=== PATIENT | female | born 1970 | race Caucasian/White ===

== ENCOUNTER 2016-06-21 19:15 | Inpatient (IN) ==
[2016-06-21] MEDS ORDERED: DUONEB (A & A) INH ONE (19:31)
[2016-06-21] MEDS ORDERED: SOLU-MEDROL IV ONE (19:40)
[2016-06-21 19:55] LABS: BE 4.5 mmoll (-3.0-3.0); BLOOD TYPE ARTERIAL; DRAW SITE R BRACHIAL; METHB 1.2 % (0.0-1.5); PCO2(98.6) 43 mmHg (35-45); SAMPLE BLOOD; SAO2 89.7 % (95.0-100.0); THB 12.9 g/dL (11.5-17.4); pH(98.6) 7.44 (7.35-7.45)
[2016-06-21 20:11] LABS: BASO% 0.2 % (0.0-0.8); EOS# 0.01 X1000 (0.0-0.7); EOS% 0.1 % (0.0-10.0); HEMATOCRIT 36.6 % (37.0-47.0); IMM GRAN# 0.03 X1000 (0.0-0.04); IMM GRAN% 0.3 % (0.0-0.5); LYMPH# 1.37 X1000 (1.2-3.4); LYMPH% 13.2 % (20.5-51.1); MANUAL DIFF NEEDED? NO; MCH 29.8 PG (27-31); MCHC 35.5 g/dL (33-37); MCV 83.9 FL (81-99); MONO# 0.98 X1000 (0.11-0.59); MONO% 9.4 % (1.7-9.3); MPV 11.7 FL (7.4-10.4); NEUT% 76.8 % (42.2-75.2); PLT 148 X1000 (130-400); RBC 4.36 XMIL (4.2-5.4)
--- NOTE | 2016-06-21 20:20 | ED EKG INTERP ---
EKG Interpretation - EKG Time of EKG reading by physician:: 19:55 EKG Read and Signed by:: Ehsan Hughes EKG Interpretation (*Must complete 3 of following elements*): Abnormal Rate: 78 Rhythm: NSR Comments: slightly prolonged QT Attestation - Scribe Verification/Attestation Scribe:: Kyle Box Acting as Scribe for:: Ehsan Hughes Scribe documention review:: This chart was documented by a scribe and accurately reflects the service the provider performed and the decisions made by the provider.
[2016-06-21] MEDS ORDERED: TYLENOL PO ONE (20:25)
--- NOTE | 2016-06-21 20:40 | PROVIDER DOCUMENTATION ---
HPI-Respiratory General - History of Present Illness-Resp Quality of Pain: reports: tightness Onset/Duration: reports: 3 days ago Timing: reports: still present, getting worse Current Respiratory Medication Therapy: Initiated albuterol/atrovent inhale Associated Symptoms: reports: cough, shortness of breath, wheezing. denies: fever/chills, flu-like symptoms, nasal drainage Similar Symptoms Previously?: Yes Recently seen or treated by another doctor?: Yes <Kyle Box - Last Filed: 06/21/16 20:35> <Avtar Rangel - Last Filed: 06/21/16 22:17> - General Chief Complaint: Shortness of Breath Stated Complaint: SOB, BODYACHES Time Seen by Provider: 06/21/16 19:36 Allergies/Adverse Reactions: Patient Allergies Allergy/AdvReac Type Severity Reaction Status Date / Time aspirin AdvReac Intermediate reaction Verified 05/02/13 23:12 with stomach ulcers Home Medications: Home Medication List Medication Instructions Recorded Confirmed Last Taken Type LISINOpril [Prinivil] 40 mg PO BID 02/23/12 05/02/13 1 Day Ago History Nebivolol HCl [Bystolic] 10 mg PO DAILY 05/02/13 05/02/13 1 Day Ago History Buprenorphine HCl/Naloxone HCl 8 mg 02/27/16 1 Day Ago History [Suboxone 8 mg/2 mg Sl Film] Clonidine [Catapres] 0.1 mg PO DAILY #30 tablet 02/27/16 06/21/16 Rx Furosemide [Lasix] 40 mg PO DAILY #14 tablet 02/27/16 1 Day Ago Rx - History of Present Illness-Resp Nature of Presenting Problem: 46 y/o F with weakness, wheezing and SOB for 3 days. Pt is a chronic COPD pt smoking nearly 1 ppd. On arrival pt O2 SAT were in the low 80's and immediately put on 2L of O2 and improved to the low 90's/ Pt states she took 3 puffs of her inhaler. (Kyle Box) Review of Systems - Adult - REVIEW OF SYSTEMS - ADULT Constitutional: denies: chills, fever Eyes: reports: no symptoms reported Ears, Nose, Mouth & Throat: reports: no symptoms reported Cardiovascular: reports: no symptoms reported Respiratory: reports: cough, shortness of breath, wheezing Gastrointestinal: denies: abdominal pain, diarrhea, nausea, vomiting Genitourinary: reports: no symptoms reported Musculoskeletal: reports: no symptoms reported Integumentary: reports: no symptoms reported Neurological: reports: no symptoms reported Psychiatric: reports: no symptoms reported Endocrine: reports: no symptoms reported Hematologic/Lymphatic: reports: no symptoms reported Allergic/Immunologic: reports: no symptoms reported All Other Systems: Reviewed and Negative <Kyle Box - Last Filed: 06/21/16 20:35> Past History - Adult - PAST MEDICAL HISTORY-ADULT Review of Records: reports: Old Records Reviewed, Nursing Assessment Review, Medications Reviewed Major Childhood Illnesses: reports: denies history Cardiovascular: reports: HTN Respiratory: reports: asthma, COPD Gastrointestinal: reports: denies history Obstetrical/Gynecological: reports: denies history Genitourinary: reports: denies history Musculoskeletal: reports: chronic pain (back ) Neurological: reports: Seizures/Epilepsy (seizures ) Endocrine/Immune: reports: denies history Other Conditions: reports: denies history - PRIOR SURGERIES/PROCEDURES Surgical/Procedure History: reports: reviewed, not pertinent - IMMUNIZATION STATUS Childhood Immunizations: See Nurse Assessment Flu Vaccine: See Nurse Assessment - FAMILY HISTORY Family History: reviewed, not pertinent - SOCIAL HISTORY Smoking: cigarettes, greater than 1 pack/day Living Situation: family <Kyle Box - Last Filed: 06/21/16 20:35> Physical Exam-General - PHYSICAL EXAM-ADULT Initial Vital Signs Reviewed: Yes - CONSTITUTIONAL General Appearance: appears well, alert - EYES Eyes: PERRL/EOMI, pink conjunctivae - HEAD, EARS, NOSE, MOUTH & THROAT HENMT: moist mucous membranes, normal ENT inspection - NECK Neck: non-tender, full range of motion, supple, normal inspection - RESPIRATORY Respiratory: decreased breath sounds (in all lung cochran), wheezing (all field) - CARDIOVASCULAR Cardiovascular: normal peripheral pulses, regular rate, rhythm - GASTROINTESTINAL (ABDOMEN) Abdominal Exam: normal bowel sounds, non tender, soft - MUSCULOSKELETAL Back Exam: no CVA tenderness, no vertebral tenderness Extremity: normal range of motion, non-tender, normal gait, normal inspection - SKIN Integumentary: normal color, normal turgor, warm/dry - NEUROLOGIC Neurologic: grossly normal, no motor/sensory deficits - PSYCHIATRIC Psych/Mental Status: normal mood/affect, normal thought content, normal thought process, oriented x 3 <Kyle Box - Last Filed: 06/21/16 20:35> Progress <Kyle Box - Last Filed: 06/21/16 20:35> - XRAY 1 XRAY Study: Chest XRAY Interpretation: RLL infiltrate - CONSULTS/PCP/HOSPITALIST Notification #1 *Consult/PCP/Hospitalist*: Dr. Youssef Time Discussed: 22:16 Consult Disposition: Admit <Avtar Rangel - Last Filed: 06/21/16 22:17> - PLAN OF CARE/RESULTS Progress/Plan/Lab Results: Laboratory Tests 06/21/16 06/21/16 06/21/16 19:38 19:40 19:40 WBC RBC Hgb Hct MCV MCH MCHC RDW Std Deviation Plt Count MPV Immature Gran % (Auto) Neut % (Auto) Lymph % (Auto) Trego % (Auto) Eos % (Auto) Baso % (Auto) Immature Gran # (Auto) Neut # (Auto) Lymph # (Auto) Trego # (Auto) Eos # (Auto) Baso # (Auto) D-Dimer Specimen Type ARTERIAL Sample Site R BRACHIAL pH 7.44 pCO2 43 pO2 48 L* HCO3 28.1 H Base Excess 4.5 H Oxyhemoglobin 82.9 L* ABG O2 Sat (Calculated) 15.0 ABG O2 Saturation 89.7 L ABG Carboxyhemoglobin 6.40 H* ABG Methemoglobin 1.2 Wali Test NO A-a O2 Difference 98.0 Total Hemoglobin 12.9 Lactate 1.00 Blood Gas Modality CANNULA FiO2 % 28.0 Sodium 129 L Potassium 3.6 Chloride 87 L Carbon Dioxide 26 Anion Gap 16 BUN 29 H Creatinine 1.8 H Estimated GFR/1.73 m2 30 BUN/Creatinine Ratio 16 Glucose 109 H Calculated Osmolality 265 Calcium 9.0 Total Bilirubin 1.10 H AST 29 ALT 15 Alkaline Phosphatase 90 Creatine Kinase Troponin T Eka-Q-Plilgukjrut Pept 1188 H Total Protein 7.9 Albumin 4.0 Globulin 4.0 Albumin/Globulin Ratio 1.0 06/21/16 06/21/16 06/21/16 19:40 19:40 19:40 WBC 10.38 RBC 4.36 Hgb 13.0 Hct 36.6 L MCV 83.9 MCH 29.8 MCHC 35.5 RDW Std Deviation 13.5 Plt Count 148 MPV 11.7 H Immature Gran % (Auto) 0.3 Neut % (Auto) 76.8 H Lymph % (Auto) 13.2 L Trego % (Auto) 9.4 H Eos % (Auto) 0.1 Baso % (Auto) 0.2 Immature Gran # (Auto) 0.03 Neut # (Auto) 7.97 H Lymph # (Auto) 1.37 Trego # (Auto) 0.98 H Eos # (Auto) 0.01 Baso # (Auto) 0.02 D-Dimer Specimen Type Sample Site pH pCO2 pO2 HCO3 Base Excess Oxyhemoglobin ABG O2 Sat (Calculated) ABG O2 Saturation ABG Carboxyhemoglobin ABG Methemoglobin Wali Test A-a O2 Difference Total Hemoglobin Lactate Blood Gas Modality FiO2 % Sodium Potassium Chloride Carbon Dioxide Anion Gap BUN Creatinine Estimated GFR/1.73 m2 BUN/Creatinine Ratio Glucose Calculated Osmolality Calcium Total Bilirubin AST ALT Alkaline Phosphatase Creatine Kinase 68 Troponin T < 0.010 Diw-T-Unuhwfbpgel Pept Total Protein Albumin Globulin Albumin/Globulin Ratio 06/21/16 19:40 WBC RBC Hgb Hct MCV MCH MCHC RDW Std Deviation Plt Count MPV Immature Gran % (Auto) Neut % (Auto) Lymph % (Auto) Trego % (Auto) Eos % (Auto) Baso % (Auto) Immature Gran # (Auto) Neut # (Auto) Lymph # (Auto) Trego # (Auto) Eos # (Auto) Baso # (Auto) D-Dimer 0.70 H Specimen Type Sample Site pH pCO2 pO2 HCO3 Base Excess Oxyhemoglobin ABG O2 Sat (Calculated) ABG O2 Saturation ABG Carboxyhemoglobin ABG Methemoglobin Wali Test A-a O2 Difference Total Hemoglobin Lactate Blood Gas Modality FiO2 % Sodium Potassium Chloride Carbon Dioxide Anion Gap BUN Creatinine Estimated GFR/1.73 m2 BUN/Creatinine Ratio Glucose Calculated Osmolality Calcium Total Bilirubin AST ALT Alkaline Phosphatase Creatine Kinase Troponin T San-F-Vzqiesxlnzc Pept Total Protein Albumin Globulin Albumin/Globulin Ratio Orders Category Date Time Status Cardiac Monitoring DIRECTED Care 06/21/16 19:31 Active Oxygen Therapy- ED Nursing DIRECTED Care 06/21/16 19:31 Active Saline Loc NOW Care 06/21/16 19:31 Active CHEST-2 VIEWS [RAD] Stat Exams 06/21/16 19:31 Taken ABG [RESP] Routine Lab 06/21/16 19:38 Completed BLOOD CULTURE [BLDCUL] Stat Lab 06/21/16 22:15 Ordered CBC WITH DIFF [HEME] Stat Lab 06/21/16 19:40 Completed CK PROFILE [SP CHEM] Stat Lab 06/21/16 19:40 Completed COMPREHENSIVE METABOLIC PANEL [CHEM] Stat Lab 06/21/16 19:40 [address] D-DIMER PL [COAG] Stat Lab 06/21/16 19:40 Completed PRO B-NATRIURETIC PEPTIDE Stat Lab 06/21/16 19:40 Completed TROPONIN T Stat Lab 06/21/16 19:40 Completed 0.9% Sodium Chloride Inj [Ns] 1,000 ml Med 06/21/16 21:01 Discontinued IV 999 mls/hr Acetaminophen [Tylenol] Med 06/21/16 20:25 Discontinued 1,000 mg PO NOW ONE Albuterol 2.5MG/Ipratrop 0.5MG [Duoneb (A & A)] Med 06/21/16 19:31 Discontinued 3 ml INH NOW ONE CefTRIAXONE 1 GM/NS [Rocephin 1 gm/Ns] 50 ml Med 06/21/16 22:15 Active IV NOW Enoxaparin 1 mg/kg [Lovenox 1 mg/kg] Med 06/21/16 21:34 Discontinued 1 each SUBQ NOW ONE Methylprednisolone Sod Succ [Solu-Medrol] Med 06/21/16 19:40 Discontinued 80 mg IV NOW ONE Aerosol Treatments Routine Oth 06/21/16 19:32 Completed Aerosol Treatments Stat Oth 06/21/16 19:32 Completed Pulse Oximetry Stat Oth 06/21/16 19:31 Completed EKG [EKG] Stat Ther 06/21/16 19:40 Ordered Vital Signs Temp Pulse Resp BP Pulse Ox 06/21/16 19:40 81 20 89 L 06/21/16 19:24 98.7 F 91 H 16 133/97 87 L aspirin Adverse Reaction (Intermediate, Verified 05/02/13 23:12) reaction with stomach ulcers LISINOpril [Prinivil] 40 mg PO BID 02/23/12 Nebivolol HCl [Bystolic] 10 mg PO DAILY 05/02/13 Buprenorphine HCl/Naloxone HCl [Suboxone 8 mg/2 mg Sl Film] 8 mg 02/27/16 Clonidine [Catapres] 0.1 mg PO DAILY #30 tablet 02/27/16 Furosemide [Lasix] 40 mg PO DAILY #14 tablet 02/27/16 Laboratory 0306/21/16 06/21/16 19:40 19:40 19:40 WBC RBC Hgb Hct MCV MCH MCHC RDW Std Deviation Plt Count MPV Immature Gran % (Auto) Neut % (Auto) Lymph % (Auto) Trego % (Auto) Eos % (Auto) Baso % (Auto) Immature Gran # (Auto) Neut # (Auto) Lymph # (Auto) Trego # (Auto) Eos # (Auto) Baso # (Auto) D-Dimer 0.70 H Specimen Type Sample Site pH pCO2 pO2 HCO3 Base Excess Oxyhemoglobin ABG O2 Sat (Calculated) ABG O2 Saturation ABG Carboxyhemoglobin ABG Methemoglobin Wali Test A-a O2 Difference Total Hemoglobin Lactate Blood Gas Modality FiO2 % Sodium Potassium Chloride Carbon Dioxide Anion Gap BUN Creatinine Estimated GFR/1.73 m2 BUN/Creatinine Ratio Glucose Calculated Osmolality Calcium Total Bilirubin AST ALT Alkaline Phosphatase Creatine Kinase 68 Troponin T < 0.010 Idl-U-Lgivykxvloo Pept Total Protein Albumin Globulin Albumin/Globulin Ratio 06/21/16 06/21/16 06/21/16 19:40 19:40 19:40 WBC 10.38 RBC 4.36 Hgb 13.0 Hct 36.6 L MCV 83.9 MCH 29.8 MCHC 35.5 RDW Std Deviation 13.5 Plt Count 148 MPV 11.7 H Immature Gran % (Auto) 0.3 Neut % (Auto) 76.8 H Lymph % (Auto) 13.2 L Trego % (Auto) 9.4 H Eos % (Auto) 0.1 Baso % (Auto) 0.2 Immature Gran # (Auto) 0.03 Neut # (Auto) 7.97 H Lymph # (Auto) 1.37 Trego # (Auto) 0.98 H Eos # (Auto) 0.01 Baso # (Auto) 0.02 D-Dimer Specimen Type Sample Site pH pCO2 pO2 HCO3 Base Excess Oxyhemoglobin ABG O2 Sat (Calculated) ABG O2 Saturation ABG Carboxyhemoglobin ABG Methemoglobin Wali Test A-a O2 Difference Total Hemoglobin Lactate Blood Gas Modality FiO2 % Sodium 129 L Potassium 3.6 Chloride 87 L Carbon Dioxide 26 Anion Gap 16 BUN 29 H Creatinine 1.8 H Estimated GFR/1.73 m2 30 BUN/Creatinine Ratio 16 Glucose 109 H Calculated Osmolality 265 Calcium 9.0 Total Bilirubin 1.10 H AST 29 ALT 15 Alkaline Phosphatase 90 Creatine Kinase Troponin T Gbe-K-Hqfjhriwpne Pept 1188 H Total Protein 7.9 Albumin 4.0 Globulin 4.0 Albumin/Globulin Ratio 1.0 06/21/16 19:38 WBC RBC Hgb Hct MCV MCH MCHC RDW Std Deviation Plt Count MPV Immature Gran % (Auto) Neut % (Auto) Lymph % (Auto) Trego % (Auto) Eos % (Auto) Baso % (Auto) Immature Gran # (Auto) Neut # (Auto) Lymph # (Auto) Trego # (Auto) Eos # (Auto) Baso # (Auto) D-Dimer Specimen Type ARTERIAL Sample Site R BRACHIAL pH 7.44 pCO2 43 pO2 48 L* HCO3 28.1 H Base Excess 4.5 H Oxyhemoglobin 82.9 L* ABG O2 Sat (Calculated) 15.0 ABG O2 Saturation 89.7 L ABG Carboxyhemoglobin 6.40 H* ABG Methemoglobin 1.2 Wali Test NO A-a O2 Difference 98.0 Total Hemoglobin 12.9 Lactate 1.00 Blood Gas Modality CANNULA FiO2 % 28.0 Sodium Potassium Chloride Carbon Dioxide Anion Gap BUN Creatinine Estimated GFR/1.73 m2 BUN/Creatinine Ratio Glucose Calculated Osmolality Calcium Total Bilirubin AST ALT Alkaline Phosphatase Creatine Kinase Troponin T Fda-H-Qqwebtldcct Pept Total Protein Albumin Globulin Albumin/Globulin Ratio v/q scan cannot be done til morning. Will give lovenox prophylactically and admit. (Avtar Rangel) Departure <Kyle Box - Last Filed: 06/21/16 20:35> - Departure Time of Disposition Order: 22:17 Certified Medical Emergency: Emergent <Avtar Rangel - Last Filed: 06/21/16 22:17> - Departure DIAGNOSIS: Hypoxemia, COPD exacerbation, Elevated d-dimer Pneumonia Qualifiers: Pneumonia type: due to unspecified organism Laterality: right Lung location: lower lobe of lung Qualified Code(s): J18.1 - Lobar pneumonia, unspecified organism Disposition: ADMITTED INPATIENT 09 Condition: Stable Attestation - Scribe Verification/Attestation Scribe:: Kyle Box Acting as Scribe for:: Avtar Rangel Scribe documention review:: This chart was documented by a scribe and accurately reflects the service the provider performed and the decisions made by the provider. <Kyle Box - Last Filed: 06/21/16 20:35> - Physician/ SARAH Attestation Patient care was provided by Advanced Practice Provider:: Yes Advanced Practice Provider:: Avtar Rangel Advanced Practice Provider documentation review:: The Mid-level provider documentation, treatment plan and medical decision making was reviewed by the physician who agrees with all treatment and medical decision making by the MLP. <Avtar Rangel - Last Filed: 06/21/16 22:17> Physician Attestation
[2016-06-21 20:41] LABS: POTASSIUM 3.6 mmol/L (3.5-5.1); TOTAL BILIRUBIN 1.1 mg/dL (0.20-1.00); TOTAL PROTEIN 7.9 g/dL (6.3-8.3)
[2016-06-21] MEDS ORDERED: NS 1,000 ML IV ONE (21:01)
[2016-06-21] MEDS ORDERED: LOVENOX 1 MG/KG SUBQ ONE (21:34)
[2016-06-21 22:07] LABS: ALLEN TEST NO; MODALITY CANNULA; PO2(98.6) 48 mmHg (60-100)
[2016-06-21] MEDS ORDERED: ROCEPHIN 1 GM/NS 50 ML IV ONE (22:15)
[2016-06-21] MEDS ORDERED: TYLENOL PO PRN (22:35)
[2016-06-21] MEDS ORDERED: LOVENOX ONE (23:04)
[2016-06-22] MEDS: DUONEB (A & A) INH SCH ×7 (00:18→22:49)
--- NOTE | 2016-06-22 04:29 | EKG Report ---
Test Performed on : 06/21/2016 7:55:40 PM Test Reason : SOB Blood Pressure : / mmHG Vent. Rate : 078 BPM Atrial Rate : 078 BPM P-R Int : 140 ms QRS Dur : 084 ms QT Int : 432 ms P-R-T Axes : 068 060 059 degrees QTc Int : 492 ms Normal sinus rhythm. Prolonged QT Abnormal ECG When compared with ECG of 27-FEB-2016 14:47, No significant change was found Unconfirmed Result
--- NOTE | 2016-06-22 08:18 | Diag Imaging Result Document ---
PROCEDURE NAME: CHEST-2 VIEWS - 06/21/2016 2 VIEWS OF THE CHEST: FINDINGS: There is atelectasis or pneumonia in the lingula and possibly the left lower lobe. This appears worse than on 02/27/2016. IMPRESSION: Lingular and possible left lower lobe atelectasis versus pneumonia.
[2016-06-22] MEDS ORDERED: LOVENOX SUBQ SCH (09:30)
[2016-06-22 10:06] LABS: MANUAL DIFF NEEDED? NO
[2016-06-22 10:08] LABS: BASO% 0.6 % (0.0-0.8); HEMATOCRIT 35.8 % (37.0-47.0); HEMOGLOBIN 12.7 g/dL (12.0-16.0); IMM GRAN# 0.01 X1000 (0.0-0.04); IMM GRAN% 0.2 % (0.0-0.5); LYMPH# 0.62 X1000 (1.2-3.4); LYMPH% 13.1 % (20.5-51.1); MCHC 35.5 g/dL (33-37); MCV 84.4 FL (81-99); MONO# 0.18 X1000 (0.11-0.59); MONO% 3.8 % (1.7-9.3); MPV 10.9 FL (7.4-10.4); NEUT% 82.3 % (42.2-75.2); PLT 133 X1000 (130-400); RBC 4.24 XMIL (4.2-5.4)
--- NOTE | 2016-06-22 10:19 | HISTORY AND PHYSICAL ---
PRIMARY CARE PHYSICIAN: COLIN Clark CHIEF COMPLAINT: Shortness of breath and wheezing for 3 days that progressively worsened. HISTORY OF PRESENTING ILLNESS: This is a 46-year-old, female, who presented to [facility] Emergency Room, with complaints of shortness of breath and wheezing for 3 days that had progressively worsened. Also complained of a nonproductive cough, body aches, chills, and a subjective fever. When she arrived, she had an O2 saturation on room air of 87% . Workup showed a white blood cell count of 10.38. She had a D-dimer of 0.70. Her sodium was 129 , chloride 87, BUN was 29, with a creatinine of 1.8. ProBNP was 1188. ABG showed a pH of 7.44, pCO2 of 43, pO2 of 48, bicarb 28.1 on 28% FiO2 via nasal cannula. Her chest x-ray showed lingular and possible left lower lobe atelectasis versus pneumonia. So, she has been admitted for further evaluation and treatment. PAST MEDICAL HISTORY: Chronic obstructive pulmonary disease, hypertension, chronic pain, and seizures. PAST SURGICAL HISTORY: Noncontributory. FAMILY HISTORY: Noncontributory. SOCIAL HISTORY: She currently lives with her family. Smokes 1 pack of cigarettes a day and has done so for the past 30 years. Denies any alcohol or illicit drug use. ALLERGIES: Aspirin. HOME MEDICATIONS: We will obtain a current list of her home medications and restart as appropriate. LABORATORY DATA: Showed a white blood cell count of 10.38, hemoglobin 13, hematocrit 36.6, platelets 148,000. D-dimer of 0.70. ABG with a pH of 7.44, pCO2 of 43, PO2 48 , bicarb 28.1. Sodium 128, potassium 3.6, chloride 87, CO2 26, BUN of 29, creatinine 1.8. Glucose 109. Creatine kinase of 68 with a troponin of less than 0.010. ProBNP of 1188. Chest x-ray showed a lingular and possible left lower lobe atelectasis versus pneumonia. Electrocardiogram with normal sinus rhythm at 78. REVIEW OF SYSTEMS: She was positive for a subjective fever, chills, body aches , nonproductive cough, shortness of breath, and wheezing. Denied any abdominal pain, constipation, diarrhea, burning or hurting with urination. PHYSICAL EXAMINATION: VITAL SIGNS: Temperature 98.7 degrees, pulse of 91, respirations 16, blood pressure 133/97, saturating 87% on room air. This a.m., she was only saturating 91% on 2 L. We did a repeat ABG. I do not have those specific numbers in front of me, but we did increase her O2 to 4-1/2 L and her O2 saturation has come up to 95%. GENERAL: This is a 46-year-old, female who is lying in the bed and answers questions appropriately. HEENT: Normocephalic and atraumatic. Pupils are equal, round, and reactive to light. Oropharynx and nares are clear. NECK: Supple. LUNGS: With wheezing throughout entire posterior lung cochran. Equal lung expansion and chest wall movement. Again, the patient on O2 at 4.5 L. States she still feels short of breath. HEART: Regular rate and rhythm. No murmurs, rubs, or gallops. ABDOMEN: Soft, nontender, nondistended. Bowel sounds are present x4 quadrants. EXTREMITIES: There is no clubbing, cyanosis, or edema. NEUROLOGICAL: The cranial nerves 2-12 are grossly intact. ASSESSMENT: 1. Left lower lobe pneumonia. 2. Acute respiratory failure. 3. Hyponatremia. 4. Acute kidney injury. 5. Elevated D-dimer. PLAN: She is admitted to the medical unit at [facility]. Placed on telemetry. O2 per protocol. Healthy heart diet. Blood cultures x2 are pending. We are going to recheck a CBC and a BMP this a.m., and a V/Q scan of her lungs to rule out a pulmonary embolus. It appears she was given Lovenox 1 mg/kg subcu in the ER last night, along with Solu-Medrol 80 and we will continue her Lovenox. Continue her Rocephin 1 gram IV q.24. Will add Zithromax 500 mg IV q.24, normal saline at 75 mL an hour, and Solu-Medrol 80 mg IV q.6. Recheck CBC and a BMP in the a.m. Dictated by COLIN Contreras for Chip Youssef MD pt examined, agree with above, copd exacerbation with pneumonia, agree with abx and tobacco cessation, unlikely to be dvt/pe; will check dopplers in am APENOT MTDD
[2016-06-22 10:34] LABS: CALCIUM 8.8 mg/dL (8.8-10.2); POTASSIUM 3.8 mmol/L (3.5-5.1)
[2016-06-22] MEDS: ZITHROMAX 500 MG/NS 250 ML IV SCH (10:38)
[2016-06-22] MEDS: SOLU-MEDROL IV SCH ×3 (10:38→21:06)
[2016-06-22] MEDS: NICODERM PATCH TD PRN (10:38)
[2016-06-22] MEDS: LOVENOX SUBQ SCH ×2 (10:38→21:06)
[2016-06-22] MEDS: NS 1,000 ML IV SCH (10:40)
--- NOTE | 2016-06-22 13:37 | Diag Imaging Result Document ---
PROCEDURE NAME: LUNG SCAN / VQ - 06/22/2016 VENTILATION-PERFUSION LUNG SCAN: FINDINGS: There is some ventilation-perfusion mismatch with decreased ventilation to the lingula and left lower lobe which is perfused on the perfusion portion. There are no absolute perfusion defects demonstrated. The most recent previous chest radiograph from 06/21/2016 demonstrates some air space disease in the lingula. IMPRESSION: No evidence of pulmonary emboli. Low probability study.
[2016-06-22] MEDS ORDERED: DUONEB (A & A) INH PRN (16:39)
[2016-06-22] MEDS ORDERED: ZOFRAN IV PRN (16:40)
[2016-06-22] MEDS: ROCEPHIN 1 GM/NS 50 ML IV SCH (21:06)
[2016-06-22] MEDS: SUBOXONE 8 MG/2 MG SL SCH (21:07)
[2016-06-23] MEDS: NS 1,000 ML IV SCH ×2 (03:05→12:32)
[2016-06-23] MEDS: DUONEB (A & A) INH SCH ×6 (03:31→23:20)
[2016-06-23] MEDS: SOLU-MEDROL IV SCH ×5 (03:38→23:28)
[2016-06-23 06:18] LABS: MANUAL DIFF NEEDED? NO
[2016-06-23 06:25] LABS: BASO% 0.1 % (0.0-0.8); HEMATOCRIT 34.7 % (37.0-47.0); IMM GRAN# 0.03 X1000 (0.0-0.04); IMM GRAN% 0.4 % (0.0-0.5); LYMPH# 0.73 X1000 (1.2-3.4); LYMPH% 10.8 % (20.5-51.1); MCH 29.8 PG (27-31); MCHC 34.6 g/dL (33-37); MCV 86.1 FL (81-99); MONO# 0.26 X1000 (0.11-0.59); MONO% 3.9 % (1.7-9.3); MPV 11.1 FL (7.4-10.4); NEUT% 84.8 % (42.2-75.2); PLT 154 X1000 (130-400); RBC 4.03 XMIL (4.2-5.4)
[2016-06-23 07:34] LABS: CALCIUM 8.8 mg/dL (8.8-10.2); POTASSIUM 3.8 mmol/L (3.5-5.1)
[2016-06-23] MEDS: ZITHROMAX 500 MG/NS 250 ML IV SCH (09:05)
[2016-06-23] MEDS: SUBOXONE 8 MG/2 MG SL SCH ×2 (09:05→21:03)
[2016-06-23] MEDS: LOVENOX SUBQ SCH (09:05)
[2016-06-23] MEDS ORDERED: APRESOLINE IV PRN (10:00)
[2016-06-23] MEDS: CATAPRES PO SCH ×2 (10:18→21:03)
[2016-06-23] MEDS: NICODERM PATCH TD PRN ×2 (12:32→15:57)
[2016-06-23] MEDS ORDERED: DESYREL PO PRN (14:58)
[2016-06-23] MEDS ORDERED: ZANAFLEX PO PRN (14:58)
--- NOTE | 2016-06-23 15:46 | PROGRESS NOTE ---
DATE: 06/23/2016 SUBJECTIVE: Patient has no focal complaints. OBJECTIVE: Breathing has overall improved.Vital signs: Blood pressure 195/106, heart rate of 78, respiratory rate 14, temperature 97.4 degrees, 97% on 2 L. Cardiovascular: Regular rate and rhythm. Pulmonary: Bilateral breath sounds. Clear to auscultation. GI: Soft, nontender, nondistended. Bowel sounds are positive. LABORATORY DATA: Showed a white count of 6, hemoglobin and hematocrit 12 and 34. Chemistries were unremarkable, creatinine down to 1. PROBLEM LIST: 1. Chronic obstructive pulmonary disease exacerbation. Clinically, she has improved. I think we could probably decrease her steroids, I am going to drop her down to 60 q.8, continue breathing treatments and follow clinically. 2. Acute kidney injury. She has resolving renal function. 3. Pneumonia or presumed pneumonia in her left lower lobe, and will continue empiric antibiotics. 4. Tobacco abuse. Discussed cessation. 5. Hypertension. Resume her on her regular medications and follow. DISPOSITION: Probably home in 1-2 days.
[2016-06-23] MEDS: PRINIVIL PO SCH (15:57)
[2016-06-23] MEDS ORDERED: NALOXONE HCL PO SCH (21:00)
[2016-06-23] MEDS ORDERED: BUPRENORPHINE HCL PO SCH (21:00)
[2016-06-23] MEDS: ROCEPHIN 1 GM/NS 50 ML IV SCH (21:03)
[2016-06-24] MEDS: DUONEB (A & A) INH SCH ×6 (03:45→22:33)
[2016-06-24] MEDS: PRILOSEC PO SCH (06:19)
[2016-06-24 07:02] LABS: HEMATOCRIT 36.2 % (37.0-47.0); HEMOGLOBIN 12.3 g/dL (12.0-16.0); MCH 29.5 PG (27-31); MCV 86.8 FL (81-99); MPV 10.6 FL (7.4-10.4); RBC 4.17 XMIL (4.2-5.4)
[2016-06-24 07:28] LABS: AGAP 11; BUN 13 mg/dL (8-22); CALCIUM 8.9 mg/dL (8.8-10.2); CHLORIDE 99 mmol/L (98-107); COSMO 274; POTASSIUM 3.9 mmol/L (3.5-5.1); SODIUM 136 mmol/L (136-145); TCO2 26 mmol/L (25-35)
[2016-06-24] MEDS: SOLU-MEDROL IV SCH ×3 (08:16→23:16)
[2016-06-24] MEDS: MOBIC PO SCH (08:17)
[2016-06-24] MEDS: SUBOXONE 8 MG/2 MG SL SCH ×2 (08:17→20:42)
[2016-06-24] MEDS: LOVENOX SUBQ SCH (08:17)
[2016-06-24] MEDS: PRINIVIL PO SCH (08:17)
[2016-06-24] MEDS: CATAPRES PO SCH ×2 (08:17→20:42)
[2016-06-24] MEDS: LASIX PO SCH (08:17)
[2016-06-24] MEDS: ZITHROMAX 500 MG/NS 250 ML IV SCH (10:04)
[2016-06-24] MEDS: XANAX PO PRN ×2 (12:00→20:50)
[2016-06-24] MEDS ORDERED: DESYREL PO PRN (13:55)
[2016-06-24 16:15] VITALS: BP 185/104
[2016-06-24] MEDS: NICODERM PATCH TD PRN ×2 (16:33)
--- NOTE | 2016-06-24 17:28 | PROGRESS NOTE ---
DATE: 06/24/2016 SUBJECTIVE: The patient has no real complaints. She states that she is feeling better. She denies any chest pain, any fever or chills, PND or orthopnea. OBJECTIVE: Vital Signs: Blood pressure is a 155/81, heart rate is 67, respirations are 20, temperature is 97.6 degrees oral with oxygen saturations of 96-98% on 2 L nasal cannula. Cardiovascular: Regular rate and rhythm S1, S2 appreciated. Pulmonary: Breath sounds are clear with no increased work of breathing noted. Gastrointestinal: Abdomen is soft, nontender, nondistended with bowel sounds in all 4 quadrants. Extremities: No clubbing, cyanosis, or edema. Calves are nontender. Pulses are palpable x4. LABORATORY DATA: WBC is 8 with a hemoglobin of 12.3, hematocrit 36.2 and platelets of 197,000. Sodium is 136, potassium 3.9, BUN 13, creatinine 0.9, with a glucose of 138, blood cultures revealed no growth after 48 hours. ASSESSMENT AND PLAN: 1. Chronic chronic obstructive pulmonary disease with acute exacerbation. Clinically she is improved. We will decrease her steroids and continue with her current regimen. 2. Acute kidney injury. This is resolved with her creatinine being 0.9 today. We will continue to follow. 3. Presumed pneumonia in the left lower lobe. We will continue her antibiotics as stated before, blood cultures were negative. 4. Tobacco abuse. We did discuss smoking cessation, which she is not at a point that she wishes to stop. 5. Hypertension. We will continue on her medications. Dictated by COLIN Mathew for Pastor Acharya MD cc: COLIN Mathew MD
[2016-06-24] MEDS: OMNICEF PO SCH (20:42)
[2016-06-25] MEDS: XANAX PO PRN (06:55)
[2016-06-25] MEDS: PRILOSEC PO SCH (07:00)
[2016-06-25] MEDS: DUONEB (A & A) INH SCH ×2 (07:30→11:15)
[2016-06-25] MEDS: SOLU-MEDROL IV SCH ×2 (08:00→17:11)
[2016-06-25] MEDS: LASIX PO SCH (09:00)
[2016-06-25] MEDS: MOBIC PO SCH (09:00)
[2016-06-25] MEDS: SUBOXONE 8 MG/2 MG SL SCH (09:00)
[2016-06-25] MEDS ORDERED: ZITHROMAX PO SCH (09:00)
[2016-06-25] MEDS: LOVENOX SUBQ SCH (09:00)
[2016-06-25] MEDS: OMNICEF PO SCH (09:00)
[2016-06-25] MEDS: PRINIVIL PO SCH (09:00)
[2016-06-25] MEDS: CATAPRES PO SCH (09:00)
--- NOTE | 2016-06-25 14:33 | DISCHARGE SUMMARY ---
ADMISSION DATE: 06/21/2016 DISCHARGE DATE: 06/25/2016 DISCHARGE DIAGNOSIS: 1. Chronic obstructive pulmonary disease with exacerbation, improving. 2. Acute anxiety secondary to her steroids. 3. Chronic tobacco abuse. 4. Chronic opiate abuse. Currently on Suboxone treatment program. 5. Pneumonia left lower lobe. 6. Hypertension. CONSULTATIONS: None. PROCEDURES: None. BRIEF HOSPITAL COURSE: Patient is a 46-year-old female, who was admitted as noted in the HPI, treated in the usual fashion. She was placed on IV steroids, antibiotics, breathing treatments and given a nicotine patch. Her home Suboxone was continued. She had an uneventful hospital course. She was noted to have some panic attacks during the hospital secondary to her steroids. Xanax seemed to improve this quite easily. DISPOSITION: Discussed with patient that she cannot take Xanax and Suboxone on any regular basis as the two of these can cause her to have respiratory suppression and . I also discussed with the patient that her chronic nicotine use and abuse also will lead to respiratory suppression and . The patient will be discharged home. Prescription for Xanax #10 tablets 0.5 twice a day as needed only was given. She was given a prescription for Omnicef, azithromycin, albuterol and a nicotine patch. She will follow up outpatient with COLIN Padilla at [facility] in 1-2 weeks. Again, I discussed with the patient that she has to stop smoking. TIME SPENT: Greater than 35 minutes was spent in discharge planning and instructions. cc: Pastor Acharya MD
== END 2016-06-25 13:48 | disposition home or self-care (01) ==
LOC: P.ED 19:15 → P.MEDSURG 22:49
PROVIDERS: ATTEND Internal Medicine

== ENCOUNTER 2016-07-29 02:21 | Inpatient (IN) ==
[2016-07-29 02:46] LABS: MANUAL DIFF NEEDED? NO
[2016-07-29 02:53] LABS: BASO% 0.4 % (0.0-0.8); EOS# 0.09 X1000 (0.0-0.7); EOS% 0.9 % (0.0-10.0); HEMATOCRIT 41.9 % (37.0-47.0); HEMOGLOBIN 14.5 g/dL (12.0-16.0); IMM GRAN# 0.02 X1000 (0.0-0.04); IMM GRAN% 0.2 % (0.0-0.5); LYMPH# 2.02 X1000 (1.2-3.4); LYMPH% 20.4 % (20.5-51.1); MCH 30.4 PG (27-31); MCHC 34.6 g/dL (33-37); MCV 87.8 FL (81-99); MONO# 0.74 X1000 (0.11-0.59); MONO% 7.5 % (1.7-9.3); MPV 11.6 FL (7.4-10.4); NEUT% 70.6 % (42.2-75.2); PLT 218 X1000 (130-400); RBC 4.77 XMIL (4.2-5.4)
[2016-07-29] MEDS ORDERED: AMMONIA AROMATIC ONE (02:53)
[2016-07-29 03:06] LABS: BE 2.9 mmoll (-3.0-3.0); BLOOD TYPE ARTERIAL; DRAW SITE L RADIAL; METHB 1.3 % (0.0-1.5); O2(CT) 20.1 mL/dL (15.0-23.0); PCO2(98.6) 46 mmHg (35-45); PO2(98.6) 83 mmHg (60-100); SAMPLE BLOOD; THB 15.3 g/dL (11.5-17.4)
[2016-07-29 03:07] LABS: UR AMPHETAMINES QUAL NONE DETECTED (NONE DETECT); UR BARBITUATES QUAL NONE DETECTED (NONE DETECT); UR BENZODIAZEPIN QUAL PRESUMPTIVE POSITIVE (NONE DETECT); UR CANNABINOIDS QUAL NONE DETECTED (NONE DETECT); UR COCAINE QUAL NONE DETECTED (NONE DETECT); UR MDMA QUAL NONE DETECTED (NONE DETECT); UR METHADONE QUAL NONE DETECTED (NONE DETECT); UR METHAMPHETAMINE QUAL NONE DETECTED (NONE DETECT); UR OPIATES QUAL PRESUMPTIVE POSITIVE (NONE DETECT); UR OXYCODONE QUAL NONE DETECTED (NONE DETECT); UR PCP QUAL NONE DETECTED (NONE DETECT); UR TCA QUAL NONE DETECTED (NONE DETECT)
[2016-07-29 03:10] LABS: BILIRUBIN URINE 1+ (NEGATIVE); BLOOD URINE NEGATIVE (NEGATIVE); CLARITY HAZY (CLEAR); COLOR AMBER; GLUCOSE URINE NEGATIVE (NEGATIVE); LEUKOCYTES URINE 1+ (NEGATIVE); NITRITE URINE NEGATIVE (NEGATIVE); PROTEIN URINE TRACE mg/dL (NEGATIVE); UROBILINOGEN URINE 1+(1 mg/dL)
[2016-07-29 03:13] LABS: URINE CAST GRANULAR PRESENT /LPF; URINE CULTURE PL NEEDED? YES; URINE EPITHELIAL CELLS <10 /HPF (<10); URINE WBC <10 /HPF (<10)
[2016-07-29 03:13] LABS: ALBUMIN 4.3 g/dL (3.5-5.0); CALCIUM 10.3 mg/dL (8.8-10.2); POTASSIUM 3.7 mmol/L (3.5-5.1); TOTAL BILIRUBIN 0.7 mg/dL (0.20-1.00)
[2016-07-29 03:14] LABS: URINE CRYSTAL CA OXALATE PRESENT /HPF; URINE SOURCE CATH
--- NOTE | 2016-07-29 03:14 | PROVIDER DOCUMENTATION ---
HPI-Psychological Disorder - General Chief Complaint: Altered Mental Status Stated Complaint: AMS Time Seen by Provider: 07/29/16 02:31 Source: patient Allergies/Adverse Reactions: Patient Allergies Allergy/AdvReac Type Severity Reaction Status Date / Time aspirin AdvReac Intermediate reaction Verified 07/29/16 02:47 with stomach ulcers Home Medications: Home Medication List Medication Instructions Recorded Confirmed Last Taken Type LISINOpril [Prinivil] 40 mg PO DAILY 02/23/12 07/29/16 1 Day Ago History Furosemide [Lasix] 40 mg PO DAILY #14 tablet 02/27/16 08/03/16 1 Day Ago Rx Albuterol Sulfate [Proair Hfa] 2 puff INH Q4-6H PRN PRN 06/23/16 07/29/16 Unknown History Clonidine [Catapres] 0.1 mg PO BID 06/23/16 07/29/16 06/21/16 History Omeprazole [Prilosec] 40 mg PO DAILY 06/23/16 07/29/16 Unknown History Trazodone [Desyrel] 150 mg PO HS PRN PRN 06/23/16 07/29/16 Unknown History Albuterol 2.5MG/Ipratrop 0.5MG 3 ml INH Q2H PRN PRN #120 neb 06/24/16 07/29/16 Unknown Rx [Duoneb (A & A)] Alprazolam [Xanax] 0.5 mg PO BID PRN PRN #10 tablet 06/24/16 07/29/16 Unknown Rx Baclofen [Lioresal] 20 mg PO 0900,1500,2100 #30 tablet 08/05/16 Unknown Rx Chlordiazepoxide [Librium] 25 mg PO TID #30 capsule 08/05/16 Unknown Rx Pregabalin [Lyrica] 75 mg PO BID #60 capsule 08/05/16 Unknown Rx - History of Present Illness-Psych Nature of Presenting Problem: Pt was found in the floor banging her head daughter found pt and brought to ER. Pt has altered mental status upon arrival and unable to give any details. Onset/Duration: reports: just prior to arrival Timing: reports: still present Severity: reports: moderate Review of Systems - Adult - REVIEW OF SYSTEMS - ADULT ROS:: ROS per family Constitutional: denies: chills, fatique, weight loss Eyes: reports: no symptoms reported Ears, Nose, Mouth & Throat: denies: ear pain, sinus problem, throat pain Cardiovascular: reports: no symptoms reported Respiratory: reports: no symptoms reported Gastrointestinal: reports: no symptoms reported Genitourinary: reports: no symptoms reported Musculoskeletal: reports: no symptoms reported Integumentary: reports: no symptoms reported Neurological: reports: see HPI. denies: numbness, paresthesia, seizure, slurred speech Psychiatric: reports: see HPI Endocrine: reports: no symptoms reported Hematologic/Lymphatic: reports: no symptoms reported Allergic/Immunologic: reports: no symptoms reported All Other Systems: Reviewed and Negative Past History - Adult - PAST MEDICAL HISTORY-ADULT Review of Records: reports: Nursing Assessment Review, Medications Reviewed Major Childhood Illnesses: reports: denies history Cardiovascular: reports: HTN Respiratory: reports: asthma, COPD Gastrointestinal: reports: denies history Obstetrical/Gynecological: reports: denies history Genitourinary: reports: denies history Musculoskeletal: reports: chronic pain (back ) Neurological: reports: Seizures/Epilepsy (seizures ) Endocrine/Immune: reports: denies history Other Conditions: reports: denies history - PRIOR SURGERIES/PROCEDURES Surgical/Procedure History: reports: reviewed, not pertinent - IMMUNIZATION STATUS Childhood Immunizations: See Nurse Assessment Flu Vaccine: See Nurse Assessment - FAMILY HISTORY Family History: reviewed, not pertinent - SOCIAL HISTORY Smoking: cigarettes, greater than 1 pack/day Substance Use: none/never Physical Exam-Psych Focus - Physical Exam-Psych Initial Vital Signs Reviewed: Yes Appearance: alert, anxious, disheveled Neurological: alert. negative: normal mood/affect, calm, oriented x 3 Behavior/Eye Contact/Speech: good eye contact HENMT: moist mucous membranes, normal ENT inspection, TMs normal, pharynx normal Neck: full range of motion, supple, normal inspection Respiratory: chest non-tender, lungs clear, normal breath sounds, no pleuratic chest pain, no respiratory distress, no accessory muscle use Cardiovascular: bradycardia Abdominal Exam: non tender, soft, no organomegaly, no pulsatile mass Extremity: normal range of motion, non-tender Integumentary: normal color, normal turgor, warm/dry Progress - PLAN OF CARE/RESULTS Progress/Plan/Lab Results: Orders Category Date Time Status Admit - [facility] Routine AdmDCTranf 07/29/16 05:56 Ordered Call Admitting on Arrival AT ADMISSION Care 07/29/16 05:57 Completed Cardiac Monitoring DIRECTED Care 07/29/16 02:37 Completed Neurological Check Q4H Care 07/29/16 05:57 Completed Oxygen Therapy- ED Nursing DIRECTED Care 07/29/16 02:37 Completed Saline Loc DIRECTED Care 07/29/16 05:56 Completed Saline Loc NOW Care 07/29/16 02:37 Completed Vital Signs Order ARRIVAL TO ROOM Care 07/29/16 05:56 Completed CHEST-PORTABLE [RAD] Stat Exams 07/29/16 02:37 Completed HEAD/C-SPINE W/O CONTRAST [CT] Stat Exams 07/29/16 03:50 Completed ABG [RESP] Routine Lab 07/29/16 02:52 Completed ALCOHOL BLOOD Stat Lab 07/29/16 02:35 Completed CBC WITH ELECTRONIC DIFF [HEME] Stat Lab 07/29/16 02:35 Completed CK PROFILE [SP CHEM] Stat Lab 07/29/16 02:35 Completed COMPREHENSIVE METABOLIC PANEL [CHEM] Stat Lab 07/29/16 02:35 Completed PROTIME WITH INR PL [COAG] Stat Lab 07/29/16 02:[address] [COAG] Stat Lab 07/29/16 02:35 Completed TROPONIN T Stat Lab 07/29/16 02:[address] W/POSS RFLX CULT [URINALYSIS] Stat Lab 07/29/16 02:28 Completed URINE CULTURE [RM] Routine Lab 07/29/16 03:14 Com[address] URINE DRUG SCREEN PL Stat Lab 07/29/16 02:28 Completed 0.9% Sodium Chloride Inj [Ns] 1,000 ml Med 07/29/16 04:18 Discontinued .ROUTE As Directed 0.9% Sodium Chloride Inj [Ns] 1,000 ml Med 07/29/16 05:56 Discontinued IV 150 mls/hr 0.9% Sodium Chloride Inj [Ns] 1,000 ml Med 07/29/16 04:18 Discontinued IV 999 mls/hr Ammonia, Aromatic [Ammonia Aromatic] Med 07/29/16 02:53 Discontinued 1 each .ROUTE .STK-MED ONE Oxygen Device Routine Oth 07/29/16 05:57 Completed Pulse Oximetry Stat Oth 07/29/16 02:37 Completed EKG [EKG] Stat Ther 07/29/16 02:37 Draft Transfer/Admit Order [TRANSFER] Routine Transfer 07/29/16 05:57 Completed Laboratory Tests 07/29/16 07/29/16 07/29/16 02:28 02:28 02:35 WBC RBC Hgb Hct MCV MCH MCHC RDW Std Deviation Plt Count MPV Immature Gran % (Auto) Neut % (Auto) Lymph % (Auto) [place] % (Auto) Eos % (Auto) Baso % (Auto) Immature Gran # (Auto) Neut # (Auto) Lymph # (Auto) [place] # (Auto) Eos # (Auto) Baso # (Auto) PT INR APTT (Factor Assay) Specimen Type Sample Site pH pCO2 pO2 HCO3 Base Excess Oxyhemoglobin ABG O2 Sat (Calculated) ABG O2 Saturation ABG Carboxyhemoglobin ABG Methemoglobin [place] Test A-a O2 Difference Total Hemoglobin Lactate Liter Flow Blood Gas Modality FiO2 % Sodium 136 Potassium 3.7 Chloride 95 L Carbon Dioxide 25 Anion Gap 16 BUN 15 Creatinine 1.9 H Estimated GFR/1.73 m2 28 BUN/Creatinine Ratio 8 Glucose 118 H Calculated Osmolality 274 Calcium 10.3 H Magnesium Ferritin Total Bilirubin 0.70 AST 56 H ALT 51 H Alkaline Phosphatase 162 H Creatine Kinase 45 Troponin T Total Protein 8.0 Albumin 4.3 Globulin 4.0 Albumin/Globulin Ratio 1.0 Vitamin B12 Folate TSH Free T4 Urine Source CATH Urine Color ARI Urine Clarity HAZY A Urine pH 5.0 Ur Specific [place] 1.020 Urine Protein TRACE A Urine Ketones TRACE Urine Blood NEGATIVE Urine Nitrite NEGATIVE Urine Bilirubin 1+ A Urine Urobilinogen 1+(1 mg/dL) Urine Microscopic RBC Not Reportable Urine WBC 1+ A Urine Microscopic WBC <10 Ur Eosinophil Smear Ur Epithelial Cells <10 Urine Crystals CA OXALATE PRESENT Urine Bacteria 4+ Urine Casts GRANULAR PRESENT Urine Osmolality Ur Random Creatinine U Random Total Protein Ur Random Sodium Protein/Creatinin Ratio Urine Glucose NEGATIVE Salicylates Urine Opiates Screen PRESUMPTIVE POSITIVE A Ur Oxycodone Screen NONE DETECTED Urine Methadone Screen NONE DETECTED Acetaminophen Ur Barbituates Screen NONE DETECTED Ur Tricyclics Screen NONE DETECTED Ur Phencyclidine Scrn NONE DETECTED Ur Amphetamines Screen NONE DETECTED U Methamphetamines Scrn NONE DETECTED Urine MDMA Screen NONE DETECTED U Benzodiazepines Scrn PRESUMPTIVE POSITIVE A Urine Cocaine Screen NONE DETECTED U Cannabinoids Screen NONE DETECTED Plasma/Serum Ethyl Alc Hepatitis Panel HCV RNA (DNA PCR) 07/29/16 07/29/16 07/29/16 02:35 02:35 02:35 WBC 9.89 RBC 4.77 Hgb 14.5 Hct 41.9 MCV 87.8 MCH 30.4 MCHC 34.6 RDW Std Deviation 14.1 Plt Count 218 MPV 11.6 H Immature Gran % (Auto) 0.2 Neut % (Auto) 70.6 Lymph % (Auto) 20.4 L [place] % (Auto) 7.5 Eos % (Auto) 0.9 Baso % (Auto) 0.4 Immature Gran # (Auto) 0.02 Neut # (Auto) 6.98 H Lymph # (Auto) 2.02 [place] # (Auto) 0.74 H Eos # (Auto) 0.09 Baso # (Auto) 0.04 PT INR APTT (Factor Assay) Specimen Type Sample Site pH pCO2 pO2 HCO3 Base Excess Oxyhemoglobin ABG O2 Sat (Calculated) ABG O2 Saturation ABG Carboxyhemoglobin ABG Methemoglobin [place] Test A-a O2 Difference Total Hemoglobin Lactate Liter Flow Blood Gas Modality FiO2 % Sodium Potassium Chloride Carbon Dioxide Anion Gap BUN Creatinine Estimated GFR/1.73 m2 BUN/Creatinine Ratio Glucose Calculated Osmolality Calcium Magnesium Ferritin Total Bilirubin AST ALT Alkaline Phosphatase Creatine Kinase Troponin T < 0.010 Total Protein Albumin Globulin Albumin/Globulin Ratio Vitamin B12 Folate TSH Free T4 Urine Source Urine Color Urine Clarity Urine pH Ur Specific [place] Urine Protein Urine Ketones Urine Blood Urine Nitrite Urine Bilirubin Urine Urobilinogen Urine Microscopic RBC Urine WBC Urine Microscopic WBC Ur Eosinophil Smear Ur Epithelial Cells Urine Crystals Urine Bacteria Urine Casts Urine Osmolality Ur Random Creatinine U Random Total Protein Ur Random Sodium Protein/Creatinin Ratio Urine Glucose Salicylates Urine Opiates Screen Ur Oxycodone Screen Urine Methadone Screen Acetaminophen Ur Barbituates Screen Ur Tricyclics Screen Ur Phencyclidine Scrn Ur Amphetamines Screen U Methamphetamines Scrn Urine MDMA Screen U Benzodiazepines Scrn Urine Cocaine Screen U Cannabinoids Screen Plasma/Serum Ethyl Alc Hepatitis Panel HCV RNA (DNA PCR) 07/29/16 07/29/16 07/29/16 02:35 02:52 10:00 WBC RBC Hgb Hct MCV MCH MCHC RDW Std Deviation Plt Count MPV Immature Gran % (Auto) Neut % (Auto) Lymph % (Auto) [place] % (Auto) Eos % (Auto) Baso % (Auto) Immature Gran # (Auto) Neut # (Auto) Lymph # (Auto) [place] # (Auto) Eos # (Auto) Baso # (Auto) PT 13.4 INR 0.99 APTT (Factor Assay) 27.1 Specimen Type ARTERIAL Sample Site L RADIAL pH 7.40 pCO2 46 H pO2 83 HCO3 27.1 H Base Excess 2.9 Oxyhemoglobin 93.3 L ABG O2 Sat (Calculated) 20.1 ABG O2 Saturation 98.0 ABG Carboxyhemoglobin 3.50 H ABG Methemoglobin 1.3 [place] Test YES A-a O2 Difference 59.0 Total Hemoglobin 15.3 Lactate 0.90 Liter Flow 2.0 Blood Gas Modality CANNULA FiO2 % 28.0 Sodium Potassium Chloride Carbon Dioxide Anion Gap BUN Creatinine Estimated GFR/1.73 m2 BUN/Creatinine Ratio Glucose Calculated Osmolality Calcium Magnesium Ferritin Total Bilirubin AST ALT Alkaline Phosphatase Creatine Kinase Troponin T Total Protein Albumin Globulin Albumin/Globulin Ratio Vitamin B12 Folate TSH Free T4 Urine Source Urine Color Urine Clarity Urine pH Ur Specific [place] Urine Protein Urine Ketones Urine Blood Urine Nitrite Urine Bilirubin Urine Urobilinogen Urine Microscopic RBC Urine WBC Urine Microscopic WBC Ur Eosinophil Smear Ur Epithelial Cells Urine Crystals Urine Bacteria Urine Casts Urine Osmolality 402 Ur Random Creatinine U Random Total Protein Ur Random Sodium Protein/Creatinin Ratio Urine Glucose Salicylates Urine Opiates Screen Ur Oxycodone Screen Urine Methadone Screen Acetaminophen Ur Barbituates Screen Ur Tricyclics Screen Ur Phencyclidine Scrn Ur Amphetamines Screen U Methamphetamines Scrn Urine MDMA Screen U Benzodiazepines Scrn Urine Cocaine Screen U Cannabinoids Screen Plasma/Serum Ethyl Alc Hepatitis Panel HCV RNA (DNA PCR) 07/29/16 07/29/16 07/29/16 10:00 10:00 10:13 WBC RBC Hgb Hct MCV MCH MCHC RDW Std Deviation Plt Count MPV Immature Gran % (Auto) Neut % (Auto) Lymph % (Auto) [place] % (Auto) Eos % (Auto) Baso % (Auto) Immature Gran # (Auto) Neut # (Auto) Lymph # (Auto) [place] # (Auto) Eos # (Auto) Baso # (Auto) PT INR APTT (Factor Assay) Specimen Type Sample Site pH pCO2 pO2 HCO3 Base Excess Oxyhemoglobin ABG O2 Sat (Calculated) ABG O2 Saturation ABG Carboxyhemoglobin ABG Methemoglobin [place] Test A-a O2 Difference Total Hemoglobin Lactate Liter Flow Blood Gas Modality FiO2 % Sodium Potassium Chloride Carbon Dioxide Anion Gap BUN Creatinine Estimated GFR/1.73 m2 BUN/Creatinine Ratio Glucose Calculated Osmolality Calcium Magnesium Ferritin 256 H Total Bilirubin AST ALT Alkaline Phosphatase Creatine Kinase Troponin T Total Protein Albumin Globulin Albumin/Globulin Ratio Vitamin B12 Folate TSH 4.03 Free T4 0.89 L Urine Source Urine Color Urine Clarity Urine pH Ur Specific [place] Urine Protein Urine Ketones Urine Blood Urine Nitrite Urine Bilirubin Urine Urobilinogen Urine Microscopic RBC Urine WBC Urine Microscopic WBC Ur Eosinophil Smear NONE SEEN Ur Epithelial Cells Urine Crystals Urine Bacteria Urine Casts Urine Osmolality Ur Random Creatinine 294.5 H U Random Total Protein 31.8 Ur Random Sodium 10 Protein/Creatinin Ratio 0.1 Urine Glucose Salicylates Urine Opiates Screen Ur Oxycodone Screen Urine Methadone Screen Acetaminophen Ur Barbituates Screen Ur Tricyclics Screen Ur Phencyclidine Scrn Ur Amphetamines Screen U Methamphetamines Scrn Urine MDMA Screen U Benzodiazepines Scrn Urine Cocaine Screen U Cannabinoids Screen Plasma/Serum Ethyl Alc Hepatitis Panel HCV RNA (DNA PCR) 07/29/16 07/29/16 07/29/16 10:13 10:13 10:13 WBC RBC Hgb Hct MCV MCH MCHC RDW Std Deviation Plt Count MPV Immature Gran % (Auto) Neut % (Auto) Lymph % (Auto) [place] % (Auto) Eos % (Auto) Baso % (Auto) Immature Gran # (Auto) Neut # (Auto) Lymph # (Auto) [place] # (Auto) Eos # (Auto) Baso # (Auto) PT INR APTT (Factor Assay) Specimen Type Sample Site pH pCO2 pO2 HCO3 Base Excess Oxyhemoglobin ABG O2 Sat (Calculated) ABG O2 Saturation ABG Carboxyhemoglobin ABG Methemoglobin [place] Test A-a O2 Difference Total Hemoglobin Lactate Liter Flow Blood Gas Modality FiO2 % Sodium Potassium Chloride Carbon Dioxide Anion Gap BUN Creatinine Estimated GFR/1.73 m2 BUN/Creatinine Ratio Glucose Calculated Osmolality Calcium Magnesium Ferritin Total Bilirubin AST ALT Alkaline Phosphatase Creatine Kinase Troponin T Total Protein Albumin Globulin Albumin/Globulin Ratio Vitamin B12 552 Folate 7.9 L TSH Free T4 Urine Source Urine Color Urine Clarity Urine pH Ur Specific [place] Urine Protein Urine Ketones Urine Blood Urine Nitrite Urine Bilirubin Urine Urobilinogen Urine Microscopic RBC Urine WBC Urine Microscopic WBC Ur Eosinophil Smear Ur Epithelial Cells Urine Crystals Urine Bacteria Urine Casts Urine Osmolality Ur Random Creatinine U Random Total Protein Ur Random Sodium Protein/Creatinin Ratio Urine Glucose Salicylates Urine Opiates Screen Ur Oxycodone Screen Urine Methadone Screen Acetaminophen Ur Barbituates Screen Ur Tricyclics Screen Ur Phencyclidine Scrn Ur Amphetamines Screen U Methamphetamines Scrn Urine MDMA Screen U Benzodiazepines Scrn Urine Cocaine Screen U Cannabinoids Screen Plasma/Serum Ethyl Alc Hepatitis Panel SEE COMMENTS HCV RNA (DNA PCR) SEE COMMENTS 07/29/16 07/29/16 07/29/16 10:13 10:13 21:56 WBC RBC Hgb Hct MCV MCH MCHC RDW Std Deviation Plt Count MPV Immature Gran % (Auto) Neut % (Auto) Lymph % (Auto) [place] % (Auto) Eos % (Auto) Baso % (Auto) Immature Gran # (Auto) Neut # (Auto) Lymph # (Auto) [place] # (Auto) Eos # (Auto) Baso # (Auto) PT INR APTT (Factor Assay) Specimen Type Sample Site pH pCO2 pO2 HCO3 Base Excess Oxyhemoglobin ABG O2 Sat (Calculated) ABG O2 Saturation ABG Carboxyhemoglobin ABG Methemoglobin [place] Test A-a O2 Difference Total Hemoglobin Lactate Liter Flow Blood Gas Modality FiO2 % Sodium Potassium Chloride Carbon Dioxide Anion Gap BUN Creatinine Estimated GFR/1.73 m2 BUN/Creatinine Ratio Glucose Calculated Osmolality Calcium Magnesium Ferritin Total Bilirubin AST ALT Alkaline Phosphatase Creatine Kinase 47 58 Troponin T Total Protein Albumin Globulin Albumin/Globulin Ratio Vitamin B12 Folate TSH Free T4 Urine Source Urine Color Urine Clarity Urine pH Ur Specific [place] Urine Protein Urine Ketones Urine Blood Urine Nitrite Urine Bilirubin Urine Urobilinogen Urine Microscopic RBC Urine WBC Urine Microscopic WBC Ur Eosinophil Smear Ur Epithelial Cells Urine Crystals Urine Bacteria Urine Casts Urine Osmolality Ur Random Creatinine U Random Total Protein Ur Random Sodium Protein/Creatinin Ratio Urine Glucose Salicylates < 3.00 L Urine Opiates Screen Ur Oxycodone Screen Urine Methadone Screen Acetaminophen < 1.2 L Ur Barbituates Screen Ur Tricyclics Screen Ur Phencyclidine Scrn Ur Amphetamines Screen U Methamphetamines Scrn Urine MDMA Screen U Benzodiazepines Scrn Urine Cocaine Screen U Cannabinoids Screen Plasma/Serum Ethyl Alc Hepatitis Panel HCV RNA (DNA PCR) 07/30/16 07/30/16 07/30/16 04:55 04:55 04:55 WBC 7.16 RBC 4.28 Hgb 13.1 Hct 38.1 MCV 89.0 MCH 30.6 MCHC 34.4 RDW Std Deviation 13.6 Plt Count 131 D MPV 10.7 H Immature Gran % (Auto) Neut % (Auto) Lymph % (Auto) [place] % (Auto) Eos % (Auto) Baso % (Auto) Immature Gran # (Auto) Neut # (Auto) Lymph # (Auto) [place] # (Auto) Eos # (Auto) Baso # (Auto) PT INR APTT (Factor Assay) Specimen Type Sample Site pH pCO2 pO2 HCO3 Base Excess Oxyhemoglobin ABG O2 Sat (Calculated) ABG O2 Saturation ABG Carboxyhemoglobin ABG Methemoglobin [place] Test A-a O2 Difference Total Hemoglobin Lactate Liter Flow Blood Gas Modality FiO2 % Sodium 142 Potassium 3.7 Chloride 104 Carbon Dioxide 22 L Anion Gap 16 BUN 8 Creatinine 1.1 H Estimated GFR/1.73 m2 53 BUN/Creatinine Ratio 7 Glucose 100 Calculated Osmolality 282 Calcium 8.7 L D Magnesium Ferritin Total Bilirubin 0.46 AST 37 H ALT 37 H Alkaline Phosphatase 129 H Creatine Kinase 43 Troponin T Total Protein 7.1 Albumin 3.9 Globulin 3.2 Albumin/Globulin Ratio 1.2 Vitamin B12 Folate TSH Free T4 Urine Source Urine Color Urine Clarity Urine pH Ur Specific [place] Urine Protein Urine Ketones Urine Blood Urine Nitrite Urine Bilirubin Urine Urobilinogen Urine Microscopic RBC Urine WBC Urine Microscopic WBC Ur Eosinophil Smear Ur Epithelial Cells Urine Crystals Urine Bacteria Urine Casts Urine Osmolality Ur Random Creatinine U Random Total Protein Ur Random Sodium Protein/Creatinin Ratio Urine Glucose Salicylates Urine Opiates Screen Ur Oxycodone Screen Urine Methadone Screen Acetaminophen Ur Barbituates Screen Ur Tricyclics Screen Ur Phencyclidine Scrn Ur Amphetamines Screen U Methamphetamines Scrn Urine MDMA Screen U Benzodiazepines Scrn Urine Cocaine Screen U Cannabinoids Screen Plasma/Serum Ethyl Alc Hepatitis Panel HCV RNA (DNA PCR) 07/31/16 07/31/16 07/31/16 05:06 05:06 05:06 WBC 9.44 RBC 4.58 Hgb 14.0 Hct 40.9 MCV 89.3 MCH 30.6 MCHC 34.2 RDW Std Deviation 14.3 Plt Count 153 MPV 10.9 H Immature Gran % (Auto) Neut % (Auto) Lymph % (Auto) [place] % (Auto) Eos % (Auto) Baso % (Auto) Immature Gran # (Auto) Neut # (Auto) Lymph # (Auto) [place] # (Auto) Eos # (Auto) Baso # (Auto) PT INR APTT (Factor Assay) Specimen Type Sample Site pH pCO2 pO2 HCO3 Base Excess Oxyhemoglobin ABG O2 Sat (Calculated) ABG O2 Saturation ABG Carboxyhemoglobin ABG Methemoglobin [place] Test A-a O2 Difference Total Hemoglobin Lactate Liter Flow Blood Gas Modality FiO2 % Sodium 141 Potassium 3.5 Chloride 108 H Carbon Dioxide 20 L Anion Gap 13 BUN 5 L Creatinine 0.8 Estimated GFR/1.73 m2 > 60 BUN/Creatinine Ratio 6 Glucose 119 H Calculated Osmolality 280 Calcium 8.9 Magnesium 1.7 Ferritin Total Bilirubin 0.75 AST 27 ALT 29 Alkaline Phosphatase 115 H Creatine Kinase Troponin T Total Protein 6.6 Albumin 3.4 L Globulin 3.2 Albumin/Globulin Ratio 1.1 Vitamin B12 Folate TSH Free T4 Urine Source Urine Color Urine Clarity Urine pH Ur Specific [place] Urine Protein Urine Ketones Urine Blood Urine Nitrite Urine Bilirubin Urine Urobilinogen Urine Microscopic RBC Urine WBC Urine Microscopic WBC Ur Eosinophil Smear Ur Epithelial Cells Urine Crystals Urine Bacteria Urine Casts Urine Osmolality Ur Random Creatinine U Random Total Protein Ur Random Sodium Protein/Creatinin Ratio Urine Glucose Salicylates Urine Opiates Screen Ur Oxycodone Screen Urine Methadone Screen Acetaminophen Ur Barbituates Screen Ur Tricyclics Screen Ur Phencyclidine Scrn Ur Amphetamines Screen U Methamphetamines Scrn Urine MDMA Screen U Benzodiazepines Scrn Urine Cocaine Screen U Cannabinoids Screen Plasma/Serum Ethyl Alc Hepatitis Panel HCV RNA (DNA PCR) 08/01/16 08/01/16 08/01/16 08:50 08:50 08:50 WBC 6.83 RBC 4.28 Hgb 13.1 Hct 38.5 MCV 90.0 MCH 30.6 MCHC 34.0 RDW Std Deviation 14.6 H Plt Count 127 L MPV 11.1 H Immature Gran % (Auto) Neut % (Auto) Lymph % (Auto) [place] % (Auto) Eos % (Auto) Baso % (Auto) Immature Gran # (Auto) Neut # (Auto) Lymph # (Auto) [place] # (Auto) Eos # (Auto) Baso # (Auto) PT INR APTT (Factor Assay) Specimen Type Sample Site pH pCO2 pO2 HCO3 Base Excess Oxyhemoglobin ABG O2 Sat (Calculated) ABG O2 Saturation ABG Carboxyhemoglobin ABG Methemoglobin [place] Test A-a O2 Difference Total Hemoglobin Lactate Liter Flow Blood Gas Modality FiO2 % Sodium 140 Potassium 3.2 L Chloride 110 H Carbon Dioxide 19 L Anion Gap 11 BUN 7 L Creatinine 0.8 Estimated GFR/1.73 m2 > 60 BUN/Creatinine Ratio 9 Glucose 102 Calculated Osmolality 278 Calcium 8.5 L Magnesium 1.7 Ferritin Total Bilirubin 0.68 AST 38 H ALT 31 Alkaline Phosphatase 94 Creatine Kinase Troponin T Total Protein 5.9 L Albumin 3.1 L Globulin 2.8 Albumin/Globulin Ratio 1.1 Vitamin B12 Folate TSH Free T4 Urine Source Urine Color Urine Clarity Urine pH Ur Specific [place] Urine Protein Urine Ketones Urine Blood Urine Nitrite Urine Bilirubin Urine Urobilinogen Urine Microscopic RBC Urine WBC Urine Microscopic WBC Ur Eosinophil Smear Ur Epithelial Cells Urine Crystals Urine Bacteria Urine Casts Urine Osmolality Ur Random Creatinine U Random Total Protein Ur Random Sodium Protein/Creatinin Ratio Urine Glucose Salicylates Urine Opiates Screen Ur Oxycodone Screen Urine Methadone Screen Acetaminophen Ur Barbituates Screen Ur Tricyclics Screen Ur Phencyclidine Scrn Ur Amphetamines Screen U Methamphetamines Scrn Urine MDMA Screen U Benzodiazepines Scrn Urine Cocaine Screen U Cannabinoids Screen Plasma/Serum Ethyl Alc Hepatitis Panel HCV RNA (DNA PCR) 08/02/16 08/02/16 08/02/16 06:10 06:10 06:10 WBC 4.71 L RBC 3.82 L Hgb 11.5 L Hct 34.8 L MCV 91.1 MCH 30.1 MCHC 33.0 RDW Std Deviation 14.3 Plt Count 115 L MPV 10.4 Immature Gran % (Auto) 0.0 Neut % (Auto) 54.2 Lymph % (Auto) 32.5 [place] % (Auto) 8.7 Eos % (Auto) 4.2 Baso % (Auto) 0.4 Immature Gran # (Auto) 0.00 Neut # (Auto) 2.55 Lymph # (Auto) 1.53 [place] # (Auto) 0.41 Eos # (Auto) 0.20 Baso # (Auto) 0.02 PT INR APTT (Factor Assay) Specimen Type Sample Site pH pCO2 pO2 HCO3 Base Excess Oxyhemoglobin ABG O2 Sat (Calculated) ABG O2 Saturation ABG Carboxyhemoglobin ABG Methemoglobin [place] Test A-a O2 Difference Total Hemoglobin Lactate Liter Flow Blood Gas Modality FiO2 % Sodium 140 Potassium 3.6 Chloride 111 H Carbon Dioxide 20 L Anion Gap 9 BUN 8 Creatinine 0.8 Estimated GFR/1.73 m2 > 60 BUN/Creatinine Ratio 10 Glucose 91 Calculated Osmolality 277 Calcium 8.3 L Magnesium 1.9 Ferritin Total Bilirubin AST ALT Alkaline Phosphatase Creatine Kinase Troponin T Total Protein Albumin Globulin Albumin/Globulin Ratio Vitamin B12 Folate TSH Free T4 Urine Source Urine Color Urine Clarity Urine pH Ur Specific [place] Urine Protein Urine Ketones Urine Blood Urine Nitrite Urine Bilirubin Urine Urobilinogen Urine Microscopic RBC Urine WBC Urine Microscopic WBC Ur Eosinophil Smear Ur Epithelial Cells Urine Crystals Urine Bacteria Urine Casts Urine Osmolality Ur Random Creatinine U Random Total Protein Ur Random Sodium Protein/Creatinin Ratio Urine Glucose Salicylates Urine Opiates Screen Ur Oxycodone Screen Urine Methadone Screen Acetaminophen Ur Barbituates Screen Ur Tricyclics Screen Ur Phencyclidine Scrn Ur Amphetamines Screen U Methamphetamines Scrn Urine MDMA Screen U Benzodiazepines Scrn Urine Cocaine Screen U Cannabinoids Screen Plasma/Serum Ethyl Alc Hepatitis Panel HCV RNA (DNA PCR) 08/03/16 08/03/16 08/04/16 05:15 05:15 05:50 WBC 5.06 RBC 3.73 L Hgb 11.3 L Hct 33.8 L MCV 90.6 MCH 30.3 MCHC 33.4 RDW Std Deviation 13.9 Plt Count 114 L MPV 10.6 H Immature Gran % (Auto) 0.0 Neut % (Auto) 55.0 Lymph % (Auto) 31.2 [place] % (Auto) 8.5 Eos % (Auto) 4.9 Baso % (Auto) 0.4 Immature Gran # (Auto) 0.00 Neut # (Auto) 2.78 Lymph # (Auto) 1.58 [place] # (Auto) 0.43 Eos # (Auto) 0.25 Baso # (Auto) 0.02 PT INR APTT (Factor Assay) Specimen Type Sample Site pH pCO2 pO2 HCO3 Base Excess Oxyhemoglobin ABG O2 Sat (Calculated) ABG O2 Saturation ABG Carboxyhemoglobin ABG Methemoglobin [place] Test A-a O2 Difference Total Hemoglobin Lactate Liter Flow Blood Gas Modality FiO2 % Sodium 140 137 Potassium 3.2 L 3.1 L Chloride 107 106 Carbon Dioxide 23 L 18 L Anion Gap 10 13 BUN 12 10 Creatinine 0.9 0.8 Estimated GFR/1.73 m2 > 60 > 60 BUN/Creatinine Ratio 13 13 Glucose 95 86 Calculated Osmolality 279 272 Calcium 8.4 L 8.5 L Magnesium Ferritin Total Bilirubin AST ALT Alkaline Phosphatase Creatine Kinase Troponin T Total Protein Albumin Globulin Albumin/Globulin Ratio Vitamin B12 Folate TSH Free T4 Urine Source Urine Color Urine Clarity Urine pH Ur Specific [place] Urine Protein Urine Ketones Urine Blood Urine Nitrite Urine Bilirubin Urine Urobilinogen Urine Microscopic RBC Urine WBC Urine Microscopic WBC Ur Eosinophil Smear Ur Epithelial Cells Urine Crystals Urine Bacteria Urine Casts Urine Osmolality Ur Random Creatinine U Random Total Protein Ur Random Sodium Protein/Creatinin Ratio Urine Glucose Salicylates Urine Opiates Screen Ur Oxycodone Screen Urine Methadone Screen Acetaminophen Ur Barbituates Screen Ur Tricyclics Screen Ur Phencyclidine Scrn Ur Amphetamines Screen U Methamphetamines Scrn Urine MDMA Screen U Benzodiazepines Scrn Urine Cocaine Screen U Cannabinoids Screen Plasma/Serum Ethyl Alc Hepatitis Panel HCV RNA (DNA PCR) 08/04/16 08/05/16 08/05/16 05:50 05:27 05:27 WBC 3.46 L 3.54 L RBC 3.62 L 3.58 L Hgb 10.7 L 10.6 L Hct 32.5 L 31.7 L MCV 89.8 88.5 MCH 29.6 29.6 MCHC 32.9 L 33.4 RDW Std Deviation 13.7 13.7 Plt Count 120 L 112 L MPV 11.1 H 10.8 H Immature Gran % (Auto) 0.3 0.3 Neut % (Auto) 49.7 50.8 Lymph % (Auto) 34.4 34.2 [place] % (Auto) 9.5 H 10.7 H Eos % (Auto) 5.8 3.7 Baso % (Auto) 0.3 0.3 Immature Gran # (Auto) 0.01 0.01 Neut # (Auto) 1.72 1.80 Lymph # (Auto) 1.19 L 1.21 [place] # (Auto) 0.33 0.38 Eos # (Auto) 0.20 0.13 Baso # (Auto) 0.01 0.01 PT INR APTT (Factor Assay) Specimen Type Sample Site pH pCO2 pO2 HCO3 Base Excess Oxyhemoglobin ABG O2 Sat (Calculated) ABG O2 Saturation ABG Carboxyhemoglobin ABG Methemoglobin [place] Test A-a O2 Difference Total Hemoglobin Lactate Liter Flow Blood Gas Modality FiO2 % Sodium 139 Potassium 3.1 L Chloride 109 H Carbon Dioxide 19 L Anion Gap 11 BUN 11 Creatinine 0.9 Estimated GFR/1.73 m2 > 60 BUN/Creatinine Ratio 12 Glucose 101 Calculated Osmolality 277 Calcium 8.4 L Magnesium Ferritin Total Bilirubin AST ALT Alkaline Phosphatase Creatine Kinase Troponin T Total Protein Albumin Globulin Albumin/Globulin Ratio Vitamin B12 Folate TSH Free T4 Urine Source Urine Color Urine Clarity Urine pH Ur Specific [place] Urine Protein Urine Ketones Urine Blood Urine Nitrite Urine Bilirubin Urine Urobilinogen Urine Microscopic RBC Urine WBC Urine Microscopic WBC Ur Eosinophil Smear Ur Epithelial Cells Urine Crystals Urine Bacteria Urine Casts Urine Osmolality Ur Random Creatinine U Random Total Protein Ur Random Sodium Protein/Creatinin Ratio Urine Glucose Salicylates Urine Opiates Screen Ur Oxycodone Screen Urine Methadone Screen Acetaminophen Ur Barbituates Screen Ur Tricyclics Screen Ur Phencyclidine Scrn Ur Amphetamines Screen U Methamphetamines Scrn Urine MDMA Screen U Benzodiazepines Scrn Urine Cocaine Screen U Cannabinoids Screen Plasma/Serum Ethyl Alc Hepatitis Panel HCV RNA (DNA PCR) Result Diagrams: 08/05/16 05:27 08/05/16 05:27 Departure - Departure Time of Disposition Decision: 03:14 DIAGNOSIS: Altered mental status, unspecified Disposition: ADMITTED INPATIENT 09 Certified Medical Emergency: Emergent Condition: Stable - Critical Care Note This patient required my direct & personal management of CC.: No
[2016-07-29 03:15] LABS: ALLEN TEST YES; MODALITY CANNULA
[2016-07-29 03:15] LABS: INR 0.99 (0.86-1.15); PROTIME 13.4 Seconds (12.1-15.5); PTT PL 27.1 Seconds (22.6-43.9)
[2016-07-29] MEDS ORDERED: NS 1,000 ML IV ONE ×2 (04:18→05:56)
[2016-07-29] MEDS ORDERED: NS 1,000 ML ONE (04:18)
--- NOTE | 2016-07-29 05:59 | EKG Report ---
Test Performed on : 07/29/2016 02:40:46 AM Test Reason : AMS Blood Pressure : / mmHG Vent. Rate : 052 BPM Atrial Rate : 052 BPM P-R Int : 160 ms QRS Dur : 090 ms QT Int : 494 ms P-R-T Axes : 061 062 053 degrees QTc Int : 459 ms Sinus bradycardia. Otherwise normal ECG When compared with ECG of 21-JUN-2016 19:55, Vent. rate has decreased BY 26 BPM Unconfirmed Result
--- NOTE | 2016-07-29 06:54 | Diag Imaging Result Document ---
PROCEDURE NAME: CHEST-PORTABLE - 07/29/2016 PORTABLE CHEST: COMPARISON: 06/21/2016. FINDINGS: The lungs are well expanded. Interval clearing of the infiltrates or atelectasis in the left base. The heart is not enlarged. No pleural effusions identified. IMPRESSION: Negative chest.
[2016-07-29] MEDS ORDERED: DUONEB (A & A) INH PRN (09:47)
[2016-07-29] MEDS: LOVENOX SUBQ SCH ×2 (10:09→22:08)
[2016-07-29] MEDS: ROCEPHIN 1 GM/NS 1 GM/50 ML IVPB IV SCH (10:09)
--- NOTE | 2016-07-29 10:24 | Diag Imaging Result Document ---
PROCEDURE NAME: HEAD/C-SPINE W/O CONTRAST - 07/29/2016 CT BRAIN AND CERVICAL SPINE WITHOUT: BRAIN: FINDINGS: No parenchymal hemorrhage. No epidural or subdural hematoma. No subarachnoid hemorrhage. No skull fracture. No mass identified on this noncontrasted exam. No hydrocephalus. There is mucus in the ethmoid, right maxillary, and left sphenoid sinuses. Likely old injury to the left lamina papyracea. IMPRESSION: 1. No hemorrhage. No injury. 2. Mild sinusitis. CT CERVICAL SPINE WITHOUT CONTRAST: FINDINGS: There is mild scoliosis. There is reversal of the normal curvature. No precervical soft tissue swelling. There is approximately 3 mm of subluxation C3 on C4. No fracture. IMPRESSION: 1. No acute bony injury. 2. Mild scoliosis with reversal of the normal curvature and mild degenerative changes. A preliminary report was given at 5:05 a.m.
[2016-07-29 10:42] LABS: PROTEIN CREAT RATIO 0.1; UR CREAT RANDOM 294.5 mg/dL (11-20); UR PROT RANDOM 31.8 mg/dL
[2016-07-29 11:07] LABS: FREE T4 0.89 ng/dL (0.93-1.70)
[2016-07-29 11:09] LABS: ACETAMINOPHEN < 1.2 ug/mL (10-30)
[2016-07-29] MEDS: DUONEB (A & A) INH SCH ×3 (11:39→23:12)
--- NOTE | 2016-07-29 11:43 | HISTORY AND PHYSICAL ---
CHIEF COMPLAINT: Altered mental status. HISTORY OF PRESENT ILLNESS: Mrs. Dominguez is a 46-year-old female with a history of COPD, chronic pain, and seizures who presents from home after she was found minimally responsive on the floor, banging her head against the wall. At this time, Mrs. Dominguez cannot give any type of history secondary to her mental status. History is per chart review. She was found on the floor banging her head, and her mother immediately called 911, and she was brought to [place] ER. She was then transferred to our ICU for closer observation. The head CT done in the ER at [place] did not show any acute intracranial injury. Apparently, there is an injury to the left lamina papyracea. C-spine CT is negative. Currently the patient is drowsy. She will awaken to verbal stimulus, but she is completely disoriented. She does follow commands without focal deficits. Her drug screen is positive for opiates and benzodiazepines. It is unclear the exact circumstances surrounding her admission. As such, she is going to be admitted to the ICU for close treatment and observation. PAST MEDICAL HISTORY: 1. COPD. 2. Hypertension. 3. Seizures. 4. Chronic pain. 5. Anxiety. SURGICAL HISTORY: None. SOCIAL HISTORY: The patient smokes every day around half a pack to a pack. She is on Suboxone for unknown reasons, and her substance abuse history is unknown. It is also unclear what her marital status is and if she is employed. FAMILY HISTORY: Unknown. REVIEW OF SYSTEMS: Unable to be obtained. HOME MEDICATIONS: Albuterol HFA 2 puffs inhaled q.6 h. as needed, Xanax 0.5 mg p.o. b.i.d., Suboxone 8 mg p.o. b.i.d., clonidine 0.1 mg b.i.d., Lasix 40 mg daily, lisinopril 40 mg daily, Prilosec 40 mg daily, Phenergan 50 mg at bedtime, Desyrel 150 mg p.o. at bedtime. ALLERGIES: Aspirin. PHYSICAL EXAMINATION: VITAL SIGNS: Blood pressure is 88/53, heart rate is 44, respiratory rate is 15 , O2 sat is 96% on 2 L, temperature is 97.6. GENERAL: This is a chronically ill and disheveled-appearing 46-year-old female lying in a hospital bed clearly sedated and lethargic. NEUROLOGIC: The patient will open her eyes to verbal stimulus. She is completely confused, but she follows commands without any overt focal deficits. HEENT: Head is atraumatic and normocephalic. Her pupils are equal and sluggish bilaterally. She does have a left eyelid laceration to the medial aspect of the upper eyelid with dry blood noted around the orbit. There are no other obvious deformities. The laceration is about 3 mm deep and is causing splitting of the eyelid. Oral mucosa is moist. Trachea is midline. NECK: Supple, no JVD or carotid bruits. CHEST: Scattered rhonchi bilaterally. No increased work of breathing. CV: Regular and slightly bradycardic. S1 and S2 noted. No murmurs, gallops, clicks, or rubs. GI: Soft, nondistended, nontender. Bowel sounds are positive. EXTREMITIES: Without edema, clubbing, or cyanosis. Pulses are diminished but palpable bilaterally. DIAGNOSTIC DATA: Head and C-spine CT does not show anything acute. Chest x- ray is negative for acute process. EKG shows sinus bradycardia without acute ST or T abnormalities. QTc is 459. WBC 9.89, hemoglobin 14.5, hematocrit 41.9, platelet count 218. PT 13.4, INR 0.99. ABG on 2 L nasal cannula: pH 7.4, CO2 of 46, O2 of 83, bicarb 27.1, carboxyhemoglobin 3.5, lactic acid 0.9. Sodium 136, potassium 3.7, chloride 95, CO2 of 25, anion gap 16, BUN 15, creatinine 1.9, glucose 118, calcium 10.3. AST 56, ALT 51, alkaline phosphatase 162. Troponin negative. UA shows 4+ bacteria, 1+ WBC with less than 10 epi cells. There are also granular casts present. Toxicology is positive for opiates and benzos. ASSESSMENT AND PLAN: 1. Toxic metabolic encephalopathy: Unclear as to the exact etiology, although given her history of seizures, seizure is certainly on the differentials. Intentional versus unintentional drug overdose and infectious encephalopathy also reasonable differential. We will start her on antibiotics for her UTI, check an EEG, and consider consultation with Neurology. We will also withhold any of her benzos or opiates. 2. Eyelid laceration: We will consult surgery for possible suture. She will need to follow up with ophthalmology after DC for full fundoscopic exam. 3. Chronic obstructive pulmonary disease: She does not appear to be in exacerbation. We will add nebulizers and aggressive pulmonary toilet. 4. Urinary tract infection: Antibiotics have been initiated. Cultures have been sent. 5. Hypertension: The patient is mildly hypotensive at this time. Will continue IV fluids and obviously hold any of her antihypertensives. 6. Nicotine dependence: Will discuss cessation once the patient is able to have that conversation. We will write for a nicotine patch. 7. Acute kidney injury: Creatinine 1.9. Will check urine studies and hydrate, recheck a creatinine in the morning. If it continues to worsen, will check a renal ultrasound, consider a renal consultation. DVT prophylaxis with Lovenox. Further recommendations to follow. Dictated by COLIN Garcia for Kermit Jorgensen MD cc: COLIN Garcia MD MTDD
--- NOTE | 2016-07-29 13:15 | CONSULTATION ---
DATE OF CONSULTATION: 07/29/2016 REQUESTING PHYSICIAN: Dr. Lance with the hospitalist service. REASON FOR CONSULTATION: Consult concerning left eye laceration. HISTORY OF PRESENT ILLNESS: A 46-year-old female initially admitted with altered mental status. She was found minimally responsive on the floor banging her head against the wall. She came to the ER and was found to have urine drug screen that was positive for opiates and benzodiazepines. She was evaluated, had a CT scan done that did not show any intracranial injury. There was a laceration to her left eyelid with significant redness in her left eye. She also reporting decreased vision. She is somewhat altered and I am unable to give full details of the event. I did discuss her presentation with the nurse practitioner for the hospitalist service. She has been admitted to the ICU for treatment. I was asked to evaluate for the eye laceration. PAST MEDICAL HISTORY: COPD, hypertension, seizures, chronic pain, anxiety. PAST SURGICAL HISTORY: None. SOCIAL HISTORY: Smokes every day. FAMILY HISTORY: Unknown. HOME MEDICATIONS: Albuterol, Xanax, Suboxone, clonidine, lisinopril, Prilosec, Phenergan. ALLERGIES: Reported to aspirin. REVIEW OF SYSTEMS: Difficult to obtain secondary to patient's mental status. PHYSICAL EXAMINATION: Vital Signs: Patient is currently afebrile. Her vital signs are stable. General exam: A somewhat confused, but responsive female, looks stated age. HEENT: Trauma noted to the left eye. There is a laceration that is likely less than 5 mm. This is full thickness to the medial aspect of the upper eyelid. There is significant redness noted to the left eye. The patient does report blurry vision. Limited exam of the eyelid: There were some other lacerations on the forehead noted. Oral mucosa is moist. Neck: Trachea midline. Cardiovascular: Regular rate and rhythm. Lungs: Grossly clear. Abdomen: Soft, nontender, nondistended. Extremities: Multiple lacerations noted in all extremities. They are small at this time. Vascular: All extremities perfused. LABORATORY: Reviewed. CT SCAN: Reviewed. ASSESSMENT AND PLAN: A 46-year-old female with altered mental status with left eyelid laceration, possible trauma to the left eye. 1. Altered mental status. At this time, being managed by the hospitalist service. They are evaluating her for potential etiology. 2. Left eyelid laceration at this time. The patient will likely require repair in the operating room, but given the trauma to the eye itself may need to rule out any kind of injury to the eye itself. We will need to arrange with ophthalmology about consultation. At this time, currently working on getting ophthalmology consult. If there is none available at the hospital, may need to consider transfer to another facility to refer funduscopic exam and to rule out increased pressure. She does have decreased vision in that eye which is concerning for potential injury. 3. Multiple medical comorbidities currently being managed by the hospitalist service. cc: Edenilson Dasilva MD MTDD
[2016-07-29] MEDS: ZOFRAN IV PRN (13:27)
[2016-07-29] MEDS: NS 1,000 ML IV SCH (14:36)
[2016-07-29] MEDS ORDERED: BSS OPHTH SOLN ONE (16:16)
[2016-07-29] MEDS ORDERED: BACITRACIN OINTMENT ONE (16:16)
--- NOTE | 2016-07-29 17:28 | OPERATIVE NOTE ---
PROCEDURE DATE: 07/29/2016 PREOPERATIVE DIAGNOSIS: Left eyelid laceration measuring 5 mm. POSTOPERATIVE DIAGNOSIS: Left eyelid laceration measuring 5 mm. PROCEDURE: Repair of eyelid laceration measuring 5 mm. SURGEON: Edenilson Dasilva MD. ALCOHOL LAW ENFORCEMENT AGENT: None. ANESTHESIA: General endotracheal. BRIEF HISTORY: The patient is a 46-year-old female who was found down, altered, and had been hitting her head against the wall. She sustained a laceration that required stitches to her left eyelid. She had bruising and blurred vision was noted to her left eye. I did discuss over the phone with Dr. Cesar, the fluorescent lighting model maker in [place], about management. He said there was nothing to do at this current moment for her funduscopic examination, but she would need close followup in the immediate postoperative period. I felt that the patient would benefit from repair of this, given its anatomical location. We did not think that the patient would tolerate this at the bedside. Therefore, we elected to take the patient to the operating room. The risks, benefits, and alternatives for the procedure were discussed with the patient and the family. All questions were answered. DESCRIPTION OF PROCEDURE: After informed consent was obtained, the patient was brought to the operative theatre, transferred to the operating table, and placed in supine position. General endotracheal anesthesia was then performed without complication. A formal time-out was then performed, confirming patient, date, and procedure. All were in agreement. At that time, attention was given to the left eyelid. After this area was prepped and draped, and after the time-out, we examined the eyelid laceration again. It measured approximately 5 mm. It was amenable to closure. The tissue edges were healthy. We placed a single 3-0 chromic in the wound and reapproximated the skin loosely. There was good reapproximation for healing. We then placed ointment into the eye and bacitracin on the wound. The patient tolerated the procedure well and was transferred back to the recovery room in stable condition. cc: Edenilson Dasilva MD
[2016-07-29] MEDS ORDERED: CATAPRES PO SCH (18:25)
[2016-07-29] MEDS: APRESOLINE IV PRN (19:30)
[2016-07-29] MEDS ORDERED: DIPRIVAN 1% ONE (20:19)
[2016-07-30] MEDS: NS 1,000 ML IV SCH ×3 (02:12→22:22)
[2016-07-30] MEDS: DUONEB (A & A) INH SCH ×6 (03:41→23:00)
[2016-07-30] MEDS: APRESOLINE IV PRN ×4 (05:12→16:47)
[2016-07-30 05:16] LABS: HEMATOCRIT 38.1 % (37.0-47.0); HEMOGLOBIN 13.1 g/dL (12.0-16.0); MCH 30.6 PG (27-31); MCHC 34.4 g/dL (33-37); MPV 10.7 FL (7.4-10.4); RBC 4.28 XMIL (4.2-5.4)
[2016-07-30 05:41] LABS: ALBUMIN 3.9 g/dL (3.5-5.0); CALCIUM 8.7 mg/dL (8.8-10.2); POTASSIUM 3.7 mmol/L (3.5-5.1); TOTAL BILIRUBIN 0.46 mg/dL (0.20-1.00); TOTAL PROTEIN 7.1 g/dL (6.3-8.3)
--- NOTE | 2016-07-30 07:30 | PROGRESS NOTE ---
DATE: 07/30/2016 SUBJECTIVE: No major issues reported by the nursing staff. OBJECTIVE: Vital Signs: Patient is currently afebrile. Her vital signs have been stable. General: No acute distress. HEENT: Left eyelid with some dried blood that was wiped away. The incision appears to be healing okay. The erythema on the sclera of the eye appears to be mildly improved. ASSESSMENT AND PLAN: A 46-year-old, female, status post altered mental status, found down with eyelid laceration on the left side. Left eyelid laceration: At this time, incision is healing okay. I did discuss over the phone with Dr. Cesar, who is an practice assistant in [place] who recommended outpatient follow up. At this time, we will continue to monitor in the ICU per the hospitalist team. At this point, I will be available as needed as far as the eyelid laceration is concerned. cc: Edenilson Dasilva MD
[2016-07-30] MEDS: CATAPRES PO SCH ×2 (09:04→20:10)
[2016-07-30] MEDS: NICODERM PATCH TD SCH (09:05)
[2016-07-30] MEDS ORDERED: ATIVAN IV PRN (09:18)
--- NOTE | 2016-07-30 10:43 | PROGRESS NOTE ---
DATE: 07/30/2016 SUBJECTIVE: This patient looks much better today. She is answering all of my questions. She is alert and oriented x3. She states that she has been drinking every single day between 2-6 beers. Occasionally she can drink more than that. Also, she has been taking Xanax and probably clonazepam. Her blood pressure has been elevated. I will continue with her clonidine. I am not going to add lisinopril because she is just recovering from an acute kidney injury, but I will start this patient on hydralazine. I will continue her dose of Xanax for anxiety. For the possibility of withdrawal or delirium tremens I will put this patient on Ativan p.r.n. OBJECTIVE: Vital Signs: Temperature 98.9 degrees, pulse 63, respiratory rate 18, blood pressure 169/103, oxygen saturation 95% on room air. HEENT: Head normocephalic. She has a trauma/laceration to the medial aspect of the upper eyelid with dried blood noted. PERRLA. Neck: Supple. No JVD. No masses. Central trachea. Chest: Clear to auscultation. No wheezing. No rales. Abdomen: Soft, nontender, nondistended. No hepatosplenomegaly. Cardiovascular: RRR. No murmurs. Extremities: No edema. No clubbing. No cyanosis. Neurological: The patient is alert and oriented x3. No focal neurological deficits at this moment. LABORATORY: WBC 7.1, hemoglobin 13.1, hematocrit 38.1, platelets 131,000. Sodium 142, potassium 3.7, chloride 104, bicarbonate 22, BUN 8, creatinine 1.1, glucose 100, calcium 8.7. ASSESSMENT AND PLAN: 1. Toxic metabolic encephalopathy. I talked to the patient today and she states that she has been drinking and also taking opiates and benzodiazepines. She does not remember exactly for how long but it has been for awhile. Apparently she has been on Suboxone but she quit. But today she is alert. She is oriented x3. I think she is getting better. I will continue to monitor. 2. Eyelid laceration. Surgery department went to the OR with this patient yesterday and they repaired the laceration. She needs to follow up as an outpatient with ophthalmology for full funduscopic exam. 3. History of chronic obstructive pulmonary disease. Aware. Not in exacerbation. 4. Hypertension. I will continue with her clonidine and I will start this patient on hydralazine. I am not going to restart the lisinopril because this patient came in with acute kidney injury. 5. Acute kidney injury. Her creatinine yesterday was 1.9 and today is 1.1. This is getting better. I will continue with fluids. 6. Alcohol abuse. I have placed this patient on Ativan p.r.n. in case of delirium tremens or alcohol withdrawal. I will continue keeping an eye on her in the ICU. 7. Opiates and benzodiazepine abuse. I have placed this patient again on Xanax because of her anxiety. I will monitor. Apparently this patient has been on Suboxone before but she quit taking it. 8. Deep vein thrombosis prophylaxis. Continue with Lovenox. 9. Nutritional status. I will advance the diet to mechanical soft diet, low salt. 10. Physical deconditioning. I will ask for physical therapy evaluation CRITICAL CARE TIME: 40 minutes. cc: Kermit Jorgensen MD
[2016-07-30] MEDS: ROCEPHIN 1 GM/NS 1 GM/50 ML IVPB IV SCH (11:20)
[2016-07-30] MEDS: APRESOLINE PO SCH ×2 (13:08→16:48)
[2016-07-30] MEDS: LOVENOX SUBQ SCH (20:10)
[2016-07-30] MEDS: XANAX PO SCH (20:10)
[2016-07-31] MEDS: APRESOLINE IV PRN ×3 (02:10→13:26)
[2016-07-31] MEDS: DUONEB (A & A) INH SCH ×6 (02:46→23:24)
[2016-07-31 05:47] LABS: HEMATOCRIT 40.9 % (37.0-47.0); MCH 30.6 PG (27-31); MCHC 34.2 g/dL (33-37); MCV 89.3 FL (81-99); MPV 10.9 FL (7.4-10.4); RBC 4.58 XMIL (4.2-5.4)
[2016-07-31 06:00] LABS: AGAP 13; ALBUMIN 3.4 g/dL (3.5-5.0); ALKALINE PHOSPHATASE 115 U/L (32-104); BUN 5 mg/dL (8-22); CALCIUM 8.9 mg/dL (8.8-10.2); CHLORIDE 108 mmol/L (98-107); COSMO 280; GOT 27 U/L (10-30); GPT 29 U/L (10-36); POTASSIUM 3.5 mmol/L (3.5-5.1); SODIUM 141 mmol/L (136-145); TCO2 20 mmol/L (25-35); TOTAL BILIRUBIN 0.75 mg/dL (0.20-1.00); TOTAL PROTEIN 6.6 g/dL (6.3-8.3)
[2016-07-31] MEDS: NS 1,000 ML IV SCH ×2 (06:08→15:13)
[2016-07-31] MEDS ORDERED: VASELINE ONE (08:04)
[2016-07-31] MEDS ORDERED: VASELINE TOP PRN (08:07)
[2016-07-31] MEDS: CATAPRES PO SCH ×2 (08:11→21:01)
[2016-07-31] MEDS: APRESOLINE PO SCH ×4 (08:11→21:01)
[2016-07-31] MEDS: NICODERM PATCH TD SCH (08:11)
[2016-07-31] MEDS: XANAX PO SCH (08:11)
[2016-07-31] MEDS ORDERED: VALIUM IV ONE (08:53)
[2016-07-31] MEDS: ROCEPHIN 1 GM/NS 1 GM/50 ML IVPB IV SCH (10:15)
--- NOTE | 2016-07-31 10:38 | PROGRESS NOTE ---
DATE: 07/31/2016 SUBJECTIVE: Today, this patient is lethargic. She is able to open her eyes and she is responding to pain stimulation but she is not answering my questions. She has muscle rigidity and shakiness. Also, she is sweaty. It looks like this patient is having alcohol withdrawal. I will give her right now a dose of diazepam and I will schedule Ativan for this patient also. We will continue with p.r.n. Ativan. Once she is able to eat or drink. I will put this patient on Librium scheduled. I will talk to the professor of social work on Monday because this patient needs to go to a detox center. I will continue monitoring this patient in the ICU. OBJECTIVE: Vital Signs: Temperature 99.2 degrees, pulse 99, respiratory rate 26, blood pressure 152/91, oxygen saturation 96 on room air. HEENT: Head normocephalic. She has a trauma/laceration to the medial aspect of the upper eyelid with dried blood noted, status post surgery. PERRLA. Neck: Supple. No JVD. No masses. Central trachea. Chest: Clear to auscultation. No wheezing. No rales. Abdomen: Soft, nontender, nondistended. No hepatosplenomegaly. Cardiovascular: RRR. Tachycardic. No murmurs. Extremities: Upper extremity edema 1 to 2+. No edema at the level of the lower extremities. No clubbing. No cyanosis. Neurological Examination: The patient is lethargic. She is not answering my questions. She is able to open her eyes. She has upper extremity rigidity, shakiness, and she is also sweating. Laboratory: WBC 9.4, hemoglobin 14, hematocrit 40.9, platelets 153,000. Sodium 141, potassium 3.5, chloride 108, bicarbonate 20, BUN 5, creatinine 0.8, glucose 119, calcium 8.9. Albumin 3.4. ASSESSMENT AND PLAN: 1. Altered mental status, likely secondary to alcohol withdrawal. I will put this patient on diazepam and Ativan scheduled, also Ativan as needed. I will continue monitoring this patient in the intensive care unit. 2. Eye laceration. Surgery department went to the operating room yesterday and repaired the wound. We will continue to monitor. She needs to follow up as an outpatient with ophthalmology for full endoscopic examination. 3. History of chronic obstructive pulmonary disease. Aware. Not in exacerbation. 4. Hypertension. The blood pressure is around 160s. I do believe this is secondary to alcohol withdrawal as well. I will continue with clonidine. Yesterday, I started this patient on hydralazine and I increased the dose today of hydralazine. 5. Acute kidney injury, resolved. 6. Alcohol abuse. I had a large conversation with this patient yesterday about alcohol and she states that she has been drinking on and off but lately she has been drinking at least 2 beers per day up to 6 per day. 7. Opiate and benzodiazepine abuse. Continue with daily cessation education. Because this patient is having possible alcohol withdrawal, I put this patient on diazepam and Ativan. 8. Deep venous thrombosis prophylaxis. Continue with Lovenox. 9. Nutritional status. For now, I want to hold any kind of food. 10. Physical deconditioning. CRITICAL CARE TIME: 40 minutes. cc: Kermit Jorgensen MD
[2016-07-31] MEDS: ATIVAN IV SCH ×4 (11:30→21:01)
[2016-07-31] MEDS: ZOFRAN IV PRN (15:19)
[2016-07-31] MEDS: LOVENOX SUBQ SCH (21:00)
[2016-08-01] MEDS: ATIVAN IV SCH ×3 (00:18→08:02)
[2016-08-01] MEDS: NS 1,000 ML IV SCH ×4 (02:55→23:00)
[2016-08-01] MEDS: APRESOLINE IV PRN ×2 (03:17→20:28)
[2016-08-01] MEDS: ZOFRAN IV PRN ×2 (03:24→22:42)
[2016-08-01] MEDS: DUONEB (A & A) INH SCH ×6 (03:45→23:26)
[2016-08-01] MEDS: CATAPRES PO SCH ×2 (08:02→20:28)
[2016-08-01] MEDS: APRESOLINE PO SCH ×3 (08:02→20:29)
[2016-08-01] MEDS: NICODERM PATCH TD SCH (08:08)
[2016-08-01 09:04] LABS: HEMATOCRIT 38.5 % (37.0-47.0); HEMOGLOBIN 13.1 g/dL (12.0-16.0); MCH 30.6 PG (27-31); MPV 11.1 FL (7.4-10.4); RBC 4.28 XMIL (4.2-5.4)
[2016-08-01] MEDS ORDERED: ZOFRAN ONE (09:14)
[2016-08-01] MEDS ORDERED: ROBINUL ONE (09:14)
[2016-08-01] MEDS ORDERED: LR 1,000 ML ONE (09:15)
[2016-08-01] MEDS ORDERED: QUELICIN (DOSE) ONE (09:15)
[2016-08-01] MEDS ORDERED: ZEMURON ONE (09:15)
[2016-08-01] MEDS ORDERED: XYLOCAINE-MPF 2% ONE (09:15)
[2016-08-01 09:25] LABS: AGAP 11; ALBUMIN 3.1 g/dL (3.5-5.0); ALKALINE PHOSPHATASE 94 U/L (32-104); BUN 7 mg/dL (8-22); CALCIUM 8.5 mg/dL (8.8-10.2); CHLORIDE 110 mmol/L (98-107); COSMO 278; GOT 38 U/L (10-30); GPT 31 U/L (10-36); POTASSIUM 3.2 mmol/L (3.5-5.1); SODIUM 140 mmol/L (136-145); TCO2 19 mmol/L (25-35); TOTAL BILIRUBIN 0.68 mg/dL (0.20-1.00); TOTAL PROTEIN 5.9 g/dL (6.3-8.3)
[2016-08-01] MEDS: ROCEPHIN 1 GM/NS 1 GM/50 ML IVPB IV SCH (09:36)
[2016-08-01] MEDS: LIBRIUM PO SCH ×3 (09:37→20:28)
[2016-08-01] MEDS: MORPHINE IV PRN ×4 (10:14→22:42)
[2016-08-01] MEDS ORDERED: KLOR-CON PO ONE (10:30)
--- NOTE | 2016-08-01 11:52 | PROGRESS NOTE ---
DATE: 08/01/2016 SUBJECTIVE: This patient today looks much better. When I examined this patient, this patient was eating. She was answering all of my questions and following commands. OBJECTIVE: Vital Signs: Temperature 99.1 degrees, pulse 106, respiratory rate 28, blood pressure 151/59, oxygen saturation 95% on room air. HEENT: Head normocephalic. She has a trauma/laceration to the medial aspect of the upper eyelid with dried blood status post surgery. PERRLA. Neck: Supple. No JVD. No masses. Central trachea. Chest: Clear to auscultation. No wheezing. No rales. Abdomen: Soft, nontender, nondistended. No hepatosplenomegaly. Cardiovascular: RRR. Tachycardic. No murmurs. Extremities: Upper extremity edema 1 to 2+. No edema at the level of the lower extremities. No clubbing. No cyanosis. Neurological: The patient is alert and oriented x3. She is answering all of my questions. She is able to move all 4 extremities but she has some rigidity mostly at the level of the upper extremities and sweating. LABORATORY: WBC 6.8, hemoglobin 13.1, hematocrit 38.5, platelets 127,000. Sodium 140, potassium 3.2, chloride 110, bicarbonate 19, BUN 7, creatinine 0.8, calcium 8.5, glucose 102. ASSESSMENT AND PLAN: 1. Alcohol withdrawal. This patient was placed on diazepam and also Ativan scheduled and also Ativan as needed. I will stop the Ativan scheduled and I will put this patient on Librium p.o. 50 mg every 6 hours and I will continue to monitor this patient in the ICU. I will continue also with the Ativan p.r.n. This patient looks much better today. 2. Eye laceration status post surgical repair. No complaints today. We will continue to monitor. 3. History of chronic obstructive pulmonary disease. Not in exacerbation. 4. Hypertension. The blood pressure has been high. I will increase the dose of clonidine from 0.1 to 0.2 twice a day and I will continue to monitor this patient in the ICU. 5. Acute kidney injury, resolved. 6. Alcohol abuse. I had a large conversation with this patient regarding alcohol abuse and she states that she wants to go ahead and ask for a detox center. I already talked to the social media strategist about this. They are working on that. 7. Opiate and benzodiazepine abuse. Continue with daily cessation education. 8. Deep vein thrombosis prophylaxis. Continue with Lovenox. 9. Nutritional status. Continue with her diet. 10. Physical deconditioning. Physical therapy is on board. cc: Kermit Jorgensen MD
[2016-08-01 12:44] LABS: HEPATITIS PROFILE ACUTE SEE COMMENTS
--- NOTE | 2016-08-01 18:01 | EEG REPORT ---
DATE: 07/29/2016 EEG #: [id number]. PROCESS MOLD TECHNICIAN: Tisha Harman. BACKGROUND INFORMATION: Technique. This is a digitally recorded EEG with 1 EKG channel. HISTORY OF PRESENT ILLNESS: This is a 46-year-old female with history of substance abuse including alcohol, history of seizures on no antiseizure medication who presents with altered mental status after being found down and hitting her face on the ground. She has been treated in the hospital for delirium tremens and alcohol withdrawal. Her drug screen on admission was positive for opiates and benzodiazepines. EEG is ordered to evaluate for altered mental status and possible seizure. MEDICATIONS: Her home medications are notable for Xanax, Suboxone, clonidine, Phenergan. EEG FINDINGS: This EEG is technically limited due to diffuse EMG artifact. A posterior dominant rhythm is not seen. The background consists of medium amplitude, generalized theta more than delta slowing with abundant superimposed fast activity. There are no epileptiform discharges. There are no electrographic seizures. No obvious focal slowing is seen. Hyperventilation was unable to be performed. Photic stimulation did not induce photic driving. The patient appeared drowsy for parts of the study. EKG showed regular RR interval. IMPRESSION AND RECOMMENDATIONS.: This is an abnormal, technically limited routine EEG due to. 1. Moderate generalized background slowing indicative of a moderate diffuse encephalopathy. Generalized slowing is a nonspecific finding that can be seen in processes that diffusely affect the cerebrum including toxic, metabolic, posthypoxic, pharmacologic or infectious conditions. 2. No epileptiform abnormalities or seizures were noted. This does not rule out an underlying seizure disorder. The superimposed fast activity may be seen as a medication effect such as benzodiazepines. cc: MD Nixon Hawk CRNP MTDD
[2016-08-01] MEDS: LOVENOX SUBQ SCH (20:28)
[2016-08-02] MEDS: DUONEB (A & A) INH SCH ×5 (03:07→23:10)
[2016-08-02] MEDS: LIBRIUM PO SCH ×4 (03:29→21:12)
[2016-08-02] MEDS: MORPHINE IV PRN ×4 (03:30→21:12)
[2016-08-02] MEDS: ZOFRAN IV PRN ×3 (03:30→21:22)
[2016-08-02] MEDS: NS 1,000 ML IV SCH ×5 (03:31→21:13)
[2016-08-02 06:18] LABS: MANUAL DIFF NEEDED? NO
[2016-08-02 06:21] LABS: BASO% 0.4 % (0.0-0.8); EOS% 4.2 % (0.0-10.0); HEMATOCRIT 34.8 % (37.0-47.0); HEMOGLOBIN 11.5 g/dL (12.0-16.0); LYMPH# 1.53 X1000 (1.2-3.4); LYMPH% 32.5 % (20.5-51.1); MCH 30.1 PG (27-31); MCV 91.1 FL (81-99); MONO# 0.41 X1000 (0.11-0.59); MONO% 8.7 % (1.7-9.3); MPV 10.4 FL (7.4-10.4); NEUT% 54.2 % (42.2-75.2); PLT 115 X1000 (130-400); RBC 3.82 XMIL (4.2-5.4)
[2016-08-02 06:36] LABS: AGAP 9; BUN 8 mg/dL (8-22); CALCIUM 8.3 mg/dL (8.8-10.2); CHLORIDE 111 mmol/L (98-107); COSMO 277; POTASSIUM 3.6 mmol/L (3.5-5.1); SODIUM 140 mmol/L (136-145); TCO2 20 mmol/L (25-35)
[2016-08-02] MEDS: NICODERM PATCH TD SCH (08:21)
[2016-08-02] MEDS: CATAPRES PO SCH (08:21)
[2016-08-02] MEDS: APRESOLINE PO SCH ×3 (08:22→21:12)
[2016-08-02] MEDS: ROCEPHIN 1 GM/NS 1 GM/50 ML IVPB IV SCH (09:11)
[2016-08-02] MEDS ORDERED: LASIX IV ONE (09:44)
[2016-08-02] MEDS: PRINIVIL PO SCH (10:32)
[2016-08-02] MEDS: ATIVAN IV PRN ×3 (10:32→21:12)
--- NOTE | 2016-08-02 10:47 | PROGRESS NOTE ---
DATE: 08/02/2016 SUBJECTIVE: The patient reports feeling fine. A little bit shaky but overall more alert. Eating okay. OBJECTIVE: Vital Signs: Temperature 98.1 degrees, heart rate 81, respiratory rate 15, blood pressure 149/104, O2 saturation 98% on room air. General Examination: This is a chronically ill- looking and also looking older than her age, 46-year-old, female lying in bed, in no acute distress. HEENT: Head is normocephalic. She had a traumatic laceration to the medial aspect of the upper eyelid. Neck: Supple. No JVD noted. No carotid bruits. No lymphadenopathy. No thyromegaly. Cardiovascular Examination: S1 and S2 heard. No murmurs, gallops, or rubs. Regular rate and rhythm. Respiratory Examination: Clear bilaterally to auscultation. No work of breathing or using accessory muscles. No rales or wheezing noted. Abdomen: Soft, nontender, nondistended. Bowel sounds present. No organomegaly. Extremities: Both lower extremities have 2+ pitting edema. No clubbing or cyanosis. Peripheral pulses present in both legs. Neurological Examination: Patient is alert and oriented x3. Moves 4 extremities. A little bit shaky in both hands. Laboratory Data: White cell count 4.71, hemoglobin 11.5, hematocrit 34.8, platelets 115,000. The BMP is completely unremarkable. ASSESSMENT AND PLAN: 1. Alcohol withdrawal. The patient has been on Librium by mouth every 6 hours and also Ativan 2 mg intravenous every 2 hours as needed. During the last 24 hours, she has not received any Ativan intravenous, just the Librium which seems is controlling those symptoms. The patient is still reporting mild hand tremors so we are going to add baclofen 20 mg by mouth 3 times per day to her current treatment. We are going to transfer this patient out of the intensive care unit today. 2. Eye laceration, status post surgical repair. The patient is fine. General surgery has signed off. 3. Chronic obstructive pulmonary disease. Patient is not in any exacerbation. We will continue with the same management. 4. Hypertension. The patient is on clonidine but because this medication is being given 3 times per day, because that medication can cause rebound hypertension with patient on these doses, I prefer to decrease the dose of clonidine and start lisinopril 20 mg by mouth daily considering her normal renal function. We will continue monitoring. 5. Acute kidney injury. That condition has completely resolved. 6. Opiate and benzodiazepine abuse. At this point, we have talked with the patient about quitting abusing those medications. 7. Deep vein thrombosis prophylaxis. Patient is on Lovenox. 8. Nutritional status. Patient is on a regular diet. 9. Physical deconditioning. Physical therapy will be consulted again. cc: Minesh Kramer MD
[2016-08-02] MEDS: LIORESAL PO SCH ×3 (11:49→17:01)
[2016-08-02] MEDS: LOVENOX SUBQ SCH (21:12)
[2016-08-03] MEDS: ATIVAN IV PRN ×4 (00:12→21:16)
[2016-08-03] MEDS: LIBRIUM PO SCH ×3 (03:17→17:02)
[2016-08-03] MEDS: MORPHINE IV PRN ×4 (03:17→16:25)
[2016-08-03] MEDS: DUONEB (A & A) INH SCH ×4 (03:55→16:04)
[2016-08-03 05:29] LABS: MANUAL DIFF NEEDED? NO
[2016-08-03 05:31] LABS: BASO% 0.4 % (0.0-0.8); EOS# 0.25 X1000 (0.0-0.7); EOS% 4.9 % (0.0-10.0); HEMATOCRIT 33.8 % (37.0-47.0); HEMOGLOBIN 11.3 g/dL (12.0-16.0); LYMPH# 1.58 X1000 (1.2-3.4); LYMPH% 31.2 % (20.5-51.1); MCH 30.3 PG (27-31); MCHC 33.4 g/dL (33-37); MCV 90.6 FL (81-99); MONO# 0.43 X1000 (0.11-0.59); MONO% 8.5 % (1.7-9.3); MPV 10.6 FL (7.4-10.4); PLT 114 X1000 (130-400); RBC 3.73 XMIL (4.2-5.4)
[2016-08-03 05:47] LABS: AGAP 10; BUN 12 mg/dL (8-22); CALCIUM 8.4 mg/dL (8.8-10.2); CHLORIDE 107 mmol/L (98-107); COSMO 279; POTASSIUM 3.2 mmol/L (3.5-5.1); SODIUM 140 mmol/L (136-145); TCO2 23 mmol/L (25-35)
[2016-08-03] MEDS: ZOFRAN IV PRN (07:51)
[2016-08-03] MEDS: PRINIVIL PO SCH (08:00)
[2016-08-03] MEDS: APRESOLINE PO SCH ×2 (08:00→21:16)
[2016-08-03] MEDS: LIORESAL PO SCH ×3 (08:00→21:16)
[2016-08-03] MEDS: NICODERM PATCH TD SCH (08:00)
[2016-08-03] MEDS: NS 1,000 ML IV SCH ×4 (08:36→17:34)
[2016-08-03] MEDS ORDERED: CATAPRES PO SCH (09:00)
[2016-08-03] MEDS: ROCEPHIN 1 GM/NS 1 GM/50 ML IVPB IV SCH (09:51)
--- NOTE | 2016-08-03 12:04 | Diag Imaging Result Document ---
PROCEDURE NAME: CHEST-2 VIEWS - 08/03/2016 FRONTAL AND LATERAL CHEST, TWO VIEWS: COMPARISON: 07/29/2016. FINDINGS: The lungs are hyperexpanded. There is increased AP diameter to the chest. Minimal atelectasis in the lung bases. The heart is not enlarged. The vessels are not distended. IMPRESSION: 1. Emphysema. 2. Minimal basilar atelectasis.
[2016-08-03] MEDS ORDERED: TUMS PO PRN (12:26)
[2016-08-03] MEDS: PROTONIX PO SCH (12:48)
[2016-08-03 13:21] LABS: HCV BY PCR SEE COMMENTS; HCV CHARGE YES
--- NOTE | 2016-08-03 15:11 | PROGRESS NOTE ---
DATE: 08/03/2016 SUBJECTIVE: Patient reports feeling fine. Definitely less shaky, but reports feeling weak all over, unable to stand up by herself. OBJECTIVE: Vital Signs: Temperature 97.9, heart rate 85, respiratory rate 18, blood pressure 130/78, O2 saturation 100% on room air. General Examination: This is a chronically ill-looking, frail, looking older than her age, 46-year-old female lying in bed, in no acute distress. HEENT: Head is normocephalic and she had a traumatic laceration to the medial aspect of the upper eyelid. Neck: Supple. No JVD noted. No carotid bruits. No lymphadenopathy. No thyromegaly. Cardiovascular: S1, S2 heard. No murmurs, gallops, or rubs. Regular rate and rhythm. Respiratory: Clear bilaterally to auscultation. No work of breathing or using accessory muscles. Abdomen: Soft, nontender to palpation. Bowel sounds present. No organomegaly. Extremities: 2+ pitting edema on both lower extremities. No clubbing or cyanosis. Peripheral pulses present in both legs. Neurological: Patient is alert and oriented x3. Moves 4 extremities. A little bit shaky but definitely less in comparing with yesterday. LABORATORY DATA: CBC remarkable for hemoglobin 11.3 and also for the BMP remarkable for potassium 3.2. ASSESSMENT AND PLAN: 1. Alcohol withdrawal. Patient has been admitted to the hospital on the intensive care unit for alcohol withdrawal. By now she is not requiring any Ativan IV. She was on Librium 50 mg q.6 hours that has been reduced to 25 mg p.o. b.i.d. Also, she is on baclofen 20 mg p.o. 3 times per day. Overall, this patient is doing good. We are going to continue with the same management and continuing tapering the Librium down. 2. Eyelid laceration status post surgical repair, stable. General surgery has signed off. 3. Chronic obstructive pulmonary disease. Patient is not in any exacerbation. We will continue with breathing treatment as a baseline treatment. 4. Hypertension. Blood pressure is definitely better controlled. We have started this patient on lisinopril 20 and clonidine has been stopped. We will continue monitoring this patient. 5. Acute kidney injury resolved. 6. Opiate and benzodiazepine abuse. The patient has been advised to stop abusing drugs. 7. Deep vein thrombosis prophylaxis. On Lovenox. 8. Nutritional status. Patient is on regular diet. 9. Physical deconditioning. Physical therapy has evaluated this patient. This patient is very weak and considering that this patient does not have insurance, we will keep this in the hospital and provide physical therapy 2 times per day while she is here. My best guess is that she may need to stay for a week. We are going to transfer this patient to [facility]. cc: Minesh Kramer MD
[2016-08-03] MEDS: LOVENOX SUBQ SCH (21:15)
[2016-08-04] MEDS: MORPHINE IV PRN ×5 (00:21→22:54)
[2016-08-04] MEDS: NS 1,000 ML IV SCH ×4 (04:14→23:01)
[2016-08-04] MEDS: PROTONIX PO SCH ×2 (05:35→08:03)
[2016-08-04] MEDS: ATIVAN IV PRN ×4 (05:36→21:41)
[2016-08-04 06:31] LABS: MANUAL DIFF NEEDED? NO
[2016-08-04 06:41] LABS: BASO% 0.3 % (0.0-0.8); EOS% 5.8 % (0.0-10.0); HEMATOCRIT 32.5 % (37.0-47.0); HEMOGLOBIN 10.7 g/dL (12.0-16.0); IMM GRAN# 0.01 X1000 (0.0-0.04); IMM GRAN% 0.3 % (0.0-0.5); LYMPH# 1.19 X1000 (1.2-3.4); LYMPH% 34.4 % (20.5-51.1); MCH 29.6 PG (27-31); MCHC 32.9 g/dL (33-37); MCV 89.8 FL (81-99); MONO# 0.33 X1000 (0.11-0.59); MONO% 9.5 % (1.7-9.3); MPV 11.1 FL (7.4-10.4); NEUT% 49.7 % (42.2-75.2); PLT 120 X1000 (130-400); RBC 3.62 XMIL (4.2-5.4)
[2016-08-04] MEDS ORDERED: PROTONIX PO SCH (07:00)
[2016-08-04 07:07] LABS: AGAP 13; BUN 10 mg/dL (8-22); CALCIUM 8.5 mg/dL (8.8-10.2); CHLORIDE 106 mmol/L (98-107); COSMO 272; POTASSIUM 3.1 mmol/L (3.5-5.1); SODIUM 137 mmol/L (136-145); TCO2 18 mmol/L (25-35)
[2016-08-04] MEDS: LIORESAL PO SCH ×5 (07:58→20:52)
[2016-08-04] MEDS: NICODERM PATCH TD SCH ×2 (07:58→08:04)
[2016-08-04] MEDS: APRESOLINE PO SCH ×2 (07:59→20:52)
[2016-08-04] MEDS: LIBRIUM PO SCH ×3 (07:59→18:43)
[2016-08-04] MEDS: PRINIVIL PO SCH (07:59)
[2016-08-04] MEDS: ROCEPHIN 1 GM/NS 1 GM/50 ML IVPB IV SCH (10:01)
[2016-08-04] MEDS ORDERED: KLOR-CON PO ONE (16:05)
--- NOTE | 2016-08-04 17:36 | PROGRESS NOTE ---
DATE: 08/04/2016 SUBJECTIVE: This patient states that she is feeling better. She is not complaining of tremors, but she is complaining of generalized weakness. She is unable to stand up or walk by herself. OBJECTIVE: Vital Signs: Temperature 98.1 degrees, pulse 97, respiratory rate 18, blood pressure 150/91, oxygen saturation 97% on room air. HEENT: Head normocephalic. She has a traumatic laceration to the medial aspect of the upper eyelid. Neck: Supple. No JVD. No masses. Central trachea. Cardiovascular: RRR. No murmurs. No gallops. No rubs. Abdomen: Soft, nontender, nondistended. No hepatosplenomegaly. Extremities: With 1+ lower extremity edema. No clubbing. No cyanosis. Neurologic: The patient is alert and oriented x3. No focal neurological deficits. LABORATORY: WBC 3.4, hemoglobin 10.7, hematocrit 32.5, platelets 120,000. Sodium 137, potassium 3.1, chloride 106, bicarbonate 18, BUN 10, creatinine 0.8, glucose 86, calcium 8.5. ASSESSMENT AND PLAN: 1. Alcohol withdrawal. Initially this patient was admitted to the hospital secondary to altered mental status and alcohol withdrawal. This patient right now is not requiring any Ativan. She is on Librium p.o. t.i.d. and baclofen 20 mg p.o. 3 times a day. We will continue to monitor this patient. Hopefully, we are going to be able to taper the Librium down. 2. Eyelid laceration status post surgical repair, stable. General Surgery signed off. This patient should go to an student services advisor after discharge to do funduscopic evaluation. 3. Chronic obstructive pulmonary disease, not in exacerbation. 4. Hypertension, better control. This patient is on lisinopril 20, and clonidine has been stopped. We will continue to monitor. 5. Acute kidney injury. Resolved. 6. Opiate and benzodiazepine abuse. This patient has been highly advised against drugs. I will continue with daily cessation education. 7. Alcohol abuse. Again, I will continue with daily education. 8. Deep venous thrombosis prophylaxis. Continue with Lovenox. 9. Nutritional status. Continue with her diet. 10. Physical deconditioning. This patient does not have insurance. She will receive some days of physical therapy in-house, and then she will be discharged home safely. cc: Kermit Jorgensen MD
[2016-08-04] MEDS: LOVENOX SUBQ SCH (20:52)
[2016-08-04] MEDS: DUONEB (A & A) INH SCH ×2 (20:58→23:10)
[2016-08-04] MEDS: ZOFRAN IV PRN (23:00)
[2016-08-05] MEDS: DUONEB (A & A) INH SCH ×5 (01:03→14:47)
[2016-08-05] MEDS: ATIVAN IV PRN ×3 (04:10→15:31)
[2016-08-05] MEDS: MORPHINE IV PRN ×3 (04:10→13:07)
[2016-08-05 05:53] LABS: MANUAL DIFF NEEDED? NO
[2016-08-05] MEDS: PROTONIX PO SCH ×2 (05:54→06:08)
[2016-08-05 05:57] LABS: BASO% 0.3 % (0.0-0.8); EOS# 0.13 X1000 (0.0-0.7); EOS% 3.7 % (0.0-10.0); HEMATOCRIT 31.7 % (37.0-47.0); HEMOGLOBIN 10.6 g/dL (12.0-16.0); IMM GRAN# 0.01 X1000 (0.0-0.04); IMM GRAN% 0.3 % (0.0-0.5); LYMPH# 1.21 X1000 (1.2-3.4); LYMPH% 34.2 % (20.5-51.1); MCH 29.6 PG (27-31); MCHC 33.4 g/dL (33-37); MCV 88.5 FL (81-99); MONO# 0.38 X1000 (0.11-0.59); MONO% 10.7 % (1.7-9.3); MPV 10.8 FL (7.4-10.4); NEUT% 50.8 % (42.2-75.2); PLT 112 X1000 (130-400); RBC 3.58 XMIL (4.2-5.4)
[2016-08-05 06:12] LABS: AGAP 11; BUN 11 mg/dL (8-22); CALCIUM 8.4 mg/dL (8.8-10.2); CHLORIDE 109 mmol/L (98-107); COSMO 277; POTASSIUM 3.1 mmol/L (3.5-5.1); SODIUM 139 mmol/L (136-145); TCO2 19 mmol/L (25-35)
[2016-08-05] MEDS: ZOFRAN IV PRN (08:01)
[2016-08-05] MEDS: APRESOLINE PO SCH (08:02)
[2016-08-05] MEDS: PRINIVIL PO SCH (08:03)
[2016-08-05] MEDS: LIORESAL PO SCH ×2 (08:03→15:52)
[2016-08-05] MEDS: LIBRIUM PO SCH ×2 (08:04→13:07)
[2016-08-05] MEDS: NICODERM PATCH TD SCH (08:06)
[2016-08-05] MEDS: NS 1,000 ML IV SCH (09:16)
[2016-08-05] MEDS: ROCEPHIN 1 GM/NS 1 GM/50 ML IVPB IV SCH (10:03)
[2016-08-05 16:12] VITALS: BP 187/83
--- NOTE | 2016-08-05 20:49 | DISCHARGE SUMMARY ---
ADMISSION DATE: 07/29/2016 DISCHARGE DATE: 08/05/2016 ADMISSION DIAGNOSES: 1. Toxic metabolic encephalopathy. 2. Eyelid laceration. 3. Chronic obstructive pulmonary disease. 4. Urinary tract infection. 5. Hypertension. 6. Nicotine dependence. 7. Acute kidney injury. DISCHARGE DIAGNOSES: 1. Alcohol withdrawal. 2. Toxic metabolic encephalopathy secondary to #1, improved. 3. Eyelid laceration status post surgical repair. 4. Chronic obstructive pulmonary disease. 5. Hypertension. 6. Acute kidney injury resolved. 7. Opiate and benzodiazepine abuse. 8. Alcohol abuse. 9. Physical deconditioning. SUMMARY OF FINDINGS: This is a 46-year-old, female who presents after she was found minimally responsive on the floor banging her head against the wall. At the time of arrival the patient could not give any type of history secondary to her mental status. She was found on the floor banging her head and her mother immediately called 911. She was brought to the emergency room and then transferred to the ICU for closer observation. The head CT did not show any acute intracranial injury. There was an injury to the left lamina papyracea. Her C-spine CT was negative. She was very drowsy on arrival but would awaken to verbal stimuli, but was completely disoriented. She would follow commands without focal deficit. Her urine drug screen was positive for opiates and benzodiazepines. She was initially admitted to the Intensive Care Unit at [facility]. General Surgery was consulted and she was noted to have left eyelid laceration. She was taken to surgery and under general anesthesia was noted to have a 5 mm laceration that was sutured. She tolerated the procedure well. She was transferred to [facility] on 08/03/2016, no longer requiring any Ativan. She was on Librium 3 times a day and baclofen 20 mg p.o. 3 times a day. We did a Librium taper and it is now felt that she can be discharged home in stable condition. She will need to have an eye examination for a funduscopic examination. She was given prescriptions for 1. Baclofen 20 mg p.o. 3 times daily #30. 2. Librium 25 mg p.o. t.i.d. #30 with no refills. 3. Continue her DuoNeb q.2 hours p.r.n. 4. ProAir 2 puffs inhalation q.4-6 hours p.r.n. 5. Xanax 0.5 mg p.o. b.i.d. p.r.n. #10 with no refill. 6. Clonidine 0.1 mg p.o. b.i.d. 7. Lasix 40 mg p.o. daily. 8. Prinivil 40 mg p.o. daily. 9. Prilosec 40 mg p.o. daily. 10. Lyrica 75 mg p.o. b.i.d. #60 with no refills. 11. Desyrel 150 mg p.o. at bedtime p.r.n. FOLLOWUP: She has been given the phone number for the physician referral line and information for the [facility]. Again she will need to have an Ophthalmology funduscopic examination in 1-2 weeks just to ensure good healing of the left eye. All discharge instructions have been reviewed with the patient and she verbalizes understanding. DISCHARGE TIME: 35 minutes. Dictated by COLIN Contreras for Yossi Mendoza MD cc: COLIN Contreras MD
[2016-08-05] MEDS ORDERED: LYRICA PO SCH (21:00)
== END 2016-08-05 16:37 | disposition home health service (06) ==
LOC: P.ED 02:21 → ICU 06:11 → SUATTDRO 06:11 → 4N 08-02 15:26 → P.MEDSURG 08-03 16:33
PROVIDERS: ATTEND Internal Medicine

== ENCOUNTER 2018-08-29 17:08 | Inpatient (IN) ==
[2018-08-29] MEDS ORDERED: NARCAN IV ONE (17:18)
[2018-08-29] MEDS ORDERED: D50W SYRINGE IV ONE ×2 (17:34)
[2018-08-29] MEDS: LABETALOL IV ONE ×2 (17:39→19:15)
[2018-08-29] MEDS: NS 1,000 ML IV ONE ×2 (17:49→22:57)
[2018-08-29] MEDS ORDERED: QUELICIN IV ONE (17:58)
[2018-08-29] MEDS ORDERED: AMIDATE IV ONE (17:58)
[2018-08-29] MEDS ORDERED: DIPRIVAN 1% 1,000 MG/100 ML BOTTLE IV SCH (18:00)
[2018-08-29] MEDS ORDERED: DIPRIVAN 1% IV ONE (18:20)
[2018-08-29 18:23] LABS: BASO# 0.02 X1000 (0.0-0.2); BASO% 0.1 % (0.0-0.8); EOS# 0.04 X1000 (0.0-0.7); EOS% 0.3 % (0.0-10.0); HEMATOCRIT 45.9 % (37.0-47.0); HEMOGLOBIN 16.3 g/dL (12.0-16.0); IMM GRAN# 0.03 X1000 (0.0-0.04); IMM GRAN% 0.2 % (0.0-0.5); LYMPH# 1.78 X1000 (1.2-3.4); LYMPH% 11.2 % (20.5-51.1); MCH 31.8 PG (27-31); MCHC 35.5 g/dL (33-37); MCV 89.5 FL (81-99); MONO# 1.41 X1000 (0.11-0.59); MONO% 8.9 % (1.7-9.3); MPV 11.8 FL (7.4-10.4); NEUT# 12.65 X1000 (1.4-6.5); NEUT% 79.3 % (42.2-75.2); PLT 240 X1000 (130-400); RBC 5.13 XMIL (4.2-5.4); RDW 12.9 % (11.5-14.5); WBC 15.93 X1000 (4.8-10.8)
[2018-08-29 18:32] LABS: BLOOD TYPE ARTERIAL; SAMPLE BLOOD
--- NOTE | 2018-08-29 18:32 | Diag Imaging Result Doc PS360 ---
EXAM: CHEST-1 VIEW 08/29/2018 HISTORY: unresponsive TECHNIQUE: AP portable at 1819 COMMENT: There is an endotracheal tube with its tip at the thoracic inlet. There is no evidence of acute cardiac or pulmonary disease. There has been no significant change since 11/25/2017. IMPRESSION: No acute disease. Electronically signed by Sandro Monterroso 08/29/2018 6:29 PM
[2018-08-29 18:33] LABS: ALLEN TEST YES; BE -1.7 mmoll (-3.0-3.0); HCO3-(ACT) 23.6 mmoll (20.0-26.0); METHB 1.1 % (0.0-1.5); O2(CT) 22.6 mL/dL (15.0-23.0); O2HB 96.8 % (95.0-99.0); PCO2(98.6) 47 mmHg (35-45); PO2(98.6) 168 mmHg (60-100); SAO2 99.2 % (95.0-100.0); SRATE 12 BPM; THB 16.4 g/dL (11.5-17.4); TVOL 500 mL; pH(98.6) 7.33 (7.35-7.45)
[2018-08-29 18:34] LABS: MODALITY VENTILATOR
[2018-08-29] MEDS ORDERED: NS 1,000 ML IV ONE (18:50)
[2018-08-29 18:55] LABS: AGAP 16; ALB/GLOB RATIO 1.5; ALBUMIN 4.8 g/dL (3.5-5.0); ALKALINE PHOSPHATASE 162 U/L (32-104); BUN 16 mg/dL (8-22); CALCIUM 9.9 mg/dL (8.8-10.2); CHLORIDE 97 mmol/L (98-107); COSMO 273; CREATININE 0.9 mg/dL (0.5-0.9); ESTIMATED GFR > 60; GLUCOSE 67 mg/dL (70-104); GOT 62 U/L (10-30); GPT 47 U/L (10-36); POTASSIUM 3.8 mmol/L (3.5-5.1); SODIUM 137 mmol/L (136-145); TCO2 24 mmol/L (25-35); TOTAL BILIRUBIN 0.62 mg/dL (0.20-1.00); TOTAL PROTEIN 8.1 g/dL (6.3-8.3)
[2018-08-29 18:58] LABS: CK PROFILE 521 U/L (24-173)
[2018-08-29] MEDS ORDERED: ZOSYN 3.375 GM in NS 50 ML IV SCH (19:00)
[2018-08-29] MEDS ORDERED: VANCOMYCIN 1 GM/NS 1 GM/250 ML IVPB IV SCH (19:00)
[2018-08-29 19:18] LABS: CK INDEX 4.2 (0.0-2.5); CK-MB 21.69 ng/mL (0.0-5.0)
[2018-08-29 19:58] LABS: URINE SOURCE CATH
[2018-08-29 20:10] LABS: BILIRUBIN URINE NEGATIVE (NEGATIVE); BLOOD URINE NEGATIVE (NEGATIVE); COLOR YELLOW; GLUCOSE URINE NEGATIVE (NEGATIVE); KETONE URINE NEGATIVE (NEGATIVE); LEUKOCYTES URINE NEGATIVE (NEGATIVE); NITRITE URINE NEGATIVE (NEGATIVE); PH URINE 6.5; PROTEIN URINE NEGATIVE (NEGATIVE); SP GRAVITY URINE 1.014; TURBIDITY URINE CLEAR (CLEAR); UROBILINOGEN URINE NORMAL (NORMAL)
[2018-08-29 20:11] LABS: UR EPITHELIAL CELLS <10 /HPF (<10); URINE BACTERIA NEGATIVE /HPF; URINE RBC <10 /HPF (<10); URINE WBC <10 /HPF (<10)
[2018-08-29 20:15] LABS: UR AMPHETAMINES QUAL PRESUMPTIVE POSITIVE (NONE DETECT); UR BARBITUATES QUAL NONE DETECTED (NONE DETECT); UR BENZODIAZEPIN QUAL PRESUMPTIVE POSITIVE (NONE DETECT); UR CANNABINOIDS QUAL NONE DETECTED (NONE DETECT); UR COCAINE QUAL NONE DETECTED (NONE DETECT); UR METHADONE QUAL NONE DETECTED (NONE DETECT); UR OPIATES QUAL NONE DETECTED (NONE DETECT); UR OXYCODONE QUAL NONE DETECTED (NONE DETECT); UR PCP QUAL NONE DETECTED (NONE DETECT)
[2018-08-29] MEDS ORDERED: APRESOLINE IV ONE (20:43)
--- NOTE | 2018-08-29 20:50 | Diag Imaging Result Doc PS360 ---
EXAM: CT HEAD W/O CONTRAST 08/29/2018 HISTORY: unresponsive TECHNIQUE: This exam was performed using automated exposure control, adjustment of mA or kV according to patient size, and/or use of iterative reconstruction technique. COMMENT: There is no evidence of mass effect, bleed, or abnormal extra-axial fluid collection. There is mucosal thickening in both maxillary and multiple ethmoid air cells and there is fluid in both maxillary sinuses and the sphenoid sinuses. The calvarium is intact. Compared to 11/25/2017 the appearance of the brain has not changed significantly. IMPRESSION: No evidence of acute intracranial disease. Apparent pansinusitis. Electronically signed by Sandro Monterroso 08/29/2018 8:48 PM
[2018-08-29] MEDS ORDERED: VASOTEC IV PRN (22:18)
[2018-08-29] MEDS ORDERED: DUONEB (A & A) INH ONE (22:18)
[2018-08-29] MEDS ORDERED: ZOFRAN IV PRN (22:18)
--- NOTE | 2018-08-29 22:18 | HISTORY AND PHYSICAL ---
PRIMARY CARE PHYSICIAN: None. CHIEF COMPLAINT: Unconscious. HISTORY OF PRESENTING ILLNESS: The patient is a 48-year-old female with a history of hypertension, chronic back pain and GERD, who was brought to the emergency department because family found the patient unconscious for the past 24 hours. The patient was rapidly intubated in the ED and she will require admission for further evaluation and management. Family could not provide much history other than that she did have a previous history of drug overdose, and they suspected that she may have took her Xanax that she buys illicitly from the street. PAST MEDICAL HISTORY: Hypertension, back pain, GERD. PAST SURGICAL HISTORY: None. ALLERGIES: No known drug allergies. CURRENT MEDICATIONS: Taking other friends medications which included glipizide. SOCIAL HISTORY: A 40+ pack year history of smoking. History of alcohol abuse. History of illicit drug use including methamphetamine. FAMILY HISTORY: No history of coronary disease. REVIEW OF SYSTEMS: Unable to obtain due to the patient being intubated. PHYSICAL EXAMINATION: GENERAL: The patient is currently intubated and on a ventilator. VITAL SIGNS: Temperature 98.1 degrees, pulse 116, blood pressure 217/130. HEENT: Atraumatic and normocephalic. NECK: No masses. CHEST: Rhonchi. CARDIOVASCULAR: Regular rate and rhythm. ABDOMEN: Soft. Positive bowel sounds. EXTREMITIES: No edema. NEUROLOGIC: The patient is sedated. GENITOURINARY: No bladder distention. SKIN: Warm. LABORATORIES AND STUDIES: Toxicology shows amphetamines and benzodiazepines. Urine is nitrite negative. Sodium 137, potassium 3.8, chloride 97, CO2 is 24, BUN is 16, creatinine 0.9, glucose 67. WBC is 15.93, hemoglobin 16.3, hematocrit 45.9, platelets 240,000. ASSESSMENT: The patient is a 48-year-old female who apparently was found unconscious by family members for the past 24 hours. She was brought to the emergency department. She was initially found to be hypoglycemic and in respiratory failure. She was rapidly intubated and she will require admission to the Intensive Care Unit for further management. 1. Drug overdose possibly with Xanax. 2. Hypoglycemia from taking glipizide not prescribed to her. 3. Respiratory failure. 4. Hypertension. 5. Leukocytosis. PLAN: 1. We will admit the patient to ICU. 2. Continue supportive care with ventilator support. 3. We will monitor her blood glucose closely. 4. We will monitor blood pressure and resume antihypertensive agent. 5. We will check blood cultures, start the patient on empiric antibiotics. 6. We will put the patient on DVT prophylaxis with SCDs. 7. We will continue to follow, reassess and make further recommendation based on the patient's clinical course. cc: Regan Albert MD
[2018-08-29] MEDS ORDERED: NS 1,000 ML ONE (22:53)
--- NOTE | 2018-08-29 23:35 | PROVIDER DOCUMENTATION ---
This chart was entered by Mariela Panchal Scribe, acting as scribe for Avelino Moy MD. HPI-Neurological Disorder - General Chief Complaint: Unresponsive Stated Complaint: UNRESPONSIVE Time Seen by Provider: 08/29/18 17:13 Source: family Allergies/Adverse Reactions: Patient Allergies Allergy/AdvReac Type Severity Reaction Status Date / Time aspirin AdvReac Intermediate reaction Verified 11/01/17 21:58 with stomach ulcers Home Medications: Home Medication List Medication Instructions Recorded Confirmed Last Taken Type LISINOpril [Prinivil] 40 mg PO DAILY 02/23/12 11/01/17 1 Day Ago History ~06/20/16 Furosemide [Lasix] 40 mg PO DAILY #14 tablet 02/27/16 11/01/17 1 Day Ago Rx ~06/20/16 Albuterol Sulfate [Proair Hfa] 2 puff INH Q4-6H PRN PRN 06/23/16 11/01/17 Unknown History Clonidine [Catapres] 0.1 mg PO BID 06/23/16 11/01/17 06/21/16 History Omeprazole [Prilosec] 40 mg PO DAILY 06/23/16 11/01/17 Unknown History Albuterol 2.5MG/Ipratrop 0.5MG 3 ml INH Q2H PRN PRN #120 neb 06/24/16 11/01/17 Unknown Rx [Duoneb (A & A)] Alprazolam [Xanax] 0.5 mg PO BID PRN PRN #10 tablet 06/24/16 11/01/17 Unknown Rx Baclofen [Lioresal] 20 mg PO 0900,1500,2100 #30 tablet 08/05/16 11/01/17 Unknown Rx Prednisone 20 mg PO BID #10 tab 07/29/17 11/01/17 Unknown Rx Albuterol Sulfate [Proventil Hfa] 2 puff IH Q4HR PRN #1 hfa.aer.ad 11/01/17 Unknown Rx Doxycycline 100 mg PO BID #20 tab 11/01/17 Unknown Rx Promethazine/Dextromethorphan 5 ml PO BID PRN #90 ml 11/01/17 Unknown Rx [Promethazine-Dm Syrup] Hydrochlorothiazide [Microzide] 12.5 mg PO DAILY #14 cap 11/25/17 Unknown Rx Amoxicillin 500 mg PO TID 10 Days #30 tab 01/08/18 Unknown Rx - History of Present Illness-Neuro Nature of Presenting Problem: Patient is a 48 year old female who presents to the ED via EMS with altered mental status. Patient's family states finding patient unresponsive yesterday. Family states patient possibly overdosed on an unknown HTN medication. They stated that she left her home, to go her boyfriends house, she apparently fell asleep in the car, she could not be aroused, her BF pulled her out of the car and he put her on the couch. her family brought her to ED after she could not be aroused. Severity: reports: moderate Onset/Duration: reports: 24 hours ago Timing: reports: still present Context: reports: found unresponsive by family Character of Altered Mental Status: reports: unresponsive Similar Symptoms Previously?: Yes Recently seen or treated by another doctor?: No Review of Systems - Adult - REVIEW OF SYSTEMS - ADULT ROS:: unobtainable per condition Constitutional: reports: no symptoms reported Eyes: reports: no symptoms reported Ears, Nose, Mouth & Throat: reports: no symptoms reported Cardiovascular: reports: no symptoms reported Respiratory: reports: no symptoms reported Gastrointestinal: reports: no symptoms reported Genitourinary: reports: no symptoms reported Musculoskeletal: reports: no symptoms reported Integumentary: reports: no symptoms reported Neurological: reports: no symptoms reported Psychiatric: reports: no symptoms reported Endocrine: reports: no symptoms reported Hematologic/Lymphatic: reports: no symptoms reported Allergic/Immunologic: reports: no symptoms reported All Other Systems: Reviewed and Negative Past History - Adult - PAST MEDICAL HISTORY-ADULT Review of Records: reports: Old Records Reviewed, Nursing Assessment Review, Medications Reviewed, Social history reviewed & non-contributory. Major Childhood Illnesses: reports: denies history Cardiovascular: reports: HTN Respiratory: reports: asthma, COPD Gastrointestinal: reports: GERD Obstetrical/Gynecological: reports: denies history Genitourinary: reports: denies history Musculoskeletal: reports: chronic pain (back ) Neurological: reports: Seizures/Epilepsy (seizures ) Psychiatric: reports: denies history Endocrine/Immune: reports: denies history Other Conditions: reports: denies history - PRIOR SURGERIES/PROCEDURES Surgical/Procedure History: reports: reviewed, not pertinent - IMMUNIZATION STATUS Childhood Immunizations: See Nurse Assessment Flu Vaccine: See Nurse Assessment - FAMILY HISTORY Family History: reviewed, not pertinent - SOCIAL HISTORY Smoking: cigarettes, less than 1 pack/day Substance Use: alcohol Alcohol Use Frequency: occasionally Physical Exam- Neurological - Physical Exam-Neuro Initial Vital Signs Reviewed: Yes General Appearance: other (unresponsive). negative: alert, combative Eye Exam: bilateral eye: other (pinpoint pupils) Head Injury: no evidence of injury. negative: active bleeding, ecchymosis, lacerations Respiratory: chest non-tender, lungs clear, normal breath sounds. negative: crackles, stridor Cardiovascular: normal peripheral pulses, regular rate, rhythm. negative: tachy cardia, systolic murmur Abdominal Exam: normal bowel sounds, non tender, soft. negative: guarding, rebound Extremity: normal inspection. 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 negative: cyanosis, ecchymosis, erythema Psych/Mental Status: other (unresponsive). negative: anxious, paranoid Progress - PLAN OF CARE/RESULTS Progress/Plan/Lab Results: Vital Signs - 8 hr 08/29/18 17:14 08/29/18 19:22 08/29/18 19:26 Temperature 98.1 F Pulse Rate 116 H 83 79 Respiratory Rate 18 16 17 Blood Pressure 217/130 140/106 166/109 O2 Sat by Pulse Oximetry 98 100 100 08/29/18 19:30 08/29/18 19:31 08/29/18 19:36 Temperature Pulse Rate 81 81 78 Respiratory Rate 16 14 19 Blood Pressure 171/113 182/117 O2 Sat by Pulse Oximetry 100 100 100 08/29/18 19:40 08/29/18 19:41 08/29/18 19:46 Temperature Pulse Rate 80 82 82 Respiratory Rate 14 16 15 Blood Pressure 189/121 203/123 O2 Sat by Pulse Oximetry 100 100 100 08/29/18 19:50 08/29/18 19:51 08/29/18 19:56 Temperature Pulse Rate 83 82 76 Respiratory Rate 17 14 22 Blood Pressure 193/126 190/122 O2 Sat by Pulse Oximetry 100 100 100 08/29/18 20:01 08/29/18 20:06 08/29/18 20:20 Temperature Pulse Rate 75 85 85 Respiratory Rate 17 17 19 Blood Pressure 181/114 199/124 O2 Sat by Pulse Oximetry 100 100 100 08/29/18 20:46 08/29/18 20:50 08/29/18 20:51 Temperature Pulse Rate 98 H 100 H 100 H Respiratory Rate 22 23 18 Blood Pressure 208/128 201/134 O2 Sat by Pulse Oximetry 100 100 100 08/29/18 20:55 08/29/18 20:56 08/29/18 21:00 Temperature Pulse Rate 102 H 105 H 105 H Respiratory Rate 19 19 18 Blood Pressure 216/136 O2 Sat by Pulse Oximetry 100 100 100 08/29/18 21:01 08/29/18 21:05 08/29/18 21:06 Temperature Pulse Rate 106 H 106 H 107 H Respiratory Rate 19 19 19 Blood Pressure 215/135 205/132 O2 Sat by Pulse Oximetry 100 100 100 08/29/18 21:10 08/29/18 21:11 08/29/18 21:15 Temperature Pulse Rate 107 H 105 H 103 H Respiratory Rate 18 17 17 Blood Pressure 198/128 O2 Sat by Pulse Oximetry 100 100 100 Laboratory Results - last 24 hr 08/29/18 08/29/18 08/29/18 17:34 17:34 17:34 WBC 15.93 H RBC 5.13 Hgb 16.3 H Hct 45.9 MCV 89.5 MCH 31.8 H MCHC 35.5 RDW Std Deviation 12.9 Plt Count 240 MPV 11.8 H Immature Gran % (Auto) 0.2 Neut % (Auto) 79.3 H Lymph % (Auto) 11.2 L [place] % (Auto) 8.9 Eos % (Auto) 0.3 Baso % (Auto) 0.1 Immature Gran # (Auto) 0.03 Neut # (Auto) 12.65 H Lymph # (Auto) 1.78 [place] # (Auto) 1.41 H Eos # (Auto) 0.04 Baso # (Auto) 0.02 Specimen Type Sample Site pH pCO2 pO2 HCO3 Base Excess Oxyhemoglobin ABG O2 Sat (Calculated) ABG O2 Saturation ABG Carboxyhemoglobin ABG Methemoglobin [place] Test A-a O2 Difference Total Hemoglobin Lactate Blood Gas Modality Vent Mode Spontaneous Rate FiO2 % Tidal Volume PEEP Sodium 137 Potassium 3.8 Chloride 97 L Carbon Dioxide 24 L Anion Gap 16 BUN 16 Creatinine 0.9 Estimated GFR/1.73 m2 > 60 BUN/Creatinine Ratio 18 Glucose 67 L POC Glucose Calculated Osmolality 273 Calcium 9.9 Total Bilirubin 0.62 AST 62 H ALT 47 H Alkaline Phosphatase 162 H Ammonia Creatine Kinase 521 H Creatine Kinase Index 4.2 H CK-MB (CK-2) 21.69 H Troponin T < 0.010 Total Protein 8.1 Albumin 4.8 Globulin 3.3 Albumin/Globulin Ratio 1.5 Plasma Lactate Urine Source Urine Color Urine Turbidity Urine pH Ur Specific [place] Urine Protein Ur Glucose (Stick) Ur Ketones (Stick) Urine Blood Urine Nitrite Urine Bilirubin Urobilinogen Dipstick Urine Leukocytes Urine WBC (Auto) Urine RBC (Auto) U Epithel Cells (Auto) Urine Bacteria (Auto) Urine Opiates Screen Ur Oxycodone Screen Ur Methadone, Qual Ur Barbiturates Screen Ur Phencyclidine Scrn Ur Amphetamines Screen U Benzodiazepines Scrn Urine Cocaine Screen U Cannabinoids Screen 08/29/18 08/29/18 08/29/18 18:25 19:46 19:46 WBC RBC Hgb Hct MCV MCH MCHC RDW Std Deviation Plt Count MPV Immature Gran % (Auto) Neut % (Auto) Lymph % (Auto) [place] % (Auto) Eos % (Auto) Baso % (Auto) Immature Gran # (Auto) Neut # (Auto) Lymph # (Auto) [place] # (Auto) Eos # (Auto) Baso # (Auto) Specimen Type ARTERIAL Sample Site R RADIAL pH 7.33 L pCO2 47 H pO2 168 H HCO3 23.6 Base Excess -1.7 Oxyhemoglobin 96.8 ABG O2 Sat (Calculated) 22.6 ABG O2 Saturation 99.2 ABG Carboxyhemoglobin 1.30 ABG Methemoglobin 1.1 [place] Test YES A-a O2 Difference 58.0 Total Hemoglobin 16.4 Lactate 2.90 H Blood Gas Modality VENTILATOR Vent Mode A/C Spontaneous Rate 12 FiO2 % 40.0 Tidal Volume 500 PEEP 5.0 Sodium Potassium Chloride Carbon Dioxide Anion Gap BUN Creatinine Estimated GFR/1.73 m2 BUN/Creatinine Ratio Glucose POC Glucose Calculated Osmolality Calcium Total Bilirubin AST ALT Alkaline Phosphatase Ammonia Creatine Kinase Creatine Kinase Index CK-MB (CK-2) Troponin T Total Protein Albumin Globulin Albumin/Globulin Ratio Plasma Lactate Urine Source CATH Urine Color YELLOW Urine Turbidity CLEAR Urine pH 6.5 Ur Specific [place] 1.014 Urine Protein NEGATIVE Ur Glucose (Stick) NEGATIVE Ur Ketones (Stick) NEGATIVE Urine Blood NEGATIVE Urine Nitrite NEGATIVE Urine Bilirubin NEGATIVE Urobilinogen Dipstick NORMAL Urine Leukocytes NEGATIVE Urine WBC (Auto) <10 Urine RBC (Auto) <10 U Epithel Cells (Auto) <10 Urine Bacteria (Auto) NEGATIVE Urine Opiates Screen NONE DETECTED Ur Oxycodone Screen NONE DETECTED Ur Methadone, Qual NONE DETECTED Ur Barbiturates Screen NONE DETECTED Ur Phencyclidine Scrn NONE DETECTED Ur Amphetamines Screen PRESUMPTIVE POSITIVE A U Benzodiazepines Scrn PRESUMPTIVE POSITIVE A Urine Cocaine Screen NONE DETECTED U Cannabinoids Screen NONE DETECTED 08/29/18 08/29/18 08/29/18 20:10 21:28 21:35 WBC RBC Hgb Hct MCV MCH MCHC RDW Std Deviation Plt Count MPV Immature Gran % (Auto) Neut % (Auto) Lymph % (Auto) [place] % (Auto) Eos % (Auto) Baso % (Auto) Immature Gran # (Auto) Neut # (Auto) Lymph # (Auto) [place] # (Auto) Eos # (Auto) Baso # (Auto) Specimen Type Sample Site pH pCO2 pO2 HCO3 Base Excess Oxyhemoglobin ABG O2 Sat (Calculated) ABG O2 Saturation ABG Carboxyhemoglobin ABG Methemoglobin [place] Test A-a O2 Difference Total Hemoglobin Lactate Blood Gas Modality Vent Mode Spontaneous Rate FiO2 % Tidal Volume PEEP Sodium Potassium Chloride Carbon Dioxide Anion Gap BUN Creatinine Estimated GFR/1.73 m2 BUN/Creatinine Ratio Glucose POC Glucose 168 H Calculated Osmolality Calcium Total Bilirubin AST ALT Alkaline Phosphatase Ammonia 48 Creatine Kinase Creatine Kinase Index CK-MB (CK-2) Troponin T Total Protein Albumin Globulin Albumin/Globulin Ratio Plasma Lactate 2.5 H Urine Source Urine Color Urine Turbidity Urine pH Ur Specific [place] Urine Protein Ur Glucose (Stick) Ur Ketones (Stick) Urine Blood Urine Nitrite Urine Bilirubin Urobilinogen Dipstick Urine Leukocytes Urine WBC (Auto) Urine RBC (Auto) U Epithel Cells (Auto) Urine Bacteria (Auto) Urine Opiates Screen Ur Oxycodone Screen Ur Methadone, Qual Ur Barbiturates Screen Ur Phencyclidine Scrn Ur Amphetamines Screen U Benzodiazepines Scrn Urine Cocaine Screen U Cannabinoids Screen Orders Category Date Time Status Admit [facility] Routine AdmDCTranf 08/29/18 22:18 Active Activity - Up with Assistance ORDERED Care 08/29/18 22:18 Active Apply Mechanical Device [QM] ORDERED Care 08/29/18 22:18 Active FSBS/Accucheck Result AC + HS Care 08/29/18 22:18 Active Intake and Output-Strict ORDERED Care 08/29/18 22:18 Active Vital Signs Order Q1H Care 08/29/18 22:18 Active Z-Document. for Tele Applied ORDERED Care 08/29/18 22:18 Active NPO Diet 08/29/18 22:18 Active CHEST-1 VIEW [RAD] Stat Exams 08/29/18 17:[address] HEAD W/O CONTRAST [CT] Stat Exams 08/29/18 17:18 Completed ABG [RESP] Routine Lab 08/29/18 18:25 Completed AMMONIA [CHEM] Stat Lab 08/29/18 21:28 Completed BASIC METABOLIC PANEL [CHEM] Routine Lab 08/30/18 06:00 Ordered BLOOD CULTURE [BLDCUL] Stat Lab 08/29/18 17:34 Results CBC WITH DIFF [HEME] Routine Lab 08/30/18 06:00 Ordered CBC WITH ELECTRONIC DIFF [HEME] Stat Lab 08/29/18 17:34 Completed CK PROFILE [SP CHEM] Stat Lab 08/29/18 17:34 Completed COMPREHENSIVE METABOLIC PANEL [CHEM] Stat Lab 08/29/18 17:34 Completed LACTATE, PLASMA [CHEM] Stat Lab 08/29/18 20:10 Completed TROPONIN T Stat Lab 08/29/18 17:34 Completed URINALYSIS W/POSS RFLX CULT [URINALYSIS] Stat Lab 08/29/18 19:46 Completed URINE DRUG SCREEN Stat Lab 08/29/18 19:46 Completed 0.9% Sodium Chloride Inj [Ns] 1,000 ml Med 08/29/18 17:18 Discontinued IV 999 mls/hr 0.9% Sodium Chloride Inj [Ns] 1,000 ml Med 08/29/18 18:50 Discontinued IV 999 mls/hr Albuterol 2.5MG/Ipratrop 0.5MG [Duoneb (A & A)] Med 08/29/18 22:18 Discontinued 3 ml INH NOW ONE CefTRIAXONE [Rocephin] 1 gm Med 08/29/18 22:18 Active 0.9% Sodium Chloride Inj [Ns] 50 ml IV Q24H Dextrose 50% Syringe [D50w Syringe] Med 08/29/18 17:34 Discontinued 50 ml IV NOW ONE Dextrose 50% Syringe [D50w Syringe] Med 08/29/18 17:34 Discontinued 50 ml IV NOW ONE Enalaprilat [Vasotec] Med 08/29/18 22:18 Active 1.25 mg IV Q6H PRN PRN Etomidate [Amidate] Med 08/29/18 17:58 Discontinued 30 mg IV NOW ONE Hydralazine [Apresoline] Med 08/29/18 20:43 Discontinued 10 mg IV NOW ONE Labetalol Med 08/29/18 17:39 Discontinued 10 mg IV NOW ONE Naloxone [Narcan] Med 08/29/18 17:18 Discontinued 0.2 mg IV NOW ONE Ondansetron [Zofran] Med 08/29/18 22:18 Active 4 mg IV Q4H PRN PRN Piperacillin/Tazobactam [Zosyn] 3.375 gm Med 08/29/18 19:00 Discontinued 0.9% Sodium Chloride Inj [Ns] 50 ml IV Q6H Propofol [Diprivan 1%] Med 08/29/18 18:20 Discontinued 10 mg IV STAT ONE Propofol [Diprivan 1%] Med 08/29/18 18:00 Discontinued 1,000 mg in 100 ml IV As Directed mls/hr Succinylcholine [Quelicin] Med 08/29/18 17:58 Discontinued 100 mg IV NOW ONE Vancomycin 1 gm/Ns Med 08/29/18 19:00 Discontinued 1 gm in 250 ml IV Q12H Aerosol Treatments Routine Oth 08/29/18 22:18 Active Aerosol Treatments Stat Oth 08/29/18 22:18 Active Telemetry [OM.EQ] Routine Oth 08/29/18 22:18 Active Ventilator Order Stat Oth 08/29/18 18:20 Active EKG [EKG] Stat Ther 08/29/18 17:18 Ordered Transfer/Admit Order [TRANSFER] Routine Transfer 08/29/18 21:50 Completed A/P: Unresponsive. BG 20's, mildly awoke after narcan. Intubated pt to protect airway. admit to ICU. started vanc and zosyn. Result Diagrams: 08/29/18 17:34 08/29/18 17:34 - EKG 1 Time of EKG reading by physician:: 19:40 EKG Read and Signed by:: Avelino Moy EKG Interpretation (*Must complete 3 of following elements*): Normal Rate: 79 Rhythm: NSR [place]: normal QRS: normal VT Interval: normal ST Wave: normal - XRAY 1 XRAY Study: Chest Impression: Normal ([facility] [address], [address], [place] [address] Department of Imaging Patient: ANGY CLIFFORDADM Date: 08/29/18#: [id number] : 1970ADM Status: PRE ERAcct#: [id number] Age/Sex: 48/FRoom/Bed: Loc: ED Ordering Physician: Avelino Moy MD Family Physician: Miguel A Hodges MD Reason for Procedure: unresponsive Signed EXAM: CHEST-1 VIEW 08/29/2018 HISTORY: unresponsive TECHNIQUE: AP portable at 1819 COMMENT: There is an endotracheal tube with its tip at the thoracic inlet. There is no evidence of acute cardiac or pulmonary disease. There has been no significant change since 11/25/2017. IMPRESSION: No acute disease. Electronically signed by Sandro Monterroso 08/29/2018 6:29 PM 08/29/181828 Interpreting Physician: Sandro Monterroso MD Dictated Date/Time: 08/29/181827 cc: Avelino Moy MD; Miguel A Hodges MD) - CONSULTS/PCP/HOSPITALIST Notification #1 *Consult/PCP/Hospitalist*: Dr Albert Time Discussed: 19:44 Consult Disposition: Admit Procedures - INTUBATION Time of Intubation: 18:14 Airway Evaluation: Large/Loose Teeth Mallampati Class: 3 Intubation Method: orotracheal Equipment: ETT Tube Size (cm): 8.0 Pretreated with 100% Oxygen?: Yes Breath Sounds after Intubation: equal ETT Primary Tube Confirmation: Capnometry CO2 Change, Direct Visualization, Chest Rise and Fall, Tube placement verified on XRAY Intubation Complications: no complications Departure - Departure Date of Disposition Decision: 08/29/18 Time of Disposition Decision: 19:43 DIAGNOSIS: Hypoglycemia, Unresponsive Disposition: ADMITTED INPATIENT 09 Certified Medical Emergency: Emergent Condition: Stable - Critical Care Note This patient required my direct & personal management of CC.: Yes Total Time (mins): 46 Critical Care Statement: This patient required my direct personal management to treat or rule out processes, the absence of which, could potentiallly result in sudden, clinically significant life or limb threatening deterioration. Attestation - Physician/ SARAH Attestation Patient care was provided by Advanced Practice Provider:: No The physician spent face to face time with patient:: Yes Advanced Practice Provider documentation review:: Supervising physician onsite and consulted in the evaluation and care of this patient. The physician did have a face to face encounter with the patient. This chart was documented by the indicated scribe, (Mariela Panchal Scribe) and accurately reflects the services I performed and decisions made by me, Avelino Moy MD, as attested by the provider's signature.
[2018-08-30] MEDS: ROCEPHIN 1 GM in NS 50 ML IV SCH ×2 (01:05→22:31)
[2018-08-30] MEDS: DIPRIVAN 1% 1,000 MG/100 ML BOTTLE IV SCH ×3 (01:22→21:12)
[2018-08-30 04:30] LABS: BLOOD TYPE ARTERIAL; SAMPLE BLOOD
[2018-08-30 04:31] LABS: ALLEN TEST YES; BE 1.3 mmoll (-3.0-3.0); HCO3-(ACT) 25.9 mmoll (20.0-26.0); METHB 1.1 % (0.0-1.5); MODALITY VENTILATOR; O2(CT) 20.2 mL/dL (15.0-23.0); O2HB 96.5 % (95.0-99.0); PCO2(98.6) 36 mmHg (35-45); PO2(98.6) 113 mmHg (60-100); SRATE 12 BPM; THB 14.8 g/dL (11.5-17.4); TVOL 500 mL; pH(98.6) 7.45 (7.35-7.45)
[2018-08-30 05:39] LABS: BASO# 0.03 X1000 (0.0-0.2); BASO% 0.3 % (0.0-0.8); EOS# 0.08 X1000 (0.0-0.7); EOS% 0.7 % (0.0-10.0); HEMATOCRIT 40.6 % (37.0-47.0); HEMOGLOBIN 14.4 g/dL (12.0-16.0); IMM GRAN# 0.02 X1000 (0.0-0.04); IMM GRAN% 0.2 % (0.0-0.5); LYMPH% 23.3 % (20.5-51.1); MCH 32.3 PG (27-31); MCHC 35.5 g/dL (33-37); MONO# 1.01 X1000 (0.11-0.59); MONO% 9.1 % (1.7-9.3); MPV 11.9 FL (7.4-10.4); NEUT% 66.4 % (42.2-75.2); PLT 193 X1000 (130-400); RBC 4.46 XMIL (4.2-5.4); WBC 11.14 X1000 (4.8-10.8)
[2018-08-30 06:07] LABS: AGAP 12; BUN 13 mg/dL (8-22); CALCIUM 8.6 mg/dL (8.8-10.2); CHLORIDE 103 mmol/L (98-107); COSMO 278; CREATININE 0.8 mg/dL (0.5-0.9); ESTIMATED GFR > 60; GLUCOSE 136 mg/dL (70-104); POTASSIUM 2.8 mmol/L (3.5-5.1); SODIUM 138 mmol/L (136-145); TCO2 23 mmol/L (25-35)
--- NOTE | 2018-08-30 07:11 | EKG Report ---
Test Performed on : 08/29/2018 7:34:49 PM Test Reason : unresponsive Blood Pressure : / mmHG Vent. Rate : 079 BPM Atrial Rate : 079 BPM P-R Int : 118 ms QRS Dur : 082 ms QT Int : 408 ms P-R-T Axes : 076 067 070 degrees QTc Int : 467 ms Normal sinus rhythm. Normal ECG When compared with ECG of 25-NOV-2017 12:35, Vent. rate has increased BY 30 BPM Unconfirmed Result
[2018-08-30] MEDS: NS 1,000 ML IV SCH ×2 (11:48→19:55)
--- NOTE | 2018-08-30 12:09 | PROGRESS NOTE ---
DATE: 08/30/2018 SUBJECTIVE: The patient is on mechanical ventilation and sedated, her sister is at the bedside. I had a large conversation with the sister about her current condition. As per the sister, this patient is doing methamphetamine, she was actually previously admitted because encephalopathy, alcohol withdrawal, opiate and benzodiazepine abuse, alcohol abuse. As per the sister, it looks like she is still having these kind of problems. We will continue with the same management. She received IV fluids and I will continue with that. OBJECTIVE: Vital Signs: Temperature 99.1 degrees, pulse 117, respiratory rate 18, blood pressure 142/101, oxygen saturation 99 on mechanical ventilation. HEENT: Head normocephalic. No trauma. PERRLA. Neck: Supple. No JVD. No masses. Central trachea. Chest: Clear to auscultation. No wheezing. No rales. Some crepitus at the bases. Abdomen: Soft, nondistended. Positive bowel sounds. Extremities: No edema. No clubbing. No cyanosis. Neurological: This patient is on mechanical ventilation and sedated. Skin: Warm and she seems to have some generalized redness on her skin. LABORATORY DATA: WBC 11.1, hemoglobin 14.4, hematocrit 40.6, platelets 193,000. Sodium 138, potassium 2.8, chloride 103, bicarbonate 23, BUN 13, creatinine 0.8, glucose 136, calcium 8.6. ASSESSMENT AND PLAN: 1. Hypercarbic respiratory failure, likely secondary to drug overdose, possible Xanax. As per the sister, also she is doing methamphetamines. I am not quite sure if she is doing any other drugs. Urine toxicology is positive for amphetamine and benzodiazepine. Continue with mechanical ventilation and support, Pulmonary Department has been consulted. 2. Hypoglycemia for taking glipizide which has not been prescribed to her, better. Continue with the same management. 3. Drug overdose, probably with Xanax. I am not sure if she is doing any other drugs. We will continue with the same management for now. I added Ativan as needed. She is on mechanical ventilation. 4. Hypertension. I will use as-needed medication, hydralazine. 5. Leukocytosis, probably reactive but she has been placed on ceftriaxone from the beginning, I will just continue with that. 6. Severe dehydration, she seems to be more hydrated at this moment. Continue with IV fluids. 7. Rhabdomyolysis. Continue with IV fluids, I will recheck a CK level in the morning. 8. Elevated liver function tests. It has been elevated before, is a chronic condition. I will ask for a hepatitis panel. Probably this is related to severe dehydration but we will monitor. CRITICAL CARE TIME: 40 minutes. Case discussed with the sister at the bedside. cc: Kermit Jorgensen MD
[2018-08-30] MEDS: POTASSIUM CHLORIDE 20 MEQ/SWI 20 MEQ/100 ML IVPB IV SCH ×2 (12:23→14:16)
--- NOTE | 2018-08-30 12:40 | Diag Imaging Result Doc PS360 ---
CHEST-PORTABLE - 08/30/2018 INDICATION: MECH VENT COMPARISON: 08/29/2018 FINDINGS: There is a stable endotracheal tube at T4. The lungs are clear. Heart size is normal. No pneumothorax or pleural effusion. IMPRESSION: No acute disease or complication. Electronically signed by Rafal Allison 08/30/2018 12:38 PM
[2018-08-30] MEDS: APRESOLINE IV PRN (18:29)
--- NOTE | 2018-08-30 19:49 | CONSULTATION ---
DATE OF CONSULTATION: 08/30/2018 REQUESTING PROVIDER: Kermit Jorgensen MD REASON FOR CONSULTATION: Respiratory failure, mechanical ventilation. HISTORY OF PRESENT ILLNESS: This is a 48-year-old female with a medical history of hypertension, chronic back pain, gastroesophageal reflux disease and bipolar disorder. She presented to the ER via EMS after family found the patient unresponsive for over 24 hours. The patient was intubated upon arrival to the ER. Family reported the patient possibly overdosed on medication she took. Per ER notes, family left her home and went to her boyfriend's house. She apparently fell asleep in the car and could not be aroused. The patient's boyfriend pulled her out of the car and put her on the couch. Family noticed later that she was throwing up, but could not be aroused. Currently the patient is intubated. The patient's daughter and sister are at the bedside. They report the patient may have took her Xanax and another medicine that she was not prescribed. They report that patient has been doing this for multiple times. They reports patient has chronic cough and complains of low back pain all the time. Patient apparently does not take medicines as prescribed, but the way she wants. PAST MEDICAL AND SURGICAL HISTORY: 1. Hypertension. 2. Chronic back pain. 3. Gastroesophageal reflux disease. 4. Bipolar disorder. ALLERGIES: Aspirin. SOCIAL HISTORY: The patient has one daughter and one son. She lives at home with one of her sisters. Per the patient's family, the patient is a daily smoker. She smokes 1 pack per day. She is a heavy drinker, too. She drinks beer, liquid or whenever she can get. She also has history of illicit drug use including methamphetamine. The patient's son takes illicit drugs, too. FAMILY HISTORY: Positive for stroke, hypertension, ischemic heart attack and breast cancer. REVIEW OF SYSTEMS: Unable to be obtained. PHYSICAL EXAMINATION: Vital signs: Temperature 99.1 degrees, blood pressure 142/101, pulse 117, respiratory rate 18, oxygen saturation 99% on AC mechanical ventilator, with spontaneous ratio FIO2 of 40%, tidal volume 500, and PEEP 5.General: Chronically ill appearing, lying in bed in no acute distress. She is intubated currently. HEENT: Atraumatic. Trachea midline. Mucosa pink and dry. ET tube in place. Respiratory: Respirations even and unlabored. Excursion bilaterally symmetrical. Clear to auscultation. Gastrointestinal: Bowel sounds normoactive in all 4 quadrants. Soft, nondistended. Extremities: No pedal edema. No cyanosis. No clubbing. Dorsalis pedis 2+ bilaterally. There is a small mass in the right plantar area which, per patient's daughter, the patient was complaining of pain on the area and it has been there for a long time. Neurologic: The patient is sedated and intubated, unresponsive to any verbal or physical stimuli at this time. LABORATORY DATA: White blood cells 11.14, hemoglobin 14.4, hematocrit 40.6, platelets 193,000. Sodium 138, potassium 2.8, chloride 103, carbon dioxide 23, BUN 13, creatinine 0.8, glucose 136. ABG pH 7.45, pCO2 is 36, pO2 is 114, HCO3 is 25.9, base excess 1.3 and oxyhemoglobin 96.5. IMAGING DATA: Chest x-ray showing stable endotracheal tube at T4. The lungs are clear. Heart size is normal. No pneumothorax or pleural effusion. ASSESSMENT: This is a 48-year-old female with a medical history of hypertension, chronic back pain, gastroesophageal reflux disease and bipolar disorder. She has been admitted to the intensive care unit with drug overdose. 1. Acute hypoxic respiratory failure. 2. Drug overdose, probably with Xanax. 3. Mild leukocytosis. 4. Bipolar disorder. 5. Polysubstance abuse with ongoing tobacco abuse and alcoholism. PLAN: 1. Continue AC mechanical ventilator, and we will start weaning trials when appropriate. 2. Continue antibiotics and fluid resuscitation. 3. Follow up with ABG, CBC, BMP, chest x-ray and blood culture. 4. Continue GI and DVT prophylaxis. 5. Further recommendations pending hospital course. Thank you for the courtesy of this consult. Dictated by COLIN Centeno for Flor Chester MD cc: COLIN Centeno MD [facility]
[2018-08-31] MEDS: ATIVAN IV PRN ×2 (00:50→07:40)
[2018-08-31] MEDS: DIPRIVAN 1% 1,000 MG/100 ML BOTTLE IV SCH ×2 (02:21→07:22)
[2018-08-31 04:33] LABS: ALLEN TEST YES; BE -1.8 mmoll (-3.0-3.0); BLOOD TYPE ARTERIAL; HCO3-(ACT) 23.5 mmoll (20.0-26.0); METHB 0.9 % (0.0-1.5); O2(CT) 16.4 mL/dL (15.0-23.0); PCO2(98.6) 33 mmHg (35-45); PO2(98.6) 121 mmHg (60-100); SAMPLE BLOOD; SRATE 12 BPM; THB 11.9 g/dL (11.5-17.4); TVOL 500 mL; pH(98.6) 7.43 (7.35-7.45)
[2018-08-31 04:35] LABS: MODALITY VENTILATOR
[2018-08-31 05:17] LABS: BASO# 0.04 X1000 (0.0-0.2); BASO% 0.3 % (0.0-0.8); EOS# 0.11 X1000 (0.0-0.7); EOS% 0.8 % (0.0-10.0); HEMATOCRIT 40.2 % (37.0-47.0); HEMOGLOBIN 13.8 g/dL (12.0-16.0); IMM GRAN# 0.04 X1000 (0.0-0.04); IMM GRAN% 0.3 % (0.0-0.5); LYMPH% 23.4 % (20.5-51.1); MCH 32.1 PG (27-31); MCHC 34.3 g/dL (33-37); MCV 93.5 FL (81-99); MONO# 1.24 X1000 (0.11-0.59); MONO% 8.8 % (1.7-9.3); NEUT# 9.35 X1000 (1.4-6.5); NEUT% 66.4 % (42.2-75.2); PLT 233 X1000 (130-400); RDW 13.3 % (11.5-14.5); WBC 14.08 X1000 (4.8-10.8)
[2018-08-31] MEDS: NS 1,000 ML IV SCH ×3 (05:43→22:50)
[2018-08-31 05:47] LABS: AGAP 9; CHLORIDE 108 mmol/L (98-107); GLUCOSE 113 mg/dL (70-104); POTASSIUM 3.6 mmol/L (3.5-5.1); SODIUM 137 mmol/L (136-145); TCO2 20 mmol/L (25-35)
[2018-08-31 05:48] LABS: ALB/GLOB RATIO 0.9; ALBUMIN 2.8 g/dL (3.5-5.0); ALKALINE PHOSPHATASE 119 U/L (32-104); BUN 15 mg/dL (8-22); CALCIUM 8.4 mg/dL (8.8-10.2); CK PROFILE 103 U/L (24-173); COSMO 275; CREATININE 0.8 mg/dL (0.5-0.9); ESTIMATED GFR > 60; GOT 39 U/L (10-30); GPT 32 U/L (10-36); TOTAL BILIRUBIN 0.41 mg/dL (0.20-1.00); TOTAL PROTEIN 5.8 g/dL (6.3-8.3)
--- NOTE | 2018-08-31 07:16 | Diag Imaging Result Doc PS360 ---
EXAM: CHEST-1 VIEW 08/31/2018 HISTORY: SOB TECHNIQUE: AP portable at 0522 COMMENT: There is an endotracheal tube with its tip at thoracic inlet. The lungs are clear. There has been no significant change since 08/30/2018. IMPRESSION: Stable chest. Electronically signed by Sandro Monterroso 08/31/2018 7:14 AM
[2018-08-31] MEDS ORDERED: DUONEB (A & A) INH PRN (07:48)
[2018-08-31] MEDS ORDERED: SODIUM CHLORIDE 0.9% INJ SCH (08:00)
--- NOTE | 2018-08-31 08:28 | PROGRESS NOTE ---
DATE: 08/31/2018 SUBJECTIVE: This patient is still on mechanical ventilation and sedated. No family members at the bedside. Yesterday I had a conversation with her sister at the bedside. I talked to her about her current condition. Per the sister, this patient is still doing methamphetamines and actually, she has been previously admitted due to encephalopathy, alcohol withdrawal, opiate and benzodiazepine abuse, alcohol abuse and drug abuse, and as per the sister she is still having these kind of problems. Her tongue looks a little bit swollen today. She does have poor dentition as well, but I do not have any source of infection so I will stop the ceftriaxone, because I am not sure if she has had an allergic reaction to this medication before. X-ray looks stable. OBJECTIVE: Vital Signs: Temperature 98.4 degrees, pulse 112, respiratory rate 20, blood pressure 173/108, oxygen saturation 97% on mechanical ventilation. HEENT: Head normocephalic. No trauma. PERRLA. Neck: Supple. No JVD. No masses. Central trachea. Chest: Clear to auscultation. No wheezing. No rales. Some crepitus at the bases. Abdomen: Soft, nontender, nondistended. No hepatosplenomegaly. Extremities: No edema. No clubbing. No cyanosis. Neurologic: The patient is on mechanical ventilation and sedated. Mouth: Poor dentition, some loose teeth, and her tongue looks a little bit swollen. LABORATORY: WBC 14.0, hemoglobin 13.8, hematocrit 40.2, platelets 233,000. Sodium 137, potassium 3.6, chloride 108, bicarbonate 20, BUN 15, creatinine 0.8, glucose 113. Calcium 8.4. AST 39, ALT 32, alkaline phosphatase 119, albumin 2.8. ASSESSMENT AND PLAN: 1. Hypercarbic respiratory failure, likely secondary to drug overdose, possible Xanax. As per the sister, she is still doing methamphetamines. I am not quite sure if she is doing any other drugs. Urine toxicology is positive for amphetamines and benzodiazepines. X-ray looks stable. Pulmonary Department on board. She is still on mechanical ventilation. 2. Hypoglycemia, for taking glipizide which has not been prescribed for this patient, better. Continue to monitor. 3. Drug overdose. Probably Xanax and/or methamphetamine. I am not quite sure if she is doing any other drugs. I will continue with same management for now. Alcohol level is 0. Continue with propofol and Ativan as needed. 4. Hypertension. I will continue using hydralazine as needed, and I will add clonidine to her medications, which she has been previously on that. 5. Leukocytosis, probably reactive. She has been placed on ceftriaxone, which I will stop because I do not have any source of infection at this moment. We will monitor this patient closely. 6. Mild tongue swelling. I am not quite sure if she is having a reaction. She has poor dentition, but I do not see any source of infection. No draining inside the mouth. 7. Rhabdomyolysis. Resolved. 8. Elevated liver function tests. This is getting better. We will continue with same management. CRITICAL CARE TIME: 35 minutes. cc: Kermit Jorgensen MD
[2018-08-31] MEDS: PROTONIX IV SCH (09:13)
[2018-08-31] MEDS: APRESOLINE IV PRN ×2 (09:20→18:11)
[2018-08-31] MEDS ORDERED: ROMAZICON IV ONE (09:53)
[2018-08-31] MEDS: DUONEB (A & A) INH SCH ×4 (11:39→23:30)
--- NOTE | 2018-08-31 13:33 | Diag Imaging Result Doc PS360 ---
CHEST-PORTABLE - 08/31/2018 1:18 PM INDICATION: Verify placement of NG tube. COMPARISON: 5:22 AM FINDINGS: There is a nasogastric tube in good position in the stomach. IMPRESSION: Nasogastric tube in the stomach. Electronically signed by Rafal Allison 08/31/2018 1:30 PM
[2018-08-31] MEDS ORDERED: LABETALOL IV ONE (13:39)
[2018-08-31] MEDS: LABETALOL IV PRN (22:52)
[2018-09-01] MEDS: DUONEB (A & A) INH SCH ×6 (03:19→23:30)
[2018-09-01 05:04] LABS: BASO# 0.03 X1000 (0.0-0.2); BASO% 0.3 % (0.0-0.8); EOS# 0.25 X1000 (0.0-0.7); EOS% 2.4 % (0.0-10.0); HEMATOCRIT 37.7 % (37.0-47.0); HEMOGLOBIN 12.7 g/dL (12.0-16.0); LYMPH# 2.21 X1000 (1.2-3.4); LYMPH% 21.2 % (20.5-51.1); MCH 31.9 PG (27-31); MCHC 33.7 g/dL (33-37); MCV 94.7 FL (81-99); MONO# 1.14 X1000 (0.11-0.59); MPV 11.6 FL (7.4-10.4); NEUT# 6.78 X1000 (1.4-6.5); NEUT% 65.1 % (42.2-75.2); PLT 190 X1000 (130-400); RBC 3.98 XMIL (4.2-5.4); RDW 13.2 % (11.5-14.5); WBC 10.41 X1000 (4.8-10.8)
[2018-09-01 05:12] LABS: BLOOD TYPE ARTERIAL; SAMPLE BLOOD
[2018-09-01 05:13] LABS: ALLEN TEST YES; BE -2.1 mmoll (-3.0-3.0); HCO3-(ACT) 23.3 mmoll (20.0-26.0); METHB 0.9 % (0.0-1.5); MODALITY VENTILATOR; O2(CT) 20.5 mL/dL (15.0-23.0); O2HB 96.8 % (95.0-99.0); PCO2(98.6) 37 mmHg (35-45); PO2(98.6) 131 mmHg (60-100); SAO2 99.1 % (95.0-100.0); THB 14.9 g/dL (11.5-17.4); pH(98.6) 7.39 (7.35-7.45)
[2018-09-01 05:25] LABS: PHOSPHORUS 2.7 mg/dL (2.7-4.5); PREALBUMIN 12.3 mg/dL (20-40)
[2018-09-01 05:42] LABS: AGAP 10; BUN 15 mg/dL (8-22); CALCIUM 8.7 mg/dL (8.8-10.2); CHLORIDE 108 mmol/L (98-107); COSMO 279; CREATININE 0.7 mg/dL (0.5-0.9); ESTIMATED GFR > 60; GLUCOSE 139 mg/dL (70-104); POTASSIUM 3.4 mmol/L (3.5-5.1); SODIUM 138 mmol/L (136-145); TCO2 20 mmol/L (25-35)
[2018-09-01] MEDS ORDERED: POTASSIUM CHLORIDE 20% LIQUID PO ONE ×2 (07:11→08:26)
[2018-09-01] MEDS: NS 1,000 ML IV SCH ×3 (07:17→22:58)
--- NOTE | 2018-09-01 08:07 | Diag Imaging Result Doc PS360 ---
EXAM: CHEST-1 VIEW INDICATION: SOB TECHNIQUE: One view COMPARISON: 08/31/2018 FINDINGS: Support tubes and lines are in stable positions. The lungs remain grossly clear. There is no discrete pleural fluid collection or pneumothorax. The cardiomediastinal silhouette and central vasculature are grossly unremarkable. IMPRESSION: Stable chest. Electronically signed by Kimani Lan 09/01/2018 8:05 AM
[2018-09-01] MEDS: PROTONIX IV SCH (08:30)
[2018-09-01] MEDS: CATAPRES-TTS-1 TD SCH (08:34)
--- NOTE | 2018-09-01 09:25 | PROGRESS NOTE ---
DATE: 09/01/2018 SUBJECTIVE: This patient is still on mechanical ventilation and sedated. No family members at the bedside. Yesterday also, I had a conversation with the sister about her condition. I told the sister if she does not stop doing drugs and alcohol, she will deteriorate and probably she will in the future. WBC normalized today. I will replace the potassium. OBJECTIVE: Vital Signs: Temperature 98.9 degrees, pulse 119, respiratory rate 18, blood pressure 178/111, oxygen saturation 98 on mechanical ventilation. HEENT: Head normocephalic. No trauma. PERRLA. Neck: Supple. No JVD. No masses. Central trachea. Chest: Clear to auscultation. No wheezing. No rales. Some crepitus at the bases. Abdomen: Soft, nontender, nondistended. No hepatosplenomegaly. Extremities: No edema, no clubbing, no cyanosis. Neurological: This patient is on mechanical ventilation and sedated. Mouth: Poor dentition, some loose teeth, and her tongue looks a little bit swollen, but compared with yesterday, I think it is a little bit better. LABORATORY: WBC 10.4, hemoglobin 12.7, hematocrit 37.7, platelets 190,000. Sodium 138, potassium 3.4, chloride 108, bicarbonate 20, BUN 15, creatinine 0.7, glucose 139, calcium 8.7. ASSESSMENT AND PLAN: 1. Hypercarbic respiratory failure, likely secondary to drug overdose, possible Xanax. As per the sister, she is still doing methamphetamines as well. I am not quite sure if she is doing some other drugs. Urine toxicology is positive for amphetamine and benzodiazepine. Continue with mechanical ventilation. Pulmonary Department on board. 2. Hypoglycemia, for taking glipizide which has not been prescribed for this patient. Blood sugar looks better. Continue to monitor. 3. Drug overdose, probably due to Xanax and/or methamphetamine. I am not quite sure if she is doing any other drugs. Will continue with same management for now. Alcohol level is 0. Continue with propofol. 4. Hypertension, uncontrolled, even though she has been getting medications as needed. The blood pressure is still elevated. I will add clonidine to her medications, clonidine patch. 5. Leukocytosis, probably reactive. She was placed on ceftriaxone before, but it has been stopped already. I do not have any source of infection. 6. Mild tongue swelling. I am not quite sure if she is having a reaction. I stopped the antibiotics. She does have poor dentition. I do not see any source of infection or draining. 7. Rhabdomyolysis, resolved. 8. Elevated liver function tests, better. Continue with same management. cc: Kermit Jorgensen MD
[2018-09-01] MEDS: LABETALOL IV PRN (10:07)
[2018-09-01] MEDS: APRESOLINE IV PRN ×2 (11:12→17:22)
[2018-09-02] MEDS: APRESOLINE IV PRN ×3 (00:35→16:06)
[2018-09-02] MEDS: DUONEB (A & A) INH SCH ×6 (03:19→23:30)
[2018-09-02 05:09] LABS: BE -0.4 mmoll (-3.0-3.0); BLOOD TYPE ARTERIAL; HCO3-(ACT) 24.6 mmoll (20.0-26.0); PCO2(98.6) 38 mmHg (35-45); PO2(98.6) 140 mmHg (60-100); SAMPLE BLOOD; SAO2 99.8 % (95.0-100.0); pH(98.6) 7.41 (7.35-7.45)
[2018-09-02 05:10] LABS: ALLEN TEST YES; METHB 0.9 % (0.0-1.5); O2(CT) 17.1 mL/dL (15.0-23.0); O2HB 97.3 % (95.0-99.0); SRATE 12 BPM; THB 12.3 g/dL (11.5-17.4); TVOL 500 mL
[2018-09-02 05:25] LABS: MODALITY VENTILATOR
[2018-09-02 05:43] LABS: AGAP 11; BUN 12 mg/dL (8-22); CALCIUM 8.5 mg/dL (8.8-10.2); CHLORIDE 111 mmol/L (98-107); COSMO 290; CREATININE 0.6 mg/dL (0.5-0.9); ESTIMATED GFR > 60; GLUCOSE 131 mg/dL (70-104); SODIUM 145 mmol/L (136-145); TCO2 23 mmol/L (25-35)
[2018-09-02] MEDS ORDERED: POTASSIUM CHLORIDE 20% LIQUID PO ONE (07:01)
[2018-09-02] MEDS: POTASSIUM CHLORIDE 20 MEQ in NS 1,000 ML IV SCH ×2 (07:20→19:29)
--- NOTE | 2018-09-02 07:27 | PROGRESS NOTE ---
DATE: 09/02/2018 SUBJECTIVE: The patient is still on mechanical ventilation and at this moment she is not getting any kind of sedation. No family members at the bedside. Her potassium level is low and I will replace it. Also, I will decrease a little bit the rate of the IV fluids. She seems to be euvolemic. We will continue with the same management for now. Pulmonary department on board. OBJECTIVE: Vital Signs: Temperature 96.6 degrees, pulse 98, respiratory rate 22, blood pressure 155/100, oxygen saturation 99 on mechanical ventilation. HEENT: Head normocephalic. No trauma. PERRLA. Neck: Supple. No JVD. No masses. Central trachea. Chest: Clear to auscultation. No wheezing. No rales. Some crepitus at the bases. Abdomen: Soft, nontender, nondistended. No hepatosplenomegaly. Extremities: No lower extremity edema. No clubbing. No cyanosis. Some edema at the level of the upper extremities. Neurological Examination: This patient is on mechanical ventilation not getting any sedation, she grimaces with pain stimulation, pupils are sluggish, has gag reflex but she is not waking up, Mouth: Poor dentition, some loose teeth. Her tongue does not look that swollen today. Laboratory: Sodium 145, potassium 3, chloride 111, bicarbonate 23, BUN 12, creatinine 0.6, glucose 131, calcium 8.5. ASSESSMENT AND PLAN: 1. Hypercarbic respiratory failure, likely secondary to drug overdose, possible Xanax. As per the sister, she is still doing methamphetamines as well. I am not quite sure if she is doing some other drugs. We have a urine toxicology that showed amphetamines and benzodiazepines. Pulmonary department on board. We will continue with mechanical ventilation. 2. Encephalopathy, this patient basically has not been on sedation, and she is not waking up, we will get neurology department evaluation, we will monitor this patient closely. 3. Hypoglycemia for taking glipizide which has not been prescribed for this patient. Blood sugar looks better. Continue to monitor. 4. Drug overdose, probably due to sign Xanax and/or methamphetamines. I am not sure if she is doing any other drugs. We will continue with supportive care. Alcohol level was 0. Continue with propofol. She has been hospitalized before with alcohol abuse/withdrawal. 5. Hypertension, a little bit better after starting clonidine patch. We will continue with the same management. 6. Leukocytosis, probably reactive. That normalized on the lab work on 09/01/2018. I will monitor. I do not have any source of infection. 7. Mild tongue swelling. I think this is back to baseline. I will continue to monitor. 8. Rhabdomyolysis, resolved. 9. Elevated liver function tests, better. Continue with the same management. I will check liver function tests tomorrow as well. CRITICAL CARE TIME: 35 minutes. cc: Kermit Jorgensen MD MTDD
--- NOTE | 2018-09-02 07:54 | Diag Imaging Result Doc PS360 ---
EXAM: CHEST-1 VIEW INDICATION: SOB TECHNIQUE: One view COMPARISON: 09/01/2018 FINDINGS: Support tubes and lines are in stable positions. The lungs remain grossly clear. There is no discrete pleural fluid collection or pneumothorax. The cardiomediastinal silhouette and central vasculature are grossly unremarkable. IMPRESSION: Stable chest. Electronically signed by Kimani Lan 09/02/2018 7:52 AM
[2018-09-02] MEDS: PROTONIX IV SCH (08:43)
[2018-09-02] MEDS: LABETALOL IV PRN ×2 (11:50→20:33)
[2018-09-02 14:08] LABS: HEPATITIS PROFILE ACUTE SEE COMMENTS
[2018-09-02] MEDS ORDERED: LASIX IV ONE (21:18)
[2018-09-03] MEDS: POTASSIUM CHLORIDE 20 MEQ in NS 1,000 ML IV SCH ×2 (00:58→18:15)
[2018-09-03] MEDS: APRESOLINE IV PRN ×2 (00:58→18:15)
[2018-09-03] MEDS: DUONEB (A & A) INH SCH ×6 (03:06→23:30)
[2018-09-03 04:39] LABS: BASO# 0.02 X1000 (0.0-0.2); BASO% 0.2 % (0.0-0.8); EOS# 0.57 X1000 (0.0-0.7); EOS% 6.9 % (0.0-10.0); HEMOGLOBIN 12.3 g/dL (12.0-16.0); LYMPH# 1.54 X1000 (1.2-3.4); LYMPH% 18.5 % (20.5-51.1); MCH 31.6 PG (27-31); MCHC 33.2 g/dL (33-37); MCV 95.1 FL (81-99); MONO% 10.8 % (1.7-9.3); MPV 11.4 FL (7.4-10.4); NEUT# 5.28 X1000 (1.4-6.5); NEUT% 63.6 % (42.2-75.2); PLT 183 X1000 (130-400); RBC 3.89 XMIL (4.2-5.4); RDW 12.8 % (11.5-14.5); WBC 8.31 X1000 (4.8-10.8)
[2018-09-03 04:41] LABS: ALLEN TEST YES; BE 4.7 mmoll (-3.0-3.0); BLOOD TYPE ARTERIAL; HCO3-(ACT) 28.6 mmoll (20.0-26.0); METHB 1.3 % (0.0-1.5); O2(CT) 18.1 mL/dL (15.0-23.0); O2HB 96.5 % (95.0-99.0); PCO2(98.6) 42 mmHg (35-45); PO2(98.6) 128 mmHg (60-100); SAMPLE BLOOD; THB 13.2 g/dL (11.5-17.4); pH(98.6) 7.45 (7.35-7.45)
[2018-09-03 04:42] LABS: MODALITY BI PAP
[2018-09-03 05:15] LABS: AGAP 10; BUN 12 mg/dL (8-22); CHLORIDE 106 mmol/L (98-107); COSMO 284; CREATININE 0.5 mg/dL (0.5-0.9); ESTIMATED GFR > 60; GLUCOSE 124 mg/dL (70-104); POTASSIUM 3.1 mmol/L (3.5-5.1); SODIUM 142 mmol/L (136-145); TCO2 26 mmol/L (25-35)
[2018-09-03 05:24] LABS: ALB/GLOB RATIO 1.4; ALBUMIN 3.3 g/dL (3.5-5.0); DIRECT BILIRUBIN 0.1 mg/dL (0.00-0.20); TOTAL BILIRUBIN 0.4 mg/dL (0.20-1.00); TOTAL PROTEIN 5.7 g/dL (6.3-8.3)
--- NOTE | 2018-09-03 07:28 | Diag Imaging Result Doc PS360 ---
EXAM: CHEST-1 VIEW INDICATION: SOB TECHNIQUE: One view COMPARISON: 09/02/2018 FINDINGS: Support tubes and lines are in stable positions. The lungs are grossly clear. There is no discrete pleural fluid collection or pneumothorax. The cardiomediastinal silhouette and central vasculature are grossly unremarkable. IMPRESSION: Stable chest. Electronically signed by Kimani Lan 09/03/2018 7:26 AM
[2018-09-03] MEDS ORDERED: POTASSIUM CHLORIDE 20 MEQ/SWI 20 MEQ/100 ML IVPB IV SCH (08:00)
[2018-09-03 08:02] LABS: PHOSPHORUS 3.3 mg/dL (2.7-4.5)
[2018-09-03] MEDS ORDERED: POTASSIUM CHLORIDE 60 MEQ in NS 500 ML IV ONE (08:18)
--- NOTE | 2018-09-03 09:20 | PROGRESS NOTE ---
DATE: 09/03/2018 SUBJECTIVE: Patient continues to be not responding. She is on ventilator but not on any sedation. According to nursing staff, she is not trying to pull out any lines or trying to pull out the endotracheal tube. Whenever without more a little bit she moves both arms. No other issues noted as per nursing staff overnight. OBJECTIVE: Vital Signs: Temperature 98.6 degrees, heart rate 92, respiratory 17, blood pressure 171/96, O2 saturation 99% on mechanical ventilator at FiO2 of 40%. General Examination: This is a chronically ill-appearing, 48-year-old female lying in bed, in no acute distress. Cardiovascular: S1, S2 heard. No murmurs, gallops, or rubs. Regular rate and rhythm. Respiratory: Minimal crepitus in both bases. Patient not using any accessory muscles or having work of breathing. Abdomen: Soft. Nontender to palpation. Nondistended. Bowel sounds present. No organomegaly. Extremities: No clubbing, cyanosis, or edema. Peripheral pulses present in both legs. Neurological: Patient is on mechanical ventilator. Apparently she respond to painful stimuli. The patient has got reflex but she has no wake up yet. HEENT: Tongue does not look to be swollen today. LABORATORY DATA: White cell count 8.31, hemoglobin 12.3, hematocrit 37.3 platelets 183,000 with ABG that shows pH 7.45 with pCO2 42 with PO2 128 on CPAP mode. Also BMP remarkable for potassium 3.1. ASSESSMENT AND PLAN: 1. Acute hypercarbic hypoxemic respiratory failure secondary to drug overdose. Apparently this patient has been doing Xanax and methamphetamines as well. In any case, patient is not responding appropriately. She is on ventilator. I think the main thing that is precluding us from extubation is neurological status. Pulmonary following this patient. Follow recommendations. 2. Persistent encephalopathy. The patient has been on sedation since admission and she is not waking up. I don't know if she had a stroke of seizures but at least the first CT of the head did not show any abnormality. At this point. Neurology consult has been requested. We will see what they have to say. 3. Hypoglycemia. At presentation the patient was taking glipizide not prescribed to her at this point, so sugars are much better. 4. Toxic encephalopathy secondary to drug overdose. As we mentioned before, most likely to Xanax or methamphetamines. I don't know for how long she has been unresponsive. There is a possibility of also some degree of anoxic encephalopathy. We will see what Neurology has to say. 5. Hypertension. The patient is on clonidine patch. We will continue with same management. 6. Mild tongue swelling. I think is back to her baseline. We will continue to monitor. 7. Rhabdomyolysis resolved. 8. Elevated LFTs. The LFTs from today are almost back to normal. DISPOSITION: We will continue to monitor this patient closely. cc: Minesh Kramer MD [facility]
[2018-09-03] MEDS: PROTONIX IV SCH (10:09)
--- NOTE | 2018-09-03 12:32 | CONSULTATION ---
DATE OF CONSULTATION: 09/03/2018 HISTORY OF PRESENT ILLNESS: Ms. Dominguez is 48 years old and she was reportedly found unresponsive by family several days ago. She was intubated, mechanically ventilated, and required sedation with propofol initially. She has not received propofol in about 3 days now and there are no other sedatives on board. History from sister is that the patient has history of illicit use of alprazolam, other benzodiazepines, methamphetamine, probably other substances. Workup here includes initial noncontrast CT of the head 08/29/2018 showing nothing remarkable. Urine drug screen was positive for amphetamine and for benzodiazepine consistent with family's suspicion. Recent chemistry is unremarkable except for very mildly elevated blood sugars. Computer record includes EEG 07/29/2016 which showed generalized slowing and nothing else remarkable. There is reported to be past history of illicit drug use as above, ethanol abuse, cigarette smoking, hypertension, chronic back pain, GERD. On exam, Ms. Dominguez is supine, intubated, initially motionless. With relatively moderate noxious stimulation over the limbs, there was withdrawal in each limb. Plantar response is silent bilaterally. There is good lateral eye movement with passive head turning. Initially, I thought there might be slight left gaze preference, but that was not consistent. Corneal reflex is present bilaterally. Pupils react sluggishly to bright light bilaterally. Facial motility appears symmetric. Head is unremarkable. Neck is supple without meningismus. Limb tone is symmetric. IMPRESSION: Global encephalopathy, uncertain etiology. This is likely multifactorial with question of persistent substance on board, low probability of persistent propofol effect, major concern for anoxic/ischemic brain injury during the time she was unattended before being found by family. Subclinical seizure is unlikely, but we can get EEG to exclude that possibility. I discussed my impression with sister at the bedside. I do not have any other suggestion right now. Thanks for asking Neurology to see Ms. Dominguez. cc: MD ENRIQUETA Trevino III
--- NOTE | 2018-09-03 18:18 | EEG REPORT ---
DATE: 09/03/2018 EEG #: [id number]. COMMENT: This is a digitally recorded EEG done portably in the ICU on a 48-year-old patient with persistent poor responsiveness following apparent illicit drug use, question of subclinical seizure, question of anoxic/ischemic brain injury. FINDINGS: The record is composed of medium and higher amplitude rhythmic and polymorphic delta across the frontal and central regions symmetrically. There is 4 to 6 hertz theta centrally and posteriorly. No sustained posterior dominant rhythm was identified. There was no variation to correlate with spontaneous drowsing or sleep. Photic stimulation did not significantly alter the record. No definite epileptiform discharge was identified. INTERPRETATION: Abnormal EEG because of generalized slowing. CORRELATION: This is indicative of a diffuse encephalopathy and is nonspecific. The absence of epileptiform discharges does not exclude a clinical diagnosis of seizure, but there is nothing on this record to suggest subclinical seizure as the reason for her persistent poor responsiveness. cc: Isabel Jin III, MD
[2018-09-04] MEDS: APRESOLINE IV PRN (00:04)
[2018-09-04] MEDS: LABETALOL IV PRN (01:13)
[2018-09-04] MEDS: DUONEB (A & A) INH SCH ×6 (03:39→23:20)
[2018-09-04 04:41] LABS: BLOOD TYPE ARTERIAL; SAMPLE BLOOD
[2018-09-04 04:42] LABS: ALLEN TEST YES; BE 3.5 mmoll (-3.0-3.0); HCO3-(ACT) 27.7 mmoll (20.0-26.0); O2(CT) 17.1 mL/dL (15.0-23.0); O2HB 97.2 % (95.0-99.0); PCO2(98.6) 40 mmHg (35-45); PO2(98.6) 146 mmHg (60-100); SAO2 99.4 % (95.0-100.0); THB 12.3 g/dL (11.5-17.4); pH(98.6) 7.45 (7.35-7.45)
[2018-09-04 04:43] LABS: MODALITY VENTILATOR
[2018-09-04 06:09] LABS: AGAP 10; BUN 15 mg/dL (8-22); CALCIUM 8.4 mg/dL (8.8-10.2); CHLORIDE 107 mmol/L (98-107); COSMO 285; CREATININE 0.5 mg/dL (0.5-0.9); ESTIMATED GFR > 60; GLUCOSE 122 mg/dL (70-104); POTASSIUM 3.8 mmol/L (3.5-5.1); SODIUM 142 mmol/L (136-145); TCO2 25 mmol/L (25-35)
--- NOTE | 2018-09-04 07:33 | Diag Imaging Result Doc PS360 ---
CHEST-1 VIEW - 09/04/2018 INDICATION: SOB COMPARISON: 09/03/2018 FINDINGS: Support tubes are stable. There is some trace atelectasis in the right lower lobe. No focal infiltrates, pneumothorax, or pleural effusion. Heart size is normal. IMPRESSION: Trace right lower lobe atelectasis but no acute disease. Electronically signed by Rafal Allison 09/04/2018 7:30 AM
[2018-09-04] MEDS: PROTONIX IV SCH (08:50)
[2018-09-04] MEDS ORDERED: LASIX IV ONE (09:38)
--- NOTE | 2018-09-04 12:14 | PROGRESS NOTE ---
DATE: 09/04/2018 SUBJECTIVE: Ms. Dominguez has not had significant change overnight. Her EEG showed generalized slowing but nothing to suggest seizure. PHYSICAL EXAMINATION: On exam now, she remains unresponsive. There is some withdrawal in the legs with noxious stimulation. I did not see movement in the left arm with noxious stimulation. In the right arm, with nail bed pressure, there was extension and decerebrate posture. There is a little bit of facial grimace. Extraocular movements are full with passive head turning. Neck is supple. IMPRESSION: Global encephalopathy, apparent associated multiple substance ingestion, concern for anoxic brain injury but too soon to tell. I do not have any new suggestion from Neurology standpoint. Thanks for asking Neurology to see her. cc: Isabel Jin III, MD
[2018-09-04] MEDS: POTASSIUM CHLORIDE 20 MEQ in NS 1,000 ML IV SCH ×2 (12:25→14:30)
--- NOTE | 2018-09-04 12:56 | PROGRESS NOTE ---
DATE: 09/04/2018 SUBJECTIVE: Patient continues to be not responding. Continues to be on ventilator. She just moves some whenever she is moved around. No other issues noted as per nursing staff. OBJECTIVE: Vital Signs: Temperature 98.1 degrees, heart rate 82, respiratory rate 18, blood pressure 140/90, O2 saturation 100% on mechanical ventilator at FiO2 of 40%. General: This is a chronically ill-looking 48-year-old female, lying in bed in no acute distress. Cardiovascular: S1, S2 heard. No murmurs, gallops, or rubs. Regular rate and rhythm. Respiratory: Minimal crepitus in both pulmonary bases. Patient not using any accessory muscles or having work of breathing. Abdomen: Soft. Nontender to palpation. Nondistended. Bowel sounds present. No organomegaly. Extremities: No clubbing, cyanosis, or edema. Peripheral pulses present in both legs. Neurological: Patient is on mechanical ventilator. Apparently, she does not respond to verbal stimuli only. DIAGNOSTIC STUDIES: White cell count 8.31. ABG from today is pH 7.45 with pCO2 of 40 and PO2 of 146. ASSESSMENT AND PLAN: 1. Acute hypercarbic hypoxemic respiratory failure secondary to drug overdose. The patient continues to be on ventilator. The ABG is better, but unfortunately what is precluding us from extubation continues to be neurological status. Pulmonology and Neurology are following this patient. We will follow recommendations. 2. Persistent encephalopathy. At this point, this global encephalopathy is multifactorial. We do not know how long he has been down until found unresponsive and she may have some degree of anoxic encephalopathy. We have done an EEG which did not show any signs of seizures. We will continue to monitor. 3. Toxic encephalopathy secondary to drug overdose most likely related to Xanax and methamphetamines. In any case, we will continue to monitor this patient closely. 4. Hypertension. Patient is on clonidine patch. Blood pressure is better controlled. 5. Mild tongue swelling, stable. 6. Rhabdomyolysis. That condition is completely resolved. 7. Elevated liver function tests. Those are almost back to normal. We will continue to monitor. cc: Mniesh Kramer MD [facility]
[2018-09-05 04:46] LABS: ALLEN TEST YES; BE 6.7 mmoll (-3.0-3.0); BLOOD TYPE ARTERIAL; HCO3-(ACT) 30.1 mmoll (20.0-26.0); METHB 1.3 % (0.0-1.5); O2(CT) 16.3 mL/dL (15.0-23.0); O2HB 96.3 % (95.0-99.0); PCO2(98.6) 47 mmHg (35-45); PO2(98.6) 114 mmHg (60-100); SAMPLE BLOOD; SAO2 98.8 % (95.0-100.0); THB 11.9 g/dL (11.5-17.4); pH(98.6) 7.44 (7.35-7.45)
[2018-09-05 04:48] LABS: MODALITY BI PAP
[2018-09-05 06:02] LABS: BASO# 0.02 X1000 (0.0-0.2); BASO% 0.2 % (0.0-0.8); EOS# 0.37 X1000 (0.0-0.7); EOS% 4.2 % (0.0-10.0); HEMOGLOBIN 11.9 g/dL (12.0-16.0); IMM GRAN# 0.02 X1000 (0.0-0.04); IMM GRAN% 0.2 % (0.0-0.5); LYMPH# 1.57 X1000 (1.2-3.4); LYMPH% 17.6 % (20.5-51.1); MCH 31.4 PG (27-31); MCHC 33.1 g/dL (33-37); MONO# 0.91 X1000 (0.11-0.59); MONO% 10.2 % (1.7-9.3); MPV 11.9 FL (7.4-10.4); NEUT# 6.02 X1000 (1.4-6.5); NEUT% 67.6 % (42.2-75.2); PLT 195 X1000 (130-400); RBC 3.79 XMIL (4.2-5.4); RDW 12.2 % (11.5-14.5); WBC 8.91 X1000 (4.8-10.8)
[2018-09-05 06:22] LABS: AGAP 10; BUN 18 mg/dL (8-22); CALCIUM 8.9 mg/dL (8.8-10.2); CHLORIDE 101 mmol/L (98-107); COSMO 281; CREATININE 0.6 mg/dL (0.5-0.9); ESTIMATED GFR > 60; GLUCOSE 94 mg/dL (70-104); POTASSIUM 3.5 mmol/L (3.5-5.1); SODIUM 140 mmol/L (136-145); TCO2 29 mmol/L (25-35)
--- NOTE | 2018-09-05 07:35 | Diag Imaging Result Doc PS360 ---
CHEST-1 VIEW - 09/05/2018 INDICATION: SOB COMPARISON: 09/04/2018 FINDINGS: The endotracheal tube is no longer present. Stable nasogastric tube in good position in the stomach. The lungs are clear. Heart size is normal. No pneumothorax or pleural effusion. IMPRESSION: No acute disease. Electronically signed by Rafal Allison 09/05/2018 7:33 AM
[2018-09-05] MEDS: PROTONIX IV SCH (07:43)
[2018-09-05] MEDS: POTASSIUM CHLORIDE 20 MEQ in NS 1,000 ML IV SCH ×2 (07:43→09:09)
[2018-09-05] MEDS: DUONEB (A & A) INH SCH ×5 (08:16→19:49)
--- NOTE | 2018-09-05 09:19 | PROGRESS NOTE ---
DATE: 09/05/2018 SUBJECTIVE: The patient continues to be not responding. Yesterday, she was successfully extubated. She is requiring now BiPAP at FiO2 40%. It looks like she is moving somewhat a little bit more today. OBJECTIVE: Vital Signs: Temperature 97.5, heart rate 92, respiratory 17, blood pressure 135/85, and O2 saturation 96% on BiPAP. General: A chronically ill-looking 48-year-old female lying in bed in no acute distress. HEENT: Head is normocephalic, atraumatic. Mucous membranes dry. Neck: No JVD noted. No carotid bruits. No lymphadenopathy. No thyromegaly. Cardiovascular: S1, S2 heard. No murmurs, gallops, or rubs. Regular rate and rhythm. Respiratory: There is minimal rhonchi and crepitations in both pulmonary bases. Patient is not using any accessory muscles or having work of breathing. Abdomen: Soft. Nontender to palpation. Nondistended. Bowel sounds present. No organomegaly noted. Extremities: No clubbing, cyanosis, or edema. Peripheral pulses present in both legs. Neurological: Patient is on BiPAP mask. She does not follow commands. She responds to painful stimuli. Apparently, she moves 4 extremities spontaneously. LABORATORY DATA: White cell count 8.91, hemoglobin 11.9, hematocrit 36, and platelets 195,000 with ABG that shows pH 7.44 with pCO2 47, PO2 114. Normal BMP. ASSESSMENT AND PLAN: 1. Acute hypoxemic respiratory failure secondary to drug overdose. The patient has been successfully extubated yesterday although she is still requiring to be on BiPAP. The FiO2 is 40%. ABG shows better oxygenation. I think at this point we will continue with same management. Pulmonary is following this patient. 2. Persistent encephalopathy. At this point, we do not know the reason why this patient had developed global encephalopathy. It is multifactorial. I do not know if she may have some degree of anoxic encephalopathy. I do not know if that is just only related to drugs. An EEG was done yesterday, but did not show any signs of seizures. At this point, we will continue to monitor this patient closely. Neurology is following as well. Help appreciate it. 3. Hypertension. Patient is on clonidine patch. Blood pressure is 127 today. I think the patient is getting much better. We will continue with same management. 4. Mild tongue swelling. Stable. 5. Rhabdomyolysis, resolved. 6. Elevated liver function tests almost back to normal. We will continue to monitor. 7. Disposition: We will continue to monitor this patient closely here in the intensive care unit. cc: Minesh Kramer MD [facility]
[2018-09-05 10:24] LABS: HCV BY PCR SEE COMMENTS
--- NOTE | 2018-09-05 12:21 | PROGRESS NOTE ---
DATE: 09/05/2018 Ms. Dominguez looks about the same clinically. She has been extubated. There is full lateral eye movement with passive head turning. Corneal reflexes are symmetric. Pupils react to light. Limb tone is symmetric, but she still withdraws the left arm more briskly than the right. Today, I did not see decerebrate posturing. Neck is supple. IMPRESSION: Global encephalopathy, no significant new findings. No new recommendation from Neurology standpoint today. Thanks for asking us to see Ms. Dominguez. cc: MD ENRIQUETA Trevino III
[2018-09-05] MEDS: LABETALOL IV PRN (20:36)
[2018-09-06] MEDS: DUONEB (A & A) INH SCH ×7 (00:05→23:22)
[2018-09-06] MEDS: POTASSIUM CHLORIDE 20 MEQ in NS 1,000 ML IV SCH ×3 (01:34→19:42)
[2018-09-06] MEDS: LABETALOL IV PRN ×2 (02:05→10:06)
[2018-09-06] MEDS: APRESOLINE IV PRN ×2 (05:05→19:44)
[2018-09-06 05:30] LABS: ALLEN TEST YES; BE 3.9 mmoll (-3.0-3.0); BLOOD TYPE ARTERIAL; METHB 0.7 % (0.0-1.5); O2HB 97.4 % (95.0-99.0); PCO2(98.6) 37 mmHg (35-45); PO2(98.6) 155 mmHg (60-100); SAMPLE BLOOD; SAO2 99.7 % (95.0-100.0); pH(98.6) 7.48 (7.35-7.45)
[2018-09-06 05:32] LABS: MODALITY BI PAP
[2018-09-06 05:40] LABS: BASO# 0.03 X1000 (0.0-0.2); BASO% 0.4 % (0.0-0.8); EOS# 0.27 X1000 (0.0-0.7); EOS% 3.3 % (0.0-10.0); HEMATOCRIT 34.1 % (37.0-47.0); HEMOGLOBIN 11.3 g/dL (12.0-16.0); LYMPH# 1.59 X1000 (1.2-3.4); LYMPH% 19.6 % (20.5-51.1); MCH 31.7 PG (27-31); MCHC 33.1 g/dL (33-37); MCV 95.8 FL (81-99); MONO# 0.59 X1000 (0.11-0.59); MONO% 7.3 % (1.7-9.3); MPV 11.9 FL (7.4-10.4); NEUT# 5.64 X1000 (1.4-6.5); NEUT% 69.4 % (42.2-75.2); PLT 161 X1000 (130-400); RBC 3.56 XMIL (4.2-5.4); RDW 11.9 % (11.5-14.5); WBC 8.12 X1000 (4.8-10.8)
[2018-09-06 06:16] LABS: AGAP 9; BUN 21 mg/dL (8-22); CALCIUM 8.8 mg/dL (8.8-10.2); CHLORIDE 105 mmol/L (98-107); COSMO 280; CREATININE 0.6 mg/dL (0.5-0.9); ESTIMATED GFR > 60; GLUCOSE 117 mg/dL (70-104); POTASSIUM 4.1 mmol/L (3.5-5.1); SODIUM 138 mmol/L (136-145); TCO2 24 mmol/L (25-35)
--- NOTE | 2018-09-06 07:10 | Diag Imaging Result Doc PS360 ---
EXAM: CHEST-1 VIEW 09/06/2018 HISTORY: SOB TECHNIQUE: AP portable at 0521 COMMENT: There is an NG tube which passes below the diaphragm. There is minimal platelike atelectasis in the left base. This appears slightly worse than on 09/05/2018. IMPRESSION: Left lower lobe atelectasis. Electronically signed by Sandro Monterroso 09/06/2018 7:08 AM
[2018-09-06] MEDS: PROTONIX IV SCH (07:39)
--- NOTE | 2018-09-06 08:05 | PROGRESS NOTE ---
DATE: 09/06/2018 INTERVAL HISTORY: No acute overnight events. Patient was on BiPAP, saturating 100% on 40% BiPAP. Her systolic blood pressure was 160-180 for which amlodipine has been started. She continues to receive nasogastric tube feeding. No other acute events overnight. The patient is not responsive, and does not engage in verbal commands. VITALS: Temperature 98.1 degrees, pulse 82, respiratory rate 15, and blood pressure 160/110. She is saturating 100% on BiPAP. PHYSICAL EXAMINATION: Currently, she is moaning and coughing, but does not appear in any acute distress. Oral cavity has dryness. Her pupils are bilaterally equal reacting to light briskly.Lungs: Air entry bilaterally equal. No wheeze, rhonchi, or crackles. Cardiovascular: S1, S2 normal. No murmur or gallop. Abdomen: Soft. Nontender. Active bowel sounds. Extremities: She does not have any lower extremity edema. She has a BiPAP mask and nasogastric tube. Urine catheter. Neurologic: She is lethargic, not arousable. She keeps on changing her position spontaneously in the bed, predominantly maintaining left lateral decubitus. On painful stimuli, she does have flexion of all extremities. Reflexes are 2+ bilaterally. Input and output suggests positive 1.5 L. Since admission, she is positive 8 L. LABORATORY: Labs are suggestive of normal hemoglobin, normal platelet count. ABG is in acceptable range. Her electrolytes also in acceptable range. No new microbiological data. IMAGING: Chest x-ray performed today has atelectasis in the left base. ASSESSMENT AND PLAN: 1. Acute persistent encephalopathy due to global encephalopathy with differential being anoxic brain injury, benzodiazepine induced global encephalopathy, and others. EEG did not detect any epileptiform discharges. CT scan head on admission was unremarkable. Neurology on board. I will consider repeat head imaging as per Neurology recommendations in the future. 2. Acute hypoxic respiratory failure secondary to likely benzodiazepine overdose status post extubation on 08/04/2018. Continue to cycle BiPAP and nasal cannula as tolerated. Pulmonology on board. 3. Essential hypertension. Continue clonidine patch and add amlodipine. Continue as needed hydralazine and labetalol as well. 4. Other issues including mild tongue swelling, rhabdomyolysis, transaminitis on admission have resolved. I will continue nutrition through nasogastric tube feeding. 5. Disposition. The patient's condition still remains critical. TIME SPENT: More than 30 minutes of critical care time was spent in taking care of this patient. cc: MD ENRIQUETA Schwartz
[2018-09-06] MEDS ORDERED: NORVASC NG SCH (09:00)
--- NOTE | 2018-09-06 16:32 | PROGRESS NOTE ---
DATE: 09/06/2018 Ms. Dominguez remains poorly responsive. She moved her left arm much more briskly today in response to noxious stimulation. There is some withdrawal in the feet. Again, less appropriate or purposeful movement in the right arm and there was some extension of the right arm in response to noxious stimulation. There is full, brisk lateral eye movement with passive head turning. There is grimace and head turning with noxious stimulation over the limbs. Facial motility is symmetric. Neck remains supple. IMPRESSION: Global encephalopathy, persistent poor responsiveness, no significant clinical change room attendant the few days that I have followed her. Encephalopathy from multiple substance ingestion may be protracted. I do not have any new suggestions today. Eventually, we might need to consider repeat brain imaging. Thanks for asking Neurology to see Ms. Dominguez. cc: Isabel Jin III, MD [facility]
[2018-09-07] MEDS: DUONEB (A & A) INH SCH ×6 (03:17→23:37)
[2018-09-07 04:31] LABS: ALLEN TEST YES; BE 4.1 mmoll (-3.0-3.0); BLOOD TYPE ARTERIAL; HCO3-(ACT) 28.1 mmoll (20.0-26.0); METHB 1.3 % (0.0-1.5); O2(CT) 14.4 mL/dL (15.0-23.0); PCO2(98.6) 45 mmHg (35-45); PO2(98.6) 159 mmHg (60-100); SAMPLE BLOOD; SAO2 99.5 % (95.0-100.0); THB 10.3 g/dL (11.5-17.4); pH(98.6) 7.42 (7.35-7.45)
[2018-09-07 04:32] LABS: MODALITY BI PAP
[2018-09-07 05:11] LABS: BASO# 0.02 X1000 (0.0-0.2); BASO% 0.2 % (0.0-0.8); EOS# 0.28 X1000 (0.0-0.7); EOS% 2.9 % (0.0-10.0); HEMATOCRIT 33.1 % (37.0-47.0); HEMOGLOBIN 11.2 g/dL (12.0-16.0); IMM GRAN# 0.02 X1000 (0.0-0.04); IMM GRAN% 0.2 % (0.0-0.5); LYMPH# 1.33 X1000 (1.2-3.4); LYMPH% 13.9 % (20.5-51.1); MCHC 33.8 g/dL (33-37); MCV 94.6 FL (81-99); MONO# 0.85 X1000 (0.11-0.59); MONO% 8.9 % (1.7-9.3); MPV 11.9 FL (7.4-10.4); NEUT# 7.04 X1000 (1.4-6.5); NEUT% 73.9 % (42.2-75.2); PLT 188 X1000 (130-400); RDW 11.9 % (11.5-14.5); WBC 9.54 X1000 (4.8-10.8)
[2018-09-07 05:39] LABS: AGAP 9; BUN 16 mg/dL (8-22); CALCIUM 8.6 mg/dL (8.8-10.2); CHLORIDE 105 mmol/L (98-107); COSMO 282; CREATININE 0.5 mg/dL (0.5-0.9); ESTIMATED GFR > 60; GLUCOSE 116 mg/dL (70-104); SODIUM 140 mmol/L (136-145); TCO2 26 mmol/L (25-35)
[2018-09-07] MEDS: POTASSIUM CHLORIDE 20 MEQ in NS 1,000 ML IV SCH (05:50)
[2018-09-07] MEDS: LOVENOX SUBQ SCH (08:24)
[2018-09-07] MEDS: NORVASC NG SCH (08:26)
--- NOTE | 2018-09-07 09:02 | Diag Imaging Result Doc PS360 ---
EXAM: CT HEAD W/O CONTRAST 09/07/2018 HISTORY: Decreased RUE and RLE motor response TECHNIQUE: This exam was performed using automated exposure control, adjustment of mA or kV according to patient size, and/or use of iterative reconstruction technique. COMMENT: There is no evidence of mass effect, bleed, or abnormal extra-axial fluid collection. There is mucosal thickening and fluid in the ethmoid air cells on the right and in the left sphenoid sinus. The calvarium is intact. Compared to 08/29/2018, the appearance of the brain has not changed significantly. The sinusitis has apparently improved. IMPRESSION: Improved ethmoid and sphenoid sinusitis. No evidence of acute intracranial disease. Electronically signed by Sadnro Monterroso 09/07/2018 9:00 AM
--- NOTE | 2018-09-07 10:31 | PROGRESS NOTE ---
DATE: 09/07/2018 Ms. Dominguez had repeat head CT early this morning and it shows nothing remarkable, no definite changes compared to prior CT done 08/29/2018. LABORATORY DATA: Lab shows minimally elevated blood sugars, nothing else remarkable on the chemistry profile, mild anemia. PHYSICAL EXAMINATION: General: On exam, she is supine, head turned to the left, apparently asleep. With moderate stimulation, she grimaced, turned her head, closed her eyes more tightly. Extremities: With noxious stimulation over the left limb, she had some appropriate elevation and withdrawal of the arm. With noxious stimulation over the right hand, there was minimal but definite extension. IMPRESSION: Persistent global encephalopathy, slight focal feature, but negative CT. I think we may still be dealing with a protracted encephalopathy associated with multiple substance ingestion, but remain concerned for anoxic brain injury associated with the initial incident. I do not have any urgent suggestion today. We might consider repeating EEG later. Thanks for asking Neurology to see Ms. Dominguez. cc: MD ENRIQUETA Trevino III
--- NOTE | 2018-09-07 11:27 | PROGRESS NOTE ---
DATE: 09/07/2018 INTERVAL HISTORY: No acute events overnight. Her vitals were unremarkable. In the morning time she is just put on nasal cannula, which she is tolerating well. She has had good cough. SUBJECTIVE: She is lethargic not responding to verbal command; however, she moans and groans and changes her head position as well as upper extremity positions in the bed spontaneously. She has good cough reflex. VITAL SIGNS: Temperature of 97.3 degrees, pulse 86, respiratory blood pressure 145/85, saturating 100% on 2 L nasal cannula and room air on my evaluation. PHYSICAL EXAMINATION: General: Does not appear in any acute distress. HEENT: Oral cavity has pool of secretions. Pupils are bilaterally equal and reacting to light. Lungs: Air entry bilaterally equal. No wheeze, rhonchi or crackles. Heart: S1, S2 normal. No murmur, rub or gallop. Abdomen: Soft and nontender. Active bowel sounds. Extremities: No lower extremity edema. She has a nasogastric tube. Urine catheter. Neurologic: She is lethargic, does not respond to verbal commands; however, spontaneously moans and groans. On painful stimuli she withdraws on all extremities; however, she has lesser movement on the right lower extremity than the right upper extremity, and lesser movement on right upper extremity than left upper and lower extremities. LABORATORY DATA: Suggestive of normocytic anemia, normal platelet count. ABG suggestive of adequate oxygenation. Normal pCO2. Her electrolytes are within acceptable range. No new microbiological data. A repeat CT scan has been ordered, which does not have any other acute pathology. ASSESSMENT AND PLAN: 1. Acute persistent encephalopathy likely due to global encephalopathy with differential being for anoxic brain injury, benzodiazepine and amphetamine-induced global encephalopathy with protracted course. Electroencephalogram did not have any epileptiform discharges. Repeat computed tomography scans have been unremarkable despite the physical examination findings of lesser motor response on the right upper and lower extremity as compared to left. Considering the patient has been moving in the bed, she could not go for an magnetic resonance image. Neurology on board. I will try to avoid any sedative hypnotic medications. 2. Acute hypoxic respiratory failure secondary to benzodiazepine overdose status post extubation on 08/04/2018. Continue room air on nasal cannula oxygen as tolerated. Pulmonology on board. 3. Essential hypertension. Continue clonidine patch and add amlodipine and increase the dose. Her intravenous fluids have been stopped. 4. Other issues including mild tongue swelling, rhabdomyolysis and transaminitis have resolved. Continue nutrition through nasogastric tube and start the patient on enoxaparin for deep venous thrombosis prophylaxis. DISPOSITION: The patient remains critical, and I will continue to monitor her inside the intensive care unit. TIME SPENT: More than 30 minutes of critical care time was spent in taking care of this patient. I called the patient's mother and informed her about the patient's condition, medical course and management plan and answered all of her questions. cc: David Woodward MD
[2018-09-08] MEDS: DUONEB (A & A) INH SCH ×6 (03:31→23:35)
[2018-09-08] MEDS: LOVENOX SUBQ SCH (06:33)
[2018-09-08 06:45] LABS: AGAP 10; BUN 14 mg/dL (8-22); CALCIUM 9.4 mg/dL (8.8-10.2); CHLORIDE 98 mmol/L (98-107); COSMO 273; CREATININE 0.6 mg/dL (0.5-0.9); ESTIMATED GFR > 60; GLUCOSE 113 mg/dL (70-104); POTASSIUM 3.8 mmol/L (3.5-5.1); SODIUM 136 mmol/L (136-145); TCO2 28 mmol/L (25-35)
[2018-09-08] MEDS: NORVASC NG SCH (08:28)
[2018-09-08] MEDS: CATAPRES-TTS-1 TD SCH (08:28)
[2018-09-08] MEDS: HALDOL IV PRN (17:00)
--- NOTE | 2018-09-08 17:36 | PROGRESS NOTE ---
DATE: 09/08/2018 INTERVAL HISTORY: Her CT scan was unremarkable. SUBJECTIVE: She keeps eyes open. Does not respond to commands. VITAL SIGNS: Temperature 97.8 degrees, pulse 67, respiratory 20 blood pressure 140/90, saturating 99% on 2 L nasal cannula. PHYSICAL EXAMINATION: General: Does not appear in acute distress. HEENT: Oral cavity has a lot of secretions. Air entry bilaterally antibiotic equal. No wheeze or crackles. S1, S2 normal. No murmur, rub, murmur, rub, or gallop. Abdomen: Soft. Nontender. Extremities: No lower extremity edema. Neurologic: She is withdrawing to painful stimuli all extremities and becomes diaphoretic. LABORATORY DATA: BMP is acceptable. CT scan did not have any acute CVA. ASSESSMENT AND PLAN: 1. Acute persistent encephalopathy likely because of global encephalopathy in the seated setting of benzodiazepine and amphetamine induced global encephalopathy and other differential being anoxic brain injury. 2. Next acute hypoxic respiratory failure secondary to benzodiazepine overdose, status post extubation on September 04. 3. Essential hypertension. PLAN: I will continue to monitor patient closely. Continue her on clonidine patch, amlodipine, and I will transfer her to [facility]. Plan of care discussed with nursing team. Yesterday I discussed plan of care with mother. cc: David Woodward MD
[2018-09-09] MEDS: DUONEB (A & A) INH SCH ×6 (03:00→23:18)
--- NOTE | 2018-09-09 07:55 | Diag Imaging Result Doc PS360 ---
EXAM: CHEST-PORTABLE - 09/09/2018 HISTORY: dyspnea TECHNIQUE: Portable chest COMPARISON: 09/06/2018 FINDINGS: Heart size is normal. Inspiration is mildly shallow. There is mild subsegmental atelectasis at the lung bases. The remainder of the lungs appear essentially clear. There is no pleural effusion or pneumothorax identified. There is a nasogastric tube which can be followed to the proximal stomach, but the distal most portion of the tube is not visible on the image. IMPRESSION: Mildly shallow inspiration, with mild basilar subsegmental atelectasis. No other evidence of acute disease. Electronically signed by Foster Mcdermott 09/09/2018 7:53 AM
--- NOTE | 2018-09-09 09:42 | PROGRESS NOTE ---
DATE: 09/09/2018 INTERVAL HISTORY: The patient was transferred to [facility] unit. No other acute events. SUBJECTIVE: The patient remains nonverbal. Does not answer questions appropriately. She keeps her eyes open though, and keeps moaning and groaning. OBJECTIVE: Vital Signs: Temperature 98.5 degrees, pulse 90, respiratory rate 21, blood pressure 136/90, saturating 100% on 2 L nasal cannula. General: Not in any acute distress. Keeps eyes open. HEENT: She has a nasogastric tube. Oral cavity has a lot of secretions. She is frequently coughing. Lungs: Air entry bilaterally equal. No wheeze, rhonchi, crackles. Heart: S1, S2 normal. No murmur, rub, or gallop. Abdomen: Soft, nontender. No lower extremity edema. She has a urine catheter in place. Neurologic: She is lethargic. However, eyes open. She is withdrawing to painful stimuli in all extremities. LABORATORY DATA: No CBC or CBC today. BMP suggestive of normal electrolytes. ASSESSMENT AND PLAN: 1. Acute persistent encephalopathy because of global encephalopathy in the setting of benzodiazepine and amphetamine-induced global encephalopathy and other differential being anoxic brain injury. Her CT scans have been unremarkable twice. I will follow up with MRI of the brain tomorrow. Continue to monitor her in [facility]. 2. Acute hypoxic respiratory failure secondary to benzodiazepine overdose, status post extubation on 09/04/2018. Continue her on aspiration precaution with frequent secretion management. The chest x-ray does not suggest any aspiration pneumonia at the moment. 3. Essential hypertension, currently well controlled. Continue clonidine patch and amlodipine. 4. Continue enoxaparin for deep venous thrombosis prophylaxis. 5. Disposition. The patient's condition remains critical. I will continue to monitor in [facility]. Plan of care discussed with the patient's nurse. All of his questions were answered. I will keep family in the loop as well. cc: David Woodward MD
[2018-09-09] MEDS: NORVASC NG SCH (09:59)
[2018-09-09] MEDS: LOVENOX SUBQ SCH (10:04)
[2018-09-10] MEDS: DUONEB (A & A) INH SCH ×6 (03:10→22:53)
--- NOTE | 2018-09-10 04:18 | PROGRESS NOTE ---
DATE: 09/08/2018 INTERVAL HISTORY: Ms. Dominguez got her CT scan of head which did not have any acute pathology. SUBJECTIVE: She was opening her eyes yesterday. She has a lot of secretions and requires a lot of suctioning though she is able to cough. I had discussion with the patient's mother yesterday who told me that the patient does buy Xanax and amphetamine on the street. She would also buy some of the other substances if she could get them. OBJECTIVE: The patient keeps her eyes open, but does not engage in any meaningful conversation. She is more alert than she has been.Vitals: She has been afebrile with temperature of 97.8 degrees, pulse of 88 per minute, respiratory rate 18, and blood pressure 130/85. She is saturating 100% on 2 L nasal cannula. General: She does not appear in any acute distress. She has a lot of secretions inside the mouth. Her eyes are open. She does not track or follow commands. However on painful stimuli, she does become diaphoretic. Lungs: Air entry bilaterally equal. No wheeze, rhonchi, or crackles. Cardiovascular: S1, S2 normal. No murmur or gallop. Abdomen: Soft and nontender. Active bowel sounds. Extremities: She has mild bilateral upper extremity edema. She has a nasogastric tube. Urinary catheter. Neurologic: She is alert and not oriented. Does not verbalize on any commands. She is moving all extremities to painful stimuli. The movement is more pronounced on the left upper and left lower extremity than the right upper and right lower extremity. LABORATORY: Input and output suggests she is positive 900 mL in the last 24 hours. No CBC today. BMP suggestive of normal electrolytes. Her blood glucoses have been stopped since it has been in acceptable range. She does get a nasogastric tube. ASSESSMENT AND PLAN: 1. Acute persistent encephalopathy likely due to global encephalopathy with differential being benzodiazepine induced encephalopathy with suspicion for anoxic brain injury as well, and has had a protracted course. EEG initially did not have any epileptiform discharges. CT scan during this admission have been unremarkable. She does have some residual right upper and lower extremity weakness, especially on the left. Neurology on board. Pending MRI of the brain. 2. Acute hypoxic respiratory failure secondary to benzodiazepine overdose, status post extubation on 09/04/2018.. Follow up CXR as required to rule out any aspiration. Enoxaparin for DVT prophylaxis. DISPOSITION: The patient's condition appears hemodynamically stable though secretions are going to be challenging to manage. My plan is to transfer patient to [facility] today. I called the patient's mother and informed her about patient's clinical condition, medical course and answered all of her questions yesterday. cc: David Woodward MD [facility]
[2018-09-10] MEDS: APRESOLINE IV PRN ×2 (04:27→16:39)
[2018-09-10 05:56] LABS: BASO# 0.01 X1000 (0.0-0.2); BASO% 0.1 % (0.0-0.8); EOS# 0.21 X1000 (0.0-0.7); EOS% 1.8 % (0.0-10.0); HEMOGLOBIN 13.1 g/dL (12.0-16.0); IMM GRAN# 0.03 X1000 (0.0-0.04); IMM GRAN% 0.3 % (0.0-0.5); LYMPH# 1.29 X1000 (1.2-3.4); LYMPH% 10.8 % (20.5-51.1); MCH 31.6 PG (27-31); MCHC 34.5 g/dL (33-37); MCV 91.6 FL (81-99); MONO# 0.83 X1000 (0.11-0.59); MPV 12.2 FL (7.4-10.4); NEUT# 9.55 X1000 (1.4-6.5); PLT 226 X1000 (130-400); RBC 4.15 XMIL (4.2-5.4); RDW 11.7 % (11.5-14.5); WBC 11.92 X1000 (4.8-10.8)
[2018-09-10 06:21] LABS: AGAP 12; BUN 15 mg/dL (8-22); CALCIUM 9.6 mg/dL (8.8-10.2); CHLORIDE 97 mmol/L (98-107); COSMO 274; CREATININE 0.6 mg/dL (0.5-0.9); ESTIMATED GFR > 60; GLUCOSE 120 mg/dL (70-104); MAGNESIUM 2.1 mg/dL (1.5-2.7); POTASSIUM 3.7 mmol/L (3.5-5.1); SODIUM 136 mmol/L (136-145); TCO2 27 mmol/L (25-35)
[2018-09-10] MEDS: LABETALOL IV PRN (06:48)
[2018-09-10] MEDS: LOVENOX SUBQ SCH (09:47)
[2018-09-10] MEDS: NORVASC NG SCH (09:47)
--- NOTE | 2018-09-10 09:55 | Diag Imaging Result Doc PS360 ---
MRI BRAIN W/WO CONTRAST - 09/09/2018 INDICATION: Evaluate for CVA, anoxic brain injury COMPARISON: Head CT 09/07/2018 FINDINGS: There is no area of restricted diffusion. The ventricles and sulci are normal in size and contour. No intracranial mass or hemorrhage. No area of abnormal contrast enhancement. Midline structures including the optic chiasm and pituitary are normal. IMPRESSION: Negative exam. Electronically signed by Rafal Allison 09/10/2018 9:53 AM
--- NOTE | 2018-09-10 19:40 | PROGRESS NOTE ---
DATE: 09/10/2018 SUBJECTIVE: Ms. Dominguez is supine, NG in place, O2 by nasal cannula. She appears to be sleeping peacefully. With relatively modest stimulation, she began to grumble, turned her head left and right, used both arms appropriately to fend off stimulation. She definitely used her right arm more appropriately today than what I had seen last week. She did not follow commands or communicate. There is good lateral eye movement with passive head turning. Facial motility is symmetric. Limb tone is symmetric. Neck is supple. IMPRESSION: Persistent global encephalopathy. Negative imaging is reassuring. Her level of responsiveness seems to be slowly improving. We may still be dealing with a very protracted substance related encephalopathy. Still, some concern for anoxic brain injury. No new suggestions from Neurology standpoint today. cc: Isabel Jin III, MD
[2018-09-11] MEDS: DUONEB (A & A) INH SCH ×6 (04:00→23:30)
[2018-09-11] MEDS ORDERED: PRINIVIL NG SCH (09:00)
[2018-09-11] MEDS: NORVASC NG SCH (09:31)
[2018-09-11] MEDS: LOVENOX SUBQ SCH (09:32)
[2018-09-11] MEDS: HALDOL IV PRN (20:07)
[2018-09-12] MEDS: LABETALOL IV PRN (00:29)
[2018-09-12] MEDS: DUONEB (A & A) INH SCH ×6 (03:05→23:21)
[2018-09-12 05:14] LABS: BASO# 0.01 X1000 (0.0-0.2); BASO% 0.1 % (0.0-0.8); EOS# 0.18 X1000 (0.0-0.7); EOS% 1.7 % (0.0-10.0); HEMATOCRIT 36.3 % (37.0-47.0); HEMOGLOBIN 12.4 g/dL (12.0-16.0); IMM GRAN# 0.03 X1000 (0.0-0.04); IMM GRAN% 0.3 % (0.0-0.5); LYMPH% 11.9 % (20.5-51.1); MCH 31.2 PG (27-31); MCHC 34.2 g/dL (33-37); MCV 91.2 FL (81-99); MONO# 1.04 X1000 (0.11-0.59); MONO% 9.6 % (1.7-9.3); MPV 12.1 FL (7.4-10.4); NEUT# 8.33 X1000 (1.4-6.5); NEUT% 76.4 % (42.2-75.2); PLT 235 X1000 (130-400); RBC 3.98 XMIL (4.2-5.4); RDW 11.6 % (11.5-14.5); WBC 10.89 X1000 (4.8-10.8)
[2018-09-12 05:33] LABS: AGAP 7; BUN 16 mg/dL (8-22); CALCIUM 9.8 mg/dL (8.8-10.2); CHLORIDE 99 mmol/L (98-107); COSMO 276; CREATININE 0.6 mg/dL (0.5-0.9); ESTIMATED GFR > 60; GLUCOSE 124 mg/dL (70-104); POTASSIUM 3.7 mmol/L (3.5-5.1); SODIUM 137 mmol/L (136-145); TCO2 31 mmol/L (25-35)
[2018-09-12] MEDS: NORVASC NG SCH (08:23)
[2018-09-12] MEDS: PRINIVIL NG SCH (08:23)
[2018-09-12] MEDS: LOVENOX SUBQ SCH (08:23)
--- NOTE | 2018-09-12 10:43 | PROGRESS NOTE ---
DATE: 09/10/2018 INTERVAL HISTORY: No acute events overnight. SUBJECTIVE: The patient does not respond to any verbal commands, occasionally moans and groans and coughs. OBJECTIVE: Vitals: Temperature 98.9, pulse 100, respiratory rate 24, blood pressure 150/100 saturating 100% on 2 L nasal cannula. She had a temperature of 99.8 at midnight. General: Obese. Not in any acute distress. Oral cavity has copious amount of secretions. She has nasogastric tube. Air entry bilaterally equal. No wheezing, rales or rhonchi. Heart regular. No murmur, rub or gallop. Abdomen is soft and nontender. No evidence of edema. She has urine catheter in place. Neurologic: She is lethargic. She withdraws from painful stimuli. All extremities are responsive. equal on this examination. LABORATORY: She does have mild leukocytosis with WBC of 11,000. Electrolytes are within acceptable range. MRI of the brain did not have any focal abnormality. ASSESSMENT AND PLAN: 1. Acute persistent encephalopathy because of benzodiazepines and amphetamine- induced toxic encephalopathy. Anoxic brain injury still a possibility. CT scan and MRI of head have been unremarkable. Continue to monitor in [facility]. 2. Acute hypoxic respiratory failure secondary to benzodiazepine overdose status post extubation on 09/04. Continue aspiration precautions and frequent secretion management. 3. Essential hypertension. Continue clonidine patch and amlodipine. 4. Others: Continue enoxaparin for DVT prophylaxis. DISPOSITION: The patient remains in [facility] for close monitoring. I discussed her course with the patient's mother as well. Eventually, if she does not wake up in the next day or two, we might have to consult Gastroenterology and evaluate for PEG tube placement. All of patient's questions have been answered. cc: David Woodward MD [facility]
--- NOTE | 2018-09-12 14:24 | PROGRESS NOTE ---
DATE: 09/12/2018 INTERVAL HISTORY: No acute event overnight. The patient had to be put in restraints because of agitation. The patient's mental status remains as it is fair. She is moaning and groaning and tossing in the bed, but not really alert or interactive. Patient's sister is at bedside. VITALS: Temperature 98.3 degrees, pulse of 94, respiratory rate of 14, blood pressure 160/88 saturating 100% on 1 L nasal cannula. Her lisinopril dose is increased. PHYSICAL EXAMINATION: General: Not in any acute distress. Has copious mouth secretion. HEENT: Nasogastric tube in place. Lungs: Air entry bilaterally equal. No wheeze, rhonchi, crackles. Cardiovascular: S1, S2 normal. No murmur or gallop. Abdomen: Soft, nontender. No lower extremity edema. She has urine catheter in place. Neurologic: She is fidgety, however, not interactive. Sometimes blinks her eyes, but most of times keeps them closed. Withdraws to painful stimuli on all extremities. More on the left side than on the right side today. However, her exam has been fluctuating. She has good cough reflex and she has to be put in restraints. LABS: Suggestive of mild leukocytosis, normal hemoglobin, normal platelet count. She has normal electrolytes. No microbiological imaging data. ASSESSMENT AND PLAN: 1. Acute persistent encephalopathy because of benzodiazepine and amphetamine induced global encephalopathy and suspected anoxic brain injury because of benzodiazepine abuse. Her CT scan and MRI have been unremarkable for any acute CVA. Continue to monitor in [facility]. Initial EEG was also unremarkable for seizure. 2. Acute hypoxic respiratory failure on presentation requiring intubation status post extubation on September 04. Continue aspiration precautions with frequent secretion management. 3. Essential hypertension. Continue amlodipine and increase the dose of lisinopril. 4. Right upper extremity swelling. Follow up US to rule out DVT. 4. Others, continue enoxaparin for deep vein thrombosis prophylaxis and Kirkland catheter as she is not really complying with the care because of mental status. DISPOSITION: The patient remains inside the hospital. I am going to hold discussion with Neurology about need for PEG tube soon. Plan of care discussed with the patient's family including sister at bedside all of the questions have been answered. I will also get ultrasound of the right upper extremity for swelling. cc: David Woodward [facility]
--- NOTE | 2018-09-12 16:37 | PROGRESS NOTE ---
DATE: 09/10/2018 INTERVAL HISTORY: No acute event overnight. The patient underwent an MRI today, the results of which are pending. The patient still is unresponsive. Keeps on moaning. VITAL SIGNS: Temperature 98.4 degrees, pulse 95, respiratory rate 24, blood pressure 170/91, saturating 100% on 2 L nasal cannula. PHYSICAL EXAMINATION: General: Does not appear in acute distress. Oral cavity has pool of secretions. Air entry bilaterally equal. No wheeze, rhonchi, or crackles. Cardiovascular: S1, S2 normal. No murmur or gallop. Abdomen: Soft, nontender. No lower extremity edema. Neurologic: She is lethargic. She is withdrawing to painful stimuli, all extremities. She has 2+ reflexes bilaterally. LABS: Today suggestive of leukocytosis of 11,000, hemoglobin 13.1, platelet count of 226,000. BMP is essentially unremarkable. She did have a T-max of 99.8 degrees at midnight. ASSESSMENT AND PLAN: 1. Acute protracted encephalopathy, likely global encephalopathy in the setting of benzodiazepine and amphetamine-induced global encephalopathy. Other differentials being anoxic brain injury at the time of presentation requiring intubation. 2. Acute hypoxic respiratory failure on nasal cannula, and now essential hypertension. 3. Deep venous thrombosis prophylaxis. PLAN: I will follow up with MRI results. Continue albuterol-ipratropium nebulization, amlodipine for hypertension, and clonidine patch. Continue haloperidol as needed for agitation and pain. I called patient's mother, informed her about plan of care, and answered all of her questions. cc: David Woodward MD
--- NOTE | 2018-09-12 21:16 | GASTROENTEROLOGY CONSULTATION ---
DATE: 09/12/2018 REASON FOR CONSULTATION: PEG tube placement. HISTORY OF PRESENT ILLNESS: Ms Paige Dominguez is a 48-year-old woman who was admitted on 08/29 after being found unconscious for 24 hours in the setting of suspected overdose from amphetamines and benzodiazepines. She was initially admitted and intubated in the ED and monitored in the ICU. On presentation she was found to be hypoglycemic with leukocytosis and suspected volume depletion. Neurology was consulted and patient had a workup including EEG that was negative for seizures, head CT and MRI, which have been unremarkable. She has been on tube feeds via NG tube for the last 13 days and her mental status has improved slowly. However, she does not track with her eyes and moans and grumbles spontaneously but does not follow any commands or communicate. The thought is that her altered mental status is secondary to persisting global encephalopathy plus or minus a component of anoxic brain injury. History obtained from the patient's medical record. PAST MEDICAL HISTORY: Hypertension, back pain, GERD. PAST SURGICAL HISTORY: None. ALLERGIES: No known drug allergies. MEDICATIONS: Taking other friend's medications including glipizide. SOCIAL HISTORY: Patient has a 40 pack-year smoking history. History of alcohol abuse. History of illicit drug use including methamphetamines. FAMILY HISTORY: No family history of coronary disease. REVIEW OF SYSTEMS: Unable to obtain secondary to altered mental status. PHYSICAL EXAMINATION: Vital Signs: Temperature is 97.2, heart rate of 90, respiratory rate 20, blood pressure 141/86, O2 saturation 98% on 2 L nasal cannula. General: The patient is sleeping in no acute distress. Appears to be resting comfortably. Coughs spontaneously. HEENT: Sclerae anicteric. Moist mucous membranes. NG tube in place with tube feeds going. Neck: Supple. No obvious JVD. Cardiac: Regular rate and rhythm. No murmurs. Lungs: Clear to auscultation bilaterally anteriorly. Abdomen: Obese, soft, nontender, nondistended. Normoactive bowel sounds. No rebound or guarding. No surgical scars. No tympany. Extremities: No clubbing, cyanosis, or edema. Her upper extremities are restrained. Neuro: She does not follow commands or track with her eyes. She does open her eyes spontaneously. LABS: White count of 10.89, hemoglobin 12.4, platelets 235,000. Sodium 135, potassium 3.7, chloride of 99, bicarb 31, BUN of 16, creatinine of 0.6, glucose of 124, pre-albumin of 17.8. IMAGING: As per HPI. Chest x-ray on 09/09 shows mildly shallow inspiration with mild bibasilar subsegmental atelectasis. No other evidence of acute disease. ASSESSMENT AND PLAN: Ms. Paige Dominguez is a 48-year-old woman admitted with altered mental status in the setting of methamphetamine/benzodiazepine overdose and found to have hypoglycemia, who continues to have altered mental status despite supportive treatments and has been on nasogastric tube feeds for approximately 14 days. Gastroenterology has been consulted for percutaneous endoscopic gastrostomy tube placement. She has been clinically stable on supplemental oxygen. No fever in the last 24 hours. She has been tolerating tube feeds. Her mental status does not allow for her to take food or medications p.o. Her abdomen appears benign and soften with no surgical scars. Her platelets are normal. She is on prophylactic Lovenox. We will plan on EGD with PEG tube placement on Monday. We will need to hold her tube feeds at midnight tomorrow night as well as her p.m. dose and a.m. dose of Lovenox. She will need 2 g of Keflex intraoperatively. Thank you for this consult. We will follow with you. Please call with any questions or concerns.
[2018-09-13] MEDS: DUONEB (A & A) INH SCH ×6 (03:28→23:28)
[2018-09-13] MEDS: PRINIVIL NG SCH (08:33)
[2018-09-13] MEDS: NORVASC NG SCH (08:33)
[2018-09-13] MEDS: LOVENOX SUBQ SCH (08:33)
--- NOTE | 2018-09-13 12:29 | PROGRESS NOTE ---
DATE: 09/13/2018 SUBJECTIVE: This morning Ms. Dominguez continues to be unresponsive and nonverbal. She will however move all extremities to painful stimulation. The sister was at the bedside at the time of the encounter. Katarina Dominguez has been in the hospital for the past 15 days. Initially, admitted on 08/29/2018 because of being unconscious. I understand that the patient was with this known male person who apparently was doing drugs. The patient was left unconscious for about 24 hours, and was subsequently brought into the emergency room and had to be intubated right away. The patient was successfully extubated on 09/04/2018. She has been seen by multiple subspecialties. This morning the sister at the bedside refers that the patient remains fairly stable. OBJECTIVE: Vitals: Her current vitals, blood pressure is 129/84, pulse of 89, respirations 24, and temperature is 99.5 degrees. The patient is saturating 96% on nasal cannula. General: Ms. Dominguez is a 48-year-old female. She is in bed, and does not seem to be in any cardiopulmonary distress. HEENT: Mucosa is pink and moist. Anicteric. Acyanotic. Neck: Supple. Chest: Air entry is bilaterally reduced. There is some rhonchi in both lung cochran posteriorly. Cardiovascular: Regular rate and rhythm. No murmurs, no rubs, no gallops. Abdomen: Soft, nontender. Bowel sounds present. Extremities: No pedal edema. REEL WORKER: Patient is stuporous. She will move extremities to painful stimulation, but she is nonverbal. Eyes are closed. LABORATORY DATA: None for today. CURRENT MEDICATIONS: Have all been reviewed. She is currently on amlodipine 10 mg daily p.r.n. Haldol p.r.n. Hydralazine and labetalol p.r.n. Lisinopril 20 mg p.o. daily. Prilosec. IMAGING STUDIES: I have also reviewed the patient's imaging studies including an MRI which was done on 09/09/2018 which was negative. The patient has been seen by Neurology, and EEG did show generalized slowing. The patient's urine toxicology on presentation revealed amphetamine and benzodiazepine. ASSESSMENT: 1. Persistent global encephalopathy with unremarkable neuro imaging and EEG. The patient's urine toxicology is positive for benzodiazepine and amphetamine. We think this is presumably all drug related encephalopathy, which has been complicated with possible anoxic brain injury. 2. Acute hypoxemic respiratory failure on presentation. Patient was initially intubated, and got extubated on 09/04. She is saturating well on nasal cannula. 3. Hypertension controlled. 4. Mild right upper extremity swelling. Ultrasound has been done, and we are pending on the report. 5. History of drug abuse in the past. 6. In general, Ms. Dominguez continues to be verbally unresponsive. She will however move extremities. She seems to be mildly rigid all over, which I think is just contraction. We will get physical therapy to see her. The patient is tolerating tube feedings. We will get the Kirkland catheter out today. There is a plan for a gastrostomy tube by GI. cc: Yossi Mendoza MD
--- NOTE | 2018-09-13 14:36 | PROGRESS NOTE ---
DATE: 09/11/2018 SUBJECTIVE: Ms. Dominguez again appears to be sleeping but is easily roused and moved all extremities. She used each arm purposely to fend off noxious stimulation. There is full lateral eye movement. Facial motility is symmetric when she grimaces. She groaned and grumbled but did not speak and did not communicate. She did not follow commands. When not stimulated vigorously, she seemed quickly back to sleep. IMPRESSION: Persistent global encephalopathy, likely related to drug ingestion, no definite evidence of anoxic encephalopathy but still some concern that she will not be completely recovered cognitively when she reaches new baseline. Time will tell. Thanks for asking Neurology to see Ms. Dominguez. cc: Isabel Jin III, MD [facility]
--- NOTE | 2018-09-13 15:57 | GASTROENTEROLOGY PROGRESS NOTE ---
DATE: 09/13/2018 SUBJECTIVE: Patient is resting in bed. She is nonverbal. Her sister is at bedside. The patient had a possible anoxic brain injury from drug overdose. She is scheduled for EGD with PEG tube placement tomorrow with Dr. Rees. OBJECTIVE: Vital signs: Temperature of 99.5 degrees, pulse rate of 89, respiratory rate 24, blood pressure 129/84 saturating 92% on 1 L nasal cannula. Body weight of 145 pounds 3.2 ounces. BMI 24.2 kg/m2. General Appearance: Thinly built, lying in bed, in no acute distress. HEENT: No pallor. No icterus. Neck: Supple. Abdomen: Soft, nontender, nondistended. No guarding. Extremities: No cyanosis, clubbing. Neurologic: She is nonresponsive. She has also a NG tube in place and she is receiving NG tube feeding. LABORATORY DATA: Hemoglobin and hematocrit is 12.4 and 36.3, white count of 10.89, platelet count is 235,000. Sodium 137, potassium 3.7, chloride 99, bicarb of 31, anion gap of 7, BUN of 16, creatinine of 0.6, glucose of 124, calcium 9.8, magnesium 2.0 and blood culture is showing 1 out of 2 coag-negative staph and that was on 08/29/2018. Last imaging of the brain MRI on the showed a negative exam. IMPRESSION AND PLAN: 1. Altered mental status in the setting off methamphetamine/benzodiazepine overdose and found to have hypoglycemia and continues to have altered mental status despite supportive treatments, and she has been on NG tube feeding for more than 14 days. In this regard, we will schedule for EGD with PEG tube placement tomorrow by Dr. Rees. The risks, benefits, indications, alternatives to the procedure were discussed with the patient's family at bedside and all questions answered. 2. Deep venous thrombosis with Lovenox. 3. Gastrointestinal prophylaxis with Prilosec once daily. 4. Hypertension. Being managed the primary team. 5. Acute persistent encephalopathy with question of suspected anoxic brain injury. This is being managed by the primary care team. 6. The above discussed with the patient's family and all questions answered. Please call us with any further questions. cc: MD Miguel A Maher MD
--- NOTE | 2018-09-13 16:06 | PROGRESS NOTE ---
DATE: 09/11/2018 INTERVAL HISTORY: Yesterday's dictation is not up yet. The patient got an MRI which was unremarkable. No other acute events. I was told that she took off the dressing of her NG tube yesterday, so mittens were placed. The patient's sister is at bedside. Her clinical exam findings and status explained to her and all of her questions have been answered. PHYSICAL EXAMINATION: General: The patient does not look in acute distress. Oral cavity has pool of secretions. Vital signs: Temperature 98.2, pulse 110, respiratory rate 26, blood pressure 150/109, saturating 100% on 2L nasal cannula. HEENT: She is fidgety. She keeps eyes closed. Pool of secretions in mouth. Lungs: Air entry bilaterally equal. No wheeze, rhonchi, or crackles. Cardiovascular: S1, S2 normal. No murmur or gallop. Abdomen: Soft, nontender. No lower extremity edema. She has a urine catheter and NG tube. Neurologic: She is moaning and groaning and moving all extremities, upper and lower. She is withdrawing to painful stimuli, all extremities, equally. LABS: No CBC or BMP today. ASSESSMENT AND PLAN: 1. Acute encephalopathy, likely because of global encephalopathy due to benzodiazepine and amphetamine abuse with suspicion of anoxic brain injury as well. MRI of brain unremarkable for any acute cerebrovascular accident. Continue to monitor in [facility] for secretion management. 2. Acute hypoxic respiratory failure on presentation because of benzodiazepine and amphetamine abuse, status post extubation on 09/04/2018. Continue aspiration precautions and frequent suction management. No evidence of aspiration pneumonia at the moment. 3. Essential hypertension. Continue amlodipine and start patient on lisinopril. Also continue intravenous labetalol as needed. 4. Continue deep venous thrombosis prophylaxis. PLAN: I will continue to monitor patient in [facility]. Her NG tube was placed on 08/31/2018. If her encephalopathy does not improve then she may need PEG tube placement. The patient's sister is in agreement and yesterday the patient's mother was also in agreement, depending on her course my plan is to consult GI in the next 48 hours or so. Plan of care discussed with patient's sister and all of her questions have been answered. cc: David Woodward MD
[2018-09-13] MEDS: HALDOL IV PRN ×2 (16:24→20:33)
--- NOTE | 2018-09-13 20:33 | Extremity Venous Study ---
PROCEDURE NAME: Venous U/S Right Arm - 09/12/2018 REQUESTING PHYSICIAN: Dr. Woodward. OIL CHANGE TECHNICIAN: Adrien. INDICATIONS: Edema status post trauma to the arm. EQUIPMENT: SED Web Vivid E9 ultrasound system a 9 L-D transducer. FINDINGS: Images of the right upper extremity venous systems were obtained in both sagittal and transverse planes. Doppler was used to evaluate veins for spontaneity, phasicity, respiratory excursion, and digital augmentation. RESULTS: Normal venous compression. Normal venous flow. No obvious superficial or deep venous thrombosis noted in the right upper extremity. INTERPRETATION: Essentially normal right upper extremity venous study. cc: MD David Agee MD
[2018-09-13] MEDS ORDERED: HALDOL IV ONE (21:19)
[2018-09-14] MEDS: DUONEB (A & A) INH SCH ×6 (03:18→23:17)
[2018-09-14] MEDS: HALDOL IV PRN ×2 (05:12→12:27)
[2018-09-14 07:12] LABS: BASO# 0.03 X1000 (0.0-0.2); BASO% 0.3 % (0.0-0.8); EOS# 0.29 X1000 (0.0-0.7); EOS% 2.8 % (0.0-10.0); HEMATOCRIT 36.2 % (37.0-47.0); HEMOGLOBIN 12.2 g/dL (12.0-16.0); IMM GRAN# 0.02 X1000 (0.0-0.04); IMM GRAN% 0.2 % (0.0-0.5); LYMPH% 15.5 % (20.5-51.1); MCHC 33.7 g/dL (33-37); MCV 92.1 FL (81-99); MONO# 1.06 X1000 (0.11-0.59); MONO% 10.2 % (1.7-9.3); MPV 12.3 FL (7.4-10.4); NEUT# 7.35 X1000 (1.4-6.5); PLT 248 X1000 (130-400); RBC 3.93 XMIL (4.2-5.4); RDW 11.5 % (11.5-14.5); WBC 10.35 X1000 (4.8-10.8)
[2018-09-14] MEDS ORDERED: DIPRIVAN 1% ONE ×2 (07:12→09:31)
[2018-09-14] MEDS ORDERED: FENTANYL ONE (07:14)
[2018-09-14 07:50] LABS: AGAP 12; CHLORIDE 99 mmol/L (98-107); POTASSIUM 3.9 mmol/L (3.5-5.1); SODIUM 137 mmol/L (136-145); TCO2 26 mmol/L (25-35)
[2018-09-14 07:51] LABS: BUN 18 mg/dL (8-22); CALCIUM 9.8 mg/dL (8.8-10.2); COSMO 276; CREATININE 0.6 mg/dL (0.5-0.9); ESTIMATED GFR > 60; GLUCOSE 111 mg/dL (70-104); MAGNESIUM 2.2 mg/dL (1.5-2.7)
[2018-09-14] MEDS: PRILOSEC NG SCH (07:57)
[2018-09-14] MEDS ORDERED: KEFZOL 2 GM/D5W 2 GM/50 ML IVPB ONE (09:35)
--- NOTE | 2018-09-14 10:18 | ENDOSCOPY OPERATIVE NOTE ---
[facility] ENDOSCOPY OPERATIVE NOTE , PATIENT: Paige Dominguez ADMISSION DATE: 09/14/2018 MR#: [id number] : 1970 [facility] [id number] EGD PROCEDURE REPORT PROCEDURE DATE: 09/14/2018 SURGEON: Nasir Rees MD STATUS: inpatient OCC MED PHYSICIAN: PREOPERATIVE DIAGNOSIS: The patient is a 48 yr old female here for an EGD due to diagnostic procedur e and dysphagia, pharyngeal. PROCEDURE PERFORMED: EGD w/ biopsy EGD w/ percutaneous gastrostomy tube placement MEDICATIONS: Per Anesthesia TOPICAL ANESTHETIC: CONSENT: The patient understands the risks and benefits of the procedure and understands that these r isks include, but are not limited to: sedation, allergic reaction, infection, perforation and/or bleeding. Alternative means of evaluation and treatment include, among others: physical exam, x-rays, and/or surgical intervention. The patient elects to proceed with this endoscopic procedure. HISORY AND PHYSICAL: 09/14/2018 function. Hand hygiene and appropriate measures for infection prevention was taken. After the risks, benefits and alternatives of the procedure were thoroughly explained, Informed consent was verified, confirmed and timeout was successfully executed by the treatment team. The patient was anesthetized with topical anesthesia and the [id number]-[id number] ([id number]) endoscope was introduced through the mouth and advanced to the second portion of the duoden um. Retroflexion was performed in the stomach and revealed no abnormalities. The gastroscope was then slowly withdraw n and removed. ESOPHAGUS: The mucosa of the esophagus appeared normal. STOMACH: Two bleeding and clean-based ulcers ranging between 3-5 mm in size were found. Mild gastri tis (inflammation) was found. Multiple random biopsies were performed using cold forceps. Sample sent for histology. Site for 24 [place]ic PEG was found using translumination and marked. 1% Lidocaine was injected subcutaneously. A scalpel was used to make a 1cm incision. The the needle and sheath were inserted through the abdomen into the stomach under d irect visualization. The needle was removed and a guidewire was inserted through the sheath. The guidewir e was grasped from above with a snare and pulled through the mouth. The guidewire and PEG tube were then pulled through the mouth and esophagus and snug to the abdominal wall. Bolster was secured at 2cm. There was no evidence of blee ding. Proper placement of the tube was ensured through visualization with a scope. DUODENUM: Mild duodenal inflammation was found in the duodenal bulb and 2nd part duodenum. Multiple non-bleeding, shallow and clean-based ulcers ranging between 3-5 mm in size were found in the 2nd part of the duode num. SPECIMENS REMOVED: Yes ADVERSE EVENTS: There were no complications. POSTOPERATIVE DIAGNOSIS: 1. The mucosa of the esophagus appeared normal 2. Two ulcers ranging between 3-5 mm in size were found 3. Gastritis (inflammation) was found; multiple random biopsies were performed 4. Duodenal inflammation was found in the duodenal bulb and 2nd part duodenum 5. Multiple ulcers ranging between 3-5 mm in size were found in the 2nd part of the duodenum RECOMMENDATIONS: Ok to use PEG for water and medications Clean PEG site daily Retail Supervisor to recommend liquid nutrition Will perform PEG check in AM Await gastric biopsy results Recommend PPI PO BID for PUD Avoid NSAIDs/blood thinners REPEAT EXAM: Nasir Rees MD eSigned: Nasir Rees MD 09/14/2018 10:18 AM cc: PATIENT NAME: Paige Dominguez MR#: [id number]
--- NOTE | 2018-09-14 11:49 | PROGRESS NOTE ---
DATE: 09/14/2018 SUBJECTIVE: Today, Ms. Dominguez continues to be fairly the same. She is nonverbal. Eyes closed and not interacting. Sister was at the bedside at the time of the encounter. OBJECTIVE: Vital Signs: Blood pressure is 123/74, pulse 92, respirations 20, and temperature 97.4 degrees. General: Ms. Dominguez is a 48-year-old female. She is in bed not seemingly distressed. HEENT: Mucosa is pink and moist. Anicteric. Acyanotic. Neck: Supple. Chest: Good air entry bilaterally. No crepitations. No rhonchi. Cardiovascular: Regular rate and rhythm. Abdomen: Soft. Bowel sounds present. Extremities: No pedal edema. 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 Eyes closed. Would only grimace to painful stimulation, and would withdrawal to painful stimulation. She seems to be spastic in all her extremities. LABORATORY DATA: CBC is completely normal. Chemistry is also completely normal. No known new Imaging Studies today. ASSESSMENT: 1. Persistent global encephalopathy, presumably due to drug-induced encephalopathy. However, an added anoxic brain injury insult is also a highly possibility. It appears that Ms. Dominguez has been encephalopathic throughout the hospital course. She is being seen by Neurology. I am not sure if she will be regaining any neurological faculties soon. 2. Acute hypoxemic respiratory failure on presentation. The patient was successfully extubated on 09/04. 3. Hypertension controlled. 4. History of drug abuse in the past. Urine toxicology was positive for amphetamine and benzo's. 5. Nutritional needs. Patient is currently on tube feedings. There is a plan for PEG tube this morning. Disposition: Going to depend on the rest of her hospital course. I think Ms. Dominguez is eventually going to be needing a assisted placement. Social Work and case management are aware. cc: Yossi Mendoza MD MTDD
[2018-09-14] MEDS: PRINIVIL NG SCH (12:21)
[2018-09-14] MEDS: NORVASC NG SCH (12:21)
--- NOTE | 2018-09-14 17:12 | PROGRESS NOTE ---
DATE: 09/14/2018 ROOM NUMBER: [id number]. Ms. Dominguez has continued very slow recovery. She has not had clinically recognized seizure. She has not had any major setbacks. Family believes that she may have been able to pay attention and understand some conversation around her bedside, but she has not spoken or communicated with certainty. Family has requested repeat EEG. I will arrange that for Monday. No other suggestion from Neurology right now. Thanks for asking us to see Ms. Dominguez. cc: Isabel Jin III, MD
[2018-09-14] MEDS: TYLENOL PO PRN ×2 (19:49→19:56)
[2018-09-15] MEDS: DUONEB (A & A) INH SCH ×6 (03:23→23:06)
[2018-09-15] MEDS: HALDOL IV PRN ×3 (04:39→23:57)
--- NOTE | 2018-09-15 05:29 | PULMONOLOGY PROGRESS NOTE ---
DATE: 09/14/2018 SUBJECTIVE: The patient does not respond to my questioning. She has had a PEG tube placed earlier today. She now is receiving tube feeds via her PEG tube. OBJECTIVE: Vital Signs: The patient has been afebrile. Blood pressure 163/93, heart rate 92, oxygen saturation 98% on 3 L per nasal cannula. HEENT: Pupils are equal and reactive. Oropharynx appears clear but patient does not cooperate with exam. Neck: Supple. Chest: Reveals good air entry bilaterally. No wheezing or rhonchi appreciated. Cardiac: Regular rate. Abdomen: Soft with PEG tube site covered. Extremities: Without edema. IMPRESSION: A 48-year-old with possible drug overdose, encephalopathy, hypoxemic respiratory failure, hypertension. RECOMMENDATIONS: 1. Continue oxygen and wean as tolerated. 2. Continue bronchial/oral hygiene. 3. Reflux precautions to prevent aspiration. 4. Overall prognosis appears guarded. cc: Roosevelt Linares MD
[2018-09-15] MEDS: PRILOSEC NG SCH ×2 (05:40→06:19)
[2018-09-15] MEDS: TYLENOL PO PRN (05:40)
[2018-09-15] MEDS: PRINIVIL NG SCH (09:00)
[2018-09-15] MEDS: NORVASC NG SCH (09:00)
[2018-09-15] MEDS: LOVENOX SUBQ SCH (09:00)
--- NOTE | 2018-09-15 14:26 | PROGRESS NOTE ---
DATE: 09/15/2018 SUBJECTIVE: This morning, Ms. Dominguez continues to be in her hospital bed, nonverbal. No family member was at the bedside at the time of the encounter. OBJECTIVE: Vital signs: Blood pressure is 137/76, pulse of 79, respiration is 14, temperature 98.1 degrees. The patient is saturating 100% on 4 L. General: Ms. Dominguez is a 48-year-old female. She was in bed, no distress. HEENT: Mucosa is pink and moist. Anicteric. Acyanotic. Neck: Supple. Chest: Good air entry bilaterally. There were no crepitations, no rhonchi. Cardiovascular: Regular rate and rhythm. Abdomen: Soft. There is a newly inserted PEG tube in place. Extremities: No pedal edema. Central nervous system: Patient continues to be nonverbal. Eyes closed. Will grimace to painful stimulation. Will withdraw to painful stimulation as well. The patient seems to be spastic in all extremities, but no eye opening or verbal. LABORATORY DATA: None for today. Review of operative report shows a successful PEG tube placement, and it is okay for water and medications. ASSESSMENT AND PLAN: 1. Persistent global encephalopathy, presumably drug-induced encephalopathy with a suspicion of an added anoxic brain injury insult. Neurology is on board. There is a plan for an EEG on Monday per family request. 2. Acute hypoxemic respiratory failure on presentation. Patient was successfully extubated on 09/04/2018., 3. Hypertension, controlled. 4. History of drug abuse in the past. Urine toxicology was positive for amphetamine and benzodiazepines. 5. Nutrition needs. Patient is on tube feedings through the PEG tube. 6. Generalized weakness and deconditioning. Physical Therapy is on board. 7. Disposition. We are pending an EEG on Monday. Depending on the results then, Social Work will start arrangement for placement on Ms Dominguez. cc: Yossi Mendoza MD
--- NOTE | 2018-09-15 17:17 | PROVIDER PROGRESS NOTE ---
Progress Note SUBJECTIVE: No acute overnight events. No vomiting or fever. Tolerating tube feeds. Unable to obtain ROS given AMS OBJECTIVE: Last Vital Signs Temp 98.7 F 09/15/18 14:16 Pulse 98 H 09/15/18 16:19 Resp 15 09/15/18 16:19 BP 133/81 09/15/18 14:16 Pulse Ox 100 09/15/18 16:19 Height 5 ft 5 in Weight 146 lb 3 oz GEN: NAD HEENT: anicteric sclera NECK: supple, no jvd PULM: CTAB anteriorly CV: tachycardia, regular ABD: LUQ PEG c/d/i, no induration, turns 360 degrees without tract, tube feeds running EXT: no cce NEURO: LE contractures LABS: no labs EGD with PEG placement 09/14/2018 POSTOPERATIVE DIAGNOSIS: 1. The mucosa of the esophagus appeared normal 2. Two ulcers ranging between 3-5 mm in size were found 3. Gastritis (inflammation) was found; multiple random biopsies were performed 4. Duodenal inflammation was found in the duodenal bulb and 2nd part duodenum 5. Multiple ulcers ranging between 3-5 mm in size were found in the 2nd part of the duodenum A/P: Ms. Paige Dominguez is a 48-year-old woman admitted with altered mental status in the setting of methamphetamine/benzodiazepine overdose and hypoglycemia who continues to have altered mental status thought to be related to global encephalopathy +/- anoxic brain injury. GI consulted for PEG placement performed 09/14. During EGD, superficial clean-based ulcers were found in the stomach and duodenum as well as gastritis. Random gastric biopsies were obtained to rule out H pylori. # Dysphagia: 2/2 to AMS: s/p PEG; ok to use; routine PEG care, change dressing daily; defer enteral feeding to nutrition; apprec recs # PUD: increased PPI to omeprazole 40mg BID, continue for 3 months, then once daily; avoid NSAIDs, f/u gastric biopsies, if positive for H pylori, then treat with triple therapy # Gastritis: PPI as above # AMS: as above Will sign off. Please call with questions.
--- NOTE | 2018-09-15 18:16 | PULMONOLOGY PROGRESS NOTE ---
DATE: 09/15/2018 SUBJECTIVE: The patient appears to be resting comfortably. She did not open her eyes when I called her name. OBJECTIVE: Patient is afebrile over the last 24 hours. Blood pressure 137/76, heart rate 74, oxygen saturation 100% on 4 L per nasal cannula. HEENT: Pupils are equal and reactive. Oropharynx appears clear. Neck: Supple. Chest: Reveals shallow breath sounds without wheezing or rhonchi. Cardiac: S1-S2. Abdomen: Soft. Extremities: Without edema. LABORATORIES: No new microbiology. No new chemistries. No new CBC. IMPRESSION: Unfortunate 48-year-old female with presumptive 1. Drug overdose. 2. Postevent encephalopathy, hypoxemic encephalopathy suspected. 3. Hypoxemic respiratory failure. 4. Hypertension. RECOMMENDATION: 1. Continue to wean oxygen as tolerated. 2. Continue bronchial hygiene. 3. Continue reflux precautions with initiation of PEG tube feeding. 4. Overall prognosis appears guarded. cc: Roosevelt Linares MD
[2018-09-15] MEDS: APRESOLINE IV PRN ×2 (19:36→23:56)
[2018-09-15] MEDS: PRILOSEC GT SCH (19:37)
[2018-09-16] MEDS: PRILOSEC GT SCH ×3 (00:01→20:40)
[2018-09-16] MEDS: DUONEB (A & A) INH SCH ×6 (03:11→23:20)
[2018-09-16 07:09] LABS: AGAP 12; ALB/GLOB RATIO 0.9; ALBUMIN 3.6 g/dL (3.5-5.0); ALKALINE PHOSPHATASE 242 U/L (32-104); BUN 17 mg/dL (8-22); CALCIUM 10.1 mg/dL (8.8-10.2); CHLORIDE 97 mmol/L (98-107); COSMO 276; CREATININE 0.5 mg/dL (0.5-0.9); ESTIMATED GFR > 60; GLUCOSE 141 mg/dL (70-104); GOT 95 U/L (10-30); GPT 184 U/L (10-36); MAGNESIUM 2.1 mg/dL (1.5-2.7); PHOSPHORUS 3.3 mg/dL (2.7-4.5); SODIUM 136 mmol/L (136-145); TCO2 27 mmol/L (25-35); TOTAL BILIRUBIN 0.33 mg/dL (0.20-1.00); TOTAL PROTEIN 7.6 g/dL (6.3-8.3)
[2018-09-16 07:14] LABS: BASO# 0.02 X1000 (0.0-0.2); BASO% 0.2 % (0.0-0.8); EOS# 0.21 X1000 (0.0-0.7); EOS% 1.9 % (0.0-10.0); HEMATOCRIT 38.1 % (37.0-47.0); HEMOGLOBIN 12.9 g/dL (12.0-16.0); IMM GRAN# 0.03 X1000 (0.0-0.04); IMM GRAN% 0.3 % (0.0-0.5); LYMPH# 1.53 X1000 (1.2-3.4); LYMPH% 13.5 % (20.5-51.1); MCH 30.9 PG (27-31); MCHC 33.9 g/dL (33-37); MCV 91.4 FL (81-99); MONO% 8.8 % (1.7-9.3); MPV 12.2 FL (7.4-10.4); NEUT# 8.51 X1000 (1.4-6.5); NEUT% 75.3 % (42.2-75.2); PLT 376 X1000 (130-400); RBC 4.17 XMIL (4.2-5.4); RDW 11.5 % (11.5-14.5)
[2018-09-16] MEDS: NORVASC NG SCH (09:12)
[2018-09-16] MEDS: PRINIVIL NG SCH (09:12)
[2018-09-16] MEDS: LOVENOX SUBQ SCH (09:12)
--- NOTE | 2018-09-16 09:36 | Diag Imaging Result Doc PS360 ---
EXAM: CHEST-PORTABLE - 09/16/2018 HISTORY: abnormal exam TECHNIQUE: Portable chest COMPARISON: 09/09/2018 FINDINGS: Heart size is normal. The lungs appear clear. There is no pleural effusion or pneumothorax identified. IMPRESSION: No evidence of acute disease. Electronically signed by Foster Mcdermott 09/16/2018 9:33 AM
--- NOTE | 2018-09-16 11:49 | PROGRESS NOTE ---
DATE: 09/16/2018 SUBJECTIVE: This morning, Ms. Dominguez continues to be stable. Mother was at the bedside at the time of the encounter. OBJECTIVE: Vital Signs: Blood pressure is 130/78, pulse 85, respirations 19, temperature 99 degrees, the patient was saturating 100% on 2 L of nasal cannula. General: Ms. Dominguez is a 48- year-old female. She is in bed. Does not seem to be in any distress. HEENT: Mucosa is pink and moist. Anicteric. Acyanotic. Neck: Supple. Chest: Good air entry bilaterally. Few crackles in the posterior lung cochran. Cardiovascular: Regular rate and rhythm. Abdomen: Soft. There is a PEG tube in place. Insertion site is clean. Bowel sounds present. Extremities: No pedal edema. WATER VESSEL CAPTAIN: The patient continues to be nonverbal. Eyes closed. Intermittently will open the eyes. Will grimace to painful stimulation, and withdrawal actively to painful stimulation. She seems to be hyperreflexive and hypertonic in all extremities. LABORATORY DATA: WBC is 11.30, hemoglobin is 12.9, platelet count of 376,000. Chemistry is also reviewed, unremarkable. Liver enzymes seem to be a little elevated this morning. Cortisol level is normal. TSH is minimally elevated. ASSESSMENT: 1. Persistent global encephalopathy, presumably drug-induced with suspicion of possible anoxic brain injury added insult. 2. Acute hypoxemic respiratory failure. The patient is successfully extubated on 09/04/2018. She continues to be needing nasal cannula oxygenation. 3. History of drug abuse. Urine toxicology positive for amphetamine and benzodiazepines. 4. Hypertension, controlled. 5. Generalized weakness and deconditioning. Physical Therapy on board. 6. PEG tube feeding. The patient seems to be tolerating this well. 7. History of hepatitis C with elevated transaminases. We will check Tylenol level, and try to avoid any hepatotoxic drugs. 8. Disposition is pending on placement arrangements. cc: Yossi Mendoza MD
--- NOTE | 2018-09-16 14:33 | PULMONOLOGY PROGRESS NOTE ---
DATE: 09/16/2018 SUBJECTIVE: The patient has some rhythmic moaning, followed by silence. She did grimace once while I was in the room and her mom was talking to her. She does not respond to my voice or follow commands. OBJECTIVE: Vital Signs: The patient has been afebrile for the last 24 hours. Blood pressure 130/78, heart rate 102, respiratory rate 15, oxygen saturation 99% on 1 L per nasal cannula. HEENT: Pupils are equal and reactive. Oropharynx is clear. Neck: Supple. Chest: Chest reveals good air entry bilaterally and clear to auscultation and percussion. Cardiac: S1, S2. Abdomen: Soft, with positive bowel sounds. Extremities: Unchanged with minimal edema. LABORATORIES: Chest x-ray reveals normal lung cochran. Normal heart size. No evidence of acute disease. White blood count 11.3, hemoglobin 12.9, platelet count 376,000. sodium 136, potassium 4.0, chloride 97, bicarbonate 27, BUN 17, creatinine 0.5. TSH minimally elevated at 4.2, albumin is normal at 25.0. IMPRESSION: Unfortunate 48-year-old female with: 1. Presumptive drug overdose. 2. Encephalopathy, anoxic encephalopathy suspected. 3. Hypoxemic respiratory failure with continued weaning of O2. 4. Hypertension. PLAN: 1. Continue to wean oxygen as tolerated. 2. Continue bronchial hygiene. 3. Continue reflux precautions with PEG tube feeding. 4. Guarded prognosis. I spoke with her mother this morning. cc: Roosevelt Linares MD
[2018-09-17] MEDS: DUONEB (A & A) INH SCH ×6 (03:40→23:35)
[2018-09-17] MEDS: PRILOSEC GT SCH ×2 (06:00→21:36)
[2018-09-17 07:29] LABS: BASO# 0.03 X1000 (0.0-0.2); BASO% 0.2 % (0.0-0.8); EOS# 0.22 X1000 (0.0-0.7); EOS% 1.7 % (0.0-10.0); HEMATOCRIT 38.9 % (37.0-47.0); HEMOGLOBIN 13.3 g/dL (12.0-16.0); IMM GRAN# 0.03 X1000 (0.0-0.04); IMM GRAN% 0.2 % (0.0-0.5); LYMPH# 1.86 X1000 (1.2-3.4); LYMPH% 14.3 % (20.5-51.1); MCH 30.8 PG (27-31); MCHC 34.2 g/dL (33-37); MONO# 1.15 X1000 (0.11-0.59); MONO% 8.8 % (1.7-9.3); MPV 12.2 FL (7.4-10.4); NEUT# 9.71 X1000 (1.4-6.5); NEUT% 74.8 % (42.2-75.2); PLT 325 X1000 (130-400); RBC 4.32 XMIL (4.2-5.4); RDW 11.5 % (11.5-14.5)
[2018-09-17 07:45] LABS: AGAP 12; ALB/GLOB RATIO 1.1; ALBUMIN 3.7 g/dL (3.5-5.0); ALKALINE PHOSPHATASE 266 U/L (32-104); BUN 16 mg/dL (8-22); CALCIUM 9.6 mg/dL (8.8-10.2); CHLORIDE 101 mmol/L (98-107); COSMO 280; CREATININE 0.6 mg/dL (0.5-0.9); ESTIMATED GFR > 60; GLUCOSE 129 mg/dL (70-104); GOT 95 U/L (10-30); GPT 163 U/L (10-36); MAGNESIUM 2.1 mg/dL (1.5-2.7); PHOSPHORUS 3.4 mg/dL (2.7-4.5); POTASSIUM 3.7 mmol/L (3.5-5.1); SODIUM 139 mmol/L (136-145); TCO2 26 mmol/L (25-35); TOTAL BILIRUBIN 0.51 mg/dL (0.20-1.00)
--- NOTE | 2018-09-17 08:45 | Diag Imaging Result Doc PS360 ---
EXAM: CHEST-PORTABLE 09/17/2018 HISTORY: dyspnea TECHNIQUE: AP portable at 0832 COMMENT: There is no evidence of acute cardiac or pulmonary disease. Compared to 09/16/2018 there has been no significant change. IMPRESSION: Stable chest. Electronically signed by Sandro Monterroso 09/17/2018 8:43 AM
[2018-09-17] MEDS: NORVASC NG SCH (09:29)
[2018-09-17] MEDS: LOVENOX SUBQ SCH (09:29)
[2018-09-17] MEDS: PRINIVIL NG SCH (09:29)
--- NOTE | 2018-09-17 11:49 | PROGRESS NOTE ---
DATE: 09/17/2018 Ms. Dominguez has not had any significant setbacks recognized clinically. She is occasionally more alert, grumbles, moves all limbs, but does not communicate much. EEG is to begin now, as was discussed with family last week. I do not have any other suggestion from a Neurology standpoint today. Thanks for asking us to see Ms. Dominguez. cc: MD ENRIQUETA Trevino III
[2018-09-17 12:57] LABS: URINE SOURCE VOIDED
[2018-09-17 13:38] LABS: BILIRUBIN URINE NEGATIVE (NEGATIVE); BLOOD URINE NEGATIVE (NEGATIVE); COLOR YELLOW; GLUCOSE URINE NEGATIVE (NEGATIVE); KETONE URINE NEGATIVE (NEGATIVE); LEUKOCYTES URINE NEGATIVE (NEGATIVE); NITRITE URINE NEGATIVE (NEGATIVE); PROTEIN URINE NEGATIVE (NEGATIVE); SP GRAVITY URINE 1.015; TURBIDITY URINE HAZY (CLEAR); UROBILINOGEN URINE 2 mg/dL (NORMAL)
--- NOTE | 2018-09-17 13:55 | PROGRESS NOTE ---
DATE: 09/17/2018 SUBJECTIVE: Today, Ms. Dominguez continues to be the same. No new complaints. She remains nonverbal. The mother and 2 sisters were at the bedside at the time of the encounter. OBJECTIVE: Vital signs: Blood pressure 166/113, pulse of 93, respirations 18, and temperature 98.1 degrees. General: Ms. Dominguez is a 48-year-old female. She is in bed. She is not in any distress. She is still nonverbal. HEENT: Mucosa is pink and moist. Anicteric. Acyanotic. Neck: Supple. Chest: Good air entry bilaterally. Few crackles posteriorly. Cardiovascular: Regular rate and rhythm. Abdomen: Soft. There is a PEG tube in place. Extremities: No pedal edema. 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 Eyes closed. Intermittently open his eyes and will grimace to painful stimulation. The patient seems to be hyperreflexive and hypertonic in all extremities. LABORATORY DATA: WBC is 13.00, hemoglobin 13.3, and platelet count 323,000. Chemistry is also reviewed and completely normal. Liver enzymes seems to be trending somehow down. ASSESSMENT: 1. Persistent global encephalopathy presumably drug-induced with suspicion of superimposed anoxic brain injury. 2. Acute hypoxemic respiratory failure. Patient is currently on nasal cannula oxygenation, and was successfully extubated on 09/04/2018. 3. History of drug abuse. Urine toxicology was positive for amphetamine and benzo's. 4. Hypertension. We will continue to titrate medications. 5. Generalized weakness and deconditioning. Physical Therapy is on board. 6. History of hepatitis C with elevated transaminases. 7. PEG tube feedings. 8. Disposition: Pending rehab/care home placement. Today, Ms. Dominguez is stable. However, last night, she had mild spikes in temperature. White cell count is minimally elevated today. We did a chest x-ray which did not show any pneumonia. I understand she had some issue passing her urine yesterday, so we are going to do an in- and out catheterization to make sure that there is no any urinary tract infection. Ms. Dominguez is also pending an EEG this morning and social work placement. cc: Yossi Mendoza MD MTDD
[2018-09-17 14:15] LABS: UR EPITHELIAL CELLS <10 /HPF (<10); URINE BACTERIA NEGATIVE /HPF; URINE RBC <10 /HPF (<10); URINE WBC <10 /HPF (<10)
--- NOTE | 2018-09-17 14:30 | EEG REPORT ---
DATE: 09/17/2018 COMMENT: This is a digitally recorded EEG done portably on a patient with clinically apparent global encephalopathy, very slow improvement. FINDINGS: There is some muscle contraction and eye blink artifact present on this record which were not as prominent on the prior record. This record shows generalized slowing with delta in the frontal and central regions, theta across both hemispheres at 5-7 hertz, occasional alpha at 8-9 hertz mostly central and posterior, all symmetric. The alpha rhythm did not react to eye opening. Photic stimulation produced minimal symmetric entrainment. There was more generalized slowing consistent with drowsing later in the record. Stage 2 sleep was not recorded. No definite epileptiform discharge was identified. INTERPRETATION: Abnormal EEG because of generalized slowing. CORRELATION: This is indicative of a diffuse encephalopathy and is nonspecific. Compared to the 09/03/2018 record, there is slight improvement. cc: Isabel Jin III, MD MTDD
--- NOTE | 2018-09-17 21:12 | PULMONOLOGY PROGRESS NOTE ---
DATE: 09/17/2018 SUBJECTIVE: Patient appears more active. Mother reports she is moving her arms and legs. She is grimacing periodically. OBJECTIVE: Vital Signs: Maximum temperature in the last 24 hours 100.1 degrees. BP 167/86, heart rate, respiratory rate 18, oxygen saturation 96% on 2 L per nasal cannula. HEENT: Pupils are equal and reactive. Oropharynx appears clear. Neck: Is supple. Chest: Reveals occasional rhonchi over the large airways. Cardiac exam: S1-S2. Abdomen: Is soft. Extremities: Without edema. LABORATORIES: Chest x-ray reveals no evidence of acute disease. EEG reveals generalized slowing with marginal improvement compared to 09/03/2018. IMPRESSION: A 48-year-old with: 1. Encephalopathy, anoxic encephalopathy suspected. 2. Presumptive drug overdose. 3. Hypoxemic respiratory failure. 4. Hypertension. DISCUSSION: A 48-year-old with problems outlined above. She has been in the hospital 19 days and has not regained consciousness which is of concern. However, she has had some slight improvement in her EEG along with clinical status. RECOMMENDATION: 1. Continue to wean oxygen as tolerated. 2. Continue PEG tube feedings. 3. Continue bronchial hygiene. 4. Continued observation. Anticipate need for placement. I spoke with her mother who was at the bedside. cc: Roosevelt Linares MD
[2018-09-18] MEDS: DUONEB (A & A) INH SCH ×6 (03:00→22:57)
[2018-09-18] MEDS: PRILOSEC GT SCH ×2 (06:22→21:02)
[2018-09-18 07:34] LABS: BASO# 0.02 X1000 (0.0-0.2); BASO% 0.2 % (0.0-0.8); EOS# 0.19 X1000 (0.0-0.7); EOS% 1.5 % (0.0-10.0); HEMATOCRIT 36.8 % (37.0-47.0); HEMOGLOBIN 12.7 g/dL (12.0-16.0); IMM GRAN# 0.03 X1000 (0.0-0.04); IMM GRAN% 0.2 % (0.0-0.5); LYMPH# 1.78 X1000 (1.2-3.4); LYMPH% 14.2 % (20.5-51.1); MCH 31.1 PG (27-31); MCHC 34.5 g/dL (33-37); MONO# 1.04 X1000 (0.11-0.59); MONO% 8.3 % (1.7-9.3); MPV 12.2 FL (7.4-10.4); NEUT# 9.49 X1000 (1.4-6.5); NEUT% 75.6 % (42.2-75.2); PLT 364 X1000 (130-400); RBC 4.09 XMIL (4.2-5.4); RDW 11.4 % (11.5-14.5); WBC 12.55 X1000 (4.8-10.8)
[2018-09-18 07:45] LABS: AGAP 12; ALBUMIN 3.6 g/dL (3.5-5.0); ALKALINE PHOSPHATASE 258 U/L (32-104); BUN 17 mg/dL (8-22); CALCIUM 9.9 mg/dL (8.8-10.2); CHLORIDE 101 mmol/L (98-107); COSMO 280; CREATININE 0.6 mg/dL (0.5-0.9); ESTIMATED GFR > 60; GLUCOSE 142 mg/dL (70-104); GOT 76 U/L (10-30); GPT 137 U/L (10-36); POTASSIUM 3.4 mmol/L (3.5-5.1); SODIUM 138 mmol/L (136-145); TCO2 25 mmol/L (25-35); TOTAL BILIRUBIN 0.46 mg/dL (0.20-1.00); TOTAL PROTEIN 7.3 g/dL (6.3-8.3)
[2018-09-18] MEDS: LOVENOX SUBQ SCH (09:13)
[2018-09-18] MEDS: PRINIVIL NG SCH (09:13)
[2018-09-18] MEDS: NORVASC NG SCH (09:13)
--- NOTE | 2018-09-18 12:46 | PROGRESS NOTE ---
DATE: 09/18/2018 SUBJECTIVE: This morning Ms. Dominguez continues to be fairly the same and is nonverbal. OBJECTIVE: Vital signs: Blood pressure 157/107, pulse 107, respirations 18, and temperature 99.3 degrees. General: Ms. Dominguez is a 48-year-old female. She is in bed in no distress. Mucosa is pink and moist. Anicteric. Acyanotic. Neck: Supple. Chest: Good air entry bilateral. There was no crepitations no rhonchi. Cardiovascular: Regular rate and rhythm. No murmurs, no rubs, no gallops. GI: Abdomen is soft. PEG tube is in place. Insertion site looks clean. Extremities: No pedal edema. MEDICAL RECORDS RECEPTIONIST: Patient is still nonverbal. She will open the eyes intermittently, and will grimace to painful stimulation. Reflexes are slightly exaggerated in all extremities. Patient seems to be minimally hypertonic. LABORATORY DATA: WBC is 12.55, hemoglobin is 12.7, and platelet count of 364,000. Chemistry is also reviewed and unremarkable. Patient's LFTs are trending down. ASSESSMENT: 1. Persistent global encephalopathy presumably drug-induced with suspicion of superimposed anoxic brain injury. The patient continues to be encephalopathic, nonverbal. 2. Acute hypoxemic respiratory failure, improved. The patient was successfully extubated on 09/04/2018. 3. History of drug abuse with urine toxicology on presentation positive for amphetamines and benzo's. 4. Hypertension controlled. 5. Generalized weakness and deconditioning. Physical Therapy on board. 6. Hepatitis C with elevated transaminases, which is trending down. I think there was an acute insult on a chronic liver injury. 7. PEG tube feedings. The patient seems to be tolerating well. 8. Disposition: We are still pending rehab placement. cc: Yossi Mendoza MD
[2018-09-18] MEDS ORDERED: TYLENOL PR PRN (16:33)
[2018-09-18] MEDS: HALDOL IV PRN (20:59)
[2018-09-19] MEDS: DUONEB (A & A) INH SCH ×6 (03:35→23:22)
[2018-09-19] MEDS: PRILOSEC GT SCH ×3 (07:19→21:05)
[2018-09-19] MEDS: PRINIVIL NG SCH (08:26)
[2018-09-19] MEDS: NORVASC NG SCH (08:27)
[2018-09-19] MEDS: LOVENOX SUBQ SCH (08:27)
[2018-09-19] MEDS: HALDOL IV PRN ×2 (09:22→13:18)
--- NOTE | 2018-09-19 10:30 | PROGRESS NOTE ---
DATE: 09/19/2018 SUBJECTIVE: There has not been significant clinical change in the last few days. PHYSICAL EXAMINATION: On exam now, she is moving all limbs spontaneously, using her arms, demonstrating some appropriate withdrawal. I did not find decerebrate posture today. Tone is symmetric in the limbs. She has good lateral eye movement with passive head turning. Left pupil reacts a little bit better than the right to bright light, but both are sluggish. Facial motility is symmetric. Neck is supple. Discussed at some length with family at the bedside. IMPRESSION: My impression is that she had initial global encephalopathy associated with substance ingestion. That was very slow to begin to resolve, but did improve beginning a few weeks ago. She improved steadily for several days, but has not shown significant change in the last several days. I am concerned now that she may be approaching a baseline level of brain impairment, a little bit better than vegetative. Still, in light of her relatively young age, there is a possibility of further recovery. I expressed my uncertainty clearly to family. I do not think further workup would acid changer today. We might consider repeat imaging and EEG later. I agree with the disposition plans outlined. Thanks for asking Neurology to see Ms. Dominguez. cc: MD ENRIQUETA Trevino III
--- NOTE | 2018-09-19 14:35 | PROGRESS NOTE ---
DATE: 09/19/2018 SUBJECTIVE: This morning Ms. Dominguez continues to be nonverbal. There was no family member at the bedside at the time of the encounter. OBJECTIVE: Her vitals are stable with blood pressure 150/84, pulse of 103, respirations 14, and temperature 97.8 degrees. The patient's physical exam is unchanged from yesterday. She continues to have a PEG tube in the abdomen, and neurologically she continues to be nonverbal. She will move all extremities however. No new lab work from this morning, and no new imaging studies. MEDICATIONS: The patient's medications have all been reviewed. She is currently not on any antimicrobial therapy. ASSESSMENT: 1. Persistent global encephalopathy presumably drug-induced with possible superimposed anoxic brain injury. The patient is continued to be nonverbal almost in a vegetable state. 2. Acute hypoxemic respiratory failure resolved. 3. History of drug abuse with urine toxicology on presentation positive for amphetamine and benzodiazepines. 4. Hypertension controlled. 5. Generalized weakness and deconditioning. Physical Therapy is on board. 6. Hepatitis C, aware. 7. Acute on chronic liver disease. We think this was a drug-induced liver injury. The enzymes were trending down. 8. PEG tube feedings. Patient tolerating that. 9. Disposition is pending rehab placement. cc: Yossi Mendoza MD
[2018-09-19] MEDS: CATAPRES PO SCH ×2 (15:49→21:05)
[2018-09-19] MEDS: HYGROTON PO SCH (15:49)
[2018-09-20] MEDS: DUONEB (A & A) INH SCH ×4 (03:25→15:26)
[2018-09-20] MEDS: PRILOSEC GT SCH (06:26)
[2018-09-20] MEDS: NORVASC NG SCH (08:32)
[2018-09-20] MEDS: LOVENOX SUBQ SCH (08:32)
[2018-09-20] MEDS: CATAPRES PO SCH ×2 (08:33→15:10)
[2018-09-20] MEDS: HYGROTON PO SCH (08:33)
[2018-09-20] MEDS: PRINIVIL NG SCH (08:33)
[2018-09-20 09:10] LABS: AGAP 16; ALB/GLOB RATIO 1.3; ALKALINE PHOSPHATASE 250 U/L (32-104); BUN 19 mg/dL (8-22); CALCIUM 9.9 mg/dL (8.8-10.2); CHLORIDE 99 mmol/L (98-107); COSMO 282; CREATININE 0.6 mg/dL (0.5-0.9); ESTIMATED GFR > 60; GLUCOSE 138 mg/dL (70-104); GOT 68 U/L (10-30); GPT 111 U/L (10-36); POTASSIUM 3.7 mmol/L (3.5-5.1); SODIUM 139 mmol/L (136-145); TCO2 24 mmol/L (25-35); TOTAL BILIRUBIN 0.32 mg/dL (0.20-1.00); TOTAL PROTEIN 7.2 g/dL (6.3-8.3)
--- NOTE | 2018-09-20 14:36 | DISCHARGE SUMMARY ---
ADMISSION DATE: 08/29/2018 DISCHARGE DATE: 09/20/2018 LENGTH OF STAY: 22 days. DISPOSITION: [facility]. FOLLOWUP: 1. Dr. Hodges. 2. Dr. Jin. CONSULTATION DURING THIS ADMISSION: 1. Pulmonary Medicine was consulted. Patient was seen by Dr. Chester, followed up by Dr. Linares. 2. Neurology was consulted. Patient was seen by Dr. Jin. 3. GI was consulted. Patient was seen by Dr. Rees and followed up by Dr. Medellin. IMAGING STUDIES OF SIGNIFICANCE: 1. A chest x-ray was done initially which showed no acute disease. 2. A CT scan of the head showed no evidence of acute intracranial disease. 3. Multiple chest x-rays were done when patient was intubated. 4. A repeat CT scan show improved ethmoid and sphenoid sinusitis. 5. MRI of the brain was negative. 6. Extremity venous Doppler showed no obvious DVTs. 7. EEG showed generalized slowing. A repeat on the of this month continues to show generalized slowing. ADMISSION DIAGNOSES: 1. Drug overdose. 2. Hypoglycemia from glipizide. 3. Respiratory failure. 4. Hypertension. 5. Leukocytosis. DIAGNOSIS AT THE TIME OF DISCHARGE: 1. Persistent global encephalopathy, presumably drug-induced with possible superimposed anoxic brain injury. The patient continues to be nonverbal. 2. Acute hypoxemic respiratory failure. The patient was intubated, successfully extubated on 09/04/2018, was transitioned to BiPAP. Currently just on nasal cannula. 3. Hypertension. Continue to titrate medication for better blood pressure control. 4. Generalized weakness and deconditioning. Physical Therapy is on board. 5. Acute on chronic liver disease with positive hepatitis C. 6. Status post percutaneous endoscopic gastrostomy tube placement with percutaneous endoscopic gastrostomy tube feedings. 7. History of recreational drug abuse with urine drug screen positive for amphetamines and benzodiazepines on presentation. 8. History of alcohol and tobacco use and abuse. DISCHARGE MEDICATIONS: 1. Lisinopril 40 mg p.o. daily. 2. Clonidine 0.1 p.o. 3 times per day. 3. Alprazolam 0.5 p.o. b.i.d. p.r.n. 4. Baclofen 20 mg p.o. 3 times per day. 5. Albuterol inhaler. 6. Chlorthalidone 12.5 p.o. daily. 7. Amlodipine 10 mg p.o. daily. 8. Omeprazole 40 mg p.o. b.i.d. PRESENTING COMPLAINT: Unconsciousness. HISTORY OF PRESENTING COMPLAINT: Ms Dominguez is a 48-year-old female with history of hypertension, GERD, multiple recreational and prescription drug abuse, came to the emergency department after the family found her unresponsive for 24 hours. She was intubated in the ER and admitted to the ICU. HOSPITAL COURSE: Ms Dominguez was admitted to the ICU initially intubated. Multiple subspecialties were consulted including Pulmonary Medicine and Neurology. Throughout the hospital course, Ms Dominguez was treated with antibiotics for presumed lung infection. She was successfully extubated on 09/04/2018 and was transferred to the medical floor. The patient also had an EEG initially because she continued to be nonresponsive. Neurology evaluated the patient on a daily basis. It appeared that Ms Dominguez' condition was precipitated because of drugs and that could have probably made her also hypoxemic and that has added more to the insult. Throughout her hospital course, Ms Dominguez continues to be unresponsive. She will move all extremities but she would be nonverbal. She will open her eyes as well intermittently. GI evaluated the patient. A PEG tube was placed and patient was started on tube feedings, which she has tolerated very well. We think she is clinically stable and that she will need to get to rehab to continue with physical rebuilding. This morning, Ms. Dominguez continues to be the same. Her vitals are blood pressure 184/107, pulse of 118, respiration is 18, temperature 98.8 degrees. She continues to be nonverbal. She is slightly kind of spastic in all 4 extremities. She will moan and open her eyes to painful stimulation but she continues to be nonverbal as I said. I have reviewed her lab work this morning. Her liver enzymes continue to be trending down. Her chemistry is completely normal. Ms Dominguez is no more on any antimicrobial therapy. She is going to be discharged to rehab to continue with her physical therapy as well as occupational and speech. All the discharge instructions will be relayed to the rehab facility. TIME SPENT FOR DISCHARGE: 35 minutes. cc: MD Miguel A Ramirez MD Eston G. Norwood III, MD Michael Estancia, MD
[2018-09-20 16:11] VITALS: BP 114/66
== END 2018-09-20 17:40 | DRG 917 ==
LOC: SUPCPDRO → ED 17:08 → ICU 22:05 → SUATTDRO 22:05 → 3S 09-09 00:03 → 3N 09-13 17:55
PROVIDERS: ATTEND Internal Medicine
CPT/HCPCS: 51702; 70450; 70553; 71010; 71045; 80048; 80053; 80074; 80076; 80101; 80301; 80307; 80320; 80324; 80329; 80345; 80346; 80353; 80358; 80361; 80365; 81001; 82003; 82055; 82140; 82533; 82550; 82553; 82805; 82948; 83605; 83735; 83992; 84100; 84134; 84443; 84484; 85025; 87040; 87088; 87522; 88305; 88312; 89220; 93005; 93971; 94002; 94003; 94640; 94660; 94761; 94762; 95816; 96365; 96366; 96368; 96375; 97162; 99285; 99291; A9270; A9579; C9113; G0431; G0434; G0479; G0480; G6039; G6040; J0330; J0360; J0690; J0696; J1630; J1650; J1940; J2060; J2310; J2543; J3010; J3370; J3480; J7030; J7040; S0164; XXXXX

== ENCOUNTER 2018-09-29 16:37 | Inpatient (IN) ==
[2018-09-29] MEDS ORDERED: AMIDATE IV ONE (16:56)
[2018-09-29] MEDS ORDERED: QUELICIN IV ONE ×3 (16:56→17:40)
[2018-09-29] MEDS ORDERED: ROCEPHIN 1 GM in NS 50 ML IV ONE (16:57)
[2018-09-29] MEDS ORDERED: DIPRIVAN 1% IV ONE ×2 (16:57→19:12)
[2018-09-29] MEDS ORDERED: QUELICIN ONE (16:58)
[2018-09-29] MEDS ORDERED: AMIDATE ONE (16:58)
[2018-09-29] MEDS ORDERED: NS 1,000 ML IV ONE ×2 (16:58→18:30)
[2018-09-29] MEDS ORDERED: DIPRIVAN 1% 1,000 MG/100 ML BOTTLE IV SCH (17:00)
[2018-09-29] MEDS ORDERED: OFIRMEV 1000 MG/ISOTONIC SOLN 1,000 MG/100 ML BOTTLE IV SCH (17:15)
[2018-09-29] MEDS ORDERED: DIPRIVAN 1% 1,000 MG/100 ML BOTTLE ONE (17:20)
[2018-09-29] MEDS ORDERED: DILAUDID IV ONE (17:24)
--- NOTE | 2018-09-29 17:24 | Diag Imaging Result Doc PS360 ---
EXAM: CHEST-PORTABLE 09/29/2018 HISTORY: INTUBATION TECHNIQUE: AP portable at 1713 COMMENT: There is an endotracheal tube with its tip in the orifice of the right mainstem bronchus. There is dense opacification of the left lower lobe and some questionable ill-defined opacity in the right upper lobe. Neither of these abnormalities were present on 09/17/2018. IMPRESSION: Left lower lobe pneumonia. Endotracheal tube in the right mainstem bronchus. Electronically signed by Sandro Monterroso 09/29/2018 5:21 PM
[2018-09-29] MEDS ORDERED: VANCOMYCIN 1 GM/NS 1 GM/250 ML IVPB IV ONE (17:30)
[2018-09-29 17:41] LABS: BASO# 0.03 X1000 (0.0-0.2); BASO% 0.2 % (0.0-0.8); EOS# 0.01 X1000 (0.0-0.7); EOS% 0.1 % (0.0-10.0); HEMATOCRIT 40.9 % (37.0-47.0); IMM GRAN# 0.05 X1000 (0.0-0.04); IMM GRAN% 0.3 % (0.0-0.5); LYMPH# 1.75 X1000 (1.2-3.4); LYMPH% 10.8 % (20.5-51.1); MCH 30.3 PG (27-31); MCHC 31.8 g/dL (33-37); MCV 95.3 FL (81-99); MONO# 1.27 X1000 (0.11-0.59); MONO% 7.9 % (1.7-9.3); MPV 13.6 FL (7.4-10.4); NEUT# 13.06 X1000 (1.4-6.5); NEUT% 80.7 % (42.2-75.2); PLT 362 X1000 (130-400); RBC 4.29 XMIL (4.2-5.4); RDW 12.4 % (11.5-14.5); WBC 16.17 X1000 (4.8-10.8)
[2018-09-29 17:45] LABS: ALLEN TEST YES; BE 5.6 mmoll (-3.0-3.0); BLOOD TYPE ARTERIAL; HCO3-(ACT) 29.2 mmoll (20.0-26.0); METHB 1.2 % (0.0-1.5); O2(CT) 17.5 mL/dL (15.0-23.0); O2HB 95.3 % (95.0-99.0); PCO2(98.6) 41 mmHg (35-45); PO2(98.6) 79 mmHg (60-100); SAMPLE BLOOD; SRATE 15 BPM; TVOL 450 mL; pH(98.6) 7.47 (7.35-7.45)
[2018-09-29 17:46] LABS: MODALITY VENTILATOR
--- NOTE | 2018-09-29 17:51 | PROVIDER DOCUMENTATION ---
HPI-Fever - General Chief Complaint: SEPSIS ALERT - D Stated Complaint: SOB Time Seen by Provider: 09/29/18 16:45 Allergies/Adverse Reactions: Patient Allergies Allergy/AdvReac Type Severity Reaction Status Date / Time aspirin AdvReac Intermediate reaction Verified 11/01/17 21:58 with stomach ulcers Home Medications: Home Medication List Medication Instructions Recorded Confirmed Last Taken Type Albuterol Sulfate [Proair Hfa] 2 puff INH Q4-6H PRN PRN 06/23/16 09/30/18 07/18/18 History Albuterol 2.5MG/Ipratrop 0.5MG 3 ml INH Q2H PRN PRN #120 neb 06/24/16 09/30/18 Unknown Rx [Duoneb (A & A)] Albuterol Sulfate [Proventil Hfa] 2 puff IH Q4HR PRN #1 hfa.aer.ad 11/01/17 09/30/18 Unknown Rx Alprazolam [Xanax] 0.5 mg PEG BID PRN PRN #10 tab 09/20/18 09/30/18 Unknown Rx Amlodipine [Norvasc] 10 mg NG DAILY tab 09/20/18 09/30/18 Unknown Rx Baclofen [Lioresal] 20 mg PEG 0900,1500,2100 #30 tab 09/20/18 09/30/18 Unknown Rx Chlorthalidone [Hygroton] 12.5 mg PEG DAILY #120 tab 09/20/18 09/30/18 Unknown Rx Clonidine [Catapres] 0.1 mg PEG TID #0 09/20/18 09/30/18 07/18/18 Rx Clonidine [Catapres] 0.1 mg PO 0900,1500,2100 tab 09/20/18 09/30/18 Unknown Rx LISINOpril [Prinivil] 40 mg PEG DAILY #0 09/20/18 09/30/18 07/18/18 Rx Omeprazole [Prilosec] 40 mg GT BID@0700,2100 cap 09/20/18 09/30/18 Unknown Rx - History of Present Illness-Fever Nature of Presenting Problem: Patient has AMS and Hx by EMS: MI called 911 because the SPO2 start dropping today. Patient being treated for pneumonia but developed fever today. when EMS arrived SPO2 was 83% on 2 L and they put her on 3 L and SPO2 improved to 89. Patient is altered and agitated. EMS doesn't know much about her. Family Mother and Aunt arrived later they report couple months ago she has overdose on drugs end up in the hospital for few weeks and then discharged to [facility]. Review of Systems - Adult - REVIEW OF SYSTEMS - ADULT ROS:: limited per condition Constitutional: reports: fever Past History - Adult - PAST MEDICAL HISTORY-ADULT Review of Records: reports: Old Records Reviewed, Nursing Assessment Review Major Childhood Illnesses: reports: denies history Cardiovascular: reports: HTN Respiratory: reports: asthma, COPD Gastrointestinal: reports: GERD Obstetrical/Gynecological: reports: denies history Genitourinary: reports: denies history Musculoskeletal: reports: chronic pain (back ) Neurological: reports: Seizures/Epilepsy (seizures ) Endocrine/Immune: reports: denies history Other Conditions: reports: denies history - PRIOR SURGERIES/PROCEDURES Surgical/Procedure History: reports: reviewed, not pertinent - IMMUNIZATION STATUS Childhood Immunizations: See Nurse Assessment Flu Vaccine: See Nurse Assessment - FAMILY HISTORY Family History: reviewed, not pertinent Physical Exam-General - CONSTITUTIONAL General Appearance: severe distress, cachetic - EYES Eyes: PERRL/EOMI - HEAD, EARS, NOSE, MOUTH & THROAT HENMT: normocephalic/atraumatic, other (Poor dentition). negative: moist mucous membranes - NECK Neck: full range of motion - RESPIRATORY Respiratory: crackles (Left lower lung), rhonchi (B/L), wheezing (B/L). negative: lungs clear - CARDIOVASCULAR Cardiovascular: regular rate, rhythm, no edema - GASTROINTESTINAL (ABDOMEN) Abdominal Exam: normal bowel sounds, non tender, soft - MUSCULOSKELETAL Back Exam: normal inspection, no CVA tenderness, no vertebral tenderness - SKIN Integumentary: normal color, normal turgor - PSYCHIATRIC Psych/Mental Status: normal thought content Progress - PLAN OF CARE/RESULTS Progress/Plan/Lab Results: Orders Category Date Time Status Admit - [facility] Routine AdmDCTranf 09/29/18 19:34 Active Activity - Strict Bedrest ORDERED Care 09/29/18 19:34 Active Cardiac Monitoring DIRECTED Care 09/29/18 17:12 Completed IV Insertion ORDERED Care 09/29/18 17:12 Completed Intake and Output-Strict ORDERED Care 09/29/18 19:34 Active Notify MD of + Sepsis Screen NOW Care 09/29/18 17:12 Completed Notify Physician As Ordered Care 09/29/18 17:12 Active Nursing- MD Consult Request ROUTINE Care 09/29/18 19:36 Completed Update & Confirm Home Medicati ROUTINE Care 09/29/18 20:09 Completed Vital Signs Order Q 4-HR ASSESS Care 09/29/18 19:34 Active Z-Document. for Tele Applied ORDERED Care 09/29/18 19:35 Completed Physician/Provider Consults Routine Cons 09/29/18 19:34 Ordered NPO Diet 09/29/18 19:36 Active CHEST-PORTABLE [RAD] Stat Exams 09/29/18 16:58 Completed cxr [CHEST-PORTABLE] [RAD] Stat Exams 09/29/18 17:36 Completed ABG [RESP] Routine Lab 09/29/18 17:24 Completed ABG [RESP] Routine Lab 09/30/18 05:00 Completed BLOOD CULTURE [BLDCUL] Stat Lab 09/29/18 16:57 Results CBC WITH DIFF [HEME] Routine Lab 09/30/18 05:30 Completed CBC WITH ELECTRONIC DIFF [HEME] Stat Lab 09/29/18 16:57 Completed CK PROFILE [SP CHEM] Lab 09/30/18 04:50 Completed CK PROFILE [SP CHEM] Lab 09/30/18 12:00 Completed CK PROFILE [SP CHEM] Stat Lab 09/29/18 16:57 Completed COMPREHENSIVE METABOLIC PANEL [CHEM] Routine Lab 09/30/18 05:30 Completed COMPREHENSIVE METABOLIC PANEL [CHEM] Stat Lab 09/29/18 16:57 Completed LACTATE, PLASMA [CHEM] Q3H Lab 09/29/18 17:48 Completed MAGNESIUM [CHEM] Routine Lab 09/30/18 05:30 Completed PROTIME WITH INR [COAG] Stat Lab 09/29/18 17:48 Completed PTT [COAG] Stat Lab 09/29/18 17:48 Completed TROPONIN T Lab 09/30/18 04:50 Completed TROPONIN T Lab 09/30/18 12:00 Completed TROPONIN T Stat Lab 09/29/18 16:57 Completed TSH Routine Lab 09/30/18 05:30 Completed URINALYSIS [URINALYSIS] Stat Lab 09/29/18 18:06 Completed 0.9% Sodium Chloride Inj [Ns] 1,000 ml Med 09/29/18 19:45 Discontinued IV 100 mls/hr 0.9% Sodium Chloride Inj [Ns] 1,000 ml Med 09/29/18 16:58 Discontinued IV 999 mls/hr 0.9% Sodium Chloride Inj [Ns] 1,000 ml Med 09/29/18 18:30 Discontinued IV 999 mls/hr 0.9% Sodium Chloride Inj [Ns] 2,000 ml Med 09/29/18 18:58 Discontinued .ROUTE As directed Acetaminophen [Ofirmev 1000 mg/Isotonic Soln] Med 09/29/18 17:15 Discontinued 1,000 mg in 100 ml IV Q6H Albuterol 2.5MG/Ipratrop 0.5MG [Duoneb (A & A)] Med 09/29/18 22:00 Active 3 ml INH RTQ6H CefTRIAXONE [Rocephin] 1 gm Med 09/29/18 16:57 Discontinued 0.9% Sodium Chloride Inj [Ns] 50 ml IV NOW Dextrose 5%-0.45% NaCl Inj [D5 1/2 Ns] 250 ml Med 09/29/18 18:45 Active Norepinephrine [Levophed] 8 mg IV As Directed mls/hr Enoxaparin [Lovenox] Med 09/29/18 19:45 Active 40 mg SUBQ Q24H Etomidate [Amidate] Med 09/29/18 16:56 Discontinued 20 mg IV NOW ONE Etomidate [Amidate] Med 09/29/18 16:58 Discontinued 40 mg .ROUTE .STK-MED ONE Hydromorphone [Dilaudid] Med 09/29/18 17:24 Discontinued 1 mg IV NOW ONE Linezolid 600 mg/D5w [Zyvox 600 mg/D5w] Med 09/29/18 21:09 Active 600 mg in 300 ml IV Q12H Lorazepam [Ativan] Med 09/29/18 19:38 Active 1 mg IV Q2H PRN PRN Morphine Med 09/29/18 19:38 Active 2 mg IV Q2H PRN PRN Ondansetron [Zofran] Med 09/29/18 19:34 Active 4 mg IV Q4H PRN PRN Piperacillin/Tazobactam [Zosyn] 2.25 gm Med 09/29/18 23:00 Active 0.9% Sodium Chloride Inj [Ns] 50 ml IV Q6H Propofol [Diprivan 1%] Med 09/29/18 16:57 Discontinued 10 mg IV NOW ONE Propofol [Diprivan 1%] Med 09/29/18 19:12 Discontinued 20 mg IV STAT ONE Propofol [Diprivan 1%] Med 09/29/18 17:20 Discontinued 1,000 mg in 100 ml .ROUTE As directed Propofol [Diprivan 1%] Med 09/29/18 17:00 Discontinued 1,000 mg in 100 ml IV As Directed mls/hr Succinylcholine [Quelicin] Med 09/29/18 17:40 Discontinued 140 mg IV NOW ONE Succinylcholine [Quelicin] Med 09/29/18 16:58 Discontinued 200 mg .ROUTE .STK-MED ONE Vancomycin 1 gm/Ns Med 09/29/18 17:30 Discontinued 1 gm in 250 ml IV NOW Aerosol Treatments Routine Oth 09/29/18 19:36 Completed Oxygen Device Stat Oth 09/29/18 17:12 Completed Telemetry [OM.EQ] Routine Oth 09/29/18 19:34 Active Physical Therapy Eval/Treatment [OM.PT] Routine Ther 09/29/18 19:34 Active Transfer/Admit Order [TRANSFER] Routine Transfer 09/29/18 19:52 Completed Pt seen and examined by myself and Dr. Lui. SPO2 88% on 4 L. Patient started on Mask O2 15 L and SPO2 still around 89%. Patient is agitated and responding to the Mask Oxygen. decision is to Intubate her. Temp. checked 100.7 F sepsis protocol initiated. Patient has R lower lobe pneumonia lead to respiratory failure and agitation. Patient is sedated and intubated. Propofol for sedation and Dilaudid for pain ordered. Patient started on NL, vanc and rocephin per sepsis protocol. will admit to the Hospital Patient condition is critical. Pt care, assessment and plan discussed with the attending physician Dr. Esau Lui and he agree with the plan as documented. I assessed pt multiple times throughout ER stay. pt was under close Monitor. Family informed of pt condition. Result Diagrams: 10/01/18 03:40 10/01/18 03:40 - REASSESSMENT Reassessment #1 Status: unchanged Reassessment #2 Status: improving (BP dropped, Levophed ordered.) Reassessment #3 Status: worsening (BP dropped to 50s/30s Levophed ordered.) Reassessment #4 Status: improving (vitals better, sedated and intubated.) - CONSULTS/PCP/HOSPITALIST Notification #1 *Consult/PCP/Hospitalist*: [employer] Martine admitting for Dr. Albert Time Discussed: 18:55 Consult Disposition: Admit (Hx, PE and pt care discussed in details with REBECA Farley, accepted.) Procedures - INTUBATION Airway Evaluation: Large/Loose Teeth Mallampati Class: 3 Intubation Method: orotracheal Equipment: ETT, Glidescope Tube Size (cm): 7.0 (Tbe size 7, depth 23 @right lip) Pretreated with 100% Oxygen?: Yes Breath Sounds after Intubation: right greater than left ETT Primary Tube Confirmation: Capnometry CO2 Change, Direct Visualization, Chest Rise and Fall, Tube Repositioned (21 @ right lip), Placement re-confirmed with CXR after reposition Intubation Complications: no complications Procedure Comment: Successful from 1st attempt Departure - Departure Date of Disposition Decision: 09/29/18 Time of Disposition Decision: 18:55 DIAGNOSIS: MODS (multiple organ dysfunction syndrome) Pneumonia Qualifiers: Pneumonia type: due to unspecified organism Laterality: left Lung location: lower lobe of lung Qualified Code(s): J18.1 - Lobar pneumonia, unspecified organism Respiratory failure Qualifiers: Chronicity: unspecified Respiratory failure complication: hypoxia Qualified Code(s): J96.91 - Respiratory failure, unspecified with hypoxia Sepsis Qualifiers: Sepsis type: sepsis due to unspecified organism Qualified Code(s): A41.9 - Sepsis, unspecified organism Disposition: ADMITTED INPATIENT 09 Certified Medical Emergency: Emergent Condition: Critical - Critical Care Note This patient required my direct & personal management of CC.: Yes Total Time (mins): 40 Critical Care Statement: This patient required my direct personal management to treat or rule out processes, the absence of which, could potentiallly result in sudden, clinically significant life or limb threatening deterioration. Attestation - Physician/ SARAH Attestation Patient care was provided by Advanced Practice Provider:: No The physician spent face to face time with patient:: Yes Advanced Practice Provider documentation review:: Supervising physician onsite and consulted in the evaluation and care of this patient. The physician did have a face to face encounter with the patient.
--- NOTE | 2018-09-29 18:09 | Diag Imaging Result Doc PS360 ---
EXAM: CHEST-PORTABLE 09/29/2018 HISTORY: post intubation x-ray for confirmation TECHNIQUE: AP portable at 1749 COMMENT: The endotracheal tube has been withdrawn to just below the thoracic inlet. There continues to be opacification present in the left lower lobe and less likely in the right upper lobe. IMPRESSION: Left lower lobe pneumonia. Electronically signed by Sandro Monterroso 09/29/2018 6:07 PM
[2018-09-29 18:16] LABS: ALB/GLOB RATIO 1.1; ALBUMIN 3.8 g/dL (3.5-5.0); CALCIUM 9.9 mg/dL (8.8-10.2); CREATININE 1.5 mg/dL (0.5-0.9); POTASSIUM 4.5 mmol/L (3.5-5.1); TOTAL BILIRUBIN 0.45 mg/dL (0.20-1.00); TOTAL PROTEIN 7.3 g/dL (6.3-8.3)
[2018-09-29 18:23] LABS: INR 1.07; PROTIME 14.7 Seconds (11.0-16.0)
[2018-09-29 18:24] LABS: PTT 26.9 Seconds (22.3-41.8)
[2018-09-29 18:31] LABS: CK INDEX 1.3 (0.0-2.5); CK-MB 6.03 ng/mL (0.0-5.0)
[2018-09-29 18:36] LABS: URINE SOURCE CATH
[2018-09-29] MEDS ORDERED: LEVOPHED 8 MG in D5 1/2 NS 250 ML IV SCH ×4 (18:45)
[2018-09-29 18:49] LABS: BILIRUBIN URINE NEGATIVE (NEGATIVE); BLOOD URINE NEGATIVE (NEGATIVE); COLOR YELLOW; GLUCOSE URINE NEGATIVE (NEGATIVE); KETONE URINE NEGATIVE (NEGATIVE); LEUKOCYTES URINE SMALL (NEGATIVE); NITRITE URINE NEGATIVE (NEGATIVE); PH URINE 6.5; PROTEIN URINE TRACE mg/dL (NEGATIVE); SP GRAVITY URINE 1.022; TURBIDITY URINE HAZY (CLEAR); UROBILINOGEN URINE NORMAL (NORMAL)
[2018-09-29 18:50] LABS: UR EPITHELIAL CELLS >10 /HPF (<10); URINE BACTERIA NEGATIVE /HPF; URINE RBC <10 /HPF (<10); URINE WBC <10 /HPF (<10)
[2018-09-29] MEDS ORDERED: NS 2,000 ML ONE (18:58)
[2018-09-29] MEDS ORDERED: ZOFRAN IV PRN (19:34)
[2018-09-29] MEDS: MORPHINE IV PRN (20:19)
--- NOTE | 2018-09-29 21:08 | HISTORY AND PHYSICAL ---
CHIEF COMPLAINT: Fever and low oxygen. HISTORY OF PRESENT ILLNESS: Ms. Dominguez is an unfortunate 48-year-old female with a history of hypertension, GERD, and multiple recreational and prescription drug abuse, who earlier last month was brought in hypoxic and hypoglycemic. She had apparently overdosed on Xanax and was taking a friend's glipizide. She was discharged from our facility stable but remained nonverbal related to global encephalopathy and possible secondary anoxic brain injury. At any rate, she was doing well, from what I understand, receiving tube feedings via a PEG tube which was placed on last admission. She was being treated for a right lower lobe pneumonia, I believe, at [facility]. Today her oxygen saturation dropped into the 80s and she became febrile, so she was sent to the emergency room. On arrival, the decision was made to intubate the patient, as she was hypoxic, tachypneic, tachycardic, and hypotensive with a maximum temperature of 102.2. She will be admitted to the ICU for further evaluation and treatment. PAST MEDICAL HISTORY: 1. Drug overdose. 2.Polypharmacy abuse. 3. Hypertension. 4. Respiratory failure. 5. Global encephalopathy possibly related to anoxic brain injury. 6. Back pain . 7. GERD. 8. Acute on chronic liver disease with positive hepatitis C. PREVIOUS SURGICAL HISTORY: PEG tube placement. I am unaware of any other surgical history. ALLERGIES: Aspirin. CURRENT MEDICATIONS: A list of current medications has not been reconciled. The patient was discharged on lisinopril 40 mg p.o. daily, Clonidine 0.1 mg p.o. t.i.d., alprazolam 0.5 mg p.o. b.i.d. p.r.n., baclofen 20 mg p.o. t.i.d., albuterol inhaler, chlorthalidone 12.5 mg p.o. daily, amlodipine 10 mg p.o. daily, and omeprazole 40 mg p.o. b.i.d. SOCIAL HISTORY: Currently resides at [facility], from what I understand, since her discharge. I believe she had around a [id number] history of smoking and a history of illicit drugs including methamphetamine. FAMILY HISTORY: Could not be reviewed. REVIEW OF SYSTEMS: Unable to be obtained. The patient is intubated and sedated. PHYSICAL EXAMINATION: VITAL SIGNS: Temperature max 102.2, pulse 105, respirations 20, blood pressure 116/68 on Levophed, oxygen saturation 99%on mechanical ventilation. GENERAL: An unfortunate 48-year-old female, intubated and sedated. Reflexes slightly to deep stimulus. She is on Levophed, in no acute distress. HEENT: Head is atraumatic, normocephalic. Pupils are equal, round and sluggishly reactive to light. Extraocular eye movement could not be tested. Sclerae are anicteric. Conjunctivae are pink. Oral mucosa is dry. NECK: Supple. No JVD, no thyromegaly. Trachea is midline. No cervical lymphadenopathy. CARDIAC: S1 and S2 appreciated, tachycardic. No murmurs, gallops or rubs could be auscultated. LUNGS: Coarse bilaterally. Decreased, right greater than left. No wheezing. No crepitations. Symmetrical rise and fall with respirations. ABDOMEN: Soft, nondistended, nontender. PEG tube noted. EXTREMITIES: No clubbing, cyanosis, or edema, 1+ pedal pulses. NEUROLOGICAL: Intubated and sedated. Reflexes to deep stimulus. SKIN: Warm, dry and intact. No acute lesions or rash. DIAGNOSTIC DATA: Chest x-ray shows a left lower lobe pneumonia, endotracheal tube just below the thoracic inlet. LABORATORY DATA: WBCs 16.17, hemoglobin 13, hematocrit 40.9, platelet count 362. Coags within normal limits. ABG - pH of 7.47, pCO2 of 41, pO2 of 79, bicarb of 29.2. This was on 50% FiO2 on mechanical ventilation. Sodium was 151, potassium 4.5, chloride 105, carbon dioxide 28, BUN 95, creatinine 1.5, glucose 133. AST 104, ALT 170. CK 471, troponin 0.153. Urine unremarkable. ASSESSMENT/PLAN: 1. Left lower lobe pneumonia. Will treat for aspiration as well as cover for methicillin- resistant Staphylococcus aureus, since she is from [facility]. She is mechanically ventilated. Consult Dr. Linares for ventilator management. Blood cultures are pending. Recheck ABG tomorrow morning. 2. Respiratory failure. See above. 3. Acute kidney injury. The patient was given a fluid bolus in the emergency room. Will continue to hydrate, recheck laboratory data. 4. Chronic liver dysfunction with hepatitis C. Aware. 5. Global encephalopathy. The patient's baseline at last discharge was nonverbal. Aware. 6. Hypotension. This is likely related to septic shock. Will give fluids and start the patient on vasopressors. Will wean when possible. 7. Troponemia. Could be demand ischemia related, as the patient was hypoxic. Trend cardiac enzymes. Defer to primary team cardiac consultation. Critical care time 40 minutes. Dictated by COLIN Concepcion for Regan Albert MD I have performed a face to face diagnostic evaluation. Labs/ xrays- reviewed. Exam- chest- rhonchi, cv- regular. A/P- Pneumonia- Admit, check blood cultures, IV ABX Dr. Albert cc: COLIN Concepcion MD [facility]
[2018-09-29] MEDS: NS 1,000 ML IV SCH (21:34)
[2018-09-29] MEDS: LOVENOX SUBQ SCH (21:37)
[2018-09-29] MEDS: ATIVAN IV PRN (21:37)
[2018-09-29] MEDS: ZYVOX 600 MG/D5W 600 MG/300 ML IVPB IV SCH (21:44)
[2018-09-29] MEDS: PEPCID IV SCH (21:46)
[2018-09-29] MEDS: SODIUM CHLORIDE 0.9% INJ SCH (21:50)
[2018-09-29] MEDS: DUONEB (A & A) INH SCH (22:40)
[2018-09-30] MEDS: ZOSYN 2.25 GM in NS 50 ML IV SCH ×5 (00:06→23:35)
[2018-09-30] MEDS: ATIVAN IV PRN ×5 (00:07→13:25)
[2018-09-30] MEDS: MORPHINE IV PRN ×4 (00:07→07:40)
[2018-09-30] MEDS ORDERED: ATIVAN 20 MG in NS 190 ML IV SCH (02:00)
[2018-09-30] MEDS: DUONEB (A & A) INH SCH ×4 (03:41→21:52)
[2018-09-30 05:10] LABS: ALLEN TEST YES; BE 2.4 mmoll (-3.0-3.0); BLOOD TYPE ARTERIAL; HCO3-(ACT) 26.8 mmoll (20.0-26.0); METHB 1.1 % (0.0-1.5); O2(CT) 15.7 mL/dL (15.0-23.0); O2HB 95.8 % (95.0-99.0); PCO2(98.6) 42 mmHg (35-45); PO2(98.6) 84 mmHg (60-100); SAMPLE BLOOD; SAO2 99.2 % (95.0-100.0); SRATE 15 BPM; THB 11.6 g/dL (11.5-17.4); TVOL 450 mL; pH(98.6) 7.42 (7.35-7.45)
[2018-09-30 05:11] LABS: MODALITY VENTILATOR
[2018-09-30] MEDS: NS 1,000 ML IV SCH (05:51)
[2018-09-30 06:22] LABS: BASO# 0.03 X1000 (0.0-0.2); BASO% 0.2 % (0.0-0.8); EOS# 0.17 X1000 (0.0-0.7); EOS% 1.2 % (0.0-10.0); HEMATOCRIT 36.3 % (37.0-47.0); HEMOGLOBIN 11.4 g/dL (12.0-16.0); IMM GRAN# 0.08 X1000 (0.0-0.04); IMM GRAN% 0.6 % (0.0-0.5); LYMPH# 2.75 X1000 (1.2-3.4); MCH 30.2 PG (27-31); MCHC 31.4 g/dL (33-37); MONO# 1.39 X1000 (0.11-0.59); MONO% 9.6 % (1.7-9.3); MPV 13.4 FL (7.4-10.4); NEUT# 10.03 X1000 (1.4-6.5); NEUT% 69.4 % (42.2-75.2); PLT 311 X1000 (130-400); RBC 3.78 XMIL (4.2-5.4); RDW 12.5 % (11.5-14.5); WBC 14.45 X1000 (4.8-10.8)
[2018-09-30 06:50] LABS: ALB/GLOB RATIO 0.8; CALCIUM 9.1 mg/dL (8.8-10.2); CREATININE 1.3 mg/dL (0.5-0.9); MAGNESIUM 2.6 mg/dL (1.5-2.7); POTASSIUM 3.4 mmol/L (3.5-5.1); TOTAL BILIRUBIN 0.92 mg/dL (0.20-1.00); TOTAL PROTEIN 6.8 g/dL (6.3-8.3)
--- NOTE | 2018-09-30 07:18 | Diag Imaging Result Doc PS360 ---
EXAM: CHEST-1 VIEW 09/30/2018 HISTORY: intubated pt TECHNIQUE: AP portable at 0521 COMMENT: There is an endotracheal tube with its tip in the thoracic inlet. There is some ill-defined opacity in the right upper lobe, the medial right lower lobe, and the left lower lobe. The latter has improved considerably since the previous study of 09/29/2018. IMPRESSION: Improved bronchopneumonia. Electronically signed by Sandro Monterroso 09/30/2018 7:16 AM
[2018-09-30 07:59] LABS: CK INDEX 2.7 (0.0-2.5); CK-MB 8.5 ng/mL (0.0-5.0)
[2018-09-30] MEDS: DIPRIVAN 1% 1,000 MG/100 ML BOTTLE IV SCH ×3 (08:56→19:58)
[2018-09-30] MEDS: PEPCID IV SCH ×2 (09:08→20:00)
[2018-09-30] MEDS: ZYVOX 600 MG/D5W 600 MG/300 ML IVPB IV SCH ×2 (09:30→20:02)
--- NOTE | 2018-09-30 09:55 | PROGRESS NOTE ---
DATE: 09/30/2018 SUBJECTIVE: Ms. Dominguez is a 48-year-old, female who was admitted yesterday. She was just discharged from the hospital on 09/20/2018 (that is about just 10 days ago) after she had spent 22 days in the hospital. When she left, her baseline was that she continued to be encephalopathic. She was not communicating. She was, for the most part, in a vegetable state. I understand in the senior care, she was at her baseline. No major changes. However, yesterday, she was found to be extremely hypoxemic with oxygen saturation of 83% on 2 L, which got slightly improved to 89. The patient continued to be remarkably more agitated and altered, so she was brought into the emergency department where a decision was made to intubate her and she was brought to the ICU. She has been in the ICU since. OBJECTIVE: Vital Signs: Blood pressure is currently 109/65, with a pulse of 66, respirations are 15, temperature is 99.3 degrees. Of note, Ms. Dominguez had a temperature of 102.4 degrees yesterday in the evening. General Examination: Ms. Dominguez is a 48-year-old, female. She is in bed. She is currently intubated and sedated on propofol. HEENT: Mucosa is pink and slightly dry. Anicteric. Acyanotic. Neck: Supple. Chest: Good air entry bilaterally. There are transmitted sounds from the ventilator. Cardiovascular: Regular rate and rhythm. Abdomen: Soft. There is a PEG tube in place. Bowel sounds present. No hepatosplenomegaly. Extremities: No pedal edema. ELECTRICAL PROSPECTING OBSERVER: The patient is currently intubated and sedated. Pupils are pinpoint but reactive and patient has good gag reflex. Laboratory Data: WBC is down to 14.45, hemoglobin is 11.4, platelet count of 311,000. ABGs have been reviewed. For most part, unremarkable under the ventilator. Chemistry is also reviewed. Sodium is 151, potassium is 3.4, chloride is 111, creatinine is 1.1. AST and ALT have been reviewed. They are slightly up. Obviously, patient did run a few hypotensions during the initial evaluation. ASSESSMENT: 1. Acute on chronic hypoxemic respiratory failure. The patient is currently intubated. Respiratory therapy and pulmonary medicine have all been consulted. 2. Shock, presumably septic. The source of the infection is presumed to be from the lungs. A chest x-ray shows a left lower lobe pneumonia. The patient is currently on Zosyn and Zyvox. Blood cultures and sputum cultures have all been done, and we are pending the results. 3. Acute kidney injury secondary to volume depletion. The patient is on fluid and creatinine is downward-going. 4. Hypernatremia with hyperchloremia. We will change the current fluid to half-normal saline with dextrose. 5. Mildly elevated troponins, presumably due to demand ischemia. 6. 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 We will re-evaluate the patient once she is off the ventilator and of sedatives. 7. Acute on chronic transaminitis. PLAN: In general, I think Ms. Dominguez is critically sick. She is currently on the ventilator, being treated for acute on chronic hypoxemic respiratory failure, presumably from pneumonia and also septic shock. We will continue with fluids. We will continue with ventilator support and antimicrobial therapy, and await further recommendations from pulmonary medicine. The patient has a baseline hepatitis C. It appears that she might have also an ischemic liver injury on top of her chronic hepatitis C. We are going to continue following the liver enzymes. cc: Yossi Mendoza MD
[2018-09-30] MEDS: D5 1/2 NS + KCL 20 MEQ 1,000 ML IV SCH ×2 (10:36→19:59)
[2018-09-30 13:00] LABS: CK-MB 9.21 ng/mL (0.0-5.0)
--- NOTE | 2018-09-30 16:53 | PULMONOLOGY CONSULTATION ---
DATE: 09/30/2018 REQUESTING PHYSICIAN: Yossi Mendoza MD REASON FOR CONSULTATION: Pneumonia and respiratory failure. HISTORY OF PRESENT ILLNESS: Ms. Hurd is 48-year-old white female who was admitted to this hospital from 08/29/2018 until 09/20/2018 when she presented with altered mental status. History was consistent with a benzodiazepine and an oral diabetic medication overdose. The patient remained encephalopathic her entire hospitalization presumed secondary to hypoglycemia/anoxic brain injury. She was discharged to the halfway. The patient developed fevers and hypoxemia and was intubated on arrival to our emergency room. She has been transferred to the intensive care unit. PAST MEDICAL HISTORY/PROBLEM LIST: 1. 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 2. History of COPD and tobacco use. 3. Anxiety disorder. 4. Chronic pain syndrome. 5. History of seizure disorder. SOCIAL HISTORY: The patient was smoking prior to her previous hospitalization. Prior substance abuse noted. Family history is noncontributory to current presentation. Review of systems cannot be obtained. Physical examination reveals a well-developed, well-nourished female, who appears her stated age of 48 on mechanical ventilation. She is currently sedated on propofol. OBJECTIVE: Maximum temperature 102.4 degrees at 5 p.m. last evening, heart rate 81, respiratory rate 11, oxygen saturation 98%.HEENT: Pupils are equal. Oropharynx appears dry. Neck is supple. Chest reveals coarse rhonchi bilaterally. Cardiac: Increased rate, regular rhythm. Abdomen: Soft with positive bowel sounds. Extremities: Without significant edema. DIAGNOSTIC STUDIES: White blood count 14.5, hemoglobin 11.4, platelet count 311,000. Sodium 151, potassium 3.4, chloride 111, bicarbonate 24, anion gap 16, BUN 73, creatinine 1.3. Blood cultures pending. UA reveals less than 10 white blood cells per high-powered field. Chest x-ray reveals ill-defined infiltrates in the upper lobe, medial right lower lobe, and left lower lobe. Arterial blood gas on mechanical ventilation reveals a pH of 7.42, 42, 84. IMPRESSION: 1. A 48-year-old with encephalopathy/vegetative state, who is in a halfway. The patient presents with pneumonia. 2. Fevers. 3. Acute hypoxemic respiratory failure. 4. Acute renal failure. 5. Hypernatremia with hyperchloremia. 6. Elevated transaminases with history of hepatitis C with most recent assay performed 08/31/2018 when she had a 120,318 international units per mL on an HIV PCR. PLAN: 1. Continue propofol for comfort measures. 2. Collect a sputum for C and S. 3. Additional volume resuscitation. She may need additional free water, given her hypernatremia and hyperchloremia. 4. Agree with current antibiotic regimen pending results of culture data. TIME SPENT IN CRITICAL CARE MANAGEMENT: 1 hour. cc: Roosevelt Linares MD
[2018-09-30] MEDS ORDERED: CALMOSEPTINE OINTMENT TOP PRN (17:18)
[2018-09-30 17:51] LABS: CALCIUM 9.1 mg/dL (8.8-10.2); CREATININE 1.1 mg/dL (0.5-0.9); POTASSIUM 3.8 mmol/L (3.5-5.1)
[2018-09-30] MEDS: LOVENOX SUBQ SCH (19:59)
[2018-09-30] MEDS: SODIUM CHLORIDE 0.9% INJ SCH (20:00)
[2018-10-01] MEDS: DIPRIVAN 1% 1,000 MG/100 ML BOTTLE IV SCH ×7 (00:36→23:28)
[2018-10-01] MEDS: ATIVAN IV PRN (02:26)
[2018-10-01] MEDS: DUONEB (A & A) INH SCH ×4 (03:11→21:41)
[2018-10-01] MEDS: MORPHINE IV PRN (04:12)
[2018-10-01 04:28] LABS: ALLEN TEST YES; BE 1.5 mmoll (-3.0-3.0); BLOOD TYPE ARTERIAL; METHB 1.5 % (0.0-1.5); O2HB 96.2 % (95.0-99.0); PCO2(98.6) 35 mmHg (35-45); PO2(98.6) 115 mmHg (60-100); SAMPLE BLOOD; SAO2 99.1 % (95.0-100.0); SRATE 10 BPM; THB 16.2 g/dL (11.5-17.4); TVOL 650 mL; pH(98.6) 7.46 (7.35-7.45)
[2018-10-01 04:29] LABS: MODALITY VENTILATOR
[2018-10-01] MEDS: ZOSYN 2.25 GM in NS 50 ML IV SCH ×4 (06:00→23:25)
[2018-10-01] MEDS: D5 1/2 NS + KCL 20 MEQ 1,000 ML IV SCH ×2 (06:05→18:03)
--- NOTE | 2018-10-01 06:08 | Diag Imaging Result Doc PS360 ---
EXAM: CHEST-1 VIEW HISTORY: intubated TECHNIQUE: Portable chest single view COMPARISON: 09/30/2018 FINDINGS: The patient is rotated to the right. Endotracheal tube in good position. No cardiomegaly. There are infiltrates in the lower left lung and mid right lung. No pleural effusions identified. IMPRESSION: Persistent infiltrates Electronically signed by Salvador Martínez 10/01/2018 6:06 AM
[2018-10-01 06:48] LABS: AGAP 13; ALB/GLOB RATIO 0.8; ALBUMIN 2.8 g/dL (3.5-5.0); ALKALINE PHOSPHATASE 225 U/L (32-104); BUN 29 mg/dL (8-22); CALCIUM 8.6 mg/dL (8.8-10.2); CHLORIDE 110 mmol/L (98-107); COSMO 296; CREATININE 0.9 mg/dL (0.5-0.9); ESTIMATED GFR > 60; GLUCOSE 96 mg/dL (70-104); GOT 54 U/L (10-30); GPT 84 U/L (10-36); POTASSIUM 3.8 mmol/L (3.5-5.1); SODIUM 146 mmol/L (136-145); TCO2 23 mmol/L (25-35); TOTAL BILIRUBIN 0.47 mg/dL (0.20-1.00); TOTAL PROTEIN 6.2 g/dL (6.3-8.3)
[2018-10-01 07:15] LABS: BASO# 0.01 X1000 (0.0-0.2); BASO% 0.1 % (0.0-0.8); EOS% 4.2 % (0.0-10.0); HEMOGLOBIN 10.1 g/dL (12.0-16.0); IMM GRAN# 0.04 X1000 (0.0-0.04); IMM GRAN% 0.6 % (0.0-0.5); LYMPH# 1.79 X1000 (1.2-3.4); LYMPH% 25.3 % (20.5-51.1); MCH 29.4 PG (27-31); MCHC 30.6 g/dL (33-37); MCV 96.2 FL (81-99); MONO# 0.56 X1000 (0.11-0.59); MONO% 7.9 % (1.7-9.3); MPV 12.9 FL (7.4-10.4); NEUT# 4.38 X1000 (1.4-6.5); NEUT% 61.9 % (42.2-75.2); PLT 176 X1000 (130-400); RBC 3.43 XMIL (4.2-5.4); WBC 7.08 X1000 (4.8-10.8)
--- NOTE | 2018-10-01 08:38 | EKG Report ---
Test Performed on : 09/29/2018 5:06:30 PM Test Reason : ED. NO EKG ORDER FOR MUSE Blood Pressure : / mmHG Vent. Rate : 106 BPM Atrial Rate : 106 BPM P-R Int : 124 ms QRS Dur : 074 ms QT Int : 304 ms P-R-T Axes : 080 082 082 degrees QTc Int : 403 ms Sinus tachycardia. Otherwise normal ECG When compared with ECG of 29-AUG-2018 19:34, (Unconfirmed) QT has shortened Unconfirmed Result
[2018-10-01] MEDS: ZYVOX 600 MG/D5W 600 MG/300 ML IVPB IV SCH ×2 (08:43→20:16)
[2018-10-01] MEDS: SODIUM CHLORIDE 0.9% INJ SCH ×2 (08:43→20:23)
[2018-10-01] MEDS: PEPCID IV SCH ×2 (08:43→20:16)
--- NOTE | 2018-10-01 13:48 | PROGRESS NOTE ---
DATE: 10/01/2018 SUBJECTIVE: This morning, Ms. Dominguez continued to be intubated. There is no family member at the bedside for any interim history. Per the nursing staff, she is stable. OBJECTIVE: Vital Signs: Blood pressure is 113/86, pulse of 75, respirations are 10, temperature is 99.7 degrees. She did have a couple elevations in her temperatures early on. General Examination: Ms. Dominguez is a 48-year-old, female. She is in bed, intubated, and sedated on propofol. She seems to be synchronizing well. HEENT: Mucosa is pink and moist. Anicteric. Acyanotic. Neck: Supple. Chest: Good air entry bilaterally. A few crackles in the posterior lung cochran. Cardiovascular: Regular rate and rhythm. Abdomen: Soft. There is a PEG tube in place. Bowel sounds present. No hepatosplenomegaly. Extremities: No pedal edema. Distal pulses are present. VEST FRONT PRESSER: The patient is intubated and sedated. Pupils are relatively pinpoint but reactive and she does have gag reflex. She would move the lower extremities to painful stimulation. Laboratory Data: WBCs 7.08, hemoglobin is 10.1, platelet count of 176,000. Chemistry is also reviewed. Sodium is down to 146, potassium is 3.8, chloride is 110, creatinine is back to normal. AST and ALT are also getting better. Imaging Studies: A chest x-ray this morning continues to show persistent infiltrates bilaterally. So far, the sputum culture shows no growth and the blood cultures have also shown no growth. ASSESSMENT: 1. Acute on chronic hypoxemic respiratory failure. Patient is intubated. 2. Shock, presumably septic. So far, blood cultures and sputum culture have been negative. The patient is not needing any more pressors. We will continue with the current antimicrobial coverage. 3. Acute kidney injury secondary to volume depletion, improved. 4. Hypernatremia with hyperchloremia, getting better. We will continue with the current fluid. 5. Mildly elevated troponin secondary to demand ischemia. 6. Recently diagnosed encephalopathy with vegetative state. 7. Acute on chronic liver disease (known hepatitis C). 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 So far, blood cultures and sputum cultures have been negative. We will continue with the current antimicrobial coverage until she is extubated and the final culture reports. cc: Yossi Mendoza MD
[2018-10-01] MEDS: LOVENOX SUBQ SCH (20:16)
--- NOTE | 2018-10-01 20:34 | PULMONOLOGY PROGRESS NOTE ---
DATE: 10/01/2018 SUBJECTIVE: The patient is on mechanical ventilation. She is slightly restless. She does not have a spontaneous respiratory effort with holding mechanical ventilation. OBJECTIVE: Vital Signs: Maximum temperature in the last 24 hours 100.2 degrees, BP 117/80, heart rate 71, respiratory rate 11, oxygen saturation 98%. HEENT: Pupils are equal and reactive. Oropharynx appears clear. Neck: Is supple. Chest: Reveals coarse rhonchi bilaterally. Cardiac exam: S1-S2. Abdomen: Is soft with positive bowel sounds. Extremities: Reveal trace edema. LABORATORIES: Sodium 146, potassium 3.8, chloride 110, bicarbonate 23, BUN 29, creatinine 0.9. White blood count 7.0, hemoglobin 10.1, platelet count 176,000. Sputum culture reveals no growth. Chest x-ray reveals stable bibasilar infiltrates. IMPRESSION: A 48-year-old with: 1. Pneumonia. 2. Fevers. 3. Acute hypoxemic respiratory failure. 4. Acute renal failure. 5. Hypernatremia with improvement. 6. Active hepatitis C. 7. Encephalopathy/vegetative state. PLAN: 1. Continue current ventilator settings. We will perform daily weaning trials. 2. Continue current antibiotic regimen. 3. Agree with ongoing free water replacement. 4. Overall prognosis is poor. This will likely be a recurrent process for this patient. TIME SPENT IN CRITICAL CARE MANAGEMENT: 30+ minutes. cc: Roosevelt Linares MD
[2018-10-02] MEDS: DUONEB (A & A) INH SCH ×4 (03:37→22:00)
[2018-10-02] MEDS: DIPRIVAN 1% 1,000 MG/100 ML BOTTLE IV SCH (03:42)
[2018-10-02] MEDS: D5 1/2 NS + KCL 20 MEQ 1,000 ML IV SCH ×3 (03:42→22:09)
[2018-10-02] MEDS: ATIVAN IV PRN ×6 (03:53→23:25)
[2018-10-02] MEDS: MORPHINE IV PRN ×8 (03:54→23:25)
[2018-10-02 04:23] LABS: ALLEN TEST YES; BE -0.8 mmoll (-3.0-3.0); BLOOD TYPE ARTERIAL; HCO3-(ACT) 24.3 mmoll (20.0-26.0); O2(CT) 11.9 mL/dL (15.0-23.0); O2HB 94.8 % (95.0-99.0); PCO2(98.6) 29 mmHg (35-45); PO2(98.6) 68 mmHg (60-100); SAMPLE BLOOD; SAO2 97.1 % (95.0-100.0); SRATE 10 BPM; THB 8.9 g/dL (11.5-17.4); TVOL 650 mL; pH(98.6) 7.49 (7.35-7.45)
[2018-10-02 04:25] LABS: MODALITY VENTILATOR
[2018-10-02] MEDS: ZOSYN 2.25 GM in NS 50 ML IV SCH ×4 (05:43→23:25)
[2018-10-02 06:06] LABS: BASO# 0.01 X1000 (0.0-0.2); BASO% 0.2 % (0.0-0.8); EOS# 0.28 X1000 (0.0-0.7); EOS% 4.4 % (0.0-10.0); HEMATOCRIT 32.4 % (37.0-47.0); HEMOGLOBIN 10.6 g/dL (12.0-16.0); IMM GRAN# 0.05 X1000 (0.0-0.04); IMM GRAN% 0.8 % (0.0-0.5); LYMPH# 1.56 X1000 (1.2-3.4); LYMPH% 24.3 % (20.5-51.1); MCHC 32.7 g/dL (33-37); MCV 91.8 FL (81-99); MONO# 0.45 X1000 (0.11-0.59); MPV 13.1 FL (7.4-10.4); NEUT# 4.06 X1000 (1.4-6.5); NEUT% 63.3 % (42.2-75.2); PLT 165 X1000 (130-400); RBC 3.53 XMIL (4.2-5.4); RDW 11.6 % (11.5-14.5); WBC 6.41 X1000 (4.8-10.8)
[2018-10-02 06:26] LABS: AGAP 13; ALB/GLOB RATIO 0.7; ALBUMIN 2.7 g/dL (3.5-5.0); ALKALINE PHOSPHATASE 404 U/L (32-104); BUN 14 mg/dL (8-22); CHLORIDE 104 mmol/L (98-107); COSMO 274; CREATININE 0.8 mg/dL (0.5-0.9); ESTIMATED GFR > 60; GLUCOSE 94 mg/dL (70-104); GOT 62 U/L (10-30); GPT 81 U/L (10-36); SODIUM 137 mmol/L (136-145); TCO2 20 mmol/L (25-35); TOTAL BILIRUBIN 0.52 mg/dL (0.20-1.00); TOTAL PROTEIN 6.5 g/dL (6.3-8.3)
--- NOTE | 2018-10-02 07:08 | Diag Imaging Result Doc PS360 ---
EXAM: CHEST-PORTABLE 10/02/2018 HISTORY: dyspnea TECHNIQUE: AP portable at 0517. COMMENT: There is an endotracheal tube with its tip in the thoracic inlet. Compared to 10/01/2018 there has been marked improvement in the opacity in the left parahilar region and lower lobe. There is some platelike atelectasis in the right lower lobe which is slightly worse than on the previous study. IMPRESSION: Improved left lower lobe pneumonia. Slightly worsened right basilar atelectasis. Electronically signed by Sandro Monterroso 10/02/2018 7:06 AM
[2018-10-02] MEDS: PEPCID IV SCH ×2 (08:27→20:05)
[2018-10-02] MEDS: SODIUM CHLORIDE 0.9% INJ SCH ×2 (08:27→20:04)
[2018-10-02] MEDS: ZYVOX 600 MG/D5W 600 MG/300 ML IVPB IV SCH ×2 (08:27→20:05)
[2018-10-02] MEDS: XANAX PEG SCH ×3 (10:11→20:05)
--- NOTE | 2018-10-02 10:15 | PROGRESS NOTE ---
DATE: 10/02/2018 SUBJECTIVE: This morning, Ms. dick Dominguez continues to be intubated, but she is just in CPAP mode in attempt to get her extubated. OBJECTIVE: Vital signs: Blood pressure is 140/97, pulse of 99, respirations 19, temperature 99.5 degrees. General: Ms. Dominguez is a 48-year-old female. She is in bed. She seems to be fighting a little bit over ventilator. HEENT: Mucosa is pink and moist. Anicteric. Acyanotic. Neck: Supple. Chest: Good air entry bilateral. A few crackles posteriorly. Cardiovascular: Regular rate and rhythm. Abdomen: Soft. There is a PEG tube in place. Bowel sounds present. No hepatosplenomegaly. Extremities: No pedal edema. Central nervous system: Patient is still intubated. She is moving all extremities. She will not open her eyes or follow any commands. LABORATORY DATA: WBC is down to 6.41, hemoglobin is 10.6, platelet count of 165,000. Chemistry is also reviewed, chemistry is within normal range. AST and ALT are minimally elevated. ASSESSMENT: 1. Acute on chronic hypoxemic respiratory failure. Patient is intubated. Is currently going through spontaneous breathing trial with the hope of getting her extubated. 2. Hypotension on presentation, presumably septic. The patient is still on antimicrobial therapy. 3. Acute kidney injury, resolved. 4. Hypernatremia with hyperchloremia, resolved. 5. Mildly elevated troponin secondary to demand ischemia. 6. Recently diagnosed encephalopathy with vegetative state. 7. Acute on chronic liver disease (known hepatitis C). 8. Left lower lobe pneumonia. Chest x-ray seems to suggest some improvement. We will continue with the current antimicrobial therapy. PLAN: So in general, Ms. Dominguez seems to be doing well. She is on antimicrobial therapy for septic shock due to pneumonia on presentation. Her WBC has normalized. Her chemistry also looks a whole lot better. She is going through spontaneous breathing trial this morning with the hope of getting her of the ventilator and go from there. 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 Ms Dominguez' disposition is going to depend on the rest of her hospital course. She came from [facility]. cc: Yossi Mendoza MD
[2018-10-02] MEDS: LOVENOX SUBQ SCH (20:04)
--- NOTE | 2018-10-02 21:24 | PULMONOLOGY PROGRESS NOTE ---
DATE: 10/02/2018 SUBJECTIVE: The patient's sedation was discontinued. She becomes agitated and tachypneic. She has received intermittent pain medications and benzodiazepines today, but remains agitated. OBJECTIVE: Vital Signs: Maximum temperature today has been 100.4 degrees, BP 158/88, heart rate 101, respiratory rate 18 to 22, oxygen saturation 97%. HEENT: Pupils are equal and reactive. Oropharynx appears clear. Neck: Supple. Chest: Coarse rhonchi bilaterally. Cardiac: Increased rate, regular rhythm. Abdomen: Soft and nontender. Extremities: Without cyanosis or edema. LABORATORIES: Chest x-ray reveals significant improvement in the left perihilar and left lower lobe infiltrates, with some platelike atelectasis on the right now present. Blood cultures are negative. Sputum culture is pending. Sodium 137, potassium 4.0, chloride 104, bicarbonate 20, BUN 14, creatinine 0.8. White blood count 6.4, hemoglobin 10.6, platelet count 165,000. Arterial blood gas reveals pH 7.49, pCO2 of 29, pO2 of 68. IMPRESSION: A 57-year-old with: 1. Bilateral pneumonia. 2. Fevers. 3. Acute hypoxemic respiratory failure. 4. Resolving acute renal failure. 5. Encephalopathy/vegetative state, related to hypoxemia or severe hyperglycemia. 6. Active hepatitis C. PLAN: 1. Will place patient on pressor support today with slight augmentation at a pressure of 15 cm of water. 2. Continue sedation and medications for pain. 3. Overall prognosis is guarded to poor. Patient may require a tracheostomy given the anticipation of recurrent admissions to the hospital. TIME SPENT IN CRITICAL CARE MANAGEMENT: 30+ minutes. cc: Roosevelt Linares MD
[2018-10-03] MEDS: TYLENOL PR PRN ×2 (01:51→20:01)
[2018-10-03] MEDS: ATIVAN IV PRN ×3 (03:19→18:26)
[2018-10-03] MEDS: MORPHINE IV PRN ×4 (03:19→20:01)
[2018-10-03] MEDS: DUONEB (A & A) INH SCH ×4 (03:35→21:21)
[2018-10-03 04:31] LABS: BASO# 0.02 X1000 (0.0-0.2); BASO% 0.3 % (0.0-0.8); EOS# 0.29 X1000 (0.0-0.7); EOS% 3.6 % (0.0-10.0); HEMATOCRIT 30.9 % (37.0-47.0); HEMOGLOBIN 10.2 g/dL (12.0-16.0); IMM GRAN# 0.09 X1000 (0.0-0.04); IMM GRAN% 1.1 % (0.0-0.5); LYMPH% 20.1 % (20.5-51.1); MCH 29.9 PG (27-31); MCV 90.6 FL (81-99); MONO# 0.48 X1000 (0.11-0.59); MPV 12.4 FL (7.4-10.4); NEUT# 5.47 X1000 (1.4-6.5); NEUT% 68.9 % (42.2-75.2); PLT 163 X1000 (130-400); RBC 3.41 XMIL (4.2-5.4); RDW 11.6 % (11.5-14.5); WBC 7.95 X1000 (4.8-10.8)
[2018-10-03 04:56] LABS: ALLEN TEST YES; BE -0.6 mmoll (-3.0-3.0); BLOOD TYPE ARTERIAL; HCO3-(ACT) 24.5 mmoll (20.0-26.0); METHB 0.5 % (0.0-1.5); O2(CT) 8.2 mL/dL (15.0-23.0); PCO2(98.6) 39 mmHg (35-45); PO2(98.6) 92 mmHg (60-100); SAMPLE BLOOD; SAO2 99.3 % (95.0-100.0); THB 5.9 g/dL (11.5-17.4)
[2018-10-03 04:57] LABS: MODALITY VENTILATOR
[2018-10-03 05:09] LABS: AGAP 10; ALBUMIN 2.7 g/dL (3.5-5.0); BUN 6 mg/dL (8-22); CALCIUM 8.5 mg/dL (8.8-10.2); CHLORIDE 101 mmol/L (98-107); COSMO 266; CREATININE 0.8 mg/dL (0.5-0.9); ESTIMATED GFR > 60; GLUCOSE 108 mg/dL (70-104); PHOSPHORUS 3.5 mg/dL (2.7-4.5); POTASSIUM 3.5 mmol/L (3.5-5.1); SODIUM 134 mmol/L (136-145); TCO2 23 mmol/L (25-35)
[2018-10-03] MEDS: ZOSYN 2.25 GM in NS 50 ML IV SCH ×4 (05:36→23:57)
[2018-10-03] MEDS: XANAX PEG SCH ×3 (05:36→20:06)
--- NOTE | 2018-10-03 07:31 | Diag Imaging Result Doc PS360 ---
EXAM: CHEST-PORTABLE HISTORY: vent TECHNIQUE: Portable chest single view COMPARISON: 10/02/2018 FINDINGS: Endotracheal tube in good position. The lungs are well expanded. No cardiomegaly. No definite infiltrates in the left lung. Atelectasis or infiltrates in the lower right lung. No pleural effusions identified. IMPRESSION: Stable chest. Electronically signed by Salvador Martínez 10/03/2018 7:29 AM
[2018-10-03] MEDS: PEPCID IV SCH ×2 (08:29→20:06)
[2018-10-03] MEDS: ZYVOX 600 MG/D5W 600 MG/300 ML IVPB IV SCH ×2 (08:29→20:01)
[2018-10-03] MEDS: SODIUM CHLORIDE 0.9% INJ SCH ×2 (08:30→20:06)
--- NOTE | 2018-10-03 15:28 | PROGRESS NOTE ---
DATE: 10/03/2018 INTERVAL HISTORY: The patient remains intubated but off sedation for a spontaneous breathing trial. Discussed with Pulmonology and they plan to extubate later today. Arouses when stimulated but not following any commands currently. No acute events overnight. REVIEW OF SYSTEMS: Unable to obtain secondary to patient's mental status. LABORATORY: WBC 7.95, hemoglobin 10.2, hematocrit 30.9, platelets 163. ABG with pH 7.4, pCO2 39, pO2 92. Sodium 134, potassium 3.5, bicarb 23, BUN 6, creatinine 0.8, glucose 108. IMAGING: Chest x-ray essentially unchanged from previous. Still atelectasis at the right base. VITALS: T-max 100.8, pulse 88, respirations 16, blood pressure 110/92, O2 saturation 96% on ventilator on CPAP mode. PHYSICAL EXAMINATION: General: No acute distress, intubated. Vitals: As above. HEENT: Normocephalic, atraumatic. Moist mucous membranes. No cervical adenopathy. Cardiovascular: Regular rate and rhythm. No murmurs noted. Pulmonary: Few scattered rhonchi, good air entry. Abdomen: Soft, nontender, nondistended. PEG tube in place. Bowel sounds positive. Extremities: Peripheral pulses intact. No clubbing or cyanosis. Neurologic: Exam limited by patient intubation and mental status. Moves both hips intermittently. Does not follow any commands. Psychiatric: Exam limited by mental status. Quite encephalopathic. Does arouse to noxious stimuli. Appears oriented x0. Skin: No new rashes or lesions identified. ASSESSMENT AND PLAN: 1. Sepsis secondary to pneumonia. Still some low-grade fevers overnight but appears to be trending down. Leukocytosis resolved. Doing well on the ventilator and may be able to extubate later today. Does appear clinically improved. Continue antibiotics with Zyvox and Zosyn for now. Monitor closely. 2. Hypotension improved. Continue to monitor. 3. Acute kidney injury resolved with intravenous fluid and treatment of sepsis. Continue to monitor. 4. Elevated troponin. Secondary to demand ischemia/type 2 myocardial infarction. Monitor. 5. Chronic encephalopathy. Patient with hypoxic versus hypoglycemic brain injury on previous admission. Has been largely vegetative since then. Prognosis likely poor. 6. Chronic hepatitis C, known, stable. 7. Hypertension reasonably well-controlled at this time. 8. Gastroesophageal reflux disease. Continue proton pump inhibitor. 9. Hypernatremia, resolved with fluid. Sodium actually slightly low today. 10.Disposition: Hopefully extubated today. Continue to monitor fevers. If she continues to improve then may be able to back to her facility in a few days.
--- NOTE | 2018-10-03 18:11 | PULMONOLOGY PROGRESS NOTE ---
DATE: 10/03/2018 SUBJECTIVE: The patient is less agitated this morning. She does not follow commands. She was placed on pressure support of 5 and has no increased work of breathing. No change in minute ventilation. OBJECTIVE: Vital Signs: Maximum temperature in the last 24 hours 100.6 degrees, current temperature 96.8 degrees, BP 130/81, heart rate 83, respiratory rate 14, oxygen saturation 96%. HEENT: Pupils are equal. Oropharynx appears clear. Neck: Supple. Chest: Reveals occasional rhonchi bilaterally. Cardiac exam: S1, S2. Abdomen: Soft. Extremities: Without edema. LABORATORIES: Sodium 134, potassium 3.5, chloride 101, bicarbonate 23, BUN 6, creatinine 0.8. White blood count 7.95, hemoglobin 10.2, platelet count 163,000. Arterial blood gas, pH 7.40, pCO2 of 39, pO2 of 92 on pressure support ventilation. IMPRESSIONS: A 48-year-old with: 1. Encephalopathy/vegetative state. 2. Pneumonia with radiographic improvement. 3. Fevers. The patient is afebrile this morning. 4. Acute hypoxemic respiratory failure with improvement. 5. Renal failure on presentation which has resolved. 6. Active hepatitis C. PLAN: 1. Extubate this morning. 2. Continue p.r.n. sedation/pain medications for agitation. 3. Overall prognosis is poor. CRITICAL CARE TIME: Time spent in critical care management, 30+ minutes. cc: Roosevelt Linares MD MTDD
[2018-10-03] MEDS: LOVENOX SUBQ SCH (20:01)
[2018-10-03] MEDS: NEOSPORIN OINTMENT TUBE TOP SCH (20:04)
[2018-10-04] MEDS: MORPHINE IV PRN ×5 (02:51→22:56)
[2018-10-04] MEDS: DUONEB (A & A) INH SCH ×4 (03:26→21:32)
[2018-10-04] MEDS: ZOSYN 2.25 GM in NS 50 ML IV SCH ×4 (04:58→22:25)
[2018-10-04] MEDS: ATIVAN IV PRN ×5 (04:58→22:25)
[2018-10-04] MEDS: XANAX PEG SCH ×3 (04:59→20:00)
[2018-10-04 05:18] LABS: BASO# 0.01 X1000 (0.0-0.2); BASO% 0.1 % (0.0-0.8); EOS# 0.27 X1000 (0.0-0.7); EOS% 2.9 % (0.0-10.0); HEMATOCRIT 32.1 % (37.0-47.0); HEMOGLOBIN 10.8 g/dL (12.0-16.0); IMM GRAN# 0.06 X1000 (0.0-0.04); IMM GRAN% 0.6 % (0.0-0.5); LYMPH# 1.46 X1000 (1.2-3.4); LYMPH% 15.6 % (20.5-51.1); MCH 30.2 PG (27-31); MCHC 33.6 g/dL (33-37); MCV 89.7 FL (81-99); MONO# 0.58 X1000 (0.11-0.59); MONO% 6.2 % (1.7-9.3); MPV 12.3 FL (7.4-10.4); NEUT% 74.6 % (42.2-75.2); PLT 172 X1000 (130-400); RBC 3.58 XMIL (4.2-5.4); RDW 11.6 % (11.5-14.5); WBC 9.38 X1000 (4.8-10.8)
[2018-10-04] MEDS: PEPCID IV SCH ×2 (08:27→19:59)
[2018-10-04] MEDS: SODIUM CHLORIDE 0.9% INJ SCH (08:27)
[2018-10-04] MEDS: ZYVOX 600 MG/D5W 600 MG/300 ML IVPB IV SCH ×2 (08:27→20:22)
[2018-10-04] MEDS: NEOSPORIN OINTMENT TUBE TOP SCH ×2 (09:05→19:59)
--- NOTE | 2018-10-04 09:49 | Diag Imaging Result Doc PS360 ---
EXAM: CHEST-PORTABLE HISTORY: pneumonia, extubated TECHNIQUE: Chest single view COMPARISON: 10/03/2018 FINDINGS: The lungs are well expanded. Interval removal of the endotracheal tube. The heart is not enlarged. The vessels are not distended. There are no infiltrates. No effusion identified. IMPRESSION: Negative exam. Electronically signed by Salvador Martínez 10/04/2018 9:46 AM
--- NOTE | 2018-10-04 16:53 | PROGRESS NOTE ---
DATE: 10/04/2018 INTERVAL HISTORY: Patient successfully extubated yesterday, but remains completely encephalopathic. Does have some spontaneous movement but nothing purposeful. Follows no commands. Completely nonverbal. One low-grade fever last night but nothing so far today. No other acute events overnight. Discussed patient's situation with family. They initially decided to make the patient DNR 2, withholding only cpr. However, after further discussion with palliative care, they elected to make her DNR level 1. We will continue further discussion with family. REVIEW OF SYSTEMS: Unable to obtain secondary to mental status. LABS: WBC 9.3, hemoglobin 10.8, hematocrit 32.1, platelets 172,000. VITAL SIGNS: T-max 100.5 degrees, pulse 85, respirations 15, blood pressure 133/84, O2 saturation 98% on 4 L by nasal cannula. PHYSICAL EXAMINATION: General: No acute distress. Vital signs: As above. HEENT: Normocephalic, atraumatic. Moist mucous membranes. No cervical adenopathy. Cardiovascular: Regular rate and rhythm. No murmurs noted. Pulmonary: Still a few scattered rhonchi but otherwise clear and good air entry throughout. Abdomen: Soft, nontender, nondistended. PEG tube in place. Bowel sounds positive. Extremities: Peripheral pulses intact. No clubbing or cyanosis. Neurologic: Exam limited by patient mental status but does move all extremities non- purposefully intermittently. Psychiatric: Patient remains encephalopathic, but arouses to noxious stimuli. Skin: No new rashes or lesions identified. ASSESSMENT AND PLAN: 1. Sepsis secondary to pneumonia. Still 1 low-grade fever overnight but appears to be resolving. Leukocytosis resolved on last check. Successfully extubated and doing well from a respiratory standpoint. Continue antibiotics with Zyvox and Zosyn for now and monitor closely. 2. Hypotension, resolved. Monitor. 3. Acute kidney injury. This appears to be resolved with IV fluids and treatment of sepsis as above. Monitor. 4. Elevated troponin, likely demand ischemia/type 2 myocardial infarction. No need for acute intervention at this time. 5. Chronic encephalopathy. Patient with hypoxic versus hypoglycemic brain injury on previous admission. Has been largely vegetative since then. Prognosis likely poor. Ongoing code and goals of care discussions with family as above. 6. Chronic hepatitis C, known. Stable. 7. Hypertension. Control reasonable. Monitor. 8. Gastroesophageal reflux disease. Continue PPI. 9. Hypernatremia. Resolved on last check. Monitor. 10. Disposition. Patient successfully extubated. Goals of care discussions ongoing with family. If they wish to continue to pursue treatment, then may be able to discharge back to facility in a couple days if her fevers go away and oxygen requirements decrease. If family elects to go comfort care/hospice, then could discharge at any time. [facility]
[2018-10-04] MEDS: LOVENOX SUBQ SCH (20:00)
[2018-10-05] MEDS: ATIVAN IV PRN ×4 (00:50→20:42)
[2018-10-05] MEDS: MORPHINE IV PRN ×4 (01:47→22:15)
[2018-10-05] MEDS: DUONEB (A & A) INH SCH ×4 (03:44→21:32)
[2018-10-05] MEDS: ZOSYN 2.25 GM in NS 50 ML IV SCH ×3 (04:32→17:08)
[2018-10-05] MEDS: XANAX PEG SCH ×3 (04:33→22:09)
[2018-10-05 06:00] LABS: BASO# 0.01 X1000 (0.0-0.2); BASO% 0.1 % (0.0-0.8); EOS# 0.24 X1000 (0.0-0.7); EOS% 3.2 % (0.0-10.0); HEMATOCRIT 31.2 % (37.0-47.0); HEMOGLOBIN 10.4 g/dL (12.0-16.0); IMM GRAN# 0.04 X1000 (0.0-0.04); IMM GRAN% 0.5 % (0.0-0.5); LYMPH# 1.21 X1000 (1.2-3.4); LYMPH% 16.4 % (20.5-51.1); MCH 30.3 PG (27-31); MCHC 33.3 g/dL (33-37); MONO# 0.43 X1000 (0.11-0.59); MONO% 5.8 % (1.7-9.3); MPV 12.1 FL (7.4-10.4); NEUT# 5.47 X1000 (1.4-6.5); PLT 159 X1000 (130-400); RBC 3.43 XMIL (4.2-5.4); RDW 11.6 % (11.5-14.5)
[2018-10-05 06:33] LABS: AGAP 15; BUN 9 mg/dL (8-22); CALCIUM 9.3 mg/dL (8.8-10.2); CHLORIDE 97 mmol/L (98-107); COSMO 270; CREATININE 0.6 mg/dL (0.5-0.9); ESTIMATED GFR > 60; GLUCOSE 85 mg/dL (70-104); POTASSIUM 3.7 mmol/L (3.5-5.1); SODIUM 136 mmol/L (136-145); TCO2 24 mmol/L (25-35)
--- NOTE | 2018-10-05 07:33 | PULMONOLOGY PROGRESS NOTE ---
DATE: 10/05/2018 SUBJECTIVE: The patient is lying in bed in a curled position. She does not respond to voice. OBJECTIVE: Vital Signs: Maximum temperature in the last 24 hours 100.5 degrees, blood pressure 128/83, heart rate 89, respiratory rate 14, oxygen saturation 96% on 4 L nasal cannula. HEENT: Pupils are equal and reactive. Oropharynx appears dry, but clear. Neck: Supple. Chest: Reveals occasional rhonchi bilaterally. Cardiac: S1-S2. Abdomen: Soft and without hepatosplenomegaly. Extremities: Without edema. LABORATORIES: White blood count 9.38, hemoglobin 10.8, platelet count 172,000. Chest x-ray reveals no evidence of acute disease. IMPRESSION: A 48-year-old with: 1. Encephalopathy/persistent vegetative state. 2. Pneumonia with continued radiographic improvement. 3. Low-grade fevers. 4. Acute hypoxemic respiratory failure. 5. Active hepatitis C. PLAN: 1. Current current antibiotic regimen. 2. Continue bronchial hygiene. 3. Overall prognosis is poor. Resuscitation has been addressed by Dr. Hung. cc: Roosevelt Linares MD
[2018-10-05] MEDS: NEOSPORIN OINTMENT TUBE TOP SCH ×2 (08:46→22:10)
[2018-10-05] MEDS: PEPCID IV SCH ×2 (08:49→22:09)
[2018-10-05] MEDS: ZYVOX 600 MG/D5W 600 MG/300 ML IVPB IV SCH ×2 (08:49→22:09)
--- NOTE | 2018-10-05 20:46 | PROGRESS NOTE ---
DATE: 10/05/2018 INTERVAL HISTORY: Patient continuing to do well off of the ventilator with oxygen weaned down to nasal cannula. Remains densely encephalopathic. No fevers in the last 24 hours. REVIEW OF SYSTEMS: Unable to obtain secondary to patient's mental status. LABORATORY: WBC 7.4, hemoglobin 10.4, hematocrit 31.2, platelets 159,000. Sodium 136, potassium 3.7, bicarbonate 24, BUN 9, creatinine 0.6, glucose 85. PHYSICAL EXAMINATION: vitals: Temperature max 99.7 degrees, pulse 14, blood pressure 127/76, O2 saturation is 98% on 3 L by nasal cannula. General: No acute distress. HEENT: Normocephalic, atraumatic. Moist mucous membranes. No cervical adenopathy. Cardiovascular: Regular rate and rhythm. No murmurs noted. Pulmonary: Largely clear to auscultation bilaterally. No wheezing. Good air entry. Abdomen: Soft, nontender, nondistended. PEG tube in place. Bowel sounds positive. Extremities: Peripheral pulses intact. No clubbing or cyanosis. Neurologic: Exam limited, but the patient will occasionally move extremities spontaneously, but not purposefully. Pupils equal, round, reactive to light. Psychiatric: The patient remains completely encephalopathic. Arouses to noxious stimuli, but no purposeful movement. Nonverbal. ASSESSMENT AND PLAN: 1. Sepsis secondary to pneumonia. Had low-grade fevers for a while, but none in the last 24 hours. Leukocytosis remains resolved. Doing well after extubation. Continue Zyvox and Zosyn for now, but can likely transition to p.o. antibiotics in the next 24 to 48 hours if she continues to improve. 2. Hypotension. Resolved. Monitor. 3. Acute kidney injury. Resolved with IV fluids and treatment of sepsis. Monitor kidney function. 4. Elevated troponin, likely demand ischemia/type 2 myocardial infarction. No need for acute intervention at this time. 5. 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 This occurred on previous admission and has remained largely vegetative since then. Occasionally wakes up and moves, but is completely nonverbal and does not follow any commands. Prognosis is likely poor. After discussions yesterday, patient is now DNR. Will continue goals of care discussions with family as possible. 6. Chronic hepatitis C. Known. Stable. 7. Hypertension. Reasonable control. Monitor. 8. Gastroesophageal reflux disease. Continue PPI. 9. Hypernatremia. Remains resolved. Monitor. 10. Disposition. Patient doing well since extubation. Will move to the floor. If she continues to improve, will discuss home versus discharge to facility with family. If family elects to go comfort care, then she can be discharged at any time. ENRIQUETA
[2018-10-05] MEDS: SODIUM CHLORIDE 0.9% INJ SCH (22:09)
[2018-10-05] MEDS: LOVENOX SUBQ SCH (22:10)
[2018-10-06] MEDS: ZOSYN 2.25 GM in NS 50 ML IV SCH ×5 (01:18→23:30)
[2018-10-06] MEDS: MORPHINE IV PRN (02:45)
[2018-10-06] MEDS: DUONEB (A & A) INH SCH ×4 (03:33→21:38)
[2018-10-06] MEDS: ATIVAN IV PRN ×3 (03:42→17:02)
[2018-10-06] MEDS: XANAX PEG SCH ×3 (04:51→21:13)
[2018-10-06 08:10] LABS: BASO# 0.01 X1000 (0.0-0.2); BASO% 0.1 % (0.0-0.8); EOS# 0.12 X1000 (0.0-0.7); EOS% 1.3 % (0.0-10.0); HEMOGLOBIN 10.3 g/dL (12.0-16.0); IMM GRAN# 0.03 X1000 (0.0-0.04); IMM GRAN% 0.3 % (0.0-0.5); LYMPH# 1.48 X1000 (1.2-3.4); LYMPH% 15.8 % (20.5-51.1); MCH 29.7 PG (27-31); MCHC 33.2 g/dL (33-37); MCV 89.3 FL (81-99); MONO# 0.62 X1000 (0.11-0.59); MONO% 6.6 % (1.7-9.3); MPV 11.3 FL (7.4-10.4); NEUT# 7.11 X1000 (1.4-6.5); NEUT% 75.9 % (42.2-75.2); PLT 205 X1000 (130-400); RBC 3.47 XMIL (4.2-5.4); RDW 11.7 % (11.5-14.5); WBC 9.37 X1000 (4.8-10.8)
[2018-10-06 08:44] LABS: CHLORIDE 100 mmol/L (98-107); POTASSIUM 3.3 mmol/L (3.5-5.1); SODIUM 137 mmol/L (136-145); TCO2 26 mmol/L (25-35)
[2018-10-06 08:45] LABS: AGAP 11; BUN 12 mg/dL (8-22); CALCIUM 9.3 mg/dL (8.8-10.2); COSMO 275; CREATININE 0.7 mg/dL (0.5-0.9); ESTIMATED GFR > 60; GLUCOSE 124 mg/dL (70-104)
[2018-10-06] MEDS: PEPCID IV SCH ×2 (11:03→21:14)
[2018-10-06] MEDS: NEOSPORIN OINTMENT TUBE TOP SCH ×2 (11:03→21:00)
[2018-10-06] MEDS: ZYVOX 600 MG/D5W 600 MG/300 ML IVPB IV SCH ×2 (11:04→22:30)
[2018-10-06] MEDS: POTASSIUM CHLORIDE 20 MEQ/SWI 20 MEQ/100 ML IVPB IV SCH ×2 (11:12→15:52)
--- NOTE | 2018-10-06 11:24 | PULMONOLOGY PROGRESS NOTE ---
DATE: 10/05/2018 SUBJECTIVE: The patient is easily agitated and is continuously moving in her bed. She does not follow commands. OBJECTIVE: Vital Signs: The patient has been afebrile for the last 24 hours. Blood pressure 127/76, heart rate 96, respiratory rate 14, oxygen saturation 98% on 3 L per nasal cannula. HEENT: Pupils are equal. Oropharynx appears clear, but evaluation is limited, because patient will not participate in the exam. Neck: Supple. Chest: Clear to auscultation. Cardiac: S1- S2. Abdomen: Soft. Extremities: Reveals prior surgery. LABORATORIES: White blood count 7.4, hemoglobin 10.4, platelet count 159,000. Sodium 136, potassium 3.7, chloride 97, bicarbonate 24, BUN 9, creatinine 0.6. IMPRESSION: A 48-year-old with: 1. Encephalopathy/persistent vegetative state. 2. Pneumonia. 3. Hypoxemic respiratory failure. 4. Active hepatitis C. PLAN: 1. Continue antibiotic regimen. 2. Continue bronchial hygiene. 3. Re-initiate PEG tube feedings. cc: Roosevelt Linares MD
[2018-10-06] MEDS: NORCO-7.5 PEG PRN ×2 (15:56→21:13)
[2018-10-06] MEDS: DILAUDID IV PRN ×2 (17:59→23:56)
--- NOTE | 2018-10-06 20:19 | PROGRESS NOTE ---
DATE: 10/06/2018 INTERVAL HISTORY: Patient remains arousable but with no cough. Does not respond verbally. Does not follow any commands. No purposeful movements. Respiratory status remains stable. REVIEW OF SYSTEMS: Unable to obtain secondary to patient mental status. LABS: WBC 9.3, hemoglobin 10.3, hematocrit 31.0, platelets 205,000. Sodium 137, potassium 3.3, BUN 12, creatinine 0.7, glucose 124. VITALS: T-max 99.1 degrees, pulse 102, respirations 18, blood pressure 91/49, O2 saturation 98% on 2 L by nasal cannula. PHYSICAL EXAMINATION: General: No acute distress, but does become agitated easily with minimal stimulation. No purposeful movement. No following commands. Moves all extremities, but does not open eyes. HEENT: Normocephalic, atraumatic. Moist mucous membranes. No cervical adenopathy. Cardiovascular: Regular rate and rhythm. No murmurs noted. Pulmonary: Largely clear to auscultation at this point. Good air entry. Abdomen: Soft, nontender, nondistended. PEG tube in place. Bowel sounds positive. Extremities: Peripheral pulses intact. No clubbing or cyanosis. Neurologic: Nonpurposeful movement of all extremities as above. Pupils equal, round, reactive to light, but does not really open eyes spontaneously. Psychiatric: The patient remains severely encephalopathic. He is agitated to fairly minimal stimuli but no purposeful movements, completely nonverbal. ASSESSMENT AND PLAN: 1. Sepsis secondary to pneumonia. Leukocytosis remains resolved, doing well after extubation. Oxygen requirements, essentially none at this point. On Zyvox and Zosyn currently. Can likely transition to p.o. antibiotics on discharge at this point. 2. Hypotension, resolved. Monitor. 3. Acute kidney injury, resolved. Monitor kidney function. 4. Demand ischemia/type 2 SD. Improved. 5. 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 This occurred on previous admission and patient has remained vegetative since then. Does arouse to fairly minimal stimuli but no purposeful movements. No verbal response. Prognosis likely very poor. The patient was made to DNR a couple days ago. I have not seen family today but will continue goals of care discussions as possible. 6. Chronic hepatitis C, known, stable. 7. Hypertension, reasonable control. We will monitor. 8. Gastroesophageal reflux disease. Continue PPI. 9. Hypernatremia, resolved. Monitor. 10. Disposition. The patient likely approaching maximal benefit of hospitalization. Patient will likely be stable enough for transition to p.o. antibiotics and discharge back to a facility early next week. I believe family does not want her to go back to [facility], so we will see what mental health social worker says about placement options.
[2018-10-06] MEDS: LOVENOX SUBQ SCH (21:14)
[2018-10-07] MEDS: DUONEB (A & A) INH SCH ×4 (03:26→21:18)
[2018-10-07] MEDS: ZOSYN 2.25 GM in NS 50 ML IV SCH ×3 (04:16→17:05)
[2018-10-07] MEDS: DILAUDID IV PRN ×3 (04:16→13:16)
[2018-10-07] MEDS: XANAX PEG SCH ×2 (04:17→12:38)
[2018-10-07 07:51] LABS: BASO# 0.02 X1000 (0.0-0.2); BASO% 0.3 % (0.0-0.8); EOS# 0.12 X1000 (0.0-0.7); EOS% 1.6 % (0.0-10.0); HEMATOCRIT 29.9 % (37.0-47.0); HEMOGLOBIN 9.9 g/dL (12.0-16.0); LYMPH# 1.51 X1000 (1.2-3.4); LYMPH% 19.9 % (20.5-51.1); MCH 30.1 PG (27-31); MCHC 33.1 g/dL (33-37); MCV 90.9 FL (81-99); MONO# 0.49 X1000 (0.11-0.59); MONO% 6.5 % (1.7-9.3); MPV 11.1 FL (7.4-10.4); NEUT# 5.44 X1000 (1.4-6.5); NEUT% 71.7 % (42.2-75.2); PLT 191 X1000 (130-400); RBC 3.29 XMIL (4.2-5.4); RDW 11.8 % (11.5-14.5); WBC 7.58 X1000 (4.8-10.8)
[2018-10-07 08:13] LABS: AGAP 13; BUN 11 mg/dL (8-22); CALCIUM 9.2 mg/dL (8.8-10.2); CHLORIDE 103 mmol/L (98-107); COSMO 284; CREATININE 0.6 mg/dL (0.5-0.9); ESTIMATED GFR > 60; GLUCOSE 118 mg/dL (70-104); POTASSIUM 3.9 mmol/L (3.5-5.1); SODIUM 142 mmol/L (136-145); TCO2 26 mmol/L (25-35)
[2018-10-07] MEDS: ZYVOX 600 MG/D5W 600 MG/300 ML IVPB IV SCH ×2 (08:54→23:22)
[2018-10-07] MEDS: SODIUM CHLORIDE 0.9% INJ SCH (08:55)
[2018-10-07] MEDS: PEPCID IV SCH (08:55)
[2018-10-07] MEDS: NEOSPORIN OINTMENT TUBE TOP SCH (08:58)
--- NOTE | 2018-10-07 15:27 | PROGRESS NOTE ---
DATE: 10/07/2018 INTERVAL HISTORY: Patient a little more awake but remains quite encephalopathic. Some rocking or random limb movement but nothing purposeful. Completely nonverbal. No acute events overnight. REVIEW OF SYSTEMS: Unable to obtain secondary to patient mental status. LABS: WBC 7.5, hemoglobin 9.9, hematocrit 29.9, platelets 191,000. Sodium 142, potassium 3.9, BUN 11, creatinine 0.6, glucose 118. VITALS: T-max 98.3 degrees, pulse 95, respirations 16, blood pressure 162/99, O2 saturation 97% on room air. PHYSICAL EXAM: General: Intermittently agitated especially with even minimal stimulation. No purposeful movement. Does not follow any commands. Does not respond verbally at all. HEENT: Normocephalic, atraumatic. Poor dentition. Moist mucous membranes. No cervical adenopathy. Cardiovascular: Regular rate and rhythm. No murmurs noted. Pulmonary: Clear to auscultation bilaterally. Abdomen: Soft, nontender, nondistended. PEG tube in place. Bowel sounds present. Extremities: Peripheral pulses intact. No clubbing or cyanosis. Neurologic: Nonpurposeful movement of all extremities as above although appears to have better movement at the proximal joints than the distal ones. Pupils equal, round, reactive to light. Opening eyes more today and appears to have full eye movement but does not really track. Psychiatric: Patient remains severely encephalopathic. Nonverbal, noncooperative, intermittent agitation. ASSESSMENT AND PLAN: 1. Sepsis secondary to pneumonia. Leukocytosis remains resolved on last check. Essentially off oxygen at this point. On Zyvox and Zosyn but will likely transition to p.o. at discharge. Alternately she really only needs 2 to 3 more days of antibiotics if she remains in the hospital. 2. Hypotension resolved. Monitor. 3. Acute kidney injury resolved. Monitor. 4. Demand ischemia/type 2 myocardial infarction, improved. 5. Chronic encephalopathy, anoxic and/or hypoglycemic brain injury. This occurred on previous admission. Patient has remained largely vegetative since then. Arouses but never really becomes alert. No purposeful movement. No verbal responses. Prognosis likely quite poor. Patient recently made do not resuscitate. 6. Chronic hepatitis C, stable. 7. Hypertension, acceptable control. Monitor. 8. Gastroesophageal reflux disease. Continue PPI. 9. Hypernatremia resolved, monitor. 10. Agitation. Patient with frequent agitation, does not really verbalize but does intermittently appear uncomfortable. Have attempted to give benzodiazepines and/or opiates with mixed success. As patient cannot ask for anxiety pain medication. Anxiety medication has been scheduled for a while but will also try scheduling some pain medicine and see if that helps. If patient appears more sedated, may have to discontinue this. Monitor. 11. Disposition. Patient approaching maximum benefit of hospitalization. Likely transfer to facility early next week when bed available.
[2018-10-07] MEDS: ROXANOL CONC. LIQUID PEG SCH (17:05)
[2018-10-08] MEDS: PEPCID IV SCH ×2 (00:14→10:42)
[2018-10-08] MEDS: LOVENOX SUBQ SCH (00:19)
[2018-10-08] MEDS: XANAX PEG SCH ×3 (00:20→14:21)
[2018-10-08] MEDS: ROXANOL CONC. LIQUID PEG SCH ×5 (00:21→14:26)
[2018-10-08] MEDS: NEOSPORIN OINTMENT TUBE TOP SCH ×2 (00:42→14:22)
[2018-10-08] MEDS: DUONEB (A & A) INH SCH ×3 (03:25→15:37)
--- NOTE | 2018-10-08 07:05 | PULMONOLOGY PROGRESS NOTE ---
DATE: 10/07/2018 SUBJECTIVE: The patient is awake. She does not follow commands. She appears to be in some psychologic anguish. OBJECTIVE: Vital Signs: The patient has been afebrile for the last 24 hours. Blood pressure 162/99, heart rate 90, respiratory rate 16, oxygen saturation 95% on room air. HEENT: Pupils are equal and reactive. Oropharynx appears clear. Neck: Supple. Chest: Clear to auscultation and percussion. Cardiac: Regular rate and rhythm. Abdomen: Soft with positive bowel sounds. Extremities: Without edema. LABORATORY DATA: White blood count 7.58, hemoglobin 9.9, platelet count 191,000. Sodium 142, potassium 3.9, chloride 103, bicarbonate 26, BUN 11, creatinine 0.6. IMPRESSION: A 48-year-old with: 1. Encephalopathy/persistent vegetative state, likely due to anoxic brain injury or hypoglycemic- induced brain injury. 2. Pneumonia. 3. Hypoxemic respiratory failure. 4. Active hepatitis C. PLAN: 1. Continue tube feeds. 2. Continue bronchial hygiene. 3. Discontinue antibiotics. She has completed a full course. She will remain at risk for recurrent pneumonia due to aspiration. No additional recommendations. Please call with additional questions. cc: Roosevelt Linares MD
[2018-10-08] MEDS: SODIUM CHLORIDE 0.9% INJ SCH (10:41)
[2018-10-08 12:28] VITALS: BP 107/76
--- NOTE | 2018-10-08 15:24 | PROGRESS NOTE ---
DATE: 10/08/2018 INTERVAL HISTORY: Patient remains awake but encephalopathic. All movement seems to be largely random. Remains nonverbal. Does appear slightly less agitated with medication adjustments yesterday. No acute events overnight. REVIEW OF SYSTEMS: Unable to obtain secondary to patient's mental status. VITAL SIGNS: T-max 99.1 degrees, pulse 104, respirations 15, blood pressure 107/76, O2 saturation 95% on room air. PHYSICAL EXAMINATION: General: No acute distress. Vital Signs: As above. HEENT: Normocephalic atraumatic. Poor dentition. Moist mucous membranes. No cervical adenopathy. Cardiovascular: Regular rate and rhythm. No murmurs noted. Pulmonary: Clear to auscultation bilaterally. Abdomen: Soft, nontender, nondistended. PEG tube in place. Bowel sounds present. Extremities: Peripheral pulses intact. No clubbing or cyanosis. Neurologic: Nonpurposeful movement of all extremities. Pupils equal, round, reactive to light. Eyes open and appears to have full eye movement. Psychiatric: Patient remains nonverbal, noncooperative. Does not appear to be aware of her surroundings very much. ASSESSMENT AND PLAN: 1. Sepsis secondary to pneumonia. Leukocytosis resolved, essentially off oxygen. Has finished a course of antibiotics. 2. Hypotension, resolved. 3. Acute kidney injury, resolved. 4. Demand ischemia/type 2 myocardial infarction, resolved. 5. Chronic encephalopathy, anoxic and/or hypoglycemic brain injury. This occurred on previous admission. Patient has remained arousable but not at all alert. Nonverbal and noncooperative since then. Prognosis likely poor. 6. Chronic hepatitis C, stable. 7. Gastroesophageal reflux disease. Continue proton pump inhibitor. 8. Hypertension, reasonable control. Monitor. 9. Agitation. Patient has had intermittent agitation. No verbalization as above, but does intermittently appear at least uncomfortable. Adjusted scheduled benzodiazepine and opiate dose. Does appear slightly calmer today. Continue to monitor and may need further adjustment. DISPOSITION: Anticipate transfer to facility when arrangements are made.
--- NOTE | 2018-10-08 16:01 | DISCHARGE SUMMARY ---
ADMISSION DATE: 09/29/2018 DISCHARGE DATE: 10/08/2018 ADMITTING DIAGNOSIS: 1. Left lower lobe pneumonia due to aspiration with acute respiratory failure. 2. Acute kidney injury. 3. Chronic liver dysfunction with hepatitis C. 4. Global encephalopathy. 5. Hypotension. 6. Troponinemia. DISCHARGE DIAGNOSIS: 1. Global encephalopathy with persistent vegetative state. 2. Active hepatitis C. 3. Pneumonia due to aspiration. 4. Hypoxemic respiratory failure, resolved. 5. Demand ischemia/type 2 myocardial infarction which is improved. 6. Hypertension. 7. Gastroesophageal reflux disease. 8. Hypernatremia, resolved. PROCEDURES AND FINDINGS: Chest x-ray done on 09/29/2018 showed left lower lobe pneumonia. Chest x-ray on 10/04/2018 shows no infiltrates and no effusions. CONSULTANTS: Dr. Roosevelt Linares. HOSPITAL COURSE: Ms Dominguez is a 48-year-old female with a history of hypertension, GERD, and multiple recreational prescription drug abuse who was admitted on 09/29/2018 for decreased O2 saturation. The patient has a history of apparently overdosing on Xanax and was brought in to the hospital for altered mental status with anoxic brain injury. The patient was discharged home with PEG tube and tube feedings and was globally encephalopathic in a vegetative state. She was being treated with antibiotics at [facility] rehab for pneumonia but the patient did develop a fever of 102.2 and decreased oxygen saturation. She was brought back in today from [facility] with decreased O2 saturations in the lower 80s and she was febrile. She was mechanically ventilated in the ER on admission and was noted to have left lower lobe pneumonia. She was treated for aspiration pneumonia and acute respiratory failure. She also had acute kidney injury with a creatinine of 1.5. She was admitted to the ICU. Dr. Linares was consulted. The patient did have some hypotension related to septic shock, was treated with IV fluids and vasopressors. The patient did have elevated troponins on admission, which was found to be demand ischemia/type 2 myocardial infarction. The troponins have improved. The patient is also noted have chronic hepatitis C. She also had hypernatremia on admission. Labs have continued to improve. Creatinine is now 0.6 and sodium level is now 142. Antibiotics were stopped after the full course of antibiotics was give. The patient is being discharged back to [facility] today. She continues to be globally encephalopathic in a vegetative state. DISCHARGE LAB DATA: Sodium 142, potassium 3.9, chloride 103, carbon dioxide 26, BUN is 11, creatinine 0.6, GFR is greater than 60, glucose is 118, calcium is 9.2. White blood cell count is 7.58, hemoglobin is 9.9, hematocrit is 29.9, platelet count is 191,000. Chest x-ray on 10/04/2018 was negative. Blood cultures were negative x2. Sputum culture did show some mucus and some white blood cells but all otherwise negative. DISCHARGE MEDICATIONS: Albuterol ProAir 2 puffs q.4-6 hours p.r.n., morphine liquid 10 mg per PEG tube q.4 hours, albuterol and Atrovent duo nebs q.2 hours p.r.n., baclofen 20 mg per PEG tube t.i.d., Prilosec 40 mg per PEG tube b.i.d., morphine liquid 10 mg per PEG tube q.2 hours p.r.n., Xanax 0.5 mg per PEG tube b.i.d. p.r.n. DISCHARGE DIET: Resume tube feedings per rehab facility. Patient does have a high risk factor for aspiration. DISCHARGE ACTIVITY: The patient will resume activity per rehab facility. The patient subsequently has global encephalopathy and is unable to follow commands, unable to transport self and requires complete assistance. DISPOSITION AND DISCHARGE INSTRUCTIONS: The patient is to discharge to [facility] rehab facility today. Will resume all activity per rehab facility. The patient is to follow up with Dr. Talat Garcia at rehab facility as needed. Dictated by COLIN Nicholson for Noah Hung MD cc: Talat Garcia MD [facility]
== END 2018-10-08 19:00 | DRG 871 ==
LOC: SUPCPDRO → ED 16:37 → ICU 20:18 → SUATTDRO 20:18 → 3N 10-05 10:08
PROVIDERS: ATTEND Internal Medicine
CPT/HCPCS: 31500; 51702; 71010; 71045; 80048; 80053; 80069; 81001; 82550; 82553; 82805; 82948; 83605; 83735; 84443; 84484; 85025; 85610; 85730; 87040; 87070; 87205; 93005; 94003; 94640; 94761; 94762; 96361; 96374; 96375; 96376; 99285; 99291; A9270; J0131; J0330; J1170; J1650; J2020; J2060; J2270; J2543; J3480; J7030; J7050; S0028; XXXXX

== ENCOUNTER 2018-10-18 09:25 | Inpatient (IN) ==
[2018-10-18] MEDS ORDERED: NS 1,000 ML ONE (10:31)
--- NOTE | 2018-10-18 10:36 | Diag Imaging Result Doc PS360 ---
CHEST-1 VIEW - 10/18/2018 INDICATION: GURGLING BREATHING SOUNDS COMPARISON: 10/04/2018 FINDINGS: There is substantial left perihilar and lower lobe alveolar infiltrate. Lung volumes remain severely low. The right lung is clear. Heart size is normal. IMPRESSION: Left-sided infiltrates concerning for pneumonia or aspiration. Electronically signed by Rafal Allison 10/18/2018 10:34 AM
[2018-10-18] MEDS ORDERED: NARCAN IV ONE (10:37)
[2018-10-18 10:41] LABS: BASO# 0.02 X1000 (0.0-0.2); BASO% 0.1 % (0.0-0.8); EOS# 0.11 X1000 (0.0-0.7); EOS% 0.6 % (0.0-10.0); HEMATOCRIT 36.1 % (37.0-47.0); HEMOGLOBIN 11.3 g/dL (12.0-16.0); IMM GRAN# 0.03 X1000 (0.0-0.04); IMM GRAN% 0.2 % (0.0-0.5); LYMPH# 1.95 X1000 (1.2-3.4); LYMPH% 11.4 % (20.5-51.1); MCHC 31.3 g/dL (33-37); MCV 95.8 FL (81-99); MONO# 1.57 X1000 (0.11-0.59); MONO% 9.1 % (1.7-9.3); NEUT# 13.48 X1000 (1.4-6.5); NEUT% 78.6 % (42.2-75.2); PLT 356 X1000 (130-400); RBC 3.77 XMIL (4.2-5.4); RDW 13.9 % (11.5-14.5); WBC 17.16 X1000 (4.8-10.8)
[2018-10-18] MEDS ORDERED: LEVOPHED 8 MG in D5 1/2 NS 250 ML IV SCH (10:45)
[2018-10-18] MEDS ORDERED: NS 250 ML IV ONE (10:45)
[2018-10-18] MEDS ORDERED: NS 1,000 ML IV ONE (10:57)
[2018-10-18] MEDS ORDERED: NS 750 ML IV ONE (11:01)
[2018-10-18 11:02] LABS: INR 1.05; PROTIME 14.6 Seconds (11.0-16.0)
[2018-10-18 11:02] LABS: URINE SOURCE CATH
[2018-10-18 11:03] LABS: PTT 27.1 Seconds (22.3-41.8)
[2018-10-18 11:06] LABS: UR EPITHELIAL CELLS <10 /HPF (<10); URINE BACTERIA NEGATIVE /HPF; URINE RBC <10 /HPF (<10); URINE WBC <10 /HPF (<10)
[2018-10-18 11:10] LABS: BILIRUBIN URINE SMALL (NEGATIVE); BLOOD URINE NEGATIVE (NEGATIVE); COLOR YELLOW; GLUCOSE URINE NEGATIVE (NEGATIVE); KETONE URINE NEGATIVE (NEGATIVE); LEUKOCYTES URINE NEGATIVE (NEGATIVE); NITRITE URINE NEGATIVE (NEGATIVE); PROTEIN URINE 30 mg/dL (NEGATIVE); TURBIDITY URINE CLEAR (CLEAR); UROBILINOGEN URINE 12 mg/dL (NORMAL)
[2018-10-18 11:11] LABS: ALB/GLOB RATIO 0.9; ALBUMIN 3.2 g/dL (3.5-5.0); CALCIUM 9.3 mg/dL (8.8-10.2); CREATININE 3.1 mg/dL (0.5-0.9); POTASSIUM 4.8 mmol/L (3.5-5.1); TOTAL BILIRUBIN 0.76 mg/dL (0.20-1.00); TOTAL PROTEIN 6.9 g/dL (6.3-8.3)
[2018-10-18 11:18] LABS: ALLEN TEST NO; BE 3.5 mmoll (-3.0-3.0); BLOOD TYPE ARTERIAL; HCO3-(ACT) 27.5 mmoll (20.0-26.0); METHB 1.3 % (0.0-1.5); O2(CT) 13.8 mL/dL (15.0-23.0); O2HB 91.2 % (95.0-99.0); PCO2(98.6) 40 mmHg (35-45); PO2(98.6) 63 mmHg (60-100); SAMPLE BLOOD; SAO2 94.2 % (95.0-100.0); THB 10.7 g/dL (11.5-17.4); pH(98.6) 7.45 (7.35-7.45)
[2018-10-18 11:19] LABS: MODALITY NRB
[2018-10-18 11:27] LABS: CK INDEX 0.9 (0.0-2.5); CK-MB 11.72 ng/mL (0.0-5.0)
[2018-10-18] MEDS ORDERED: LOVENOX 1 MG/KG SUBQ ONE (11:35)
[2018-10-18] MEDS ORDERED: LOVENOX SUBQ ONE (11:55)
[2018-10-18] MEDS ORDERED: NS 1,000 ML IV SCH (12:00)
[2018-10-18] MEDS ORDERED: VANCOMYCIN IV PER PHARMACY MISC SCH (12:00)
[2018-10-18] MEDS ORDERED: MAXIPIME 1 GM in NS 50 ML IV SCH (12:30)
[2018-10-18] MEDS ORDERED: TYLENOL PR PRN (12:45)
--- NOTE | 2018-10-18 13:10 | PROVIDER DOCUMENTATION ---
This chart was entered by Mariela Panchal Scribe, acting as scribe for Cely Silverman MD. HPI-Neurological Disorder - General Chief Complaint: Unresponsive Stated Complaint: UNRESPONSIVE Time Seen by Provider: 10/18/18 09:56 Source: RN/ Allergies/Adverse Reactions: Patient Allergies Allergy/AdvReac Type Severity Reaction Status Date / Time aspirin AdvReac Intermediate reaction Verified 10/18/18 11:29 with stomach ulcers Home Medications: Home Medication List Medication Instructions Recorded Confirmed Last Taken Type Albuterol Sulfate [Proair Hfa] 2 puff INH Q4-6H PRN PRN 06/23/16 10/18/18 07/18/18 History Albuterol 2.5MG/Ipratrop 0.5MG 3 ml INH Q2H PRN PRN #120 neb 06/24/16 10/18/18 Unknown Rx [Duoneb (A & A)] Baclofen [Lioresal] 20 mg PEG 0900,1500,2100 #30 tab 09/20/18 10/18/18 Unknown Rx Omeprazole [Prilosec] 40 mg GT BID@0700,2100 cap 09/20/18 10/18/18 Unknown Rx Alprazolam [Xanax] 0.5 mg PEG BID PRN PRN #60 tab 10/08/18 10/18/18 Unknown Rx Morphine Liquid [Roxanol Conc. 10 mg PEG Q2H PRN PRN #1 oral.syrin 10/08/18 10/18/18 Unknown Rx Liquid] Morphine Liquid [Roxanol Conc. 10 mg PEG Q4HR #10 oral.syrin 10/08/18 10/18/18 Unknown Rx Liquid] Benztropine Mesylate 1 tab PO Q6HR 10/18/18 10/18/18 Unknown History Risperidone 1 tab PO BID 10/18/18 10/18/18 Unknown History - History of Present Illness-Neuro Nature of Presenting Problem: Patient is a 48 year old female who presents to the ED via EMS with altered mental status. RN states patient was found unresponsive by [facility] staff this morning. RN states patient had Ativan and Morphine this morning. Severity: reports: moderate Onset/Duration: reports: this morning Timing: reports: still present Context: reports: found unresponsive by [facility] staff Character of Altered Mental Status: reports: unresponsive Similar Symptoms Previously?: No Recently seen or treated by another doctor?: Yes Review of Systems - Adult - REVIEW OF SYSTEMS - ADULT ROS:: unobtainable per condition Constitutional: reports: no symptoms reported Eyes: reports: no symptoms reported Ears, Nose, Mouth & Throat: reports: no symptoms reported Cardiovascular: reports: no symptoms reported Respiratory: reports: no symptoms reported Gastrointestinal: reports: no symptoms reported Genitourinary: reports: no symptoms reported Musculoskeletal: reports: no symptoms reported Integumentary: reports: no symptoms reported Neurological: reports: no symptoms reported Psychiatric: reports: no symptoms reported Endocrine: reports: no symptoms reported Hematologic/Lymphatic: reports: no symptoms reported Allergic/Immunologic: reports: no symptoms reported All Other Systems: Reviewed and Negative Past History - Adult - PAST MEDICAL HISTORY-ADULT Review of Records: reports: Old Records Reviewed, Nursing Assessment Review, Medications Reviewed, Social history reviewed & non-contributory. Major Childhood Illnesses: reports: denies history Cardiovascular: reports: HTN Respiratory: reports: asthma, COPD Gastrointestinal: reports: GERD Obstetrical/Gynecological: reports: denies history Genitourinary: reports: denies history Musculoskeletal: reports: chronic pain (back ) Neurological: reports: Seizures/Epilepsy (seizures ) Endocrine/Immune: reports: denies history Other Conditions: reports: denies history - PRIOR SURGERIES/PROCEDURES Surgical/Procedure History: reports: reviewed, not pertinent - IMMUNIZATION STATUS Childhood Immunizations: See Nurse Assessment Flu Vaccine: See Nurse Assessment - FAMILY HISTORY Family History: reviewed, not pertinent - SOCIAL HISTORY Smoking: cigarettes (former) Living Situation: care facility (SNF) Physical Exam- Neurological - Physical Exam-Neuro Initial Vital Signs Reviewed: Yes General Appearance: other (unresponsive) HENMT: normocephalic/atraumatic, other (dry mucous membranes). negative: angioedema Head Injury: no evidence of injury. negative: active bleeding, lacerations Respiratory: chest non-tender, crackles (bilateral), rhonchi (bilateral). negative: respiratory distress Cardiovascular: normal peripheral pulses, tachycardia. negative: systolic murmur Abdominal Exam: normal bowel sounds, non tender, soft, distended, other (feeding tube to LUQ). negative: rigid Extremity: normal inspection. 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 negative: cyanosis, erythema, rash Psych/Mental Status: other (unresponsive) Progress - PLAN OF CARE/RESULTS Progress/Plan/Lab Results: Vital Signs - 8 hr 10/18/18 09:30 10/18/18 10:26 10/18/18 10:28 Temperature 98.1 F Pulse Rate 105 H 109 H 109 H Respiratory Rate 12 Blood Pressure 95/65 71/45 O2 Sat by Pulse Oximetry 96 93 L 93 L 10/18/18 10:31 10/18/18 10:36 10/18/18 10:39 Temperature Pulse Rate 112 H 111 H 117 H Respiratory Rate Blood Pressure 81/53 63/44 98/63 O2 Sat by Pulse Oximetry 93 L 91 L 87 L 10/18/18 10:41 10/18/18 10:46 10/18/18 10:51 Temperature Pulse Rate 112 H 110 H 110 H Respiratory Rate Blood Pressure 105/63 97/65 88/70 O2 Sat by Pulse Oximetry 97 99 91 L 10/18/18 11:10 Temperature Pulse Rate Respiratory Rate Blood Pressure O2 Sat by Pulse Oximetry 91 L Laboratory Results - last 24 hr 10/18/18 10/18/18 10/18/18 10:00 10:00 10:00 WBC 17.16 H RBC 3.77 L Hgb 11.3 L Hct 36.1 L MCV 95.8 MCH 30.0 MCHC 31.3 L RDW Std Deviation 13.9 Plt Count 356 MPV 12.0 H Immature Gran % (Auto) 0.2 Neut % (Auto) 78.6 H Lymph % (Auto) 11.4 L [place] % (Auto) 9.1 Eos % (Auto) 0.6 Baso % (Auto) 0.1 Immature Gran # (Auto) 0.03 Neut # (Auto) 13.48 H Lymph # (Auto) 1.95 [place] # (Auto) 1.57 H Eos # (Auto) 0.11 Baso # (Auto) 0.02 PT INR PTT (Actin FS) Specimen Type Sample Site pH pCO2 pO2 HCO3 Base Excess Oxyhemoglobin ABG O2 Sat (Calculated) ABG O2 Saturation ABG Carboxyhemoglobin ABG Methemoglobin Wal[place] Test A-a O2 Difference Total Hemoglobin Lactate Liter Flow Blood Gas Modality FiO2 % Sodium 141 Potassium 4.8 Chloride 98 Carbon Dioxide 28 Anion Gap 15 BUN 51 H Creatinine 3.1 H Estimated GFR/1.73 m2 16 BUN/Creatinine Ratio 16 Glucose 127 H POC Glucose Calculated Osmolality 297 Calcium 9.3 Total Bilirubin 0.76 AST 57 H ALT 34 Alkaline Phosphatase 167 H Creatine Kinase 1310 H Creatine Kinase Index 0.9 CK-MB (CK-2) 11.72 H Troponin T Total Protein 6.9 Albumin 3.2 L Globulin 3.7 Albumin/Globulin Ratio 0.9 Plasma Lactate 2.3 H Urine Source Urine Color Urine Turbidity Urine pH Ur Specific [place] Urine Protein Ur Glucose (Stick) Ur Ketones (Stick) Urine Blood Urine Nitrite Urine Bilirubin Urobilinogen Dipstick Urine Leukocytes Urine WBC (Auto) Urine RBC (Auto) U Epithel Cells (Auto) Urine Bacteria (Auto) 10/18/18 10/18/18 10/18/18 10:00 10:00 10:39 WBC RBC Hgb Hct MCV MCH MCHC RDW Std Deviation Plt Count MPV Immature Gran % (Auto) Neut % (Auto) Lymph % (Auto) [place] % (Auto) Eos % (Auto) Baso % (Auto) Immature Gran # (Auto) Neut # (Auto) Lymph # (Auto) [place] # (Auto) Eos # (Auto) Baso # (Auto) PT 14.6 INR 1.05 PTT (Actin FS) 27.1 Specimen Type Sample Site pH pCO2 pO2 HCO3 Base Excess Oxyhemoglobin ABG O2 Sat (Calculated) ABG O2 Saturation ABG Carboxyhemoglobin ABG Methemoglobin [place] Test A-a O2 Difference Total Hemoglobin Lactate Liter Flow Blood Gas Modality FiO2 % Sodium Potassium Chloride Carbon Dioxide Anion Gap BUN Creatinine Estimated GFR/1.73 m2 BUN/Creatinine Ratio Glucose POC Glucose 151 H Calculated Osmolality Calcium Total Bilirubin AST ALT Alkaline Phosphatase Creatine Kinase Creatine Kinase Index CK-MB (CK-2) Troponin T 0.445 H* Total Protein Albumin Globulin Albumin/Globulin Ratio Plasma Lactate Urine Source Urine Color Urine Turbidity Urine pH Ur Specific [place] Urine Protein Ur Glucose (Stick) Ur Ketones (Stick) Urine Blood Urine Nitrite Urine Bilirubin Urobilinogen Dipstick Urine Leukocytes Urine WBC (Auto) Urine RBC (Auto) U Epithel Cells (Auto) Urine Bacteria (Auto) 10/18/18 10/18/18 10:53 11:08 WBC RBC Hgb Hct MCV MCH MCHC RDW Std Deviation Plt Count MPV Immature Gran % (Auto) Neut % (Auto) Lymph % (Auto) [place] % (Auto) Eos % (Auto) Baso % (Auto) Immature Gran # (Auto) Neut # (Auto) Lymph # (Auto) [place] # (Auto) Eos # (Auto) Baso # (Auto) PT INR PTT (Actin FS) Specimen Type ARTERIAL Sample Site L BRACHIAL pH 7.45 pCO2 40 pO2 63 HCO3 27.5 H Base Excess 3.5 H Oxyhemoglobin 91.2 L ABG O2 Sat (Calculated) 13.8 L ABG O2 Saturation 94.2 L ABG Carboxyhemoglobin 2.00 ABG Methemoglobin 1.3 Wal[place] Test NO A-a O2 Difference 600.0 Total Hemoglobin 10.7 L Lactate 1.70 Liter Flow 15.0 Blood Gas Modality NRB FiO2 % 100.0 Sodium Potassium Chloride Carbon Dioxide Anion Gap BUN Creatinine Estimated GFR/1.73 m2 BUN/Creatinine Ratio Glucose POC Glucose Calculated Osmolality Calcium Total Bilirubin AST ALT Alkaline Phosphatase Creatine Kinase Creatine Kinase Index CK-MB (CK-2) Troponin T Total Protein Albumin Globulin Albumin/Globulin Ratio Plasma Lactate Urine Source CATH Urine Color YELLOW Urine Turbidity CLEAR Urine pH 8.0 Ur Specific [place] 1.020 Urine Protein 30 A Ur Glucose (Stick) NEGATIVE Ur Ketones (Stick) NEGATIVE Urine Blood NEGATIVE Urine Nitrite NEGATIVE Urine Bilirubin SMALL A Urobilinogen Dipstick 12 A Urine Leukocytes NEGATIVE Urine WBC (Auto) <10 Urine RBC (Auto) <10 U Epithel Cells (Auto) <10 Urine Bacteria (Auto) NEGATIVE Orders Category Date Time Status Admit - [facility] Routine AdmDCTranf 10/18/18 11:55 Active Activity - Strict Bedrest ORDERED Care 10/18/18 11:55 Active Cardiac Monitoring DIRECTED Care 10/18/18 10:18 Completed Code [Resuscitation Status] Routine Care 10/18/18 11:51 Ordered Elevate Head of Bed DIRECTED Care 10/18/18 11:55 Active [place] [facility] Insertion ORDERED Care 10/18/18 10:58 Active IV Insertion ORDERED Care 10/18/18 10:18 Completed Notify MD of + Sepsis Screen NOW Care 10/18/18 10:18 Completed Notify Physician As Ordered Care 10/18/18 10:18 Active Nursing- Assist w/ IS as order ORDERED Care 10/18/18 11:55 Active Palliative Care Consult [OM.CSS] Routine Cons 10/18/18 10:23 Active CHEST-1 VIEW [RAD] Stat Exams 10/18/18 10:18 Completed ABG [RESP] Routine Lab 10/18/18 11:08 Completed BLOOD CULTURE [BLDCUL] Stat Lab 10/18/18 10:19 Results CBC WITH DIFF [HEME] Stat Lab 10/18/18 10:00 Completed CK PROFILE [SP CHEM] Stat Lab 10/18/18 10:00 Completed COMPREHENSIVE METABOLIC PANEL [CHEM] Stat Lab 10/18/18 10:00 Completed LACTATE, PLASMA [CHEM] Q3H Lab 10/18/18 10:00 Completed PROTIME WITH INR [COAG] Stat Lab 10/18/18 10:00 Completed PTT [COAG] Stat Lab 10/18/18 10:00 Completed TROPONIN T Stat Lab 10/18/18 10:00 Completed URINALYSIS W/POSS RFLX CULT [URINALYSIS] Stat Lab 10/18/18 10:53 Completed 0.9% Sodium Chloride Inj [Ns] 1,000 ml Med 10/18/18 10:31 Discontinued .ROUTE As directed 0.9% Sodium Chloride Inj [Ns] 1,000 ml Med 10/18/18 12:00 Discontinued IV 125 mls/hr 0.9% Sodium Chloride Inj [Ns] 1,000 ml Med 10/18/18 10:57 Discontinued IV 999 mls/hr 0.9% Sodium Chloride Inj [Ns] 250 ml Med 10/18/18 10:45 Discontinued IV 999 mls/hr 0.9% Sodium Chloride Inj [Ns] 750 ml Med 10/18/18 11:01 Discontinued IV 999 mls/hr CefEPIME [Maxipime] 1 gm Med 10/18/18 12:30 Discontinued 0.9% Sodium Chloride Inj [Ns] 50 ml IV Q12H Dextrose 5%-0.45% NaCl Inj [D5 1/2 Ns] 250 ml Med 10/18/18 10:45 Discontinued Norepinephrine [Levophed] 8 mg IV As Directed mls/hr Enoxaparin 1 mg/kg [Lovenox 1 mg/kg] Med 10/18/18 11:35 Discontinued 1 each SUBQ NOW ONE Enoxaparin [Lovenox] Med 10/18/18 11:55 Discontinued 60 mg SUBQ ONCE ONE Naloxone [Narcan] Med 10/18/18 10:37 Discontinued 2 mg IV NOW ONE Pharmacy Order [Vancomycin IV Per Pharmacy] Med 10/18/18 12:00 Discontinued 1 each MISC DIRECTED Oxygen Device Stat Oth 10/18/18 10:18 Completed Transfer/Admit Order [TRANSFER] Routine Transfer 10/18/18 11:53 Completed Result Diagrams: 10/18/18 10:00 10/18/18 10:00 - REASSESSMENT Reassessment #1 Time Reassessed: 10:40 Status: other (patient received 2 mg of Narcan and became more responsive. FAMILY WANTED PATIENT DNR COMFORT MEASURE ONLY) - XRAY 1 XRAY Study: Chest Impression: See EMR Report ( CHEST-1 VIEW - 10/18/2018 INDICATION: GURGLING BREATHING SOUNDS COMPARISON: 10/04/2018 FINDINGS: There is substantial left perihilar and lower lobe alveolar infiltrate. Lung volumes remain severely low. The right lung is clear. Heart size is normal. IMPRESSION: Left-sided infiltrates concerning for pneumonia or aspiration. Electronically signed by Rafal Allison 10/18/2018 10:34 AM 10/18/18 1034 Interpreting Physician: Rafal Allison MD Dictated Date/Time: 10/18/18 1034 cc: Cely Silverman MD; Talat Garcia MD) - CONSULTS/PCP/HOSPITALIST Notification #1 *Consult/PCP/Hospitalist*: COLIN Brink for Hospitalist Time Discussed: 11:36 Reason/Comments: Dr. Silverman consulted with Keena about patient. Consult Disposition: Will see in ED, Admit, other (order EKG and consult with Cardiology.) Departure - Departure Date of Disposition Decision: 10/18/18 Time of Disposition Decision: 11:37 DIAGNOSIS: Altered mental status, Elevated troponin Disposition: ADMITTED INPATIENT 09 Certified Medical Emergency: Emergent Condition: Fair - Critical Care Note This patient required my direct & personal management of CC.: Yes Attestation - Physician/ SARAH Attestation Patient care was provided by Advanced Practice Provider:: No The physician spent face to face time with patient:: Yes Advanced Practice Provider documentation review:: Supervising physician onsite and consulted in the evaluation and care of this patient. The physician did have a face to face encounter with the patient. This chart was documented by the indicated scribe, (Mariela Panchal Scribe) and accurately reflects the services I performed and decisions made by me, Cely Silverman MD, as attested by the provider's signature.
[2018-10-18] MEDS: ATROPINE 1 % OPHTH SOLN SL PRN ×2 (14:36→22:05)
--- NOTE | 2018-10-18 15:58 | HISTORY AND PHYSICAL ---
PRIMARY CARE PROVIDER: None. CHIEF COMPLAINT: [facility] from [facility]. 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 PEG tube was placed, and she was sent to [facility]. She came back to the ED today for unresponsiveness, was found to have pneumonia, was hypotensive, qualified for sepsis protocol; however, family members came in and made her DNR level 1 and comfort measures only and will take her home with hospice. They have already been seen by Sally with Palliative Care. That is being set up as we speak. We will resume her to the regular floor on comfort measures and hospice, DNR level 1. REVIEW OF SYSTEMS: Unable to obtain secondary to patient's vegetative state. DISCHARGE DIAGNOSES: 1. Global encephalopathy related anoxic brain injury from drug overdose. 2. Polypharmacy abuse. 3. Hypertension. 4. Gastroesophageal reflux disease. 5. Back pain. 6. Active hepatitis C. PREVIOUS SURGICAL HISTORY: PEG tube placement. ALLERGIES: Aspirin. HOME MEDICATIONS: Have not been verified. SOCIAL HISTORY: She currently resides at [facility]. Family has now come in and made her a DNR level 1, comfort measures only and wants to take her home on hospice. Has mother and sister at bedside. FAMILY HISTORY: Reviewed and noncontributory. PHYSICAL EXAMINATION: VITAL SIGNS: Temperature 97.4 degrees axillary, heart rate 97, respirations 15, blood pressure 85/74, O2 is 90% on non-rebreather. GENERAL: Ms. Dominguez is an unfortunate 48-year-old female, lying on the bed in her room with her mom and sister. Appears to be comfortable at this time. HEENT: Atraumatic, normocephalic. Pupils are round, pinpoint. CARDIOVASCULAR: S1, S2 appreciated, no murmurs, gallops, rubs noted. RESPIRATORY: Lung sounds with scattered rhonchi throughout all lung cochran bilaterally. GASTROINTESTINAL: Soft. Appeared to be nontender. Nondistended. Positive bowel sounds 4 quadrants. EXTREMITIES: Negative for edema. Bilateral pedal pulses were palpable. NEUROLOGIC: Unable to assess. The patient is in a vegetative state secondary to anoxic brain injury from drug overdose. DIAGNOSTIC DATA: Chest x-ray: A left-sided infiltrate concerning for pneumonia or aspiration. White count 17, hemoglobin 11, hemoglobin 36, platelet count is 356,000. Chemistry: Sodium 141, potassium 4.8, BUN 51, creatinine 3.1, blood glucose is 127. Troponin 0.445. Plasma lactate was 2.3. Urinalysis was negative for bacteria, negative for nitrates. ASSESSMENT AND PLAN: 1. Initially sepsis secondary to pneumonia. The patient was hypotensive. Positive lactate. She was initially started on a Levophed drip, was going to be admitted to the ICU, placed on broad- spectrum antibiotics. However, the family came in and wished to withdraw care, make her comfort measures, and take her home with hospice. She is known resident of [facility], but they would now like to take her home. They have talked with Sally with Palliative Care. That is currently being set up, and arrangements are being made for her to be taken home over the weekend. 2. Known global encephalopathy in a vegetative state secondary to anoxic brain injury from a drug overdose. Aware. 3. Acute kidney injury. Aware. 4. Elevated troponins. Aware. Further recommendations to follow physician evaluation and laboratory and diagnostic data. Dictated by COLIN Santos for Minesh Kramer MD Addendum: Patient seen and examined by myself. Agree with COLIN note. It reflects my assessment and plan. Patient is being admitted to hospital for sepsis secondary to pneumonia. Palliative care service talked with family and they agreed to go back home with hospice but they need some days to get everything arranged at home to take patient back. Will continue to monitor patient closely. cc: Minesh Kramer MD [facility]
[2018-10-18] MEDS: ATIVAN IV PRN ×2 (22:02→23:37)
[2018-10-18] MEDS: MORPHINE IV PRN (23:36)
[2018-10-19] MEDS: ATIVAN IV PRN ×7 (05:16→22:45)
[2018-10-19] MEDS: MORPHINE IV PRN ×6 (05:16→22:45)
--- NOTE | 2018-10-19 11:07 | PROGRESS NOTE ---
DATE: 10/19/2018 SUBJECTIVE: The patient is nonverbal but resting in bed apparently in pain. OBJECTIVE: Vital Signs: Temperature 101.1 degrees, heart rate 137, respiratory rate 24, blood pressure 110/74, O2 saturation 92% on non-rebreather mask. General: This is a 48-year-old, chronically ill-appearing, frail female lying in bed, in no acute distress. Cardiovascular: S1, S2 heard. Tachycardic. No murmurs, gallops, or rubs. Respiratory: Coarse breath sounds noted in all pulmonary cochran. Patient not using any accessory muscles or having work of breathing. Abdomen: Soft, apparently nontender. Neurological: Unable to assess patient's vegetative state secondary to anoxic brain injury from drug overdose. ASSESSMENT: 1. Sepsis secondary to pneumonia. 2. Global encephalopathy. 3. Acute kidney injury. 4. Elevated troponin. PLAN: Patient is on comfort care measures only. We are going to adjust the dose of morphine and Ativan considering that this patient is not feeling well right now. Will add Ofirmev 1 g IV q.6 hours because this patient has recurrent fever. We will continue to monitor this patient closely. Hospice has been consulted. Also will follow recommendations. cc: Minesh Kramer MD
[2018-10-19] MEDS: OFIRMEV 1000 MG/ISOTONIC SOLN 1,000 MG/100 ML BOTTLE IV SCH ×4 (11:34→22:37)
[2018-10-19] MEDS: ATROPINE 1 % OPHTH SOLN SL PRN ×2 (11:48→17:49)
[2018-10-20] MEDS: MORPHINE IV PRN ×6 (03:27→21:01)
[2018-10-20] MEDS: ATIVAN IV PRN ×6 (03:30→22:22)
[2018-10-20] MEDS: OFIRMEV 1000 MG/ISOTONIC SOLN 1,000 MG/100 ML BOTTLE IV SCH ×2 (04:35→12:03)
[2018-10-20] MEDS: ATROPINE 1 % OPHTH SOLN SL PRN (14:20)
[2018-10-20] MEDS ORDERED: ASPIRIN PR PRN (14:56)
[2018-10-20] MEDS ORDERED: TRANSDERM-SCOP TD SCH (15:00)
--- NOTE | 2018-10-20 15:12 | PROGRESS NOTE ---
DATE: 10/20/2018 SUBJECTIVE: She is unresponsive, breathing heavily, has rhonchorous breath sounds. OBJECTIVE: Blood pressure is 74/51, heart rate of 130, respiratory rate of 16, temperature 98.4 degrees, 88% on nonrebreather. PROBLEM LIST: Sepsis, pneumonia, respiratory failure. She is stable currently. We will continue comfort measures and follow closely. We discussed measures with family. We are going to continue pain control as much as possible and will see how she does. She still does not seem adequately controlled as far as pain or agitation, but I do not think she qualified for hospice. cc: Chip Youssef MD
[2018-10-20] MEDS: OFIRMEV 1000 MG/ISOTONIC SOLN 1,000 MG/100 ML BOTTLE IV PRN (17:40)
[2018-10-21] MEDS: MORPHINE IV PRN ×2 (00:15→12:13)
[2018-10-21] MEDS: ATIVAN IV PRN ×3 (00:16→09:52)
[2018-10-21 12:06] VITALS: BP 86/29
[2018-10-21] MEDS: OFIRMEV 1000 MG/ISOTONIC SOLN 1,000 MG/100 ML BOTTLE IV PRN (12:13)
--- NOTE | 2018-10-21 19:35 | DISCHARGE SUMMARY ---
ADMISSION DATE: 10/18/2018 DISCHARGE DATE: 10/21/2018 DISCHARGE DIAGNOSES: 1. Sepsis pneumonia related to encephalopathy from an anoxic brain injury from a drug overdose. 2. Acute kidney injury. 3. Elevated troponin. HOSPITAL COURSE: The patient came in hypotensive. Lactate was positive. She was placed on a Levophed drip. Family discussed that they would pursue comfort care. She is in a vegetative state. Patient was converted to comfort care. She has steadily declined, febrile, tachycardic, hypotensive, and she at 18:05 on the . Family was at bedside. cc: Chip Youssef MD
== END 2018-10-21 18:05 | disposition expired | DRG 871 ==
LOC: EDBD → SUPCPDRO → ED 09:25 → SUATTDRO 12:02 → ICU 12:02 → 3N 12:54
PROVIDERS: ATTEND Internal Medicine
CPT/HCPCS: 51702; 71010; 71045; 80053; 81001; 82550; 82553; 82805; 82948; 83605; 84484; 85025; 85610; 85730; 87040; 87077; 87186; 93005; 94761; 94762; 96361; 96374; 99285; A9270; J0131; J2060; J2270; J7030; XXXXX